=== PATIENT | male | born 1955 | race Caucasian/White ===

== ENCOUNTER 2021-01-18 15:34 | Inpatient (IN) ==
[2021-01-18] MEDS ORDERED: PIPERACILL/TAZOBAC CONSULT ACTIVE PRN ×2 (16:06→23:24)
[2021-01-18] MEDS ORDERED: PIPERACILLIN/TAZOBACTAM 4.5 GM/120 ML BAG IV ONE (16:06)
--- NOTE | 2021-01-18 16:16 | Emergency Department Note ---
History of Present Illness General Chief complaint: Infection, Wound Stated complaint: BILATERAL LEG INFECTIONS Time Seen by Provider: 01/18/21 15:50 History of Present Illness Maximum Pain Intensity: 6 This patient is a 65-year-old male via BLS for evaluation of bilateral lower leg discomfort that has gotten progressively worse over the last month. The patient denies any injury. The pain is mildly throbbing in nature. He denies any fever. No paresthesias reported. No chest pain or shortness of breath. He has not taken anything [id number] for pain. The patient lives at home. Home Medications Medication Instructions Recorded Confirmed Type aspirin [Aspir-Low] 81 mg PO DAILY 01/18/21 01/18/21 History Allergies Allergy/AdvReac Type Severity Reaction Status Date / Time No Known Allergies Allergy Unverified 01/18/21 19:52 Past Med/Surg History Medical History Hx of myocardial infarction Hx of stroke without residual deficits No pertinent past medical history Social History Smoking Status: Current some day smoker Hx Alcohol Use: No Hx Substance Use: No Preferred Language: Persian Communication Ability: Unable Beliefs That Will Affect Care: None Current Living Situation: Alone Feels Safe at Home: Declines to Answer Assistive Devices: CPAP Review of Systems A total of 10 systems reviewed and were otherwise negative Physical Exam Vital Signs Vital Signs - 24 hr 01/18/21 15:45 01/18/21 16:37 01/18/21 16:43 Temperature 36.9 C Temperature Source Oral Pulse Rate 90 93 H Pulse Rate [Apical] 92 H Pulse Rate from SpO2 Sensor Respiratory Rate 18 15 21 Blood Pressure 88/51 L 83/56 L Blood Pressure [Left Arm] 105/76 Blood Pressure Mean 63 65 Blood Pressure Mean [Left Arm] 85 Pulse Oximetry 100 Oxygen Delivery Method Room Air Room Air Sepsis Recent Fever Within 48 Hours No Sepsis New/Unexplained Change in Mental Status No Sepsis Action Taken by Nursing No Action Required 01/18/21 17:00 01/18/21 18:00 01/18/21 18:30 Temperature Temperature Source Pulse Rate 90 99 H 98 H Pulse Rate [Apical] Pulse Rate from SpO2 Sensor 99 H 99 H Respiratory Rate 18 16 26 H Blood Pressure 114/74 97/70 L 109/70 Blood Pressure [Left Arm] Blood Pressure Mean 87 79 83 Blood Pressure Mean [Left Arm] Pulse Oximetry 95 97 Oxygen Delivery Method Room Air Room Air Sepsis Recent Fever Within 48 Hours Sepsis New/Unexplained Change in Mental Status Sepsis Action Taken by Nursing 01/18/21 19:00 01/18/21 19:01 01/18/21 19:30 Temperature Temperature Source Pulse Rate 97 H 96 H 95 H Pulse Rate [Apical] Pulse Rate from SpO2 Sensor 96 H 96 H 137 H Respiratory Rate 26 H 25 H 23 Blood Pressure 103/73 105/70 Blood Pressure [Left Arm] Blood Pressure Mean 83 81 Blood Pressure Mean [Left Arm] Pulse Oximetry 96 97 Oxygen Delivery Method Room Air Room Air Sepsis Recent Fever Within 48 Hours Sepsis New/Unexplained Change in Mental Status Sepsis Action Taken by Nursing 01/18/21 19:31 01/18/21 20:00 01/18/21 20:13 Temperature Temperature Source Pulse Rate 94 H Pulse Rate [Apical] 96 H Pulse Rate from SpO2 Sensor 138 H 110 H Respiratory Rate 24 17 Blood Pressure 101/49 L Blood Pressure [Left Arm] Blood Pressure Mean 66 Blood Pressure Mean [Left Arm] Pulse Oximetry 96 Oxygen Delivery Method Room Air Sepsis Recent Fever Within 48 Hours Sepsis New/Unexplained Change in Mental Status Sepsis Action Taken by Nursing 01/18/21 20:30 01/18/21 21:00 Temperature Temperature Source Pulse Rate 98 H 100 H Pulse Rate [Apical] Pulse Rate from SpO2 Sensor 99 H 100 H Respiratory Rate 15 13 Blood Pressure 89/53 L 98/62 L Blood Pressure [Left Arm] Blood Pressure Mean 65 74 Blood Pressure Mean [Left Arm] Pulse Oximetry 95 Oxygen Delivery Method Room Air Sepsis Recent Fever Within 48 Hours Sepsis New/Unexplained Change in Mental Status Sepsis Action Taken by Nursing Constitutional WD/WN, vitals as above Eyes EOM intact bilaterally ENMT external ear and nose normal, oropharynx normal Neck trachea midline Respiratory normal respiratory effort, lungs clear to auscultation Cardiovascular RRR, no murmur, no edema Gastrointestinal (Abdomen) normal bowel sounds, soft, nontender, no hepatosplenomegaly Musculoskeletal Significantly excoriated skin noted on the lower extremities distal to the knee bilaterally. Significant discharge noted from the areas bilaterally in addition to a foul odor. DP pulse +2 bilaterally Dorsiflexion and plantarflexion intact bilaterally. Skin no rashes, warm and dry Please see musculoskeletal Neurologic Alert and oriented x3. No focal motor deficits. Psychiatric Acting appropriately Course Course Patient was seen and examined Vital signs including blood pressure were reviewed medications list was verified with patient Labs were obtained, and a saline lock was established An order was placed for continuous cardiac monitoring. The monitor shows a rate of normal sinus with 80 rhythm. The patient was ordered fluids, antibiotics and imaging. The case was discussed with my supervising physician in addition to the hospitalist medicine team. The findings were discussed with the patient. He voiced understanding and was comfortable being evaluated by the hospitalist for possible inpatient management. He remained stable in the emergency department Consultations Consultation #1: Dr. Garcia Administered Medications Aspirin (Aspirin 81 Mg Ectab) 81 mg PO DAILY [facility] Stop: 02/18/21 08:59 Last Admin: 01/19/21 09:29 Dose: 81 mg Documented by: [id number] Heparin Sodium (Porcine) (Heparin Sod 5,000 Unit/0.5 Ml Vial) 5,000 units SQ Q12 JADE Stop: 02/17/21 20:59 Last Admin: 01/19/21 20:34 Dose: 5,000 units Documented by: [id number] Admin: 01/19/21 09:38 Dose: 5,000 units Documented by: [id number] Admin: 01/19/21 00:07 Dose: 5,000 units Documented by: [id number] Piperacillin Sod/Tazobactam (Sod 3.375 gm/ Dextrose) 115 mls @ 28.75 mls/hr IV Q8H JADE; Protocol Stop: 01/26/21 00:00 Last Infusion: 01/19/21 20:34 Dose: 0 mls/hr Documented by: [id number] Admin: 01/19/21 16:31 Dose: 28.8 mls/hr Documented by: [id number] Infusion: 01/19/21 13:37 Dose: 0 mls/hr Documented by: [id number] Admin: 01/19/21 09:30 Dose: 28.8 mls/hr Documented by: [id number] Infusion: 01/19/21 04:05 Dose: 0 mls/hr Documented by: [id number] Admin: 01/19/21 00:07 Dose: 28.8 mls/hr Documented by: [id number] Vancomycin HCl 1,250 mg/ (Sodium Chloride) 275 mls @ 200 mls/hr IV Q8H JADE; Protocol Stop: 01/26/21 05:59 Last Infusion: 01/19/21 22:07 Dose: 0 mls/hr Documented by: [id number] Admin: 01/19/21 20:34 Dose: 200 mls/hr Documented by: [id number] Infusion: 01/19/21 16:25 Dose: 0 mls/hr Documented by: [id number] Admin: 01/19/21 13:38 Dose: 200 mls/hr Documented by: [id number] Infusion: 01/19/21 08:07 Dose: 0 mls/hr Documented by: [id number] Admin: 01/19/21 05:43 Dose: 200 mls/hr Documented by: [id number] Lactated Ringer's (Lr) 1,000 mls @ 125 mls/hr IV .Q8H [facility] Stop: 01/20/21 16:59 Last Admin: 01/19/21 17:22 Dose: 125 mls/hr Documented by: [id number] Infusion: 01/19/21 17:22 Dose: 125 mls/hr Documented by: [id number] Admin: 01/19/21 09:38 Dose: 125 mls/hr Documented by: [id number] Miscellaneous (Remove Nicoderm Patch) 1 ea N/A DAILY@[id number] [facility] Stop: 02/18/21 10:58 Last Admin: 01/19/21 12:39 Dose: Not Given Documented by: [id number] Nicotine (Nicotine 21 Mg/24 Hr Tdsy) 21 mg TD QAM [facility] Stop: 02/18/21 10:59 Last Admin: 01/19/21 12:39 Dose: 21 mg Documented by: [id number] Discontinued Medications Piperacillin Sod/Tazobactam Sod (Zosyn) 4.5 gm in 120 mls @ 240 mls/hr IV NOW ONE Stop: 01/18/21 16:35 Last Infusion: 01/18/21 18:41 Dose: 0 mls/hr Documented by: [id number] Admin: 01/18/21 18:11 Dose: 240 mls/hr Documented by: [id number] Sodium Chloride (Nss 1000ml) 1,000 mls @ 999 mls/hr IV .Q1H1M ONE Stop: 01/18/21 17:48 Last Infusion: 01/18/21 18:15 Dose: 0 mls/hr Documented by: [id number] Admin: 01/18/21 17:13 Dose: 999 mls/hr Documented by: [id number] Vancomycin HCl 2,000 mg/ (Sodium Chloride) 540 mls @ 200 mls/hr IV NOW ONE Stop: 01/18/21 19:29 Last Infusion: 01/18/21 22:44 Dose: 0 mls/hr Documented by: [id number] Admin: 01/18/21 19:01 Dose: 200 mls/hr Documented by: [id number] Sodium Chloride (Nss 1000ml) 1,000 mls @ 999 mls/hr IV .Q1H1M ONE Stop: 01/18/21 19:15 Last Infusion: 01/18/21 17:01 Dose: 0 mls/hr Documented by: [id number] Admin: 01/18/21 16:00 Dose: 999 mls/hr Documented by: [id number] Influenza Virus Vaccine (Influenza Vaccine High Dose 65+ 0.7 Ml Syr) 0.7 ml IM .ONCE ONE Stop: 01/19/21 09:01 Last Admin: 01/19/21 09:30 Dose: Not Given Documented by: [id number] Ioversol (Optiray 320 125ml) 118 ml IV ONCE ONE Stop: 01/18/21 17:33 Last Admin: 01/18/21 17:32 Dose: 118 ml Documented by: [id number] Pneumococcal Polyvalent Vaccine (Pneumococcal Polysaccharides 25 Mcg/0.5 Ml Vial/Syr) 25 mcg IM .ONCE ONE Stop: 01/19/21 09:01 Last Admin: 01/19/21 09:31 Dose: Not Given Documented by: [id number] Medical Decision Making Medical Records Attestation: I reviewed the patient's medical records. Home Medications Current Medication List: was personally reviewed by me Laboratory Data Attestation: I reviewed the patient's lab results. Result diagrams: 01/19/21 06:03 01/19/21 06:03 Lab Results 01/18/21 01/18/21 01/18/21 Range/Units 15:50 15:50 15:50 WBC 9.92 (4.8-10.8) K/uL RBC 4.83 (4.7-6.1) M/uL Hgb 13.1 L (14.0-18.0) g/dL Hct 38.8 L (42-52) % MCV 80.3 (80-100) fL MCH 27.1 (25-34) pg MCHC 33.8 (32-36) g/dL RDW Std Deviation 44.7 (36.4-46.3) fL RDW Coeff of Aliyah 15.3 H (11.5-14.5) % Plt Count 375 (130-400) K/uL MPV 10.2 (7.4-10.4) fL Immature Gran % (Auto) 0.4 % Neut % (Auto) 74.0 % Lymph % (Auto) 15.1 % Vance % (Auto) 9.1 % Eos % (Auto) 1.1 % Baso % (Auto) 0.3 % Neut # (Auto) 7.34 H (1.4-6.5) K/uL Lymph # (Auto) 1.50 (1.2-3.4) K/uL Vance # (Auto) 0.90 H (0.11-0.59) K/uL Eos # (Auto) 0.11 (0-0.5) K/uL Baso # (Auto) 0.03 (0-0.2) K/uL Immature Gran # (Auto) 0.04 H (0.00-0.02) K/uL PT 11.9 (9.0-12.0) Seconds INR 1.2 H (0.9-1.1) Sodium 139 (136-145) mmol/L Potassium 4.7 (3.5-5.1) mmol/L Chloride 108 H (98-107) mmol/L Carbon Dioxide 28 (21-32) mmol/L Anion Gap 3.0 (3-11) BUN 18 (7-18) mg/dl Creatinine 0.67 (0.6-1.4) mg/dl Est Cr Clr Drug Dosing 109.9 ml/min Est GFR ( Amer) 116.9 Est GFR (Non-Af Amer) 100.8 BUN/Creatinine Ratio 27.0 H (10-20) Glucose 91 (70-99) mg/dl Lactate (0.4-2.0) mmol/L Calcium 8.9 (8.5-10.1) mg/dl Phosphorus 4.2 (2.5-4.9) mg/dl Magnesium 2.1 (1.8-2.4) mg/dl Total Bilirubin 0.7 (0.2-1) mg/dl AST 62 H (15-37) U/L ALT 24 (12-78) U/L Alkaline Phosphatase 113 (45-117) U/L Troponin I 0.095 H* (0-0.045) ng/ml Total Protein 6.9 (6.4-8.2) gm/dl Albumin 2.8 L (3.4-5.0) gm/dl Globulin 4.1 H (2.5-4.0) gm/dl Albumin/Globulin Ratio 0.7 L (0.9-2) 01/18/21 Range/Units 16:35 WBC (4.8-10.8) K/uL RBC (4.7-6.1) M/uL Hgb (14.0-18.0) g/dL Hct (42-52) % MCV (80-100) fL MCH (25-34) pg MCHC (32-36) g/dL RDW Std Deviation (36.4-46.3) fL RDW Coeff of Aliyah (11.5-14.5) % Plt Count (130-400) K/uL MPV (7.4-10.4) fL Immature Gran % (Auto) % Neut % (Auto) % Lymph % (Auto) % Vance % (Auto) % Eos % (Auto) % Baso % (Auto) % Neut # (Auto) (1.4-6.5) K/uL Lymph # (Auto) (1.2-3.4) K/uL Vance # (Auto) (0.11-0.59) K/uL Eos # (Auto) (0-0.5) K/uL Baso # (Auto) (0-0.2) K/uL Immature Gran # (Auto) (0.00-0.02) K/uL PT (9.0-12.0) Seconds INR (0.9-1.1) Sodium (136-145) mmol/L Potassium (3.5-5.1) mmol/L Chloride (98-107) mmol/L Carbon Dioxide (21-32) mmol/L Anion Gap (3-11) BUN (7-18) mg/dl Creatinine (0.6-1.4) mg/dl Est Cr Clr Drug Dosing ml/min Est GFR ( Amer) Est GFR (Non-Af Amer) BUN/Creatinine Ratio (10-20) Glucose (70-99) mg/dl Lactate 3.6 H* (0.4-2.0) mmol/L Calcium (8.5-10.1) mg/dl Phosphorus (2.5-4.9) mg/dl Magnesium (1.8-2.4) mg/dl Total Bilirubin (0.2-1) mg/dl AST (15-37) U/L ALT (12-78) U/L Alkaline Phosphatase (45-117) U/L Troponin I (0-0.045) ng/ml Total Protein (6.4-8.2) gm/dl Albumin (3.4-5.0) gm/dl Globulin (2.5-4.0) gm/dl Albumin/Globulin Ratio (0.9-2) Imaging Data Attestation: I personally reviewed and interpreted this imaging study as follows: Radiologist's Impression: Chest x-ray 1. Cardiomegaly no evidence of focal pulmonary consolidation 2. Linear lucencies/gas collection located to the left of the upper thoracic trachea. This may represent a projectional artifact. Clinical correlation with any symptoms referrable to pneumomediastinum is recommended. ACT 112: Negative or not required by law. Electronically signed by: Phillip Gamez M.D. 01/18/2021 4:41 PM Dictated: 01/18/21 1638 Transcribed: 01/18/211637 CTA chest IMPRESSION: 1. Motion compromised study 2. No evidence of acute pulmonary embolism given the technical limitations of the study 3. Reflux of contrast into the hepatic veins a finding which may indicate elevated right heart pressures 4. Trace left pleural effusion 5. Pulmonary emphysema ACT 112: Negative or not required by law. Electronically signed by: Phillip Gamez M.D. 01/18/2021 5:46 PM Dictated: 01/18/21 1742 Transcribed: 01/18/211741 ECG Data Attestation: I personally reviewed and interpreted this ECG as follows: Rate (beats per minute): 89 Rhythm: + normal sinus Additional Comments: ST depression noted in V6 No prior for comparison No ectopy noted. Blood Pressure Blood Pressure Findings: Low blood pressure MDM Narrative Differential diagnosis: Cellulitis, DVT, sepsis, PE, intrathoracic abnormality, among others were considered This patient is a 65-year-old male who presents emergency department with a main complaint of leg pain. On exam, the patient had a foul odor from the legs. He was initially hypotensive. This corrected with fluids. His labs reveal no leukocytosis. H&H is stable. There is slight elevation in his troponin, which I suspect secondary to sepsis. There was a questionable finding on his chest x- ray, which is why we proceeded with CT of the chest. No pneumomediastinum was found. Given the patient's appearance of his legs, I did not feel comfortable sending the patient's home. For this reason, it was felt that hospitalist consultation was warranted. he will be evaluated for likely inpatient management. Impression & Plan Sepsis Discharge Plan Visit Data Chief Complaint: Infection, Wound Stated Complaint: BILATERAL LEG INFECTIONS ED Provider: Varun Brennan ED Midlevel Provider: Nelly Hardwick Discharge Problem: Sepsis Patient Disposition: Admitted As Inpatient Discharge Instructions Interventions: ED Discharge Assessment Last Done: 01/18/21 23:05 Addendum (Blank) Addendum January 19, 2021 23:25 HPI: 65 y/o gentleman presents with BLE swelling, pain, and redness evolving over past month with associated generalized weakness in the setting lack of medical care for some time. PE: Disheveled/unkempt. Ill/fatigued appearing, AF, hypotensive but fluid responsive. Otherwise, VSS. NC/AT Dry cracked MM. Ext: 2+ bilateral lower extremity edema, erythema, warmth, tenderness, with scattered excoriated areas with serous fowl smelling weeping. No crepitus. Neuro: Generalized weakness throughout without focal deficits. Plan: CXR likely artifactual. CTA chest negative for PE. Lactate 3.6. Chemistry without acidosis. Troponin mildly elevated likely demand in setting of severe cellulitis/possible sepsis, Blood cx drawn. Broad spectrum ABX. Admit. Patient and daughter agree. I reviewed the patient's past medical history, medications, and visit nursing notes. I discussed the case with the physician food and beverage assistant, examined the patient, and agree with the findings and plan as documented in PAC Ronen's note.
[2021-01-18 16:17] LABS: Basophils # (auto) 0.03 K/uL (0-0.2); Basophils % (auto) 0.3 %; Eosinophils # (auto) 0.11 K/uL (0-0.5); Eosinophils % (auto) 1.1 %; Hematocrit (blood only) 38.8 % (42-52); Hemoglobin 13.1 g/dL (14.0-18.0); Immature Granulocytes # (auto) 0.04 K/uL (0.00-0.02); Immature Granulocytes % (auto) 0.4 %; Lymphocytes % (auto) 15.1 %; Mean Corpuscular Hemoglobin 27.1 pg (25-34); Mean Corpuscular Hgb Conc 33.8 g/dL (32-36); Mean Corpuscular Volume 80.3 fL (80-100); Mean Platelet Volume 10.2 fL (7.4-10.4); Monocytes % (auto) 9.1 %; Neutrophils # (auto) 7.34 K/uL (1.4-6.5); Platelet Count 375 K/uL (130-400); RDW Coefficient of Variation 15.3 % (11.5-14.5); RDW Standard Deviation 44.7 fL (36.4-46.3); Red Blood Count 4.83 M/uL (4.7-6.1); White Blood Count 9.92 K/uL (4.8-10.8)
[2021-01-18 16:25] LABS: INR 1.2 (0.9-1.1); Prothrombin Time 11.9 Seconds (9.0-12.0)
[2021-01-18 16:26] LABS: Albumin Level 2.8 gm/dl (3.4-5.0); Calcium 8.9 mg/dl (8.5-10.1); Creatinine Clr Calc Pharmacy 109.9 ml/min; Est GFR (African American) 116.9; Est GFR (Non-African American) 100.8; Magnesium 2.1 mg/dl (1.8-2.4); Potassium 4.7 mmol/L (3.5-5.1)
[2021-01-18 16:35] LABS: Albumin Globulin Ratio 0.7 (0.9-2); Bilirubin,Total 0.7 mg/dl (0.2-1); Globulin 4.1 gm/dl (2.5-4.0); Phosphorus 4.2 mg/dl (2.5-4.9); Total Protein 6.9 gm/dl (6.4-8.2); Troponin I 0.095 ng/ml (0-0.045)
--- NOTE | 2021-01-18 16:42 | XRay Report ---
XR chest 1V portable CLINICAL HISTORY: lower leg pain COMPARISON STUDY: No previous studies for comparison. FINDINGS: The heart is enlarged. There are postsurgical changes of a midline sternotomy. There is no failure. There is no focal pulmonary consolidation. There are no pleural effusions.[There is a linear lucency/gas collection located to the left of the upper thoracic trachea. As there is no visible sub cutaneous emphysema within the neck or other evidence for pneumomediastinum, this may represent a pro jectional artifact. IMPRESSION: 1. Cardiomegaly no evidence of focal pulmonary consolidation 2. Linear lucencies/gas collection located to the left of the upper thoracic trachea. This may repres ent a projectional artifact. Clinical correlation with any symptoms referrable to pneumomediastinum i s recommended. ACT 112: Negative or not required by law. Electronically signed by: Phillip Gamez M.D. 01/18/2021 4:41 PM
[2021-01-18] MEDS ORDERED: VANCOMYCIN HCL 2,000 MG in SODIUM CHLORIDE 0.9% 500 ML IV ONE (16:48)
[2021-01-18] MEDS ORDERED: SODIUM CHLORIDE 0.9% 1000ML 1,000 ML IV ONE ×2 (16:48→18:15)
[2021-01-18] MEDS ORDERED: VANCOMYCIN CONSULT ACTIVE PRN ×2 (16:48→23:24)
[2021-01-18] MEDS ORDERED: OPTIRAY 320 125ml IV ONE (17:32)
--- NOTE | 2021-01-18 17:47 | CT Scan Report ---
CT ANGIOGRAM OF THE CHEST CLINICAL HISTORY: Elevated troponin, possible sepsis rule out PE ATYPICAL CHEST PAIN COMPARISON STUDY: Chest x-ray dated 01/18/2021 TECHNIQUE: Following the IV administration of 118 mL of Optiray-320, CT angiogram of the thorax was p erformed from the thoracic inlet to the lung bases utilizing the pulmonary embolus protocol. Images a re reviewed in the axial, sagittal, and coronal planes. IV contrast was administered without complica tion. MIP imaging was performed. A dose lowering technique was utilized adhering to the principles o f ALARA. CT DOSE: 646.73 mGycm FINDINGS: No pathologically enlarged axillary mediastinal or hilar lymph nodes were visualized. There was no evidence of thoracic aortic dilatation. There were no pulmonary artery filling defects to indicate acute pulmonary embolism. Evaluation of lo wer lobe vessels is somewhat limited due to respiratory motion artifact. There is a trace left pleural effusion. There is pulmonary emphysema. There is no evidence of focal pulmonary consolidation. The heart is enlarged. There are coronary artery calcifications. There is reflux of contrast into the hepatic veins a finding which may indicate elevated right heart pressures. IMPRESSION: 1. Motion compromised study 2. No evidence of acute pulmonary embolism given the technical limitations of the study 3. Reflux of contrast into the hepatic veins a finding which may indicate elevated right heart pressu res 4. Trace left pleural effusion 5. Pulmonary emphysema ACT 112: Negative or not required by law. Electronically signed by: Phillip Gamez M.D. 01/18/2021 5:46 PM
--- NOTE | 2021-01-18 20:15 | History & Physical Report ---
Date of Service January 18, 2021 Assessment & Plan (1) Sepsis: wbc normal, afebrile, tachycardic and mildly hypotensive elevated troponin more likely due to demand ischemia/hypotension from sepsis trend cbc received 2L NS bolus in ER lactate down from 3.6 to 1.4 with fluids continue to monitor for adequate perfusion in pt with likely high grade PVD and PAD (2) Open leg wound: Vanc and Zosyn continued from ER while blood and wound cultures are pendi ng wound care consult (would benefit from unna boots) trend cbc (3) Smoking greater than 40 pack years: likely high grade PVD/PAD in addition to chronic venous stasis no chronic medical care wheezing likely 2/2 COPD; emphysema seen on CT Chest daily asa TTE to eval underlying HF/cardiomyopathy contributing to state of disease A1c, lipid panel in am (4) Elevated troponin: 0.095 -> 0.112 no previous labs for comparison EKG showing borderline wide QRS complex in V3-V6, possible left atrial enlargement, difficult EKG interpretation repeat trop, cr wnl no complaints of chest pain nitro PRN for chest pain with EKG TTE ordered PCU DVT ppx: heparin BID FEN/GI: carb consistent, heart healthy, <2g salt Code status: FUll COde Dispo: PCU History of Present Illness 65-year-old male with a past medical history of stroke and heart attack who presents to the ER with complaints of leg pain ongoing for months. He states that he does not take any medications and questionably has never seen a doctor at an actual appointment. He states his children have been bugging him to go to the hospital and get his legs checked out so today he finally did as he was tired of fighting them. He denies any numbness or tingling, weakness in his legs. He states he has an extensive smoking history and at his highest was smoking 4 packs a day. He is not sure how many packs he goes through at this point because he rolls his own cigarettes and "smoke one when I want to smoke one". He denies a history of hypertension or diabetes. Primary Care Provider: NO PCP Allergies Allergy/AdvReac Type Severity Reaction Status Date / Time No Known Allergies Allergy Unverified 01/18/21 19:52 Home Medications Medication Instructions Recorded Confirmed Type aspirin [Aspir-Low] 81 mg PO DAILY 01/18/21 01/18/21 History Past Med/Surg History Medical History Hx of myocardial infarction Hx of stroke without residual deficits No pertinent past medical history Social History Smoking Status: Current some day smoker Hx Alcohol Use: No Hx Substance Use: No Preferred Language: Occitan Communication Ability: Unable Beliefs That Will Affect Care: None Current Living Situation: Alone Feels Safe at Home: Declines to Answer Assistive Devices: CPAP Review of Systems Constitutional: no fever, no chills, no body aches and no fatigue Respiratory: no cough and no dyspnea Cardiovascular: no chest pain, no dyspnea and no edema Gastrointestinal: no abdominal pain, no nausea, no vomiting, no constipation and no diarrhea/loose stools Integumentary: + lesions, + sores, + wounds and + nail changes Physical Exam Physical Exam: Constitutional: elderly appearing unkempt male in no apparent distress, laying curled up in bed. Eyes: EOMI, pupils equal and reactive bilaterally, no scleral icterus Cardiac: tachycardic, RR, no murmurs, gallops or rubs. Normal S1, S2 Pulm: diffuse insp and expiratory wheezing bilaterally, able to breathe in without difficulty, no cough Abd: soft, nontender, nondistended, normal bowel sounds, no rebound or guarding Extremities: overlying chronic venous stasis changes of skin on calves and shins bilaterally, open and seeping wound in multiple places, pulses unpalpable due to local swelling and thickened skin, dried skin Neuro: speaks slowly but no focal deficits, moving all 4 limbs, A&Ox3 Results & Data Results & Data ([facility]) Vital Signs (Past 12 Hours) Vital Signs Temp Pulse Pulse Resp BP BP Pulse Ox 01/18/21 19:31 94 H 24 01/18/21 19:30 95 H 23 105/70 01/18/21 19:01 96 H 25 H 97 01/18/21 19:00 97 H 26 H 103/73 96 01/18/21 18:30 98 H 26 H 109/70 97 01/18/21 18:00 99 H 16 97/70 L 95 01/18/21 17:00 90 18 114/74 01/18/21 16:43 92 H 21 105/76 01/18/21 16:37 93 H 15 83/56 L 01/18/21 15:45 36.9 C 90 18 88/51 L 100 Laboratory Results WBC 9.92 K/uL (4.8-10.8) 01/18/21 15:50 RBC 4.83 M/uL (4.7-6.1) 01/18/21 15:50 Hgb 13.1 g/dL (14.0-18.0) L 01/18/21 15:50 Hct 38.8 % (42-52) L 01/18/21 15:50 MCV 80.3 fL (80-100) 01/18/21 15:50 MCH 27.1 pg (25-34) 01/18/21 15:50 MCHC 33.8 g/dL (32-36) 01/18/21 15:50 RDW Std Deviation 44.7 fL (36.4-46.3) 01/18/21 15:50 RDW Coeff of Aliyah 15.3 % (11.5-14.5) H 01/18/21 15:50 Plt Count 375 K/uL (130-400) 01/18/21 15:50 MPV 10.2 fL (7.4-10.4) 01/18/21 15:50 Immature Gran % (Auto) 0.4 % 01/18/21 15:50 Neut % (Auto) 74.0 % 01/18/21 15:50 Lymph % (Auto) 15.1 % 01/18/21 15:50 [place] % (Auto) 9.1 % 01/18/21 15:50 Eos % (Auto) 1.1 % 01/18/21 15:50 Baso % (Auto) 0.3 % 01/18/21 15:50 Neut # (Auto) 7.34 K/uL (1.4-6.5) H 01/18/21 15:50 Lymph # (Auto) 1.50 K/uL (1.2-3.4) 01/18/21 15:50 [place] # (Auto) 0.90 K/uL (0.11-0.59) H 01/18/21 15:50 Eos # (Auto) 0.11 K/uL (0-0.5) 01/18/21 15:50 Baso # (Auto) 0.03 K/uL (0-0.2) 01/18/21 15:50 Immature Gran # (Auto) 0.04 K/uL (0.00-0.02) H 01/18/21 15:50 PT 11.9 Seconds (9.0-12.0) 01/18/21 15:50 INR 1.2 (0.9-1.1) H 01/18/21 15:50 Sodium 139 mmol/L (136-145) 01/18/21 15:50 Potassium 4.7 mmol/L (3.5-5.1) 01/18/21 15:50 Chloride 108 mmol/L (98-107) H 01/18/21 15:50 Carbon Dioxide 28 mmol/L (21-32) 01/18/21 15:50 Anion Gap 3.0 (3-11) 01/18/21 15:50 BUN 18 mg/dl (7-18) 01/18/21 15:50 Creatinine 0.67 mg/dl (0.6-1.4) 01/18/21 15:50 Est Cr Clr Drug Dosing 109.9 ml/min 01/18/21 15:50 Est GFR ( Amer) 116.9 01/18/21 15:50 Est GFR (Non-Af Amer) 100.8 01/18/21 15:50 BUN/Creatinine Ratio 27.0 (10-20) H 01/18/21 15:50 Glucose 91 mg/dl (70-99) 01/18/21 15:50 Lactate 1.4 mmol/L (0.4-2.0) 01/18/21 20:52 Calcium 8.9 mg/dl (8.5-10.1) 01/18/21 15:50 Phosphorus 4.2 mg/dl (2.5-4.9) 01/18/21 15:50 Magnesium 2.1 mg/dl (1.8-2.4) 01/18/21 15:50 Total Bilirubin 0.7 mg/dl (0.2-1) 01/18/21 15:50 AST 62 U/L (15-37) H 01/18/21 15:50 ALT 24 U/L (12-78) 01/18/21 15:50 Alkaline Phosphatase 113 U/L (45-117) 01/18/21 15:50 Troponin I 0.112 ng/ml (0-0.045) H* 01/18/21 20:52 Total Protein 6.9 gm/dl (6.4-8.2) 01/18/21 15:50 Albumin 2.8 gm/dl (3.4-5.0) L 01/18/21 15:50 Globulin 4.1 gm/dl (2.5-4.0) H 01/18/21 15:50 Albumin/Globulin Ratio 0.7 (0.9-2) L 01/18/21 15:50 COVID-19 [facility] 01/18/21 20:12 SARS-CoV-2, RNA, NAAT NEGATIVE (NEGATIVE) 01/18/21 20:12 Code Status & VTE Plan VTE Prophylaxis Plan VTE Prophylaxis will be ordered: Yes Supervising Physician Co-Signing Physician Notes Attending addendum: I have physically seen this patient, have supervised the medical residents activities, and agree with the H&P unless as otherwise noted. Assessment and Plan: Elevated troponin/CAD- The patient will be admitted to telemetry for serial cardiac enzymes, serial EKG's, cardiac rhythm monitoring and a 2-D echocardiogram with Dopplers. Aspirin 81 mg daily Troponin 0 0.095 upon admission, likely supply demand mismatch, type II UT Leg wound- Vancomycin and Zosyn IV. Follow wound culture and sensitivity Consult wound care Would be a good candidate for Unna boots as an outpatient Tobacco use disorder- Cessation counseling Resident Activity Tracking Resident Involvement: Resident Care Provided Care Provided: Adult Hospital Medicine
[2021-01-18] MEDS ORDERED: ONDANSETRON INJ 2 MG/ML 2 ML VIAL IV PRN (23:24)
[2021-01-18] MEDS ORDERED: MAGNESIUM HYDROXIDE SUSP 30 ML UDC PO PRN (23:24)
[2021-01-18] MEDS ORDERED: ACETAMINOPHEN 325 MG TAB PO PRN (23:24)
[2021-01-18] MEDS ORDERED: POLYETHYLENE (MIRALAX) 17 GM PACK PO PRN (23:24)
[2021-01-19] MEDS: HEPARIN SOD 5,000 UNIT/0.5 ML VIAL SQ SCH ×3 (00:07→20:34)
[2021-01-19] MEDS: PIPERACILLIN/TAZOBACTAM 3.375 GM in DEXTROSE 5% 100 ML IV SCH ×3 (00:07→16:31)
--- NOTE | 2021-01-19 03:42 | Pharmacy Report ---
Pharmacy Abx Initial Consult - Date of Service January 19, 2021 - Pharmacy Dosing Scope Date of Consult: 01/18/21 Consultation requested by: Dr. Pennington Pharmacy is consulted to continue Vancomycin and Zosyn dosing therapy, order appropriate labs and adjust drug dose/frequency. - Subjective The patient is a 65 year old M admitted on 01/18/21 19:58 with a concerning leg infection. Patient is long time smoker who has had a worsening cellulitis of his lower extremity and presents to the ED due to his children hassling him to get it looked at. He claims to never visits doctors or takes medications. Dr. Pennington admits him to telemetry for his infection and sepsis diagnosis continuing both Vancomycin and Zosyn begun in the ED. - Objective Height: 5 ft 9 in Weight: 81.8 kg Vital Signs (Past 12hrs): Vital Signs Temp Pulse Pulse Pulse Resp BP BP 01/18/21 23:21 37.5 C 94 H 24 106/65 01/18/21 22:57 76 24 126/52 L 01/18/21 21:00 100 H 13 98/62 L 01/18/21 20:30 98 H 15 89/53 L 01/18/21 20:13 96 H 17 01/18/21 20:00 101/49 L 01/18/21 19:31 94 H 24 01/18/21 19:30 95 H 23 105/70 01/18/21 19:01 96 H 25 H 01/18/21 19:00 97 H 26 H 103/73 01/18/21 18:30 98 H 26 H 109/70 01/18/21 18:00 99 H 16 97/70 L 01/18/21 17:00 90 18 114/74 01/18/21 16:43 92 H 21 105/76 01/18/21 16:37 93 H 15 83/56 L 01/18/21 15:45 36.9 C 90 18 88/51 L Pulse Ox 01/18/21 23:21 95 01/18/21 22:57 95 01/18/21 21:00 95 01/18/21 20:30 01/18/21 20:13 96 01/18/21 20:00 01/18/21 19:31 01/18/21 19:30 01/18/21 19:01 97 01/18/21 19:00 96 01/18/21 18:30 97 01/18/21 18:00 95 01/18/21 17:00 01/18/21 16:43 01/18/21 16:37 01/18/21 15:45 100 Lab Results (24hrs): Laboratory Tests (24 Hours) 01/18/21 01/18/21 15:50 15:50 WBC 9.92 Neut # (Auto) 7.34 H Creatinine 0.67 Est Cr Clr Drug Dosing 109.9 Micro Results: 01/18/21 16:35 Aerobic Blood Culture - Pending Blood Anaerobic Blood Culture - Pending 01/18/21 16:35 Aerobic Blood Culture - Pending Blood Anaerobic Blood Culture - Pending - Risk Factors for Resistance * - Assessment & Plan Assessment 65 year old M with leg infection (cellulitis) Plan Vancomycin IV * Estimated PK Parameters: Vd 0.7 L/kg, Moises 0.096 hr-1, t1/2 7.2 hr * Loading dose: 2000 mg (~24 mg/kg) * Maintenance dose: 1250 mg IV (~15 mg/kg) every 8 hours (AUC nomogram) * Goal trough level: at least 15 mcg/mL * Trough level ordered prior to 0600 dose on 01/20/21 Piperacillin/tazobactam * 4.5g bolus administered over 30 minutes, then 3.375 g IV extended infusion every 8 hours for CrCl greater than 20 mL/min Pharmacy will continue to follow and will adjust dose/frequency as necessary. Thank you.
[2021-01-19] MEDS: VANCOMYCIN HCL 1,250 MG in SODIUM CHLORIDE 0.9% 250 ML IV SCH ×3 (05:43→20:34)
[2021-01-19 06:22] LABS: Basophils # (auto) 0.03 K/uL (0-0.2); Basophils % (auto) 0.3 %; Eosinophils # (auto) 0.02 K/uL (0-0.5); Eosinophils % (auto) 0.2 %; Hematocrit (blood only) 36.2 % (42-52); Hemoglobin 11.8 g/dL (14.0-18.0); Immature Granulocytes # (auto) 0.03 K/uL (0.00-0.02); Immature Granulocytes % (auto) 0.3 %; Lymphocytes % (auto) 10.6 %; Mean Corpuscular Hemoglobin 26.3 pg (25-34); Mean Corpuscular Hgb Conc 32.6 g/dL (32-36); Mean Corpuscular Volume 80.8 fL (80-100); Mean Platelet Volume 9.8 fL (7.4-10.4); Monocytes % (auto) 10.6 %; Neutrophils # (auto) 8.08 K/uL (1.4-6.5); Platelet Count 268 K/uL (130-400); RDW Coefficient of Variation 15.3 % (11.5-14.5); RDW Standard Deviation 44.4 fL (36.4-46.3); Red Blood Count 4.48 M/uL (4.7-6.1); White Blood Count 10.36 K/uL (4.8-10.8)
[2021-01-19 06:44] LABS: BUN Creatinine Ratio 20.9 (10-20); Calcium 9.3 mg/dl (8.5-10.1); Creatinine Clr Calc Pharmacy 102.3 ml/min; Est GFR (African American) 113.5; Est GFR (Non-African American) 97.9; Potassium 4.4 mmol/L (3.5-5.1)
[2021-01-19] MEDS ORDERED: INFLUENZA ADMINISTRATION CHARGE ONE (09:00)
[2021-01-19] MEDS ORDERED: PNEUMOCOCCAL ADMINISTRATION CHARGE ONE (09:00)
[2021-01-19] MEDS ORDERED: INFLUENZA VACCINE HIGH DOSE 65+ 0.7 ML SYR IM ONE (09:00)
[2021-01-19] MEDS ORDERED: PNEUMOCOCCAL POLYSACCHARIDES 25 MCG/0.5 ML VIAL/SYR IM ONE (09:00)
[2021-01-19] MEDS: ASPIRIN 81 MG ECTAB PO SCH (09:29)
--- NOTE | 2021-01-19 09:30 | Ultrasound Report ---
US arterial duplex LE BI CLINICAL HISTORY: PVD, infection, poor pulses COMPARISON STUDY: No previous studies for comparison. FINDINGS: The examination was limited from a technical standpoint. The patient was unable to remain still due t o perceived pain. Ankle brachial indices were not obtained due to bilateral leg wounds. There was triphasic flow within the right common femoral artery. There is monophasic flow within the right common femoral artery with low velocity flow. There is monophasic flow within the popliteal art pippa. There is monophasic flow within the right anterior tibial. There is monophasic flow within the r ight posterior tibial. The right peroneal artery appeared occluded. The left, evaluation was difficult as the left leg was contracted. There is monophasic flow within th e left common femoral. The left superficial femoral artery appears occluded. Left popliteal artery ca nnot be assessed. There is reversed flow within the left anterior tibial. There is monophasic flow wi thin the left posterior tibial and peroneal. IMPRESSION: 1. Significantly limited study from a technical standpoint 2. Severe bilateral atherosclerotic changes. Probable occlusion of left superficial femoral artery. L ow velocity monophasic flow within the right superficial femoral artery and more distal arteries. Andie pected occlusion of the right peroneal artery. ACT 112: Negative or not required by law. Electronically signed by: Phillip Gamez M.D. 01/19/2021 9:29 AM
[2021-01-19] MEDS: LACTATED RINGER'S 1,000 ML IV SCH ×2 (09:38→17:22)
--- NOTE | 2021-01-19 09:46 | Cardiology Consultation ---
Date of Consultation January 19, 2021 Assessment & Plan (1) Elevated troponin: His elevated troponin is most consistent with demand ischemia in the presence of known coronary artery disease. The level is low enough that I would not be in favor of any further evaluation. (2) CAD (coronary artery disease): He has known coronary artery disease, he has had bypass in the past based on his history (I do not have records, it was at [place] per the patient) however I do not think it would be prudent to pursue evaluation. He is not compliant, I would be very hesitant to place a stent and he is asymptomatic so evaluation and intervention is not really indicated. (3) Smoking greater than 40 pack years: He should stop smoking, but it does not sound as though he has any intention of doing so. History of Present Illness Reason for Consultation: Coronary artery disease, elevated troponin Attending Physician: Kyung Navarro MD History of Present Illness This is a 65-year-old male who has had cardiovascular care in the [place] area according to him. He tells me that he had a heart attack in 2008, he does not seem to know anything about it but he tells me he woke up in his house with a bunch of people around him, was taken to [place] and ended up with 2 bypasses. He tells me he does not believe in putting chemicals in his body (although he smokes) and therefore does not take medications. He also tells me he really has not seen a physician in years. He was admitted to the hospital with a leg wound and sepsis, he is little difficult to interview as he lays in bed with his eyes closed during the interview process and answers with one-word answers. He is not having any chest discomfort or shortness of breath per his responses. Here in the hospital he was observed to have a slightly elevated troponin which has been trending upwards. His last, and hiatus, measurement was 0.163. His electrocardiogram in the emergency room did suggest an anterior and possibly inferior myocardial infarction with some lateral T wave abnormalities but no ST elevation. Allergies Allergy/AdvReac Type Severity Reaction Status Date / Time No Known Allergies Allergy Unverified 01/18/21 19:52 Home Medications Medication Instructions Recorded Confirmed Type aspirin [Aspir-Low] 81 mg PO DAILY 01/18/21 01/18/21 History Patient History Medical History Hx of myocardial infarction Hx of stroke without residual deficits No pertinent past medical history Social History Smoking Status: Current some day smoker Hx Alcohol Use: No Hx Substance Use: No Preferred Language: Mauritian Communication Ability: Unable Beliefs That Will Affect Care: None Current Living Situation: Alone Feels Safe at Home: Declines to Answer Assistive Devices: CPAP Review of Systems Review of Systems: All systems reviewed & are unremarkable except as noted in HPI & below Physical Exam Physical Exam: Constitutional: Alert, cooperative and in no distress. HEENT: Unremarkable Neck: No jugular venous distention, carotid pulses are normal and equal bilaterally without bruits. Pulmonary: Rhonchi on auscultation bilaterally. Cardiac: Regular rhythm with no murmur, gallop or rub. Abdomen: Soft, nontender with normal bowel sounds. Extremities: Edema. Distal pulses not palpable. Neurologic: No focal findings. Gait was not tested. Skin: No rash, ecchymoses or petechiae. His legs are notable for multiple lesions and signs of chronic venous stasis. Results & Data ([facility]) Vital Signs (Past 12 Hours) Vital Signs Temp Pulse Pulse Resp BP Pulse Ox 01/19/21 07:49 37.3 C 84 21 99/64 L 94 01/18/21 23:21 37.5 C 94 H 24 106/65 95 01/18/21 22:57 76 24 126/52 L 95 Laboratory Results Cardiac Enzymes 01/18/21 01/18/21 01/19/21 Range/Units 15:50 20:52 06:03 AST 62 H (15-37) U/L Troponin I 0.095 H* 0.112 H* 0.163 H* (0-0.045) ng/ml Coagulation 01/18/21 Range/Units 15:50 PT 11.9 (9.0-12.0) Seconds Lipids 01/19/21 Range/Units 06:03 Triglycerides 64 (0-150) mg/dl Cholesterol 118 (0-200) mg/dl HDL Cholesterol 38 mg/dl Cholesterol/HDL Ratio 3 CBC 01/18/21 01/19/21 Range/Units 15:50 06:03 WBC 9.92 10.36 (4.8-10.8) K/uL RBC 4.83 4.48 L (4.7-6.1) M/uL Hgb 13.1 L 11.8 L (14.0-18.0) g/dL Hct 38.8 L 36.2 L (42-52) % Plt Count 375 268 (130-400) K/uL Neut # (Auto) 7.34 H 8.08 H (1.4-6.5) K/uL Lymph # (Auto) 1.50 1.10 L (1.2-3.4) K/uL [place] # (Auto) 0.90 H 1.10 H (0.11-0.59) K/uL Eos # (Auto) 0.11 0.02 (0-0.5) K/uL Baso # (Auto) 0.03 0.03 (0-0.2) K/uL Comprehensive Metabolic Panel 01/18/21 01/19/21 Range/Units 15:50 06:03 Sodium 139 140 (136-145) mmol/L Potassium 4.7 4.4 (3.5-5.1) mmol/L Chloride 108 H 110 H (98-107) mmol/L Carbon Dioxide 28 24 (21-32) mmol/L BUN 18 15 (7-18) mg/dl Creatinine 0.67 0.72 (0.6-1.4) mg/dl Glucose 91 90 (70-99) mg/dl Calcium 8.9 9.3 (8.5-10.1) mg/dl AST 62 H (15-37) U/L ALT 24 (12-78) U/L Alkaline Phosphatase 113 (45-117) U/L Total Protein 6.9 (6.4-8.2) gm/dl Albumin 2.8 L (3.4-5.0) gm/dl Intake and Output 01/18/21 01/19/21 01/19/21 22:59 06:59 14:59 Intake Total 2910 / 3025 115 / 3025 275 / 275 Balance 2910 / 3025 115 / 3025 275 / 275 Intake: IV 2910 / 3025 115 / 3025 275 / 275 Zosyn 3.375 gm In D5 100 ml @ 115 / 115 28.75 mls/hr IV Q8H [facility] Rx#: [id number] ZOSYN 4.5 gm In 120 ml @ 240 120 / 120 mls/hr IV NOW ONE Rx#:[id number] Nss 1000ML 1,000 ml @ 999 mls/ 2000 / 2000 hr IV .Q1H1M ONE Rx#:[id number] Vancomycin HCl 1,250 mg In Nss 275 / 275 250 ml @ 200 mls/hr IV Q8H [facility] Rx#:[id number] Vancomycin HCl 2,000 mg In Nss 540 / 540 500 ml @ 200 mls/hr IV NOW ONE Rx#:[id number] Right Antecubital 250 / 250 Oral 0 / 0 Other: # Unmeasured Voids 1 Weight 81.8 kg 81.8 kg Weight Measurement Method Built [facility] Bed[facility] Diagnostic Findings Telemetry: Sinus rhythm, no significant arrhythmia. PG Care Time/CCT Total # of Minutes Spent Total Time Spent with Patient: Total time spent is greater than 50% in coordination of care (as documented) at patient's floor/unit and/or counseling patient: Coding Level of Care Code 72405 Initial Inpt Care Lvl 3 Diagnoses Elevated troponin R77.8 CAD (coronary artery disease) I25.10 Associated angina: without angina Coronary Disease-Associated Artery/Lesion type: [place] artery [place] vs. transplanted heart: [place] heart Smoking greater than 40 pack years F17.210 (1) CAD (coronary artery disease) Associated angina: without angina Coronary Disease-Associated Artery/Lesion type: [place] artery [place] vs. transplanted heart: [place] heart Qualified Code(s): I25.10 - Atherosclerotic heart disease of [place] coronary artery without angina pectoris
[2021-01-19] MEDS: NICOTINE 21 MG/24 HR TDSY TD SCH (12:39)
--- NOTE | 2021-01-19 13:35 | Medical Student Progress Note ---
Date of Service January 19, 2021 Assessment & Plan (1) Sepsis: Mr. Hankins is a 65yo male with a PMHx of CAD, CT, and stroke who presented to the ED last night complaining of months of ongoing leg pain. He hasn't seen a doctor in years and is not interested in smoking cessation or adding many new medications at this time. Denies Hx of HTN or DMII. Sepsis -Likely infection source with BLE ulcerations, especially on the left. Likely secondary to PAD/PVD. -Receiving pip/tazo @28.75/hr IV and vancomycin @200/hr IV for antibiotic coverage. Wound and blood cultures pending. -WBC 10.36 WNL, afebrile, initially tachycardic but most recently HR 82, initially mildly hypotensive but most recently BP 102/66. Continue to monitor CBC and vitals. -Received 2L NS bolus in ED and lactate improved from 3.6 to most recently 1.4. -Elevated troponin most recently 0.163 likely related to demand myocardial ischemia in the setting of acute illness. FEN: LR 125mL/hr, monitoring CMP, heart healthy diet DVT PPx: Heparin 5000 units SQ BID Code status: Full Code Disposition: Remain inpatient to monitor Sx, labs, and await TTE results for possible diagnostic and medication management updates. (2) Open leg wound: -Known CAD and extensive smoking history, likely PAD/PVD. Pt reports worsening ulceration in BLE L>R for several months now seeping pus and blood. Bandaged and wound management involved. On antibiotics with cultures pending. (3) Smoking greater than 40 pack years: -Likely PAD/PVD given smoking history, claudication, and now ulceration bilaterally. Pt received minimal medical care and few doctors seen over past several decades. Pt has been taking a daily aspirin for past decade, but this is his only medication and he does not seem keen to add new medications outpatient. EMELYN pending. A1c pending. -Continue ASA 81. -Continue nicotine patches while inpatient and monitor Sx for possible dose adjustment. -Wheezing on exam and chronic cough likely secondary to COPD. CTA found evidence of pulmonary emphysema which is further suggestive. Will discuss inhaler management. -Duplex lower extremity found severe bilateral atherosclerosis, probable occlusion of the left superficial femoral artery and likely occlusion of the right peroneal artery. (4) CAD (coronary artery disease): -Hx CT 2008 in [place], pt reports he received cardiac bypass but we do not presently have records. On ASA but no other meds. -Vitals stable. Continue to monitor. -Cardiology consulted, their recommendations are appreciated. Associated angina: without angina Coronary Disease-Associated Artery/Lesion type: [place] artery [place] vs. transplanted heart: [place] heart Qualified Code(s): I25.10 - Atherosclerotic heart disease of [place] coronary artery without angina pectoris (5) Elevated troponin: -Likely a demand ischemia related to age, comorbidities, and acute illness. -Cardiology consulted, recs appreciated (6) Routine health maintenance: Pt not seen a doctor in many years. Received flu vaccine and pneumovax-23. Admission and Anticipated Discharge Date Admission Date: January 18, 2021 Supervising Attestation Medical Student Supervision Note: I was personally present during medical student patient encounter and independently interviewed and examined the patient and verified the curry history and physical, reviewed labs and image studies, discussed the case with Iain Arizmendi and agree with the findings and care plan. Sepsis - sec to leg wond - cultures, broad spectrum abx, IVF Leg wound - wound care, concern of underlying PAD. TAMARA Tob use ds - nicotine patch. CAD with mild elevation in troponin - cardio consulted. Subjective Mr. Hankins is laying curled up in his blankets in bed with eyes mostly closed, answering some questions asked though with brief, generally one-word answers. He states he is here regarding his leg pain which is worse on the left than the right, and that both the pain and the wounds have been present for several months. He states the bilateral leg pain is worse with activity, and usually not present at rest. He is not experiencing it now laying in bed. He states the wounds have worsened over the past few months and drain blood and pus, especially on his left leg. He states that he "huffs and puffs" with exertion like walking up stairs but does not feel SOB. He endorses a long smoking history with 4 PPD for many years, and now rolls his own cigarettes so he is unsure how much he smokes but says it is quite a bit. He has a chronic cough which he says is unchanged. His energy is low today but his appetite is good and he is thirsty. He states he has no PCP and does not like seeing doctors. He had a stroke in 2009 which is the last time he saw a doctor. He also had a heart attack in 2008 and was treated per pt in [place] where he received a bypass procedure. Review of Systems Review of Systems: All systems reviewed & are unremarkable except as noted in HPI & below Constitutional: + fatigue; no fever and no anorexia Respiratory: + cough and + dyspnea on exertion; no dyspnea and no wheezing Cardiovascular: + dyspnea on exertion and + claudication (with exertion, denies at rest); no chest pain, no dyspnea and no palpitations Gastrointestinal: no abdominal pain Physical Exam Constitutional: well developed, well nourished and + disheveled; no acute distress ENMT: external ear and nose normal, oropharynx normal Respiratory: normal respiratory effort; no respiratory distress Auscultation: + wheezes; no rales and no rhonchi Cardiovascular: RRR, no murmur, no edema Heart Sounds: normal S1 and normal S2; no gallop, no murmur and no cardiac rub Vessels: + abnormal peripheral pulses (pulses not palpable on BLE) Gastrointestinal (Abdomen): normal bowel sounds, soft, nontender, no hepatosplenomegaly Percussion/Palpation: abdomen nontender, no guarding and abdomen not rigid Musculoskeletal: Extremities: + extremities abnormal to inspection (significant ulceration in BLE L>R) Skin: no rashes, warm and dry + ulcer (significant ulceration MECHELLE L>R, pus, dark red/black discoloration, bandaged) and + hair thinning Neurologic: moves all extremities and awake; not confused Psychiatric: A+Ox3, euthymic affect Eye Contact: + fair eye contact Results & Data ([facility]) Vital Signs (Past 12 Hours) Vital Signs Temp Pulse Resp BP Pulse Ox 01/19/21 10:53 37.1 C 82 18 102/66 95 01/19/21 07:49 37.3 C 84 21 99/64 L 94
--- NOTE | 2021-01-19 16:01 | Electrocardiogram Report ---
Test Reason : Blood Pressure : / mmHG Vent. Rate : 089 BPM Atrial Rate : 089 BPM P-R Int : 204 ms QRS Dur : 104 ms QT Int : 380 ms P-R-T Axes : 069 -28 110 degrees QTc Int : 462 ms Poor data quality, interpretation may be adversely affected Normal sinus rhythm Possible Left atrial enlargement Cannot rule out Inferior infarct , age undetermined Anteroseptal infarct , age undetermined T wave abnormality, consider lateral ischemia Abnormal ECG No previous ECGs available Confirmed by Ariel Sun ([id number]) on 01/19/2021 4:01:14 PM Referred By: REFERRED SELF Confirmed By:Ariel Sun
[2021-01-20] MEDS: PIPERACILLIN/TAZOBACTAM 3.375 GM in DEXTROSE 5% 100 ML IV SCH ×2 (00:22→07:45)
[2021-01-20] MEDS: LACTATED RINGER'S 1,000 ML IV SCH ×2 (02:57→12:55)
--- NOTE | 2021-01-20 05:21 | Billing Data ---
Date of Service January 20, 2021 Coding Level of Care Code 39912 Initial Inpt Care Lvl 3
[2021-01-20] MEDS ORDERED: VANCOMYCIN TROUGH ONE (05:30)
[2021-01-20 06:17] LABS: Basophils # (auto) 0.03 K/uL (0-0.2); Basophils % (auto) 0.3 %; Eosinophils # (auto) 0.09 K/uL (0-0.5); Eosinophils % (auto) 0.8 %; Hematocrit (blood only) 37.2 % (42-52); Hemoglobin 12.1 g/dL (14.0-18.0); Immature Granulocytes # (auto) 0.04 K/uL (0.00-0.02); Immature Granulocytes % (auto) 0.4 %; Lymphocytes # (auto) 1.23 K/uL (1.2-3.4); Lymphocytes % (auto) 11.3 %; Mean Corpuscular Hemoglobin 26.3 pg (25-34); Mean Corpuscular Hgb Conc 32.5 g/dL (32-36); Mean Corpuscular Volume 80.9 fL (80-100); Mean Platelet Volume 9.8 fL (7.4-10.4); Neutrophils # (auto) 8.29 K/uL (1.4-6.5); Neutrophils % (auto) 76.2 %; Platelet Count 253 K/uL (130-400); RDW Coefficient of Variation 15.3 % (11.5-14.5); RDW Standard Deviation 44.5 fL (36.4-46.3); White Blood Count 10.88 K/uL (4.8-10.8)
[2021-01-20] MEDS: VANCOMYCIN HCL 1,250 MG in SODIUM CHLORIDE 0.9% 250 ML IV SCH ×3 (06:30→21:01)
[2021-01-20 06:51] LABS: Albumin Level 2.4 gm/dl (3.4-5.0); Calcium 8.6 mg/dl (8.5-10.1); Creatinine Clr Calc Pharmacy 120.7 ml/min; Est GFR (African American) 121.5; Est GFR (Non-African American) 104.8; Potassium 4.1 mmol/L (3.5-5.1)
[2021-01-20 06:53] LABS: Albumin Globulin Ratio 0.6 (0.9-2); Bilirubin,Total 1.2 mg/dl (0.2-1); Total Protein 6.4 gm/dl (6.4-8.2)
[2021-01-20] MEDS: ASPIRIN 81 MG ECTAB PO SCH (07:46)
[2021-01-20] MEDS: HEPARIN SOD 5,000 UNIT/0.5 ML VIAL SQ SCH ×2 (07:46→20:28)
[2021-01-20] MEDS: NICOTINE 21 MG/24 HR TDSY TD SCH (07:48)
[2021-01-20 07:54] LABS: Estimated Average Glucose 126 mg/dl
--- NOTE | 2021-01-20 08:47 | XCELERA ---
[id number]
--- NOTE | 2021-01-20 10:36 | Cardiology Progress Note ---
Date of Service January 20, 2021 Assessment & Plan (1) Elevated troponin: His elevated troponin is most consistent with demand ischemia in the presence of known coronary artery disease. The level is low enough that I would not be in favor of any further evaluation. (2) CAD (coronary artery disease): He has known coronary artery disease, he has had bypass in the past based on his history (I do not have records, it was at [facility] per the patient) h owever I do not think it would be prudent to pursue evaluation. He is not compliant, I would be very hesitant to place a stent and he is asymptomatic so evaluation and intervention is not really indicated. (3) Smoking greater than 40 pack years: He should stop smoking, but it does not sound as though he has any intention of doing so. (4) Cardiomyopathy: He has a severe cardiomyopathy based on his echocardiogram. This is not surprising. I discussed medications with him and he is agreeable now, I do not know if he will continue to take them but we should try to start him on heart failure medications. Admission and Anticipated Discharge Date Admission Date: January 18, 2021 Subjective He seems to be feeling better today, he seems more alert and has no cardiac complaints. Physical Exam Physical Exam: Constitutional: Alert, cooperative and in no distress. HEENT: Unremarkable Neck: No jugular venous distention, carotid pulses are normal and equal bilaterally without bruits. Pulmonary: Rhonchi on auscultation bilaterally. Cardiac: Regular rhythm with no murmur, gallop or rub. Abdomen: Soft, nontender with normal bowel sounds. Extremities: Edema. Distal pulses not palpable. Neurologic: No focal findings. Gait was not tested. Skin: No rash, ecchymoses or petechiae. His legs are notable for multiple lesions and signs of chronic venous stasis. Results & Data ([facility]) Vital Signs (Past 12 Hours) Vital Signs Temp Pulse Pulse Pulse Resp BP Pulse Ox 01/20/21 08:01 37.0 C 87 21 111/78 95 01/20/21 07:27 84 01/20/21 03:38 36.7 C 89 18 110/68 96 01/19/21 22:45 36.7 C 89 18 114/68 98 Laboratory Results Cardiac Enzymes 01/20/21 Range/Units 05:45 AST 81 H (15-37) U/L CBC 01/20/21 Range/Units 05:45 WBC 10.88 H (4.8-10.8) K/uL RBC 4.60 L (4.7-6.1) M/uL Hgb 12.1 L (14.0-18.0) g/dL Hct 37.2 L (42-52) % Plt Count 253 (130-400) K/uL Neut # (Auto) 8.29 H (1.4-6.5) K/uL Lymph # (Auto) 1.23 (1.2-3.4) K/uL [place] # (Auto) 1.20 H (0.11-0.59) K/uL Eos # (Auto) 0.09 (0-0.5) K/uL Baso # (Auto) 0.03 (0-0.2) K/uL Comprehensive Metabolic Panel 01/20/21 Range/Units 05:45 Sodium 138 (136-145) mmol/L Potassium 4.1 (3.5-5.1) mmol/L Chloride 108 H (98-107) mmol/L Carbon Dioxide 24 (21-32) mmol/L BUN 15 (7-18) mg/dl Creatinine 0.61 (0.6-1.4) mg/dl Glucose 93 (70-99) mg/dl Calcium 8.6 (8.5-10.1) mg/dl AST 81 H (15-37) U/L ALT 23 (12-78) U/L Alkaline Phosphatase 103 (45-117) U/L Total Protein 6.4 (6.4-8.2) gm/dl Albumin 2.4 L (3.4-5.0) gm/dl Intake and Output 01/19/21 01/20/21 01/20/21 22:59 06:59 14:59 Intake Total 1631.667 / 3136.667 1115 / 3136.667 1310.04 / 1310.04 Output Total 250 / 551 301 / 551 Balance 1381.667 / 2585.667 814 / 2585.667 1310.04 / 1310.04 Intake: IV 1631.667 / 3136.667 1115 / 3136.667 1310.04 / 1310.04 Lr 1,000 ml @ 125 mls/hr IV . 966.667 / 8638.178 2001 / 5061.786 9880 / 1000 Q8H JADE Rx#:[id number] Zosyn 3.375 gm In D5 100 ml @ 115 / 345 115 / 345 35.04 / 35.04 28.75 mls/hr IV Q8H JADE Rx#: [id number] Vancomycin HCl 1,250 mg In Nss 550 / 825 275 / 275 250 ml @ 200 mls/hr IV Q8H JADE Rx#:[id number] Output: Urine 250 / 550 300 / 550 # Bowel Movements Other: Weight 81.8 kg 82.1 kg Weight Measurement Method Built in [facility] Diagnostic Findings Telemetry: Sinus rhythm, no significant arrhythmia PG Care Time/CCT Total # of Minutes Spent Total Time Spent with Patient: Total time spent is greater than 50% in coordination of care (as documented) at patient's floor/unit and/or counseling patient: Coding Level of Care Code 14829 Subseq Hosp Care Lvl 3 Diagnoses Elevated troponin R77.8 CAD (coronary artery disease) I25.10 Associated angina: without angina Coronary Disease-Associated Artery/Lesion type: [place] artery [place] vs. transplanted heart: [place] heart Smoking greater than 40 pack years F17.210 Cardiomyopathy I42.9 (1) CAD (coronary artery disease) Associated angina: without angina Coronary Disease-Associated Artery/Lesion type: [place] artery [place] vs. transplanted heart: [place] heart Qualified Code(s): I25.10 - Atherosclerotic heart disease of [place] coronary artery without angina pectoris
[2021-01-20] MEDS: carvediloL 3.125 MG TAB PO SCH ×2 (11:48→20:28)
[2021-01-20] MEDS: LOSARTAN POTASSIUM 25 MG TAB PO SCH (11:48)
--- NOTE | 2021-01-20 11:49 | Pharmacy Report ---
Pharmacy Abx Dose Short Note - Date of Service January 20, 2021 - Assessment & Plan Assessment * 65 year old M receiving vancomycin for sepsis 2nd cellulitis. Zosyn was discontinued earlier this AM * WBC stable. patient is afebrile * SCr stable * Staph species in anaerobic vial only of 1 of 2 blood cultures obtained on 01/18 - possible contaminant, but if not vanco has appropriate empiric coverage for now Vancomycin * Goal trough 15-20 mcg/mL * Trough of 15.6 mcg/mL today therapeutic Plan * Continue vancomycin 1250 mg IV q8h (dosed per AUC) Pharmacy will continue to follow and will adjust dose/frequency as necessary. Thank you.
[2021-01-20 13:35] LABS: Appearance Urine Clear (Clear); Blood Urine Negative (Negative); Color Urine Orange; Glucose Urine UA Negative (Negative); Ketones Urine Trace (Negative); Leukocyte Esterase Urine 1+ (Negative); Nitrite Urine Positive (Negative); Protein Urine Negative (Negative); Specific Gravity Urine 1.034 (1.000-1.030); Urobilinogen Urine Positive (Negative)
[2021-01-20 13:41] LABS: Bilirubin Urine 1+ (Negative)
[2021-01-20 13:48] LABS: Bacteria Urine 1+ (Negative); RBC Urine 0-4 /hpf (0-4)
--- NOTE | 2021-01-20 14:17 | Medical Student Progress Note ---
Date of Service January 20, 2021 Assessment & Plan (1) Sepsis: Mr. Hankins is a 65yo male with a PMHx of CAD, SD, and stroke who presented to the ED last night complaining of months of ongoing leg pain and seeping leg wounds bilaterally. He hasn't seen a doctor in years and is not interested in smoking cessation or adding many new medications at this time. Denies Hx of HTN or DMII. Sepsis -Likely infection source with BLE ulcerations, especially on the left. Likely secondary to PAD/PVD. -Blood Cx 1/2 showed Staph species growth. Monitoring urine and wound Cx. Given this, pip/tazo discontinued and vancomycin 200/hr should provide appropriate Staph coverage. -WBC 10.88, afebrile, initially tachycardic but most recently HR 87, initially mildly hypotensive but most recently BP 100/63. Continue to monitor CBC and vitals. -Received 2L NS bolus in ED and lactate improved from 3.6 to most recently 1.4. -Elevated troponin most recently 0.163 likely related to demand myocardial ischemia in the setting of acute illness. FEN: LR 125mL/hr, monitoring CMP, heart healthy diet no longer NPO DVT PPx: Heparin 5000 units SQ BID Code status: Full Code Disposition: Remain inpatient for antibiotic coverage and monitoring of Cx re: infection, as well as considering agreeable medication optimization. (2) Open leg wound: -Known CAD and extensive smoking history, likely PAD/PVD. Pt reports worsening ulceration in BLE L>R for several months now seeping pus and blood. Bandaged and wound management involved. On antibiotics with cultures pending. (3) Smoking greater than 40 pack years: -Likely PAD/PVD given smoking history, claudication, and now ulceration bilaterally. Pt received minimal medical care and few doctors seen over past several decades. No palpable pedal pulses. Pt has been taking a daily aspirin for past decade, but this is his only medication and he does not seem keen to add new medications outpatient. A1c 6.0. -Continue ASA 81. -Continue nicotine patches while inpatient and monitor Sx for possible dose adjustment. -Wheezing on exam and chronic cough likely secondary to COPD. CTA found evidence of pulmonary emphysema which is further suggestive. Pt denies SOB today. -Duplex lower extremity found severe bilateral atherosclerosis, probable occlusion of the left superficial femoral artery and likely occlusion of the right peroneal artery. -Vascular surgery consulted, their recommendations are appreciated. (4) CAD (coronary artery disease): -Hx SD 2008 in [place], pt reports he received cardiac bypass but we do not presently have records. On ASA at home but no other meds. -Started on losartan 25 and carvedilol 3.125 BID. We will continue to discuss with pt to see if he is willing to continue these meds outpatient. -Vitals stable. Continue to monitor. -Cardiology consulted, their recommendations are appreciated. Associated angina: without angina Coronary Disease-Associated Artery/Lesion type: [place] artery [place] vs. transplanted heart: [place] heart Qualified Code(s): I25.10 - Atherosclerotic heart disease of [place] coronary artery without angina pectoris (5) Elevated troponin: -Likely a demand ischemia related to age, comorbidities, and acute illness. -Cardiology consulted, recs appreciated (6) Routine health maintenance: Pt has not seen a doctor in many years. Received flu vaccine and pneumovax-23. (7) Cardiomyopathy: -TTE showed LV mildly dilated, LV systolic function moderately to severely reduced, EF 25-30%, moderate to severe mitral regurg, LA severely dilated, severe tricuspid regurg, RV systolic pressure increased at 50-60mmHg, IVC moderately dilated. -Pt denies CP, SOB, and palpitations. Exam found wheezing, crackles, and pedal edema. -In addition to ASA 81, started on losartan 25 and carvedilol 3.125 BID. We will continue to discuss with pt to see if he is willing to continue these meds outpatient. Admission and Anticipated Discharge Date Admission Date: January 18, 2021 Supervising Attestation Medical Student Supervision Note: I was personally present during medical student patient encounter and independently interviewed and examined the patient and verified the curry history and physical, reviewed labs and image studies, discussed the case with Iain Arizmendi and agree with the findings and care plan. Sepsis sec to leg ulcer with bacteremia - IV abx. PAD - vascular surgery consulted Cardiomyopathy - likely ischemic - cardio eval done - started on b jayson, ARB, statin. continue asa. Subjective Per case management, they spoke with Mr. Hankins's daughter Vita and she makes it sound like pt has been declining with regard to his ADLs for a while and moving around less lately due to his claudication. He lives alone and his children visit a few times a month to take out the trash and get him groceries. Per Vita, Mr. Hankins eats primarily lunch meat and microwavable meals and has trouble getting up. Mr. Hankins states he slept well and feels he has good energy today. He is glad he can watch TV here but is frustrated to be NPO this morning awaiting vascular surgery consult. He states his seeping leg wounds have been present for several months and that he uses foot cream for them which helps a bit, but he has not been using any bandaging or wound care at home. He states he has claudication pain with exertion so he tries to minimize his exertion, but that he has no leg pain at rest. We discussed the importance of exercise in PVD. He is not interested in changing his smoking habits, and does not want to add any medications outpatient. He has been taking ASA 81 but wants no other medications. We discussed his leg twitching as there was concern for possible alcohol withdrawal, but pt states after drinking beer for 50+ years he decided to stop in September 2020 since he "had his fill" and he has not drank since then. He thinks his leg twitching is "just something he does" chronically. NPO diet removed this afternoon. Pt happy to get food as he is hungry. Review of Systems Review of Systems: All systems reviewed & are unremarkable except as noted in HPI & below Constitutional: no fever, no fatigue and no anorexia Respiratory: + cough; no dyspnea Cardiovascular: + claudication; no chest pain, no dyspnea and no palpitations Gastrointestinal: no abdominal pain, no nausea, no vomiting, no dysphagia, no constipation and no diarrhea/loose stools Musculoskeletal: + stiffness; no back pain, no myalgia and no muscle weakness Neurologic: no dizziness, no headache(s) and no confusion Physical Exam Constitutional: WD/WN, vitals as above + disheveled; no acute distress ENMT: external ear and nose normal, oropharynx normal Respiratory: normal respiratory effort; no respiratory distress Auscultation: + rales and + wheezes; no rhonchi Cardiovascular: RRR, no murmur, no edema Heart Sounds: normal S1 and normal S2; no gallop, no murmur and no cardiac rub Extremities: + edema Gastrointestinal (Abdomen): normal bowel sounds, soft, nontender, no hepatosplenomegaly Percussion/Palpation: abdomen nontender, no guarding and abdomen not rigid Skin: + ulcer (significant ulceration on BLE L>R, bandaged) and + skin tightening BLE venous statis hyperpigmentation changes Neurologic: CN's II-XI intact bilaterally Psychiatric: A+Ox3, euthymic affect Eye Contact: + fair eye contact Results & Data ([facility]) Vital Signs (Past 12 Hours) Vital Signs Temp Pulse Pulse Resp BP BP Pulse Ox 01/20/21 11:56 36.4 C L 87 19 100/63 95 01/20/21 08:01 37.0 C 87 21 111/78 95 01/20/21 07:27 84 01/20/21 03:38 36.7 C 89 18 110/68 96
--- NOTE | 2021-01-20 15:04 | Consultation ---
Date of Consultation January 20, 2021 Assessment & Plan (1) Peripheral arterial occlusive disease: Pt with significant PAD and infected BLE wounds. Discussed with Dr Simmons. Recommends CTA to eval proximal disease. Will see tomorrow after his CTA to make further recommendations. History of Present Illness Reason for Consultation: BLE PAD, leg wounds Attending Physician: Kyung Navarro MD History of Present Illness 65 yo m with hx of CAD, TX, CVA, admitted for BLE wounds and sepsis, seen in consultation today for PAD noted on US. Pt states he developed BLE pain with ambulation a few months ago and can now only walk between 50-100 ft before needing to stop. Pt was found at home on the floor by his daughter and finally agreed to go to [facility]. Pt is resistant to medical care and has been refusing medications or medical care since his TX in 2008 and his CVA in 2009. Lives at home by self and is independent with ADL's. Pt unsure how long he has had the BLE wounds, but states has been taking care of them at home. Does have residual LUE and LLE weakness since his old CVA. Denies ROSSI, fever, chest pain, SOB, palpitations, diziness, abd pain, N/V, rest pain, other complaints. Pt's arterial US demonstrates signfiicant PAD. Allergies Allergy/AdvReac Type Severity Reaction Status Date / Time No Known Allergies Allergy Unverified 01/18/21 19:52 Home Medications Medication Instructions Recorded Confirmed Type aspirin [Aspir-Low] 81 mg PO DAILY 01/18/21 01/18/21 History Patient History Medical History (Updated 01/20/21 @ 15:25 by Kelsi Manjarrez PA-C) Hx of myocardial infarction Hx of stroke without residual deficits No pertinent past medical history Peripheral arterial occlusive disease Social History Smoking Status: Current some day smoker Hx Alcohol Use: No Hx Substance Use: No Preferred Language: [place] Communication Ability: Unable Beliefs That Will Affect Care: None Current Living Situation: Alone Feels Safe at Home: Declines to Answer Review of Systems Review of Systems: All systems reviewed & are unremarkable except as noted in HPI & below Physical Exam Constitutional: WD/WN, vitals as above + thin, + disheveled, cooperative and comfortable; not in distress Eyes: PERRL, conjunctivae normal, anicteric sclerae ENMT: Ears: no hearing impairment Neck: trachea midline Respiratory: normal respiratory effort, lungs clear to auscultation Cardiovascular: Rate/Rhythm: regular rate and regular rhythm Vessels: femoral pulses present, brachial pulses present and radial pulses present; + abnormal peripheral pulses, + posterior tibial pulses abnormal and + dorsalis pedis pulses abnormal Extremities: normal capillary refill and + edema Gastrointestinal (Abdomen): normal bowel sounds, soft, nontender, no hepatosplenomegaly Musculoskeletal: Extremities: + abnormal strength (LLE weakness and contracture noted. LUE weakness) Skin: + ulcer (BLE), + crusts, + erythema, + eschar and + excoriations Neurologic: moves all extremities and awake; not confused Speech / Cognition: normal speech Psychiatric: Orientation: alert and oriented x 3 Affect: + irritable affect Mood: + irritable mood Results & Data ([facility]) Vital Signs (Past 12 Hours) Vital Signs Temp Pulse Pulse Resp BP BP Pulse Ox 01/20/21 11:56 36.4 C L 87 19 100/63 95 01/20/21 08:01 37.0 C 87 21 111/78 95 01/20/21 07:27 84 01/20/21 03:38 36.7 C 89 18 110/68 96
--- NOTE | 2021-01-20 15:04 | Electrocardiogram Report ---
Test Reason : Blood Pressure : / mmHG Vent. Rate : 087 BPM Atrial Rate : 087 BPM P-R Int : 208 ms QRS Dur : 112 ms QT Int : 388 ms P-R-T Axes : 058 051 106 degrees QTc Int : 466 ms Normal sinus rhythm Left atrial enlargement Septal infarct (cited on or before 18-JAN-2021) Abnormal ECG When compared with ECG of 18-JAN-2021 16:22, No significant change Confirmed by Ariel Sun ([id number]) on 01/20/2021 3:04:18 PM Referred By: REFERRED SELF Confirmed By:Ariel Sun
[2021-01-20] MEDS ORDERED: OPTIRAY 320 125ml IV ONE (17:48)
--- NOTE | 2021-01-20 20:33 | CT Scan Report ---
CT ang AA tyson horton romel HISTORY: 65 years-old Male PAD, acute pain of the lower legs with peripheral artery disease. Possibl e occlusion of the left superficial femoral and right peroneal arteries. COMPARISON: Duplex arterial study 01/19/2021, CTA chest 01/18/2021 TECHNIQUE: CTA of the abdomen and pelvis with lower extremity runoff was obtained following the intra venous administration of 118 mL Optiray 320. 3-D coronal and sagittal MIPS were obtained from the axi al data set and were submitted for review. All measurements were obtained according to NASCET criteri a. FINDINGS: Limited study secondary to both upper and lower extremity positioning. The study is also motion degra ded. CTA: Cardiomegaly. Prior median sternotomy. Reflux of contrast into the IVC and hepatic veins. Extensive m ixed plaque of the abdominal aorta without aneurysm or dissection. Limited evaluation of the mesenter ic vessels secondary to the aforementioned limitations as above. There is high-grade stenosis at the origin of the celiac artery likely from atherosclerotic plaque. The superior mesenteric artery is pat ent. There is at least moderate narrowing at the origin of the inferior mesenteric artery secondary t o atheromatous plaque. Mixed plaque at the origins of the bilateral renal arteries without high-grade stenosis. Duplicated left renal artery. Bilateral renal arteries are patent. RIGHT LOWER EXTREMITY: Extensive mixed plaque throughout. The common and external iliac arteries are patent. The common femo ral artery is patent. There is multifocal luminal narrowing of at least 50% throughout the superficia l femoral artery. There is multifocal high-grade stenosis involving the distal aspect of the superfic ial femoral artery is noted, for example on image [id number]. The popliteal artery is patent. Focal high-gra de stenoses throughout the peroneal artery without appreciable flow identified within the distal aspe ct of the peroneal artery. Two-vessel flow is noted to the level of the ankle. LEFT LOWER EXTREMITY: Extensive mixed plaque throughout. Multifocal mild and moderate narrowing throughout the common iliac artery. The external iliac artery is patent. There is mild multifocal luminal narrowing throughout t he common and superficial femoral arteries. Likely chronic occlusion of the mid to distal superficial femoral artery with numerous opacified collateral vessels. There is reconstitution of flow within th e popliteal artery which demonstrates multifocal luminal narrowing. No significant flow identified wi thin the majority of the anterior tibial artery with numerous calcifications. There is reconstitution of flow noted within the dorsalis pedis artery. Flow within the peroneal and posterior tibial arteri es is noted to the level of the ankle. CT ABDOMEN/PELVIS: Trace right and small left pleural effusions. Emphysema. Dependent bibasilar opacities suggest atelec tasis. No pneumatosis or pneumoperitoneum. The spleen, visualized pancreas, and adrenal glands are un remarkable. Gallbladder wall thickening with partial distention. Periportal edema. Otherwise unremarkable liver. Unremarkable kidneys. Mild prostamegaly. Urinary blad alexa wall thickening with partial distention. Nonspecific prominent lymph nodes of the retroperitoneum measure up to 9 mm. Nonspecific enlarged inguinal chain lymph nodes measure up to 11 mm on the left. Mildly enlarged iliac chain lymph nodes measure up to 10 mm. Debris-filled stomach. No bowel obstruc tion or bowel wall thickening. Moderate fecal retention of the rectum. The appendix is not definitive ly seen. Generalized body wall edema with small volume of abdominal/pelvic ascites. Asymmetric subcut aneous and deep tissue edema of the left lower extremity. Degenerative changes of the spine, pelvis a nd hips. No acute fracture. IMPRESSION: 1. Extensive atherosclerotic vascular disease as above. 2. Multifocal high-grade stenoses involves the distal aspect of the right superficial femoral artery with high-grade stenosis versus occlusion of the right peroneal artery. 3. Likely chronic occlusion of the mid to distal left superficial femoral artery with numerous opacif ied collateral vessels. Reconstitution of flow within the popliteal artery. 4. High-grade stenoses versus occlusion involves the majority of the left anterior tibial artery with reconstitution of flow within the dorsalis pedis. 5. Fluid overload manifested by left greater than right pleural effusions with small volume of abdomi nopelvic ascites and diffuse body wall and asymmetric left lower extremity edema. 6. Additional findings as above. ACT 112: Negative or not required by law. The above report was generated using voice recognition software. It may contain grammatical, syntax o r spelling errors. Dictated: 01/20/2021 7:04 PM Transcribed: 01/20/2021 8:01 PM Tamara [id number] Robert Electronically signed by: Guerrero Chavez M.D. 01/20/2021 8:32 PM
[2021-01-21] MEDS: VANCOMYCIN HCL 1,250 MG in SODIUM CHLORIDE 0.9% 250 ML IV SCH (05:33)
[2021-01-21] MEDS: HEPARIN SOD 5,000 UNIT/0.5 ML VIAL SQ SCH ×2 (08:18→20:09)
[2021-01-21] MEDS: ASPIRIN 81 MG ECTAB PO SCH (08:18)
[2021-01-21] MEDS: carvediloL 3.125 MG TAB PO SCH ×2 (08:18→20:09)
[2021-01-21] MEDS: LOSARTAN POTASSIUM 25 MG TAB PO SCH (08:18)
[2021-01-21] MEDS: NICOTINE 21 MG/24 HR TDSY TD SCH (08:22)
[2021-01-21] MEDS: ceFAZolin 2000MG 2,000 MG/15 ML SYR IV SCH ×2 (12:05→20:09)
--- NOTE | 2021-01-21 13:45 | Medical Student Progress Note ---
Date of Service January 21, 2021 Assessment & Plan (1) Sepsis: Mr. Hankins is a 65yo male with a PMHx of CAD, [place], and stroke who presented to the ED Sunday night complaining of months of ongoing leg pain and seeping leg wounds bilaterally. He hasn't seen a doctor in years and is not interested in smoking cessation or adding many new medications at this time. Denies Hx of HTN or DMII. Sepsis -Likely infection source with BLE ulcerations, especially on the left. Likely secondary to PAD/PVD. -Blood Cx 11/13 showed Staph species growth which is pansensitive. vancomycin discontinued and cefazolin 2000@3.75mL/min IV started. -most recent WBC 10.88, afebrile, initially tachycardic but most recently HR 67, most recent BP 90/57. Continue to monitor CBC and vitals. -U/A showed orange color, 1.034 specific gravity likely secondary to hypovolemia, +nitrites and leuk esterase, 5-10 WBC, 1+ bacteria, but also 5-10 epithelial cells. Urine Cx pending with no growth to date. -Received 2L NS bolus in ED and lactate improved from 3.6 to most recently 1.4. -Elevated troponin most recently 0.163 likely related to demand myocardial ischemia in the setting of acute illness. FEN: PO fluids, monitoring electrolytes, heart healthy diet DVT PPx: Heparin 5000 units SQ BID Code status: Full Code Disposition: Remain inpatient for antibiotic coverage and monitoring of Cx and wound management re: infection, as well as considering agreeable medication optimization. (2) Peripheral arterial occlusive disease: -Extensive smoking history, claudication with exertion but not at rest, and now ulceration bilaterally. Pt received minimal medical care and few doctors seen over past several decades. No palpable pedal pulses. Pt has been taking a daily aspirin for past decade, but this is his only medication and he does not seem keen to add new medications outpatient. A1c 6.0. -Duplex lower extremity found severe bilateral atherosclerosis, probable occlusion of the left superficial femoral artery and likely occlusion of the right peroneal artery. -CTA found extensive atherosclerotic vascular disease, multifocal high-grade stenosis in distal superficial femoral artery with numerous opacified collateral vessels, high-grade stenosis vs. occlusion involves the majority of left anterior tibial artery with reconstitution of flow within the dorsalis pedis, fluid overload L>R pleural effusions with small volume of abdominopelvic ascites and diffuse body wall and asymmetric lower extremity edema. -Continue ASA 81. -Vascular surgery consulted, their recommendations are appreciated. (3) Open leg wound: -Known CAD and extensive smoking history, likely related to PAD/PVD. Pt reports worsening ulceration in BLE L>R for several months now seeping pus and blood. Bandaged and wound management involved. On cefazolin IV Abx for MSSA. (4) Smoking greater than 40 pack years: -Continue nicotine patches while inpatient and monitor Sx for possible dose adjustment. Pt states currently adequate. -Wheezing on exam and chronic cough likely secondary to COPD. CTA found evidence of pulmonary emphysema which is further suggestive. Pt denies SOB today. (5) CAD (coronary artery disease): -Hx [place] 2008 in [place], pt reports he received cardiac bypass but we do not presently have records. On ASA at home but no other meds. -Started on losartan 25 and carvedilol 3.125 BID. We will continue to discuss with pt to see if he is willing to continue these meds outpatient. -Vitals stable. Continue to monitor. -Cardiology consulted, their recommendations are appreciated. Associated angina: without angina Coronary Disease-Associated Artery/Lesion type: [place] artery [place] vs. transplanted heart: [place] heart Qualified Code(s): I25.10 - Atherosclerotic heart disease of [place] coronary artery without angina pectoris (6) Elevated troponin: -Likely a demand ischemia related to age, comorbidities, and acute illness. -Cardiology consulted, recs appreciated (7) Routine health maintenance: Pt has not seen a doctor in many years. Received flu vaccine and pneumovax-23. (8) Cardiomyopathy: -TTE showed LV mildly dilated, LV systolic function moderately to severely reduced, EF 25-30%, moderate to severe mitral regurg, LA severely dilated, severe tricuspid regurg, RV systolic pressure increased at 50-60mmHg, IVC moderately dilated. -Pt denies CP, SOB, and palpitations. Exam found wheezing, crackles, and pedal edema. -In addition to ASA 81, started on losartan 25 and carvedilol 3.125 BID. We will continue to discuss with pt to see if he is willing to continue these meds outpatient. -Cardiology consulted, their recommendations appreciated Admission and Anticipated Discharge Date Admission Date: January 18, 2021 Supervising Attestation Medical Student Supervision Note: I was personally present during medical student patient encounter and independently interviewed and examined the patient and verified the curry history and physical, reviewed labs and image studies, discussed the case with Iain Arizmendi and agree with the findings and care plan. Sepsis with MSSA bacteremia (1/2) from leg wound - IV abx. wound care PAD - vascular consulted. CAD with CMP - med mx initiated Subjective Mr. Hankins states that he feels about the same today. He is glad his diet is no longer NPO and he ate a big breakfast of pancakes, japanese toast, fruit, yogurt, and coffee. He feels his nicotine patch is working well but still wants to go outside and smoke. We discussed his new medications but he is unsure if he wants to keep up with them outpatient or see outpatient providers since it is "too much to do." He states he would rather manage his care, including his wound care himself. We discussed his long-term goals with regard to his decreasing ADLs at home and he says that he mainly is just hoping he can get a car to drive around but does not have any plans to get one or other goals he wanted to discuss. He states that he urinated in his bed since he didn't know where the bathroom was and that no one would help him despite him calling out. I showed him his attached bathroom and we made a plan for him to call the nurses to help him walk there when he needs to urinate. Review of Systems Review of Systems: All systems reviewed & are unremarkable except as noted in HPI & below Constitutional: no fever, no fatigue and no anorexia Respiratory: + cough; no dyspnea Cardiovascular: + claudication; no chest pain, no dyspnea and no palpitations Gastrointestinal: no abdominal pain, no nausea, no vomiting, no dysphagia, no constipation and no diarrhea/loose stools Genitourinary: no dysuria, no difficulty urinating, no urinary frequency and no urinary hesitancy Musculoskeletal: no back pain Integumentary: + skin ulcer (legs L>R) Neurologic: + unsteadiness Physical Exam Constitutional: WD/WN, vitals as above + disheveled; no acute distress ENMT: external ear and nose normal, oropharynx normal Respiratory: normal respiratory effort and + cough (chronic); no respiratory distress Auscultation: + crackles (RLL) and + wheezes (bilaterally) Cardiovascular: RRR, no murmur, no edema Heart Sounds: normal S1 and normal S2; no gallop, no murmur and no cardiac rub Gastrointestinal (Abdomen): normal bowel sounds, soft, nontender, no hepatosplenomegaly Percussion/Palpation: abdomen nontender, no guarding and abdomen not rigid Musculoskeletal: Extremities: + extremities abnormal to inspection (extensive ulceration L>R, bandaged, venous stasis changes) Skin: + ulcer Neurologic: CN's II-XI intact bilaterally Psychiatric: Orientation: alert and oriented x 3 Apperance: + disheveled Eye Contact: + fair eye contact Motor Behavior: + psychomotor agitation (leg twitching) Results & Data ([facility]) Vital Signs (Past 12 Hours) Vital Signs Temp Pulse Resp BP BP Pulse Ox 01/21/21 10:49 37.1 C 67 19 90/57 L 93 01/21/21 07:07 36.5 C 82 22 118/83 95 01/21/21 03:12 37.1 C 87 24 125/78 96
--- NOTE | 2021-01-21 14:10 | Heart Failure Consultation ---
Date of Consultation January 21, 2021 Assessment & Plan (1) Cardiomyopathy: Patient has been referred to the heart failure program by Dr. Sun for medication optimization. We discussed the heart failure program and titration goals for the patient. At this time, patient is not interested in additional medications or outpatient follow up. He has been initiated on appropriate therapy per Dr. Sun- Carvedilol 3.125 mg BID and Losartan 25 mg daily. He is quite hypotensive at this time so more aggressive titration may be limited. If he's unwilling to monitor BP at home, obtain labs, and/or come to the office for follow up- it will be difficult to optimize his medications. Will continue to follow peripherally during hospitalization. Supervising Physician Co-Signing Physician Notes I agree with this assessment. History of Present Illness Attending Physician: Kyung Navarro MD Allergies Allergy/AdvReac Type Severity Reaction Status Date / Time No Known Allergies Allergy Unverified 01/18/21 19:52 Home Medications Medication Instructions Recorded Confirmed Type aspirin [Aspir-Low] 81 mg PO DAILY 01/18/21 01/18/21 History Patient History Medical History (Updated 01/23/21 @ 18:58 by BRII Burgess) Dyspnea Hx of myocardial infarction Hx of stroke without residual deficits No pertinent past medical history Palliative care encounter Peripheral arterial occlusive disease Severe protein-calorie malnutrition Weakness Social History Smoking Status: Current some day smoker Hx Alcohol Use: No Hx Substance Use: No Preferred Language: Slovenian Communication Ability: Unable Beliefs That Will Affect Care: None Current Living Situation: Alone Feels Safe at Home: Declines to Answer Assistive Devices: None Results & Data ([facility]) Vital Signs (Past 12 Hours) Vital Signs Temp Pulse Resp BP BP Pulse Ox 01/21/21 10:49 98.8 F 67 19 90/57 L 93 01/21/21 07:07 97.7 F 82 22 118/83 95 01/21/21 03:12 98.8 F 87 24 125/78 96 Coding Level of Care Code None Diagnoses Cardiomyopathy I42.9
[2021-01-22] MEDS: ceFAZolin 2000MG 2,000 MG/15 ML SYR IV SCH ×3 (03:23→21:15)
[2021-01-22] MEDS: carvediloL 3.125 MG TAB PO SCH ×2 (08:01→21:15)
[2021-01-22] MEDS: HEPARIN SOD 5,000 UNIT/0.5 ML VIAL SQ SCH ×2 (08:02→21:15)
[2021-01-22] MEDS: NICOTINE 21 MG/24 HR TDSY TD SCH (08:02)
[2021-01-22] MEDS: ASPIRIN 81 MG ECTAB PO SCH (08:02)
[2021-01-22] MEDS: LOSARTAN POTASSIUM 25 MG TAB PO SCH (08:02)
--- NOTE | 2021-01-22 08:14 | Surgery Progress Note ---
Date of Service January 22, 2021 Assessment & Plan (1) Peripheral arterial occlusive disease: CTA showed bilateral SFA occlusions with moderate amount of infrapopliteal outflow disease. He does have a significant contracture of his left leg. Would try to treat his wounds locally for now. He is not a good candidate for endovascular procedures of the left leg and definitely not a candiate for an open procedure of the left leg. Will follow Admission and Anticipated Discharge Date Admission Date: January 18, 2021 Subjective Patient has no complaints of leg pain at this time Physical Exam Constitutional: + cachectic Respiratory: no respiratory distress Skin: + wound (wounds were not looked at today, dressings intact) Results & Data ([facility]) Vital Signs (Past 12 Hours) Vital Signs Temp Pulse Resp BP BP Pulse Ox 01/22/21 07:51 36.5 C 77 20 114/73 96 01/22/21 03:29 36.8 C 75 19 108/69 96 01/22/21 00:00 36.6 C 72 19 101/66 96
--- NOTE | 2021-01-22 14:44 | Hospitalist Progress Note ---
Date of Service January 22, 2021 Assessment & Plan (1) Open leg wound: Jaskaran Barajas is a 65-year-old male with a past medical history of coronary artery disease, [place], and stroke who presented to the emergency department with bilateral leg pain. Patient reported a longstanding history of tobacco abuse and expressed that he was not interested in smoking cessation or adding multiple medications. Sepsis 2/2 infected bilateral lower extremity ulcerations L>R Patient received Zosyn and vancomycin narrowed to cefazolin for MSSA Blood culture with 1 bottle positive for MSSA TTE as below. Patient does have underlying valvular disease and unknown duration of his infection, while TTE cannot definitively rule out endocarditis patient does not have [place] lesions, persistent fever, or subsequent positive cultures and is a poor candidate for EMELYN and does not wish to have aggressive intervention. See goals of care below. For additional endocarditis eval at this time, will discuss further with cardiology. Continue cefazolin 2 g every 8 hours IV Continue wound care Coronary artery disease, [place] 2008 with cardiac bypass Continue [employer]GER aspirin Continue losartan 25 mg Continue carvedilol 3.125 mg p.o. twice daily Hemodynamically stable Cardiology consulted, see below Statin no as below Ischemic cardiomyopathy with elevated troponin Thought to be demand ischemia, although patient with severe underlying vascular disease Patient does not wish to receive aggressive interventions, or continue numerous medications TTE: LV mild dilation, LV SF severely reduced 25-30%, moderate to severe mitral regurg, left atrium severely dilated, severe tricuspid regurg, RVSP 50-60 mmHg, IVC moderately dilated Heart failure program discussed with patient by Dr. Sprague, patient reported he was not interested in additional medications or outpatient follow-up for his illness. Peripheral vascular disease CTA shows bilateral SFA occlusions Vascular consulted. Local wound care and medical therapy recommended; per vascular he is not a good candidate for endovascular procedures of the leg and is not a candidate for open procedure of the left leg. Continue aspirin, recommend addition of a moderate to high potency statin medication however patient does not wish to begin this medication at this time Goals of care planning: Patient has moderate to severe coronary artery disease and severe vascular disease. He expresses a strong disinterest in medications, and does not wish to follow-up with providers following discharge. He expresses some understanding that his worsening heart disease could lead to substantial reduction in functional ability and even , but minimally engages in conversations around goals of care planning. Given his severe disease, poor surgical candidacy, high risk for lost to follow-up, and preference to avoid medical treatments patient with benefit from further patient centered goals planning and potentially palliative care consultation to best meet his goals. DVT prophylaxis: Heparin every 12 hours 5000 units Diet: Heart healthy Disposition: Telemetry CODE STATUS: Full code (2) Sepsis: (3) Cardiomyopathy: (4) Peripheral arterial occlusive disease: (5) CAD (coronary artery disease): (6) Elevated troponin: Admission and Anticipated Discharge Date Admission Date: January 18, 2021 Supervising Physician Co-Signing Physician Notes Resident Physician Supervision Note: I independently interviewed and examined the patient and verified the curry history and physical, reviewed labs and image studies, discussed the case with the resident Dr. Boyce and agree with the findings and care plan. Subjective Right is seen at bedside this morning. He denies chest pain, chest pressure, shortness of breath, difficulty breathing, pain. He reports his legs feel "the same". He reports he is tired and would like to go back to sleep, does not have questions at time of visit. Review of Systems Review of Systems: Constitutional: Denies fever, chills, endorses fatigue Eyes: Denies vision change ENT: Denies ear pain, sore throat, sinus pain Cardiovascular: Denies Chest pain, chest pressure, palpitations, extremity swelling Respiratory: Denies shortness of breath, cough, sputum production, difficulty breathing Gastrointestinal: Denies abdominal pain, nausea, vomiting, constipation, diarrhea Genitourinary: Denies dysuria Musculoskeletal: Denies acute focal weakness, muscle aches/pain Integumentary: Endorses on changing lesions on his legs Neurological: Denies headache Physical Exam Physical Exam: General: A&Ox3. NAD. Cooperative. HEENT: Atraumatic, normocephalic. Dual acuity grossly intact. Pulm: CTAB A&P. -wheezes, -rales, -rhonchi. Symmetrical chest rise. No increase work of breathing. No respiratory distress. Cardiac: RRR, -mrg. Radial pulses intact and symmetrical. Abdominal: Nontender, nondistended, soft. Extremities: Lower extremities covered with wound care dressing bilaterally, dressings clean dry and intact. No spreading erythema from dressing borders. PT pulses not appreciated bilaterally. Results & Data Results & Data ([facility]) Vital Signs (Past 12 Hours) Vital Signs Temp Pulse Pulse Resp BP BP Pulse Ox 01/22/21 11:56 36.6 C 69 19 96/59 L 97 01/22/21 08:59 75 01/22/21 07:51 36.5 C 77 20 114/73 96 01/22/21 03:29 36.8 C 75 19 108/69 96 Resident Activity Tracking Resident Involvement: Resident Care Provided Care Provided: Adult Hospital Medicine (1) CAD (coronary artery disease) Associated angina: without angina Coronary Disease-Associated Artery/Lesion type: [place] artery [place] vs. transplanted heart: [place] heart Qualified Code(s): I25.10 - Atherosclerotic heart disease of [place] coronary artery without angina pectoris
[2021-01-23] MEDS: ceFAZolin 2000MG 2,000 MG/15 ML SYR IV SCH ×3 (03:40→19:50)
[2021-01-23 06:49] LABS: Basophils # (auto) 0.03 K/uL (0-0.2); Basophils % (auto) 0.3 %; Eosinophils # (auto) 0.07 K/uL (0-0.5); Eosinophils % (auto) 0.7 %; Hematocrit (blood only) 36.8 % (42-52); Hemoglobin 11.9 g/dL (14.0-18.0); Immature Granulocytes # (auto) 0.06 K/uL (0.00-0.02); Immature Granulocytes % (auto) 0.6 %; Lymphocytes # (auto) 1.46 K/uL (1.2-3.4); Lymphocytes % (auto) 15.1 %; Mean Corpuscular Hemoglobin 26.2 pg (25-34); Mean Corpuscular Hgb Conc 32.3 g/dL (32-36); Mean Corpuscular Volume 81.1 fL (80-100); Mean Platelet Volume 10.4 fL (7.4-10.4); Monocytes # (auto) 1.36 K/uL (0.11-0.59); Monocytes % (auto) 14.1 %; Neutrophils # (auto) 6.66 K/uL (1.4-6.5); Neutrophils % (auto) 69.2 %; Platelet Count 307 K/uL (130-400); RDW Coefficient of Variation 15.7 % (11.5-14.5); RDW Standard Deviation 45.7 fL (36.4-46.3); Red Blood Count 4.54 M/uL (4.7-6.1); White Blood Count 9.64 K/uL (4.8-10.8)
[2021-01-23 07:30] LABS: BUN Creatinine Ratio 33.7 (10-20); Calcium 9.1 mg/dl (8.5-10.1); Creatinine Clr Calc Pharmacy 126.3 ml/min; Est GFR (African American) 119.1; Est GFR (Non-African American) 102.7; Potassium 4.4 mmol/L (3.5-5.1)
[2021-01-23] MEDS: carvediloL 3.125 MG TAB PO SCH ×2 (09:01→19:50)
[2021-01-23] MEDS: NICOTINE 21 MG/24 HR TDSY TD SCH (09:01)
[2021-01-23] MEDS: LOSARTAN POTASSIUM 25 MG TAB PO SCH (09:02)
[2021-01-23] MEDS: HEPARIN SOD 5,000 UNIT/0.5 ML VIAL SQ SCH ×2 (09:02→19:50)
[2021-01-23] MEDS: ASPIRIN 81 MG ECTAB PO SCH (09:02)
--- NOTE | 2021-01-23 11:14 | Hospitalist Progress Note ---
Date of Service January 23, 2021 Assessment & Plan (1) Open leg wound: Jaskaran Barajas is a 65-year-old male with a past medical history of coronary artery disease, SC, and stroke who presented to the emergency department with bilateral leg pain. Patient reported a longstanding history of tobacco abuse and expressed that he was not interested in smoking cessation or adding multiple medications. Sepsis 2/2 infected bilateral lower extremity ulcerations L>R Patient received Zosyn and vancomycin narrowed to cefazolin for MSSA Blood culture with 1 bottle positive for MSSA TTE as below. Patient does have underlying valvular disease and unknown duration of his infection, while TTE cannot definitively rule out endocarditis patient does not have [place] lesions, persistent fever, or subsequent positive cultures and is a poor candidate for EMELYN and does not wish to have aggressive intervention. See goals of care below. For additional endocarditis eval at this time, will discuss further with cardiology. Continue cefazolin 2 g every 8 hours IV Continue wound care Coronary artery disease, SC 2008 with cardiac bypass Continue [employer] aspirin Continue losartan 25 mg Continue carvedilol 3.125 mg p.o. twice daily Hemodynamically stable Cardiology consulted, see below Statin no as below Ischemic cardiomyopathy with elevated troponin Thought to be demand ischemia, although patient with severe underlying vascular disease Patient does not wish to receive aggressive interventions, or continue numerous medications TTE: LV mild dilation, LV SF severely reduced 25-30%, moderate to severe mitral regurg, left atrium severely dilated, severe tricuspid regurg, RVSP 50-60 mmHg, IVC moderately dilated Heart failure program discussed with patient by Dr. Sprague, patient reported he was not interested in additional medications or outpatient follow-up for his illness. Peripheral vascular disease CTA shows bilateral SFA occlusions Vascular consulted. Local wound care and medical therapy recommended; per vascular he is not a good candidate for endovascular procedures of the leg and is not a candidate for open procedure of the left leg. Continue aspirin, recommend addition of a moderate to high potency statin medication however patient does not wish to begin this medication at this time Goals of care planning: Patient has moderate to severe coronary artery disease and severe vascular disease. He expresses a strong disinterest in medications, and does not wish to follow-up with providers following discharge. He expresses some understanding that his worsening heart disease could lead to substantial reduction in functional ability and even , but minimally engages in conversations around goals of care planning and is somewhat inconsistent in his insight and ability to apply these wishes to the natural course of illness without his medications. Patient willing to meet with palliative care for further goals of care discussion and with case management for evaluation of home environment and services available. DVT prophylaxis: Heparin every 12 hours 5000 units Diet: Heart healthy Disposition: Telemetry CODE STATUS: Full code (2) Sepsis: (3) Cardiomyopathy: (4) Peripheral arterial occlusive disease: (5) CAD (coronary artery disease): (6) Elevated troponin: Admission and Anticipated Discharge Date Admission Date: January 18, 2021 Supervising Physician Co-Signing Physician Notes Resident Physician Supervision Note: I independently interviewed and examined the patient and verified the curry history and physical, reviewed labs and image studies, discussed the case with the resident Dr. Boyce and agree with the findings and care plan. Subjective Room is seen at the bedside this morning. He is awake, and alert. No acute distress. Denies chest pain, chest pressure, shortness of breath. Denies pain in his legs this morning. Open discussion on patient's goals of care at bedside this morning. He reports that his goal is to stay out of the hospital, and to be home even if he were ill. He reports that he does not want aggressive treatments and does not want to be on multiple medications or to follow-up with a doctor as outpatient even if this would help prevent him from coming to the hospital and potentially improving his quality/length of life. He reports that he understands that while he currently feels well he has serious underlying heart disease which without treatment could quickly lead to decreased quality of life or even . Azam understands this and would still prefer to be at home with little treatment, but appears to have some inconsistent insight as he also reports "maybe I will change my mind next year or so ". When asked what would make him change his mind or why he thinks that, he does not elaborate. In discussing CPR he reports he would want while he is here, if it were to give him a chance of getting home. He reports that he does not currently have help at home, but "might be able to call one of the family "to help with his legs and leg care. He reports that he is open to meeting with additional care team members to help facilitate services that might increase his care at home, and would be open to meeting with a palliative provider for further goals of care discussion. He reports that he does not have questions at time of visit, and would like to take a nap. Review of Systems Review of Systems: All systems reviewed & are unremarkable except as noted in HPI & below Physical Exam Physical Exam: General: A&O. NAD. Cooperative. Hectic. HEENT: Atraumatic, normocephalic. Visual acuity grossly intact. Pulm: CTAB A&P. -wheezes, -rales, -rhonchi. Symmetrical chest rise. No increase work of breathing. No respiratory distress. Cardiac: RRR, -mrg. Radial pulses intact and symmetrical. Abdominal: Nontender, nondistended, soft. Extremities: Lower extremities covered with wound care dressing bilaterally, dressings C/D/I. No spreading erythema from dressing borders. PT pulses not appreciated bilaterally. Results & Data Results & Data ([facility]) Vital Signs (Past 12 Hours) Vital Signs Temp Pulse Pulse Resp BP BP Pulse Ox 01/23/21 10:38 66 01/23/21 07:44 36.5 C 67 20 118/49 L 97 01/23/21 03:45 36.6 C 69 18 114/72 96 01/22/21 23:11 36.8 C 71 18 100/68 98 Resident Activity Tracking Resident Involvement: Resident Care Provided Care Provided: Adult Hospital Medicine (1) CAD (coronary artery disease) Associated angina: without angina Coronary Disease-Associated Artery/Lesion type: [place] artery [place] vs. transplanted heart: [place] heart Qualified Code(s): I25.10 - Atherosclerotic heart disease of [place] coronary artery without angina pectoris
--- NOTE | 2021-01-23 17:24 | Palliative Care Consultation ---
Date of Consultation Mr. Jaskaran Hankins is a 65 year old male who presented to the [facility] ED with leg pain that he has been experiencing for a few months. Mr. Hankins has a PMH that includes a CVA and CABG in 2008. He is a current smoker and has a known 40 pack year history. Subsequently, he has pretty severe PAD/PVD and an EF of 20-25%, along with severe mitral regurgitation. He has been overall non compliant with medications and appointments and overall resistant to the medical arena. He has indicated numerous times to providers that he just wants to return home. Palliative care was consulted to discuss and outline goals for this individual. January 23, 2021 Assessment & Plan (1) Palliative care encounter: Mr. Jaskaran Hankins is a 65 year old male who presented to the [facility] ED with leg pain that he has been experiencing for a few months. Mr. Hankins has a PMH that includes a CVA and CABG in 2008. He is a current smoker and has a known 40 pack year history. Subsequently, he has pretty severe PAD/PVD and an EF of 20-25%, along with severe mitral regurgitation. He has been overall non compliant with medications and appointments and overall resistant to the medical arena. He has indicated numerous times to providers that he just wants to return home. Palliative care was consulted to discuss and outline goals for this individual. I met with Jaskaran in room 244. He was lying in his bed in no apparent distress, although is ill-appearing, disheveled and showing signs of moderate cachexia. His left leg was contracted and he mentioned that it has been since his stroke, but does seem to be getting more 'stiff'. I asked him how he gets around his home, which he described was a 24 x 40 mobile home. He stated that he 'wall walks'. I asked him to elaborate and he said that he holds on to the wall and shuffles around the house. I asked if his left leg is able to touch the floor and he said his toes sometimes touch. He states that he has 4 adult children: Alice, Austin, Jaskaran, and Zay. All live within 30 minutes of him and provide him with his groceries. He states that he bathes himself and does his own cleaning; however, I suspect this is a difficult and occasional task for him to complete independently. 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 Asked if I could call his children and he declined at this time. We discussed code status as he is currently a full code. He indicated he would not want to be kept alive in a comatose state if there was no chance for meaningful recovery; however, he did not seem to understand what the alternative of comfort focus meant to him. He said "I have no idea how to answer such things". I do not feel comfortable changing him to a DNR based on our conversation. He shall remain a Full Code at this time. Throughout the conversation, his overall affect was flat and even had reminded me of an anhedonic state. I suspect he has some underlying depression, but with his non compliance would have hesitation on starting him on any mood stabilizing agents. I talked with him regarding PT/OT and he immediately declined in seeing them. I did offer that if they were unable to meet their expectation, we could cancel. He had concerns that they would hurt his leg and then he said "They will just tell me they can help me for a few weeks". He did become agitated talking about PT/OT. I would have concerns of him returning to his home environment as it is clear he is unable to care for himself appropriately and his physical needs are relatively great. Suggest Office On Aging be involved and appears they will be per review of case management notes and in discussion with Dr. Sepulvdea. Palliative Care will follow tomorrow to compare his mental status and possibly discuss code status. (2) Peripheral arterial occlusive disease: (3) Weakness: (4) Dyspnea: (5) Severe protein-calorie malnutrition: (6) Routine health maintenance: History of Present Illness Reason for Consultation: Goals of Care Requesting Physician: Dr. Boyce Attending Physician: Kyung Navarro MD History of Present Illness Mr. Jaskaran Hankins is a 65 year old male who presented to the [facility] ED with leg pain that he has been experiencing for a few months. Mr. Hankins has a PMH that includes a CVA and CABG in 2008. He is a current smoker and has a known 40 pack year history. Subsequently, he has pretty severe PAD/PVD and an EF of 20-25%, along with severe mitral regurgitation. He has been overall non compliant with medications and appointments and overall resistant to the medical arena. He has indicated numerous times to providers that he just wants to return home. Palliative care was consulted to discuss and outline goals for this individual. Please see A/P for further details. Thank you for involving us with this unfortunate gentleman. Allergies Allergy/AdvReac Type Severity Reaction Status Date / Time No Known Allergies Allergy Unverified 01/18/21 19:52 Home Medications Medication Instructions Recorded Confirmed Type aspirin [Aspir-Low] 81 mg PO DAILY 01/18/21 01/18/21 History Patient History Medical History (Updated 01/23/21 @ 18:58 by BRII Burgess) Dyspnea Hx of myocardial infarction Hx of stroke without residual deficits No pertinent past medical history Palliative care encounter Peripheral arterial occlusive disease Severe protein-calorie malnutrition Weakness Social History Smoking Status: Current some day smoker Hx Alcohol Use: No Hx Substance Use: No Preferred Language: Slovak Communication Ability: Unable Beliefs That Will Affect Care: None Current Living Situation: Alone Feels Safe at Home: Declines to Answer Assistive Devices: None Review of Systems Review of Systems: [place] System Assessment Scale: Tiredness: 0/3 Lack of Appetite: 0/3 Shortness of breath: 1/3 Depression: 0/3 Anxiety: 0/3 Palliative Performance Scale: 30% Physical Exam Constitutional: + ill appearing, + cachectic, + frail appearing, + disheveled and cooperative Neck: trachea midline, no thyromegaly Respiratory: + labored breathing and + cough Auscultation: + rhonchi Cardiovascular: Heart Sounds: normal S1 and normal S2 Extremities: normal capillary refill Gastrointestinal (Abdomen): normal bowel sounds, soft, nontender, no hepatosplenomegaly Skin: + excoriations and + pallor Psychiatric: Orientation: alert and oriented x 3 Affect: + flat affect Insight: + limited insight Judgement: + limited judgement Genitourinary: indwelling gordon catheter Results & Data ([facility]) Vital Signs (Past 12 Hours) Vital Signs Temp Pulse Pulse Resp BP Pulse Ox 01/23/21 16:21 36.5 C 63 19 92/56 L 97 01/23/21 12:09 36.9 C 63 19 88/53 L 96 01/23/21 10:38 66 01/23/21 07:44 36.5 C 67 20 118/49 L 97 PG Care Time/CCT Total # of Minutes Spent Total Time Spent with Patient: Total time spent is greater than 50% in coordination of care (as documented) at patient's floor/unit and/or counseling patient: 70 minutes with > 50% of that time spent assessing the patient, discussing goals of care Coding Level of Care Code 67176 Inpt Consult Level 3 Diagnoses Palliative care encounter Z51.5 Peripheral arterial occlusive disease I77.9 Weakness R53.1 Dyspnea R06.00 Severe protein-calorie malnutrition E43 Routine health maintenance Z00.00 Time Spent (min) 70
[2021-01-24] MEDS: ceFAZolin 2000MG 2,000 MG/15 ML SYR IV SCH ×3 (03:05→21:23)
[2021-01-24] MEDS: LOSARTAN POTASSIUM 25 MG TAB PO SCH (10:04)
[2021-01-24] MEDS: carvediloL 3.125 MG TAB PO SCH ×2 (10:04→20:08)
[2021-01-24] MEDS: ASPIRIN 81 MG ECTAB PO SCH (10:04)
[2021-01-24] MEDS: HEPARIN SOD 5,000 UNIT/0.5 ML VIAL SQ SCH ×2 (10:05→20:07)
[2021-01-24] MEDS: NICOTINE 21 MG/24 HR TDSY TD SCH (10:05)
--- NOTE | 2021-01-24 14:46 | Palliative Care Progress Note ---
Date of Service January 24, 2021 Assessment & Plan (1) Palliative care encounter: Mr. Hankins was laying in his bed today when Dr. Pennington and I entered the room and appeared to be in more acute distress today, compared to yesterday. His breathing appeared more labored at rest and he had some audible secretions. He woke to verbal stimuli; however, was lethargic compared to my visit yesterday. He did not recall talking with me yesterday, even though I spent a lengthy amount of time with him yesterday discussing his life, daily routine, symptoms, and code status. We discussed code status again today, which he, as I mentioned, he did not recall from yesterday. HIs mental status appears worse today from a cognitive standpoint and continued to say "I will be fine when I get back home". He refused PT/OT today. I do not feel comfortable changing him to a DNR based on our conversation. He shall remain a Full Code at this time. Throughout the conversation, his overall affect was flat and even had reminded me of an anhedonic state. I suspect he has some underlying depression, but with his non compliance would have hesitation on starting him on any mood stabilizing agents. Would consider a psychiatry consult to assess for any underlying psych component which may be helpful when considering office of agings input. I have concerns of him returning to his home environment as it is clear he is unable to care for himself appropriately and his physical needs are relatively great. Suggest Office On Aging be involved and appears they will be per review of case management. Patients daughter, Alice was at the bedside this morning, but did not answer when I reached out to her. Could be helpful for continued decision making conversations. Palliative will follow. (2) Peripheral arterial occlusive disease: (3) Weakness: (4) Dyspnea: (5) Severe protein-calorie malnutrition: (6) Routine health maintenance: Admission and Anticipated Discharge Date Admission Date: January 18, 2021 Subjective Pt lying in his bed with his eyes closed. Appears tachypnic. Does not wish to participate in a lot of conversation. Please see A/P for further details. Review of Systems Review of Systems: [place] System Assessment Scale: Tiredness: 0/3 Lack of Appetite: 0/3 Shortness of breath: 1/3 Depression: 0/3 Anxiety: 0/3 Palliative Performance Scale: 30% Physical Exam Constitutional: + ill appearing, + cachectic, + frail appearing, + disheveled and cooperative Neck: trachea midline, no thyromegaly Respiratory: + labored breathing and + cough Auscultation: + rhonchi Cardiovascular: Heart Sounds: normal S1 and normal S2 Extremities: normal capillary refill Gastrointestinal (Abdomen): normal bowel sounds, soft, nontender, no hepatosplenomegaly Skin: + excoriations and + pallor Psychiatric: Orientation: alert and oriented x 3 Affect: + flat affect Insight: + limited insight Judgement: + limited judgement Results & Data ([facility]) Vital Signs (Past 12 Hours) Vital Signs Temp Pulse Resp BP BP Pulse Ox 01/24/21 11:49 36.7 C 59 L 20 98/57 L 97 01/24/21 06:39 36.5 C 68 19 112/75 95 01/24/21 03:09 36.8 C 73 19 104/70 96 PG Care Time/CCT Total # of Minutes Spent Total Time Spent with Patient: Total time spent is greater than 50% in coordination of care (as documented) at patient's floor/unit and/or counseling patient: 35 minutes with > 50% of that time spent assessing the patient, discussing goals of care, and collaborating with IDT Coding Level of Care Code 43241 Subseq Hosp Care Lvl 3 Diagnoses Palliative care encounter Z51.5 Peripheral arterial occlusive disease I77.9 Weakness R53.1 Dyspnea R06.00 Severe protein-calorie malnutrition E43 Routine health maintenance Z00.00 Time Spent (min) 35
[2021-01-24] MEDS ORDERED: FUROSEMIDE 20 MG in SYRINGE 0 ML IV ONE (16:30)
[2021-01-24 16:45] LABS: Base Excess ABG 1.4 mEq/L (-9-1.8); HCO3 ABG 26 mmol/L (19-24); Oxygen Saturation ABG 92.3 % (90-95); PCO2 ABG 39 mmHg (35-46); PO2 ABG 65 mmHg (80-95); pH ABG 7.44 (7.35-7.45)
[2021-01-24 16:46] LABS: Allen Test POS (Pos)
[2021-01-24 16:48] LABS: Basophils # (auto) 0.04 K/uL (0-0.2); Basophils % (auto) 0.4 %; Eosinophils # (auto) 0.11 K/uL (0-0.5); Eosinophils % (auto) 1.1 %; Hematocrit (blood only) 34.5 % (42-52); Hemoglobin 11.2 g/dL (14.0-18.0); Immature Granulocytes # (auto) 0.06 K/uL (0.00-0.02); Immature Granulocytes % (auto) 0.6 %; Lymphocytes # (auto) 1.37 K/uL (1.2-3.4); Lymphocytes % (auto) 13.4 %; Mean Corpuscular Hemoglobin 26.4 pg (25-34); Mean Corpuscular Hgb Conc 32.5 g/dL (32-36); Mean Corpuscular Volume 81.4 fL (80-100); Mean Platelet Volume 10.2 fL (7.4-10.4); Monocytes # (auto) 1.15 K/uL (0.11-0.59); Monocytes % (auto) 11.2 %; Neutrophils # (auto) 7.53 K/uL (1.4-6.5); Neutrophils % (auto) 73.3 %; Platelet Count 304 K/uL (130-400); RDW Coefficient of Variation 15.9 % (11.5-14.5); RDW Standard Deviation 46.6 fL (36.4-46.3); Red Blood Count 4.24 M/uL (4.7-6.1); White Blood Count 10.26 K/uL (4.8-10.8)
--- NOTE | 2021-01-24 16:56 | Cardiology Progress Note ---
Date of Service January 24, 2021 Assessment & Plan (1) Cardiomyopathy: He has a severe cardiomyopathy based on his echocardiogram. We should try to optimize his medical therapy although it is questionable whether he will continue medications once he goes home or to wherever he is discharged. He has been on low-dose carvedilol and losartan since January 20, 2021. I am going to try to go up a little bit on his losartan, his heart rate and blood pressure are little on the low side so we will avoid going up on the carvedilol for now. His creatinine is on the low side. Admission and Anticipated Discharge Date Admission Date: January 18, 2021 Subjective He is lying supine in bed at the time my evaluation, he is communicative although not conversational. He has no specific cardiovascular complaints and seems to be tolerating his medications adequately despite a low blood pressure at times. He is not out of bed much. Physical Exam Physical Exam: Constitutional: Alert, cooperative and in no distress. HEENT: Unremarkable Neck: No jugular venous distention, carotid pulses are normal and equal bilaterally without bruits. Pulmonary: Rhonchi on auscultation bilaterally. Cardiac: Regular rhythm with no murmur, gallop or rub. Abdomen: Soft, nontender with normal bowel sounds. Extremities: Edema. Distal pulses not palpable. Neurologic: No focal findings. Gait was not tested. Skin: No rash, ecchymoses or petechiae. His legs are notable for multiple lesions and signs of chronic venous stasis. Results & Data ([facility]) Vital Signs (Past 12 Hours) Vital Signs Temp Pulse Resp BP BP Pulse Ox 01/24/21 14:58 36.6 C 59 L 24 95/59 L 95 01/24/21 11:49 36.7 C 59 L 20 98/57 L 97 01/24/21 06:39 36.5 C 68 19 112/75 95 Laboratory Results CBC 01/24/21 Range/Units 16:35 WBC 10.26 (4.8-10.8) K/uL RBC 4.24 L (4.7-6.1) M/uL Hgb 11.2 L (14.0-18.0) g/dL Hct 34.5 L (42-52) % Plt Count 304 (130-400) K/uL Neut # (Auto) 7.53 H (1.4-6.5) K/uL Lymph # (Auto) 1.37 (1.2-3.4) K/uL [place] # (Auto) 1.15 H (0.11-0.59) K/uL Eos # (Auto) 0.11 (0-0.5) K/uL Baso # (Auto) 0.04 (0-0.2) K/uL Intake and Output 01/24/21 01/24/21 01/24/21 06:59 14:59 22:59 Intake Total 550 / 1530 360 / 360 Output Total 2700 / 3050 650 / 650 Balance -2150 / -1520 -290 / -290 Intake: Oral 550 / 1530 360 / 360 Output: Urine Amount (Catheter) 2700 / 3050 650 / 650 External 2700 / 3050 650 / 650 Other: Weight 88.7 kg Weight Measurement Method Built in [facility] Diagnostic Findings Telemetry: Sinus rhythm, rate varying 40 to 60 bpm PG Care Time/CCT Total # of Minutes Spent Total Time Spent with Patient: Total time spent is greater than 50% in coordination of care (as documented) at patient's floor/unit and/or counseling patient: Coding Level of Care Code 77553 Subseq Hosp Care Lvl 2 Diagnoses Cardiomyopathy I42.9
[2021-01-24 17:07] LABS: BUN Creatinine Ratio 28.4 (10-20); Calcium 8.2 mg/dl (8.5-10.1); Est GFR (African American) 107.6; Est GFR (Non-African American) 92.8; Potassium 4.6 mmol/L (3.5-5.1)
[2021-01-24] MEDS ORDERED: ALBUT/IPRATROP 3MG/0.5MG NEB 3 ML VIAL NEB PRN (17:41)
--- NOTE | 2021-01-24 17:53 | Medical Student Progress Note ---
Date of Service January 24, 2021 Assessment & Plan (1) Sepsis: Mr. Hankins is a 65yo male with a PMHx of CAD, RI, and stroke who presented to the ED Sunday night complaining of months of ongoing leg pain and seeping leg wounds bilaterally. He hasn't seen a doctor in years and is not interested in smoking cessation or adding many new medications at this time. Denies Hx of HTN or DMII. Sepsis -Likely infection source with BLE ulcerations, especially on the left. Likely secondary to PAD/PVD. -Blood Cx 11/13 showed Staph species growth which is pansensitive, now final. Vancomycin discontinued. Continue cefazolin 2000@3.75mL/min IV. -most recent WBC 9.64, afebrile, initially tachycardic but most recently HR 59, most recent BP 95/59. Continue to monitor CBC and vitals. -U/A showed orange color, 1.034 specific gravity likely secondary to hypovolemia, +nitrites and leuk esterase, 5-10 WBC, 1+ bacteria, but also 5-10 epithelial cells. Urine Cx final with no growth. -Elevated troponin on admission likely related to demand myocardial ischemia in the setting of acute illness. FEN: PO fluids, monitoring electrolytes, heart healthy diet DVT PPx: Heparin 5000 units SQ BID Code status: Full Code Disposition: Remain inpatient for antibiotic coverage and monitoring of Cx and wound management re: infection, as well as considering agreeable medication optimization and developing a discharge placement plan appropriate with goals of care with the help of palliative care and case management. (2) Peripheral arterial occlusive disease: -Extensive smoking history, claudication with exertion but not at rest, and now extensiveulceration bilaterally. Pt received minimal medical care and few doctors seen over past several decades. No palpable pedal pulses. Pt has been taking a daily aspirin for past decade, but this is his only medication and he does not seem keen to add new medications outpatient. A1c 6.0. -Duplex lower extremity found severe bilateral atherosclerosis, probable occlusion of the left superficial femoral artery and likely occlusion of the right peroneal artery. -CTA found extensive atherosclerotic vascular disease, multifocal high-grade stenosis in distal superficial femoral artery with numerous opacified collateral vessels, high-grade stenosis vs. occlusion involves the majority of left anterior tibial artery with reconstitution of flow within the dorsalis pedis, fluid overload L>R pleural effusions with small volume of abdominopelvic ascites and diffuse body wall and asymmetric lower extremity edema. -Continue ASA 81. -Vascular surgery consulted, their recommendations are appreciated. They do not think he is a candidate for either an endovascular procedure or an open procedure of the left leg and recommend continuing wound management. (3) Open leg wound: -Known CAD and extensive smoking history, likely related to PAD. Pt reports worsening ulceration in BLE L>R for several months now seeping pus and blood. Bandaged and wound management involved. On cefazolin IV Abx for MSSA bacteremia. (4) Smoking greater than 40 pack years: -Continue nicotine patches while inpatient and monitor Sx for possible dose adjustment. Pt states currently adequate. -Wheezing on exam and chronic cough likely secondary to COPD. CTA found evidence of pulmonary emphysema which is further suggestive. Pt denies SOB today, but this is likely due to his delirium and proneness to minimize conversations. -Obtained ABG to check for respiratory-related hypercapnia which could further explain recent decline in mentation. pH 7.44, pCO2 39, pO2 65, HCO3 26. -Start ipratropium+albuterol qid. (5) CAD (coronary artery disease): -Hx RI 2008 in [place], pt reports he received cardiac bypass but we do not presently have records. On ASA at home but no other meds. -Per cardiology, recommend increasing losartan to 50mg and continuing carvedilol 3.125 BID since HR and BP have been low recently. We will continue to discuss with pt to see if he is willing to continue these meds outpatient. -Cardiology consulted, their recommendations are appreciated. Associated angina: without angina Coronary Disease-Associated Artery/Lesion type: [place] artery [place] vs. transplanted heart: [place] heart Qualified Code(s): I25.10 - Atherosclerotic heart disease of [place] coronary artery without angina pectoris (6) Elevated troponin: -Likely a demand ischemia related to age, comorbidities, and acute illness. No acute management. -Cardiology consulted, recs appreciated (7) Routine health maintenance: Pt has not seen a doctor in many years. Received flu vaccine and pneumovax-23 upon admission. (8) Cardiomyopathy: -TTE showed LV mildly dilated, LV systolic function moderately to severely reduced, EF 25-30%, moderate to severe mitral regurg, LA severely dilated, severe tricuspid regurg, RV systolic pressure increased at 50-60mmHg, IVC moderately dilated. -Pt denies CP, SOB, and palpitations. Exam found wheezing and crackles today. -In addition to ASA 81, continue on losartan 50 and carvedilol 3.125 BID. We will continue to discuss with pt to see if he is willing to continue these meds outpatient. -With worsening crackles today on exam, started furosemide 20mg IV x1. Chose this dose rather than a higher dose due to recent hypotension. -Cardiology consulted, their recommendations appreciated (9) Delirium: -Waxing and waning mentation and energy somewhat worse today. Per palliative care, pt stated that he did not remember their previous conversation. -Likely secondary to acute septic state, potentially with additional acute on chronic CHF and COPD contribution. Continue to treat infection with cefazolin. -Obtained ABG to check for respiratory-related hypercapnia which could further explain recent decline in mentation. pH 7.44, pCO2 39, pO2 65, HCO3 26. -Continue to avoid anticholinergic/sedative-hypnotic medications. -Environmental/behavioral modifications: frequent reorientation, lights off during the night, shades open during the day, ambulate as medically permissible. -Likely underlying component of anhedonia and depression, although no pharmacologic management at this time since pt wants to minimize inpatient meds and does not want outpatient med additions at this time. -Palliative care consulted, appreciate their recommendations. Admission and Anticipated Discharge Date Admission Date: January 18, 2021 Supervising Attestation I personally examined the patient and verified all curry points of history and exam, discussed case, and agree with decision making with Yoandy Arizmendi MS4 No meaningful HPI review of systems whenever I see him. Vitals noted, in general he is sleeping in bed does not really awaken to verbal or physical stimuli, appears to have a mild degree of respiratory distress. HEENT normocephalic atraumatic mucous membranes moist. Cardio is distant. Lungs show coarse rales and scattered rhonchi throughout, no accessory muscle use good effort, no wheezing. Abdomen is soft nondistended nontender no masses organomegaly. Extremity shows bilateral lower extremities dressed no tracking erythema. No focal neuro deficits outside of what sounds to be more chronic contractures Lower extremity cellulitis present on admission, questionable bacteremia. He was only positive 1 out of 2 blood cultures, but with bacteria that would certainly be plausible for his open leg wounds. Continue current antibiotics for now and follow closely. Acute on chronic systolic CHF's EF is about 25%, he sounds a bit wet this afternoon, and I suspect his delirium is at least in part related to an acute CHF exacerbation. Diurese, follow closely, continue to titrate medications along with cardiology. Poor self-careprior to this afternoon, and discussing with the team, it sounded like he had capacity, albeit borderline as such. That said, his home situation did not really seem to be safe, and we were going to need to continue to work with him on safer and more realistic disposition planning. This afternoon he seems to be a bit more delirious, and will require supportive care as such. Metabolic encephalopathy/deliriumprobably related to acute decompensation of chronic systolic CHF, as well as hospital stay. Supportive care and time DVT prophylaxisheparin subcu Subjective Mr. Hankins is somewhat less alert and talkative today, laying in bed with his eyes closed throughout most of the conversation. He asked that I turn off the lights and close the window shade. Initially he said he had no pain but later told me he has some pain and stiffness with movement. He states he still has a good appetite and was able to eat eggs, toast, bananas, orange juice, and Boost for breakfast. We discussed his difficulty with ambulating enough to urinate last week, and he said it's been easier now that he's switched to a [place]. We also discussed his interests and he told me he likes eating and watching TV. With that said, neither is very enjoyable these days since he doesn't cook beyond microwavable foods which he says aren't very good and he says his TV only has [employer] which he doesn't like but watches for hours each day. Review of Systems Review of Systems: All systems reviewed & are unremarkable except as noted in HPI & below Constitutional: + fatigue; no fever and no weakness Respiratory: + cough and + wheezing; no dyspnea Cardiovascular: + claudication; no chest pain, no dyspnea, no palpitations and no lightheadedness Gastrointestinal: no abdominal pain, no nausea, no vomiting and no dysphagia Genitourinary: no dysuria Neurologic: no headache(s) and no confusion Physical Exam Constitutional: well developed, + thin and + disheveled; no acute distress ENMT: external ear and nose normal, oropharynx normal Respiratory: normal respiratory effort and + cough Auscultation: + crackles (diffusely, especially in RLL) and + wheezes (diffusely); no rhonchi Cardiovascular: Rate/Rhythm: regular rate and regular rhythm Heart Sounds: normal S1 and normal S2; no gallop, no murmur and no cardiac rub Gastrointestinal (Abdomen): normal bowel sounds, soft, nontender, no hepatosplenomegaly Percussion/Palpation: abdomen nontender, no guarding and abdomen not rigid Musculoskeletal: Extremities: + extremities abnormal to inspection (bilateral leg ulceration L>R, with venous stasis hyperpigmentation) Skin: no rashes, warm and dry Psychiatric: Orientation: oriented to person, oriented to place, oriented to time and + guarded (somewhat, moreso than previous days) Apperance: + disheveled (several food stains on his gown) Eye Contact: + poor eye contact Speech: + abnormal rate/rhythm/volume of speech (decreased utterance length) Affect: + blunted affect Results & Data ([facility]) Vital Signs (Past 12 Hours) Vital Signs Temp Pulse Resp BP BP Pulse Ox 01/24/21 14:58 36.6 C 59 L 24 95/59 L 95 01/24/21 11:49 36.7 C 59 L 20 98/57 L 97 01/24/21 06:39 36.5 C 68 19 112/75 95
--- NOTE | 2021-01-24 19:15 | Billing Data ---
Date of Service January 24, 2021 Coding Level of Care Code 12032 Subseq Hosp Care Lvl 3
[2021-01-25] MEDS: ceFAZolin 2000MG 2,000 MG/15 ML SYR IV SCH ×3 (04:38→20:02)
--- NOTE | 2021-01-25 09:13 | Cardiology Progress Note ---
Date of Service January 25, 2021 Assessment & Plan (1) Cardiomyopathy: He has a severe cardiomyopathy based on his echocardiogram. We should try to optimize his medical therapy although it is questionable whether he will continue medications once he goes home or to wherever he is discharged. I started low-dose carvedilol and losartan since January 20, 2021. His blood pressure remains low, he is in bed most of the time and seems to tolerate a low blood pressure so far but that may limit our ability to titrate his heart failure medications. I did go up on his losartan slightly, his heart rate and blood pressure are little on the low side so we will avoid going up on the carvedilol for now. His creatinine is on the low side. Hopefully we can continue the current doses at least. Admission and Anticipated Discharge Date Admission Date: January 18, 2021 Subjective He is lying in bed, he tells me that he feels fairly well and has no specific cardiac complaints. He seems to be tolerating his medications well denies dizziness despite his low blood pressure. Physical Exam Physical Exam: Constitutional: Alert, cooperative and in no distress. HEENT: Unremarkable Neck: No jugular venous distention, carotid pulses are normal and equal bilaterally without bruits. Pulmonary: Rhonchi on auscultation bilaterally. Cardiac: Regular rhythm with no murmur, gallop or rub. Abdomen: Soft, nontender with normal bowel sounds. Extremities: Edema. Distal pulses not palpable. Neurologic: No focal findings. Gait was not tested. Skin: No rash, ecchymoses or petechiae. His legs are bandaged bilaterally below the knees. Results & Data ([facility]) Vital Signs (Past 12 Hours) Vital Signs Temp Pulse Pulse Resp BP BP Pulse Ox 01/25/21 07:27 37 C 66 20 92/59 L 94 01/25/21 04:40 66 66 17 100/57 L 01/24/21 22:13 36.7 C 69 18 96/62 L 93 Laboratory Results CBC 01/24/21 Range/Units 16:35 WBC 10.26 (4.8-10.8) K/uL RBC 4.24 L (4.7-6.1) M/uL Hgb 11.2 L (14.0-18.0) g/dL Hct 34.5 L (42-52) % Plt Count 304 (130-400) K/uL Neut # (Auto) 7.53 H (1.4-6.5) K/uL Lymph # (Auto) 1.37 (1.2-3.4) K/uL [place] # (Auto) 1.15 H (0.11-0.59) K/uL Eos # (Auto) 0.11 (0-0.5) K/uL Baso # (Auto) 0.04 (0-0.2) K/uL Comprehensive Metabolic Panel 01/24/21 Range/Units 16:34 Sodium 137 (136-145) mmol/L Potassium 4.6 (3.5-5.1) mmol/L Chloride 107 (98-107) mmol/L Carbon Dioxide 26 (21-32) mmol/L BUN 23 H (7-18) mg/dl Creatinine 0.82 (0.6-1.4) mg/dl Glucose 105 H (70-99) mg/dl Calcium 8.2 L (8.5-10.1) mg/dl Intake and Output 01/24/21 01/25/21 01/25/21 22:59 06:59 14:59 Intake Total 300 / 960 300 / 960 Output Total 1800 / 4500 2050 / 4500 Balance -1500 / -3540 -1750 / -3540 Intake: Oral 300 / 960 300 / 960 Output: Urine Amount (Catheter) 1800 / 4500 2050 / 4500 External 1800 / 4500 2050 / 4500 PG Care Time/CCT Total # of Minutes Spent Total Time Spent with Patient: Total time spent is greater than 50% in coordination of care (as documented) at patient's floor/unit and/or counseling patient: Coding Level of Care Code 75615 Subseq Hosp Care Lvl 2 Diagnoses Cardiomyopathy I42.9
[2021-01-25] MEDS: HEPARIN SOD 5,000 UNIT/0.5 ML VIAL SQ SCH ×2 (09:17→20:04)
[2021-01-25] MEDS: carvediloL 3.125 MG TAB PO SCH ×2 (09:17→20:03)
[2021-01-25] MEDS: ASPIRIN 81 MG ECTAB PO SCH (09:17)
[2021-01-25] MEDS: LOSARTAN POTASSIUM 50 MG TAB PO SCH (09:17)
[2021-01-25] MEDS: NICOTINE 21 MG/24 HR TDSY TD SCH (09:19)
[2021-01-25] MEDS ORDERED: FUROSEMIDE 20 MG in SYRINGE 0 ML IV ONE (11:00)
--- NOTE | 2021-01-25 15:46 | Palliative Care Progress Note ---
Date of Service January 25, 2021 Assessment & Plan (1) Palliative care encounter: Dr. Pennington and I met with patient at bedside to review goals of care. His primary goal is to return home and be independent. He talks about being able to walk and do thing for himself at home which unfortunately is not a realistic goal. When asked if there was anything that he would find unacceptable or not tolerable for his care, he became angry. It is not clear whether he has insight into his health concerns. He did note that his children would make decisions if he were unable to do so but did not specify which child in particular. He did give me permission to call his daughter, Vita, to discuss his care. Unfortunately, there was no answer when I called Vita. Admission and Anticipated Discharge Date Admission Date: January 18, 2021 Subjective Eating lunch in bed, disheveled. Review of Systems Review of Systems: Patient declined Physical Exam Constitutional: no acute distress Respiratory: normal respiratory effort; no labored breathing Gastrointestinal (Abdomen): Inspection/Auscultation: abdomen not distended Musculoskeletal: Extremities: + muscle atrophy contracture left LE Psychiatric: Orientation: alert and oriented x 3 Affect: + irritable affect and + angry affect Results & Data ([facility]) Vital Signs (Past 12 Hours) Vital Signs Temp Pulse Pulse Resp BP Pulse Ox 01/25/21 07:27 98.6 F 66 20 92/59 L 94 01/25/21 04:40 66 66 17 100/57 L PG Care Time/CCT Total # of Minutes Spent Total Time Spent with Patient: Total time spent is greater than 50% in coordination of care (as documented) at patient's floor/unit and/or counseling patient: Coding Level of Care Code 40918 Subseq Hosp Care Lvl 2 Diagnoses Palliative care encounter Z51.5
--- NOTE | 2021-01-25 19:10 | Medical Student Progress Note ---
Date of Service January 25, 2021 Assessment & Plan (1) Sepsis: Mr. Hankins is a 65yo male with a PMHx of CAD, [place], and stroke who presented to the ED Sunday night complaining of months of ongoing leg pain and seeping leg wounds bilaterally. He hasn't seen a doctor in years and is not interested in smoking cessation or adding many new medications at this time. Denies Hx of HTN or DMII. Sepsis -Likely infection source with BLE ulcerations, especially on the left. Likely secondary to PAD/PVD. -Blood Cx 11/13 showed MSSA bacteremia, now final. Continue cefazolin 2000@3.75mL/min IV. -most recent WBC 10.26, afebrile, initially tachycardic but most recently HR 69, most recent BP 112/73. Continue to monitor CBC and vitals. -U/A showed orange color, 1.034 specific gravity likely secondary to hypovolemia, +nitrites and leuk esterase, 5-10 WBC, 1+ bacteria, but also 5-10 epithelial cells. Urine Cx final with no growth. -Elevated troponin on admission likely related to demand myocardial ischemia in the setting of acute illness. FEN: PO fluids, monitoring electrolytes, heart healthy diet DVT PPx: Heparin 5000 units SQ BID Code status: Full Code Disposition: Remain inpatient for antibiotic coverage and monitoring of Cx and wound management re: infection, as well as considering agreeable medication optimization and developing a discharge placement plan appropriate with goals of care with the help of palliative care and case management. (2) Peripheral arterial occlusive disease: -Extensive smoking history, claudication with exertion but not at rest, and now extensive ulceration bilaterally. Pt received minimal medical care and few doctors seen over past several decades. Pt has been taking a daily aspirin for past decade, but this is his only medication and he does not seem keen to add new medications outpatient. A1c 6.0. -Duplex lower extremity found severe bilateral atherosclerosis, probable occlusion of the left superficial femoral artery and likely occlusion of the right peroneal artery. -CTA found extensive atherosclerotic vascular disease, multifocal high-grade stenosis in distal superficial femoral artery with numerous opacified collateral vessels, high-grade stenosis vs. occlusion involves the majority of left anter ior tibial artery with reconstitution of flow within the dorsalis pedis, fluid overload L>R pleural effusions with small volume of abdominopelvic ascites and diffuse body wall and asymmetric lower extremity edema. -Continue ASA 81. -Vascular surgery consulted, their recommendations are appreciated. They do not think he is a candidate for either an endovascular procedure or an open procedure of the left leg and recommend continuing wound management. (3) Open leg wound: -Known CAD and extensive smoking history, likely related to PAD. Pt reports worsening ulceration in BLE L>R for several months now seeping pus and blood. Bandaged and wound management involved. On cefazolin IV Abx for MSSA bacteremia. (4) Smoking greater than 40 pack years: -Continue nicotine patches while inpatient and monitor Sx for possible dose adjustment. Pt states currently adequate. -Wheezing on exam and chronic cough likely secondary to COPD. CTA found evidence of pulmonary emphysema which is further suggestive. Pt denies SOB today, but this is likely due to his delirium and proneness to minimize conversations. -Obtained ABG to check for respiratory-related hypercapnia which could further explain recent decline in mentation. pH 7.44, pCO2 39, pO2 65, HCO3 26. -Continue ipratropium+albuterol qid. (5) CAD (coronary artery disease): -Hx [place] 2008 in [place]. On ASA at home but no other meds. -Continue losartan 50mg and carvedilol 3.125 BID. -Cardiology consulted, their recommendations are appreciated. Associated angina: without angina Coronary Disease-Associated Artery/Lesion type: [place] artery [place] vs. transplanted heart: [place] heart Qualified Code(s): I25.10 - Atherosclerotic heart disease of [place] coronary artery without angina pectoris (6) Elevated troponin: -Likely a demand ischemia related to age, comorbidities, and acute illness. No acute management. -Cardiology consulted, recs appreciated (7) Cardiomyopathy: -TTE showed LV mildly dilated, LV systolic function moderately to severely reduced, EF 25-30%, moderate to severe mitral regurg, LA severely dilated, severe tricuspid regurg, RV systolic pressure increased at 50-60mmHg, IVC moderately dilated. -Pt denies CP, SOB, and palpitations. Exam found wheezing and crackles today, but crackles improved relative to yesterday -In addition to ASA 81, continue losartan 50 and carvedilol 3.125 BID. We will continue to discuss with pt to see if he is willing to continue these meds outpatient. -Crackles and ABG indicate likely CHF exacerbation. Given furosemide 20 IV x1 yesterday which seemed to help crackles today. Give another furosemide 20mg IV x1 today and continue to monitor. -Cardiology consulted, their recommendations appreciated (8) Delirium: -Waxing and waning mentation and energy. AxOx4 today, but pt more irri table. -Likely secondary to acute septic state, potentially with additional acute on chronic CHF and COPD contribution. Continue to treat infection with cefazolin. -Continue to avoid anticholinergic/sedative-hypnotic medications. -Environmental/behavioral modifications: frequent reorientation, lights off during the night, shades open during the day, ambulate as medically permissible. Pt prefers lights off and windows closed at all times but we should avoid this during daytime. -Likely underlying component of anhedonia and depression, although no pharmacologic management at this time since pt wants to minimize inpatient meds and does not want outpatient med additions at this time. -Palliative care consulted, appreciate their recommendations regarding the mixed picture of delirium, likely depression, underlying personality, and acute illness and how they impact goal making, self care, and discharge planning. Admission and Anticipated Discharge Date Admission Date: January 18, 2021 Supervising Attestation I personally examined the patient and verified all curry points of history and exam, discussed case, and agree with decision making with Yoandy Arizmendi MS4. Having painhaving dressing changes at the time I see him. Fairly limited history Vitals noted, in general he is laying on his side having dressing changes and appears uncomfortable due to this. HEENT normocephalic atraumatic mucous membranes are moist. Lungs faintly diminished bibasilar is laying on his right side it seems more pronounced there. No accessory muscle use. Extremities show large denuded areas of ulceration almost circumferentially on his calves with fairly large exudative patches scattered throughout Cellulitis with question of bacteremia present on admissioncontinue current antibiotics, wound care. Acute on chronic systolic CHFcontinue diuresis and med management. Supportive care. Poor self-caredisposition will be fairly difficult given that he does not seem to want to go anywhere or of outside help but was clearly failing at home. Beyond that he is fairly gruff and demeanor making discussions fairly difficult, we will continue to try to work on some form of safe disposition. Subjective Mr. Hankins was not very interested in talking this morning. He states that he slept fine and his appetite is good. He ate pancakes for breakfast which is the best part of his day. He says his pain is about the same with no new Sx. He states his legs hurt whenever wound management comes and so he does not want me to touch his legs today. He says he is not confused and his breathing is about the same. His lights were off and curtain down when I entered and I turned on the lights and opened the curtain to allow for daylight. He was alert and oriented x4, stating he was here in the hospital because his kids overstepped a nd made him come. Review of Systems Review of Systems: All systems reviewed & are unremarkable except as noted in HPI & below Constitutional: no fever and no anorexia Respiratory: + cough and + wheezing; no dyspnea Cardiovascular: + claudication; no chest pain, no dyspnea and no palpitations Gastrointestinal: no abdominal pain, no nausea, no vomiting, no dysphagia, no constipation and no diarrhea/loose stools Genitourinary: no dysuria Neurologic: no headache(s) and no confusion Physical Exam Constitutional: WD/WN, vitals as above + thin and + disheveled; no acute distress and + uncomfortable (laying curled up in bed) ENMT: external ear and nose normal, oropharynx normal Respiratory: normal respiratory effort Auscultation: + crackles (especially in RLL, but improved from yesterday) and + wheezes (diffusely); no rhonchi Cardiovascular: RRR, no murmur, no edema Heart Sounds: normal S1 and normal S2; no gallop, no murmur and no cardiac rub Gastrointestinal (Abdomen): normal bowel sounds, soft, nontender, no hepatosplenomegaly Percussion/Palpation: abdomen nontender, no guarding and abdomen not rigid Skin: + ulcer (legs L>R) Neurologic: CN's II-XI intact bilaterally Psychiatric: Orientation: alert and oriented x 3 Eye Contact: + poor eye contact Affect: + irritable affect Results & Data ([facility]) Vital Signs (Past 12 Hours) Vital Signs Temp Pulse Resp BP BP Pulse Ox 01/25/21 15:25 36.7 C 69 20 112/73 91 01/25/21 07:27 37 C 66 20 92/59 L 94
--- NOTE | 2021-01-25 20:28 | Billing Data ---
Date of Service January 25, 2021 Coding Level of Care Code 50764 Subseq Hosp Care Lvl 3
[2021-01-26] MEDS: ceFAZolin 2000MG 2,000 MG/15 ML SYR IV SCH ×3 (05:00→19:56)
[2021-01-26] MEDS: ASPIRIN 81 MG ECTAB PO SCH (07:49)
[2021-01-26] MEDS: LOSARTAN POTASSIUM 50 MG TAB PO SCH (07:49)
[2021-01-26] MEDS: carvediloL 3.125 MG TAB PO SCH ×2 (07:49→21:20)
[2021-01-26] MEDS: NICOTINE 21 MG/24 HR TDSY TD SCH (07:50)
[2021-01-26] MEDS: HEPARIN SOD 5,000 UNIT/0.5 ML VIAL SQ SCH ×2 (07:50→21:20)
[2021-01-26 07:54] LABS: BUN Creatinine Ratio 33.5 (10-20); Calcium 8.5 mg/dl (8.5-10.1); Creatinine Clr Calc Pharmacy 128.8 ml/min; Est GFR (African American) 119.9; Est GFR (Non-African American) 103.4; Potassium 4.7 mmol/L (3.5-5.1)
--- NOTE | 2021-01-26 08:44 | Cardiology Progress Note ---
Date of Service January 26, 2021 Assessment & Plan (1) Cardiomyopathy: He has a severe cardiomyopathy based on his echocardiogram. We should try to optimize his medical therapy although it is questionable whether he will continue medications once he goes home, although if he goes to a care facility perhaps he will get them. I started low-dose carvedilol and losartan January 20, 2021. His blood pressure remains low, he is in bed most of the time and seems to tolerate a low blood pressure so far but that may limit our ability to titrate his heart failure medications. I did go up on his losartan slightly on January 25, 2021 but it was held for low blood pressure, his heart rate and blood pressure are little on the low side so we will avoid going up on the carvedilol for now. His creatinine is on the low side so we will not interfere with going up on the ARB. Hopefully we can continue the current doses at least. I am going to rewrite his hold parameters so he gets the increased dose of losartan. Admission and Anticipated Discharge Date Admission Date: January 18, 2021 Subjective He has no specific cardiac complaints today. Physical Exam Physical Exam: Constitutional: Alert, cooperative and in no distress. HEENT: Unremarkable Neck: No jugular venous distention, carotid pulses are normal and equal bilaterally without bruits. Pulmonary: Rhonchi on auscultation bilaterally. Cardiac: Regular rhythm with no murmur, gallop or rub. Abdomen: Soft, nontender with normal bowel sounds. Extremities: Edema. Distal pulses not palpable. Neurologic: No focal findings. Gait was not tested. Skin: No rash, ecchymoses or petechiae. His legs are bandaged bilaterally below the knees. Results & Data ([facility]) Vital Signs (Past 12 Hours) Vital Signs Temp Pulse Resp BP Pulse Ox 01/26/21 07:47 36.5 C 63 16 121/68 97 01/25/21 22:49 37.4 C 65 16 103/65 96 Laboratory Results Comprehensive Metabolic Panel 01/26/21 Range/Units 06:25 Sodium 135 L (136-145) mmol/L Potassium 4.7 (3.5-5.1) mmol/L Chloride 104 (98-107) mmol/L Carbon Dioxide 28 (21-32) mmol/L BUN 21 H (7-18) mg/dl Creatinine 0.63 (0.6-1.4) mg/dl Glucose 89 (70-99) mg/dl Calcium 8.5 (8.5-10.1) mg/dl Intake and Output 01/25/21 01/26/21 01/26/21 22:59 06:59 14:59 Intake Total 490 / 2065 400 / 2065 Output Total 800 / 2940 1150 / 2940 Balance -310 / -875 -750 / -875 Intake: Oral 490 / 1440 400 / 1440 Output: Urine Amount (Catheter) 800 / 2940 1150 / 2940 External 800 / 2940 1150 / 2940 Other: Weight 88.7 kg PG Care Time/CCT Total # of Minutes Spent Total Time Spent with Patient: Total time spent is greater than 50% in coordination of care (as documented) at patient's floor/unit and/or counseling patient: Coding Level of Care Code 25375 Subseq Hosp Care Lvl 2 Diagnoses Cardiomyopathy I42.9
--- NOTE | 2021-01-26 12:59 | Medical Student Progress Note ---
Date of Service January 26, 2021 Assessment & Plan (1) Sepsis: Mr. Hankins is a 65yo male with a PMHx of CAD, [place], and stroke who presented to the ED Sunday night complaining of months of ongoing leg pain and seeping leg wounds bilaterally. He hasn't seen a doctor in years and is not interested in smoking cessation or adding many new medications at this time. Denies Hx of HTN or DMII. Sepsis -Likely infection source with BLE ulcerations, especially on the left. Likely secondary to PAD/PVD. -Blood Cx 11/13 showed MSSA bacteremia, now final. Continue cefazolin 2000@3.75mL/min IV. -most recent WBC 10.26, afebrile, initially tachycardic but most recently HR 63, most recent BP 121/68. Continue to monitor. -U/A showed orange color, 1.034 specific gravity likely secondary to hypovolemia, +nitrites and leuk esterase, 5-10 WBC, 1+ bacteria, but also 5-10 epithelial cells. Urine Cx final with no growth. -Elevated troponin on admission likely related to demand myocardial ischemia in the setting of acute illness. FEN: PO fluids, monitoring electrolytes, heart healthy diet DVT PPx: Heparin 5000 units SQ BID Code status: Full Code Disposition: Remain inpatient for antibiotic coverage and wound management re: infection, as well as considering agreeable medication optimization and develo ping a discharge placement plan appropriate with goals of care with the help of palliative care and case management. (2) Peripheral arterial occlusive disease: -Extensive smoking history, claudication with exertion but not at rest, and now extensive ulceration bilaterally. Pt received minimal medical care and few doctors seen over past several decades. Pt has been taking a daily aspirin for past decade, but this is his only medication and he does not seem keen to add new medications outpatient. A1c 6.0. -Duplex lower extremity found severe bilateral atherosclerosis, probable occlusion of the left superficial femoral artery and likely occlusion of the right peroneal artery. -CTA found extensive atherosclerotic vascular disease, multifocal high-grade stenosis in distal superficial femoral artery with numerous opacified collateral vessels, high-grade stenosis vs. occlusion involves the majority of left anterior tibial artery with reconstitution of flow within the dorsalis pedis, fluid overload L>R pleural effusions with small volume of abdominopelvic ascites and diffuse body wall and asymmetric lower extremity edema. -Continue ASA 81. -Vascular surgery consulted, their recommendations are appreciated. They do not think he is a candidate for either an endovascular procedure or an open procedure of the left leg and recommend continuing wound management. (3) Open leg wound: -Known CAD and extensive smoking history, likely related to PAD. Pt reports worsening ulceration in BLE L>R for several months now seeping pus and blood. Bandaged and wound management involved. On cefazolin IV Abx for MSSA bacteremia. (4) Smoking greater than 40 pack years: -Continue nicotine patches while inpatient and monitor Sx for possible dose adjustment. Pt states currently adequate. -Wheezing on exam and chronic cough likely secondary to COPD. CTA found evidence of pulmonary emphysema which is further suggestive. Pt denies SOB today, but this is likely due to his delirium and proneness to minimize conversations. -Obtained ABG to check for respiratory-related hypercapnia which could further explain recent decline in mentation. pH 7.44, pCO2 39, pO2 65, HCO3 26, which fits more with CHF exacerbation than COPD hypercapnia. -Continue ipratropium+albuterol qid. (5) CAD (coronary artery disease): -Hx [place] 2008 in [place]. On ASA at home but no other meds. -Continue losartan 50mg and carvedilol 3.125 BID. -Cardiology consulted, their recommendations are appreciated. Associated angina: without angina Coronary Disease-Associated Artery/Lesion type: [place]stone artery [place] vs. transplanted heart: [place]stone heart Qualified Code(s): I25.10 - Atherosclerotic heart disease of [place] coronary artery without angina pectoris (6) Cardiomyopathy: -TTE showed LV mildly dilated, LV systolic function moderately to severely reduced, EF 25-30%, moderate to severe mitral regurg, LA severely dilated, severe tricuspid regurg, RV systolic pressure increased at 50-60mmHg, IVC moderately dilated. -Pt denies CP, SOB, and palpitations. Exam found wheezing and crackles today, but crackles improved relative to yesterday -In addition to ASA 81, continue losartan 50 and carvedilol 3.125 BID. We will continue to discuss with pt to see if he is willing to continue these meds outpatient. -Crackles and ABG indicate likely CHF exacerbation. Given furosemide 20 IV x1 twice in past two days which helped some with crackles. Still crackles on exam, primarily LLL now. Give another dose of furosemide 20 IV x1 today. -Cardiology consulted, their recommendations appreciated (7) Delirium: -Waxing and waning mentation and energy. AxOx4 today, somewhat less irritable today but not very conversational. -Likely secondary to acute septic state, potentially with additional acute on chronic CHF and COPD contribution. Continue to treat infection with cefazolin. -Continue to avoid anticholinergic/sedative-hypnotic medications. -Environmental/behavioral modifications: frequent reorientation, lights off during the night, shades open during the day, ambulate as medically permissible. Pt prefers lights off and windows closed at all times but we should avoid this during daytime. -Likely underlying component of anhedonia and depression, although no pharmacologic management at this time since pt wants to minimize inpatient meds and does not want outpatient med additions at this time. -Palliative care consulted, appreciate their recommendations regarding the mixed picture of delirium, likely depression, underlying personality, and acute illness and how they impact goal making, self care, and discharge planning. They state pt's primary goal at this point is to return home independently, which is not a realistic goal. Insight unclear. They will reach out to pt's daughter Vita to continue discussions and planning. Admission and Anticipated Discharge Date Admission Date: January 18, 2021 Supervising Attestation I personally examined the patient and verified all curry points of history and exam, discussed case, and agree with decision making with Yoandy Arizmendi MS4. sitting up in chair! legs feeling OK - hurt w dressing changes but not bad at rest. admits that he would have trouble getting around house - thinks that he would do better w hospital bed and motorized scooter. breathing feels fine Vitals noted, in general he is laying on his side having dressing changes and appears uncomfortable due to this. HEENT normocephalic atraumatic mucous membranes are moist. breathing unlabored no accessory muscle use good effort no conversational dyspnea. Extremities dressed/no tracking erythema Cellulitis with question of bacteremia present on admissioncontinue current antibiotics, wound care. d/w pt this will be a long process of healing Acute on chronic systolic CHFappearing more compensated. Supportive care. Poor self-caredisposition will be fairly difficult given that he does not seem to want to go anywhere or of outside help but was clearly failing at home. still doesn't really want to talk about anythign other than going home - and while we were having a good discussion of his difficulties at home, even once i said it would be a long process (and before even getting to potentially discussing snf or rehab) he turned his head away, stopped making eye contact and said, "we're done" otherwise as above Subjective Mr. Hankins states he is feeling about the same today. He says he has no new pain, no new symptoms, and no trouble breathing. He says he is pretty much just laying in bed with his gordon. He said he did not sleep well last night since he was hungry. We discussed how he can reach out to his nurses if he is feeling that hungry and they can provide him a snack so he can sleep, but he said he does not like being a bother and is unlikely to reach out. He ate toast and eggs for breakfast, as well as yogurt but he was insistent he did not enjoy his yogurt and does not want it again. Review of Systems Review of Systems: All systems reviewed & are unremarkable except as noted in HPI & below Constitutional: no fever, no fatigue and no anorexia Respiratory: + cough; no dyspnea Cardiovascular: + claudication; no chest pain, no dyspnea, no palpitations and no lightheadedness Gastrointestinal: no abdominal pain, no nausea, no vomiting and no dysphagia Neurologic: no dizziness, no headache(s) and no confusion Physical Exam Constitutional: well developed, + thin and + disheveled; no acute distress ENMT: external ear and nose normal, oropharynx normal Respiratory: normal respiratory effort; no respiratory distress Auscultation: + crackles (primarily in LLL) and + wheezes; no rhonchi Cardiovascular: RRR, no murmur, no edema Heart Sounds: normal S1 and normal S2; no gallop, no murmur and no cardiac rub Gastrointestinal (Abdomen): normal bowel sounds, soft, nontender, no hepatosplenomegaly Percussion/Palpation: abdomen nontender, no guarding and abdomen not rigid Skin: + ulcer (BLE L>R, extensive ulceration and cellulitis, bandaged) Psychiatric: A+Ox3, euthymic affect Apperance: + disheveled Eye Contact: + fair eye contact Affect: + depressed affect Results & Data ([facility]) Vital Signs (Past 12 Hours) Vital Signs Temp Pulse Resp BP Pulse Ox 01/26/21 07:47 36.5 C 63 16 121/68 97
[2021-01-26] MEDS ORDERED: FUROSEMIDE 20 MG in SYRINGE 0 ML IV ONE (13:30)
--- NOTE | 2021-01-26 18:12 | Billing Data ---
Date of Service January 26, 2021 Coding Level of Care Code 66459 Subseq Hosp Care Lvl 3
[2021-01-27 07:03] LABS: Basophils # (auto) 0.06 K/uL (0-0.2); Basophils % (auto) 0.6 %; Eosinophils # (auto) 0.14 K/uL (0-0.5); Eosinophils % (auto) 1.5 %; Hematocrit (blood only) 37.3 % (42-52); Hemoglobin 12.7 g/dL (14.0-18.0); Immature Granulocytes # (auto) 0.06 K/uL (0.00-0.02); Immature Granulocytes % (auto) 0.6 %; Lymphocytes # (auto) 1.62 K/uL (1.2-3.4); Lymphocytes % (auto) 16.9 %; Mean Corpuscular Hemoglobin 27.2 pg (25-34); Mean Corpuscular Volume 79.9 fL (80-100); Mean Platelet Volume 9.9 fL (7.4-10.4); Monocytes # (auto) 1.12 K/uL (0.11-0.59); Monocytes % (auto) 11.7 %; Neutrophils # (auto) 6.57 K/uL (1.4-6.5); Neutrophils % (auto) 68.7 %; Platelet Count 347 K/uL (130-400); RDW Coefficient of Variation 16.3 % (11.5-14.5); RDW Standard Deviation 46.7 fL (36.4-46.3); Red Blood Count 4.67 M/uL (4.7-6.1); White Blood Count 9.57 K/uL (4.8-10.8)
[2021-01-27] MEDS: ceFAZolin 2000MG 2,000 MG/15 ML SYR IV SCH ×3 (07:34→19:35)
[2021-01-27 07:35] LABS: BUN Creatinine Ratio 34.8 (10-20); Calcium 8.4 mg/dl (8.5-10.1); Creatinine Clr Calc Pharmacy 148.3 ml/min; Est GFR (African American) 127.7; Est GFR (Non-African American) 110.2; Potassium 4.4 mmol/L (3.5-5.1)
[2021-01-27] MEDS: NICOTINE 21 MG/24 HR TDSY TD SCH (07:35)
[2021-01-27] MEDS: LOSARTAN POTASSIUM 50 MG TAB PO SCH (07:37)
[2021-01-27] MEDS: carvediloL 3.125 MG TAB PO SCH ×2 (07:37→20:14)
[2021-01-27] MEDS: ASPIRIN 81 MG ECTAB PO SCH (07:37)
[2021-01-27] MEDS: HEPARIN SOD 5,000 UNIT/0.5 ML VIAL SQ SCH ×2 (07:38→20:14)
--- NOTE | 2021-01-27 09:55 | Hospitalist Progress Note ---
Date of Service January 27, 2021 Assessment & Plan Admission and Anticipated Discharge Date Admission Date: January 18, 2021 Mr. Hankins is a 65yo male with a PMHx of CAD, [place], and stroke who presented to the ED Sunday night complaining of months of ongoing leg pain and seeping leg wounds bilaterally. He hasn't seen a doctor in years and is not interested in smoking cessation or adding many new medications at this time. Denies Hx of HTN or DMII. Sepsis -Likely infection source with BLE ulcerations, especially on the left. Likely secondary to PAD/PVD. -Blood Cx 11/13 showed MSSA bacteremia, now final. Continue cefazolin 2000@3.75mL/min IV. -most recent WBC 10.26, afebrile, initially tachycardic but most recently HR 63, most recent BP 121/68. Continue to monitor. -U/A showed orange color, 1.034 specific gravity likely secondary to hypovolemia, +nitrites and leuk esterase, 5-10 WBC, 1+ bacteria, but also 5-10 epithelial cells. Urine Cx final with no growth. -Elevated troponin on admission likely related to demand myocardial ischemia in the setting of acute illness. Peripheral arterial occlusive disease: -Extensive smoking history, claudication with exertion but not at rest, and now extensive ulceration bilaterally. Pt received minimal medical care and few doctors seen over past several decades. Pt has been taking a daily aspirin for past decade, but this is his only medication and he does not seem keen to add new medications outpatient. -Duplex lower extremity found severe bilateral atherosclerosis, probable occlusion of the left superficial femoral artery and likely occlusion of the right peroneal artery. -CTA found extensive atherosclerotic vascular disease, multifocal high-grade stenosis in distal superficial femoral artery with numerous opacified collateral vessels, high-grade stenosis vs. occlusion involves the majority of left anterio r tibial artery with reconstitution of flow within the dorsalis pedis, fluid overload L>R pleural effusions with small volume of abdominopelvic ascites and diffuse body wall and asymmetric lower extremity edema. -Continue ASA 81. -Vascular surgery consulted, their recommendations are appreciated. They do not think he is a candidate for either an endovascular procedure or an open procedure of the left leg and recommend continuing wound management. Open leg wound: -Known CAD and extensive smoking history, likely related to PAD. Pt reports worsening ulceration in BLE L>R for several months now seeping pus and blood. Bandaged and wound management involved. On cefazolin IV Abx for MSSA bacteremia. Smoking greater than 40 pack years: -Continue nicotine patches while inpatient and monitor Sx for possible dose adjustment. Pt states currently adequate. -Wheezing on exam and chronic cough likely secondary to COPD. CTA found evidence of pulmonary emphysema which is further suggestive. Pt denies SOB today, but this is likely due to his delirium and proneness to minimize conversations. -Obtained ABG to check for respiratory-related hypercapnia which could further explain recent decline in mentation. pH 7.44, pCO2 39, pO2 65, HCO3 26, which fits more with CHF exacerbation than COPD hypercapnia. -Continue ipratropium+albuterol qid. CAD (coronary artery disease) -Hx [place] 2008 in [place]. On ASA at home but no other meds. -Continue losartan 50mg and carvedilol 3.125 BID. -Cardiology consulted, their recommendations are appreciated. Cardiomyopathy -TTE showed LV mildly dilated, LV systolic function moderately to severely reduced, EF 25-30%, moderate to severe mitral regurg., LA severely dilated, severe tricuspid regurg., RV systolic pressure increased at 50-60mmHg, IVC moderately dilated. -Pt denies CP, SOB, and palpitations. Exam found wheezing and crackles today, but crackles improved relative to yesterday -In addition to ASA 81, continue losartan 50 and carvedilol 3.125 BID. We will continue to discuss with pt to see if he is willing to continue these meds outpatient. -Cardiology consulted Delirium -Waxing and waning mentation and energy. AxOx4 today, somewhat less irritable today but not very conversational. -Likely secondary to acute septic state, potentially with additional acute on chronic CHF and COPD contribution. Continue to treat infection with cefazolin. -Continue to avoid anticholinergic/sedative-hypnotic medications. -Palliative care consulted, appreciate their recommendations regarding the mixed picture of delirium, likely depression, underlying personality, and acute illness and how they impact goal making, self care, and discharge planning. They state pt's primary goal at this point is to return home independently, which is not a realistic goal. Insight unclear. They will reach out to pt's daughter Vita to continue discussions and planning. FEN: PO fluids, monitoring electrolytes, heart healthy diet DVT PPx: Heparin 5000 units SQ BID Code status: Full Code Supervising Physician Co-Signing Physician Notes I personally examined the patient and verified all curry points of history and exam, discussed case, and agree with decision making with Dr Mcfadden. Patient visited twice, once he was on the phone, another time he was sleeping. Case discussed with Dr. Mcfadden Vitals noted, in general he is initially awake and talking on the phone no distress, later sleeping no distress. HEENT normocephalic atraumatic mucous membranes moist. Breathing unlabored no accessory muscle use good effort. Skin shows no rashes no pallor or icterus. Neuro shows no focal deficits. Cellulitis with question of bacteremia present on admissioncontinue current antibiotics, wound care. Anticipate a long process of healing and the need for a lot of outpatient wound care after discharge Acute on chronic systolic CHFappearing more compensated. Supportive care. Serial exams, follow-up Poor self-caredisposition will be fairly difficult given that he does not seem to want to go anywhere or of outside help but was clearly failing at home. still doesn't really want to talk about anything other than going home -although fortunately family seems aware of his home situation being very difficult as well, and it seems unlikely that they would assist him in leaving against advice, so while he does seem to have capacity to make his own decisions, likely with time and family discussions he will hopefully start to realize that at least for now he needs more help otherwise as above Subjective Doing okay today, he was having some pain in his left leg that was worse with movement. He had no questions for me. Review of Systems Review of Systems: Constitutional: denies fevers, chills Cardiac: denies chest pain, palpitations Pulm: denies shortness of breath GI: denies nausea, vomiting Physical Exam Physical Exam: Constitutional well developed, + thin and + disheveled; no acute distress ENMT external ear and nose normal, oropharynx normal Respiratory normal respiratory effort; no respiratory distress Auscultation: CTAB, no w/r/r Cardiovascular RRR, no murmur, no edema Heart Sounds: normal S1 and normal S2; no gallop, no murmur and no cardiac rub Gastrointestinal (Abdomen) normal bowel sounds, soft, nontender, no hepatosplenomegaly Percussion/Palpation: abdomen nontender, no guarding and abdomen not rigid Skin + ulcer (BLE L>R, extensive ulceration and cellulitis, bandaged) Psychiatric A+Ox3, euthymic affect Apperance: + disheveled Eye Contact: + fair eye contact Affect: + depressed affect Results & Data Results & Data ([facility]) Vital Signs (Past 12 Hours) Vital Signs Temp Pulse Resp BP BP Pulse Ox 01/27/21 07:56 36.5 C 60 18 105/63 93 01/27/21 07:39 62 101/60 01/26/21 23:29 36.7 C 66 18 100/63 97 CBC Results Results Complete Blood Count Results: RBC 4.67 M/uL (4.7-6.1) L 01/27/21 WBC 9.57 K/uL (4.8-10.8) 01/27/21 Hgb 12.7 g/dL (14.0-18.0) L 01/27/21 Hct 37.3 % (42-52) L 01/27/21 Plt Count 347 K/uL (130-400) 01/27/21 Chemistry (BMP) Results BMP Results: Sodium 138 mmol/L (136-145) 01/27/21 Potassium 4.4 mmol/L (3.5-5.1) 01/27/21 Chloride 109 mmol/L (98-107) H 01/27/21 BUN 19 mg/dl (7-18) H 01/27/21 Creatinine 0.54 mg/dl (0.6-1.4) L 01/27/21 Glucose 82 mg/dl (70-99) 01/27/21 Resident Activity Tracking Resident Involvement: Resident Care Provided Care Provided: Adult [facility]
--- NOTE | 2021-01-27 10:20 | Cardiology Progress Note ---
Date of Service January 27, 2021 Assessment & Plan (1) Cardiomyopathy: He has a severe cardiomyopathy based on his echocardiogram. We should try to optimize his medical therapy although it is questionable whether he will continue medications once he goes home, although if he goes to a care facility perhaps he will get them. He has indicated to me that he wants to go home not to a care facility although I do not know how he can really do that. I started low-dose carvedilol and losartan January 20, 2021. His blood pressure remains low, he is in bed most of the time and seems to tolerate a low blood pressure so far but that may limit our ability to titrate his heart failure medications. I did go up on his losartan slightly on January 25, 2021 but it was held for low blood pressure, his heart rate and blood pressure are little on the low side. I did adjust his hold parameters so that hopefully he will see but not patient. Yesterday his evening dose of carvedilol was held, although I think that was inappropriate, and it was given this morning and his losartan was given this morning so we can track his blood pressures. Creatinine remains on the low side so will not interfere with going up on the ARB. Hopefully we can continue the current doses at least. Admission and Anticipated Discharge Date Admission Date: January 18, 2021 Subjective He remains in bed, he has no specific cardiac complaints and has not been very active. He denies lightheadedness or dizziness on his heart failure medications. Physical Exam Physical Exam: Constitutional: Alert, cooperative and in no distress. HEENT: Unremarkable Neck: No jugular venous distention, carotid pulses are normal and equal bilaterally without bruits. Pulmonary: Rhonchi on auscultation bilaterally. Cardiac: Regular rhythm with no murmur, gallop or rub. Abdomen: Soft, nontender with normal bowel sounds. Extremities: Edema. Distal pulses not palpable. Neurologic: No focal findings. Gait was not tested. Skin: No rash, ecchymoses or petechiae. His legs are bandaged bilaterally below the knees. Results & Data ([facility]) Vital Signs (Past 12 Hours) Vital Signs Temp Pulse Resp BP BP Pulse Ox 01/27/21 07:56 36.5 C 60 18 105/63 93 01/27/21 07:39 62 101/60 01/26/21 23:29 36.7 C 66 18 100/63 97 Laboratory Results CBC 01/27/21 Range/Units 06:44 WBC 9.57 (4.8-10.8) K/uL RBC 4.67 L (4.7-6.1) M/uL Hgb 12.7 L (14.0-18.0) g/dL Hct 37.3 L (42-52) % Plt Count 347 (130-400) K/uL Neut # (Auto) 6.57 H (1.4-6.5) K/uL Lymph # (Auto) 1.62 (1.2-3.4) K/uL [place] # (Auto) 1.12 H (0.11-0.59) K/uL Eos # (Auto) 0.14 (0-0.5) K/uL Baso # (Auto) 0.06 (0-0.2) K/uL Comprehensive Metabolic Panel 01/27/21 Range/Units 06:44 Sodium 138 (136-145) mmol/L Potassium 4.4 (3.5-5.1) mmol/L Chloride 109 H (98-107) mmol/L Carbon Dioxide 26 (21-32) mmol/L BUN 19 H (7-18) mg/dl Creatinine 0.54 L (0.6-1.4) mg/dl Glucose 82 (70-99) mg/dl Calcium 8.4 L (8.5-10.1) mg/dl Intake and Output 01/26/21 01/27/21 01/27/21 22:59 06:59 14:59 Output Total 2350 / 3100 Balance -2350 / -2460 Output: Urine Amount (Catheter) 2350 / 3100 External 2350 / 3100 Other: Weight 86.2 kg PG Care Time/CCT Total # of Minutes Spent Total Time Spent with Patient: Total time spent is greater than 50% in coordination of care (as documented) at patient's floor/unit and/or counseling patient: Coding Level of Care Code 53351 Subseq Hosp Care Lvl 2 Diagnoses Cardiomyopathy I42.9
--- NOTE | 2021-01-27 18:55 | Billing Data ---
Date of Service January 27, 2021 Coding Level of Care Code 03078 Subseq Hosp Care Lvl 2
[2021-01-28] MEDS: ceFAZolin 2000MG 2,000 MG/15 ML SYR IV SCH ×4 (04:45→20:49)
[2021-01-28 06:39] LABS: Basophils # (auto) 0.05 K/uL (0-0.2); Basophils % (auto) 0.5 %; Eosinophils # (auto) 0.18 K/uL (0-0.5); Eosinophils % (auto) 1.8 %; Hematocrit (blood only) 35.1 % (42-52); Hemoglobin 11.5 g/dL (14.0-18.0); Immature Granulocytes # (auto) 0.06 K/uL (0.00-0.02); Immature Granulocytes % (auto) 0.6 %; Lymphocytes # (auto) 2.08 K/uL (1.2-3.4); Lymphocytes % (auto) 20.8 %; Mean Corpuscular Hemoglobin 26.4 pg (25-34); Mean Corpuscular Hgb Conc 32.8 g/dL (32-36); Mean Corpuscular Volume 80.5 fL (80-100); Mean Platelet Volume 10.1 fL (7.4-10.4); Monocytes # (auto) 0.89 K/uL (0.11-0.59); Monocytes % (auto) 8.9 %; Neutrophils # (auto) 6.72 K/uL (1.4-6.5); Neutrophils % (auto) 67.4 %; Platelet Count 415 K/uL (130-400); RDW Coefficient of Variation 16.2 % (11.5-14.5); RDW Standard Deviation 47.1 fL (36.4-46.3); Red Blood Count 4.36 M/uL (4.7-6.1); White Blood Count 9.98 K/uL (4.8-10.8)
[2021-01-28 07:11] LABS: BUN Creatinine Ratio 34.2 (10-20); Calcium 8.8 mg/dl (8.5-10.1); Creatinine Clr Calc Pharmacy 127.9 ml/min; Est GFR (African American) 119.9; Est GFR (Non-African American) 103.4; Potassium 4.5 mmol/L (3.5-5.1)
[2021-01-28] MEDS: NICOTINE 21 MG/24 HR TDSY TD SCH (08:02)
[2021-01-28] MEDS: HEPARIN SOD 5,000 UNIT/0.5 ML VIAL SQ SCH ×2 (08:03→20:49)
[2021-01-28] MEDS: carvediloL 3.125 MG TAB PO SCH ×2 (08:03→20:50)
[2021-01-28] MEDS: LOSARTAN POTASSIUM 50 MG TAB PO SCH (08:04)
[2021-01-28] MEDS: ASPIRIN 81 MG ECTAB PO SCH (08:04)
--- NOTE | 2021-01-28 08:56 | Cardiology Progress Note ---
Date of Service January 28, 2021 Assessment & Plan (1) Cardiomyopathy: He has a severe cardiomyopathy based on his echocardiogram. We should try to optimize his medical therapy although it is questionable whether he will continue medications once he goes home, although if he goes to a care facility perhaps he will get them. He has indicated to me that he wants to go home not to a care facility although I do not know how he can really do that. I started low-dose carvedilol and losartan January 20, 2021. His blood pressure remains low, he is in bed most of the time and seems to tolerate a low blood pressure so far but that may limit our ability to titrate his heart failure medications. I did go up on his losartan slightly on January 25, 2021 but it was held for low blood pressure, his heart rate and blood pressure are little on the low side. I did adjust his hold parameters so that hopefully he will get the medications although his carvedilol has been held for the evening dose the last several days. Creatinine remains on the low side so will not interfere with going up on the ARB. Hopefully we can continue the current doses at least. Admission and Anticipated Discharge Date Admission Date: January 18, 2021 Subjective He continues to feel poorly and to not be very communicative, however he denies cardiovascular symptoms. Physical Exam Physical Exam: Constitutional: Alert, cooperative and in no distress. HEENT: Unremarkable Neck: No jugular venous distention, carotid pulses are normal and equal bilaterally without bruits. Pulmonary: Rhonchi on auscultation bilaterally. Cardiac: Regular rhythm with no murmur, gallop or rub. Abdomen: Soft, nontender with normal bowel sounds. Extremities: Edema. Distal pulses not palpable. Neurologic: No focal findings. Gait was not tested. Skin: No rash, ecchymoses or petechiae. His legs are bandaged bilaterally below the knees. Results & Data ([facility]) Vital Signs (Past 12 Hours) Vital Signs Temp Pulse Pulse Resp BP BP Pulse Ox 01/28/21 08:04 62 109/64 01/28/21 07:11 36.6 C 58 L 16 90/51 L 95 01/27/21 22:49 36.6 C 67 18 98/62 L 97 Laboratory Results CBC 01/28/21 Range/Units 05:16 WBC 9.98 (4.8-10.8) K/uL RBC 4.36 L (4.7-6.1) M/uL Hgb 11.5 L (14.0-18.0) g/dL Hct 35.1 L (42-52) % Plt Count 415 H (130-400) K/uL Neut # (Auto) 6.72 H (1.4-6.5) K/uL Lymph # (Auto) 2.08 (1.2-3.4) K/uL [place] # (Auto) 0.89 H (0.11-0.59) K/uL Eos # (Auto) 0.18 (0-0.5) K/uL Baso # (Auto) 0.05 (0-0.2) K/uL Comprehensive Metabolic Panel 01/28/21 Range/Units 05:16 Sodium 137 (136-145) mmol/L Potassium 4.5 (3.5-5.1) mmol/L Chloride 106 (98-107) mmol/L Carbon Dioxide 26 (21-32) mmol/L BUN 21 H (7-18) mg/dl Creatinine 0.63 (0.6-1.4) mg/dl Glucose 84 (70-99) mg/dl Calcium 8.8 (8.5-10.1) mg/dl Intake and Output 01/27/21 01/28/21 01/28/21 22:59 06:59 14:59 Output Total 900 / 2500 1300 / 2500 675 / 675 Balance -900 / -2260 -1300 / -2260 -675 / -675 Output: Urine Amount (Catheter) 900 / 2500 1300 / 2500 675 / 675 External 900 / 2500 1300 / 2500 675 / 675 Other: Weight 87.4 kg Weight Measurement Method Built in [facility] PG Care Time/CCT Total # of Minutes Spent Total Time Spent with Patient: Total time spent is greater than 50% in coordination of care (as documented) at patient's floor/unit and/or counseling patient: Coding Level of Care Code 31624 Subseq Hosp Care Lvl 2 Diagnoses Cardiomyopathy I42.9
--- NOTE | 2021-01-28 13:49 | Hospitalist Progress Note ---
Date of Service January 28, 2021 Assessment & Plan (1) Open leg wound: Mr. Hankins is a 65yo male with a PMHx of CAD, [place], and stroke who presented to the ED Sunday night complaining of months of ongoing leg pain and seeping leg wounds bilaterally. He hasn't seen a doctor in years and is not interested in smoking cessation or adding many new medications at this time. Denies Hx of HTN or DMII. Sepsis -Likely infection source with BLE ulcerations, especially on the left. Likely secondary to PAD/PVD. -Blood Cx 11/13 showed MSSA bacteremia, now final. Continue cefazolin 2000@3.75mL/min IV. -most recent WBC 10.26, afebrile, initially tachycardic but most recently HR 63, most recent BP 121/68. Continue to monitor. -U/A showed orange color, 1.034 specific gravity likely secondary to hypovolemia, +nitrites and leuk esterase, 5-10 WBC, 1+ bacteria, but also 5-10 epithelial cells. Urine Cx final with no growth. -Elevated troponin on admission likely related to demand myocardial ischemia in the setting of acute illness. Peripheral arterial occlusive disease: -Extensive smoking history, claudication with exertion but not at rest, and now extensive ulceration bilaterally. Pt received minimal medical care and few doctors seen over past several decades. Pt has been taking a daily aspirin for past decade, but this is his only medication and he does not seem keen to add new medications outpatient. -Duplex lower extremity found severe bilateral atherosclerosis, probable occlusion of the left superficial femoral artery and likely occlusion of the right peroneal artery. -CTA found extensive atherosclerotic vascular disease, multifocal high-grade stenosis in distal superficial femoral artery with numerous opacified collateral vessels, high-grade stenosis vs. occlusion involves the majority of left anterior tibial artery with reconstitution of flow within the dorsalis pedis, fluid overload L>R pleural effusions with small volume of abdominopelvic ascites and diffuse body wall and asymmetric lower extremity edema. -Continue ASA 81. -Vascular surgery consulted, their recommendations are appreciated. He is not a candidate for endovascular procedures or open surgery Open leg wound: -Known CAD and extensive smoking history, likely related to PAD. Pt reports worsening ulceration in BLE L>R for several months now seeping pus and blood. Bandaged and wound management involved. On cefazolin IV Abx for MSSA bacteremia. Smoking greater than 40 pack years: -Continue nicotine patches while inpatient and monitor Sx for possible dose adjustment. Pt states currently adequate. -Wheezing on exam and chronic cough likely secondary to COPD. CTA found evidence of pulmonary emphysema which is further suggestive. Pt denies SOB today, but this is likely due to his delirium and proneness to minimize conversations. -Prior ABG consistent with CHF exacerbation rather than COPD hypercapnia. -Continue ipratropium+albuterol qid. CAD (coronary artery disease) -Hx [place] 2008 in [place]. On ASA at home but no other meds. -Continue losartan 50mg and carvedilol 3.125 BID. -Cardiology consulted, recommendations are appreciated. He has been intermittently asymptomatically hypotensive. Tolerating well if absolutely required would hold losartan and avoid holding beta-jayson if at all possible Cardiomyopathy -TTE showed LV mildly dilated, LV systolic function moderately to severely reduced, EF 25-30%, moderate to severe mitral regurg., LA severely dilated, severe tricuspid regurg., RV systolic pressure increased at 50-60mmHg, IVC moderately dilated. -Pt denies CP, SOB, and palpitations. Exam found wheezing and crackles today, but crackles improved relative to yesterday -In addition to ASA 81, continue losartan 50 and carvedilol 3.125 BID. We will continue to discuss with pt to see if he is willing to continue these meds outpatient. -Cardiology consulted Delirium -Waxing and waning mentation and energy. AxOx4 today, somewhat less irritable today but not very conversational. -Likely secondary to acute septic state, potentially with additional acute on chronic CHF and COPD contribution. Continue to treat infection with cefazolin. -Continue to avoid anticholinergic/sedative-hypnotic medications. -Palliative care consulted, appreciate their recommendations regarding the mixed picture of delirium, likely depression, underlying personality, and acute illness and how they impact goal making, self care, and discharge planning. They state pt's primary goal at this point is to return home independently, which is not a realistic goal. Insight very poor. Palliative will reach out to pt's daughter Vita to continue discussions and planning. At this point he has continued to refuse any PT assessments. FEN: PO fluids, monitoring electrolytes, heart healthy diet DVT PPx: Heparin 5000 units SQ BID Code status: Full Code Admission and Anticipated Discharge Date Admission Date: January 18, 2021 Supervising Physician Co-Signing Physician Notes I personally examined the patient and verified all curry points of history and exam, discussed case, and agree with decision making with Dr Boyce. Breathing feels fine, legs were hurting earlier because of dressing changes. Still no progress and disposition discussions. Had an approximately 20-minute conversation with his daughter, she expresses grave concerns and notes that from her perspective he is absolutely not safe at home. Vitals noted, in general he is initially awake and talking on the phone no distress, later sleeping no distress. HEENT normocephalic atraumatic mucous membranes moist. Breathing unlabored no accessory muscle use good effort. Skin shows no rashes no pallor or icterusof note legs are dressed. Neuro shows no focal deficits. Cellulitis with question of bacteremia present on admissionslow improvement, continue wound care and antibiotics Acute on chronic systolic CHFappears compensated, med management Poor self-caredisposition will be fairly difficult given that he does not seem to want to go anywhere or of outside help but was clearly failing at home. still doesn't really want to talk about anything other than going home -di mindyussed with daughter that because he does seem to have capacity, I would have no ability to stop him from leaving AMA, but given his profound weakness, we would certainly be under no obligation to help him follow through with his dangerous choice. She notes a recent hospitalization at a different hospital where he was sent home in a med van as a reference for her concern. I discussed safe disposition being an enormous problem, and also Norm is concerned, given his situation. And at this point in time I am hopeful that he still may start to gather insight to at least begrudgingly be willing to go to a facility for a while to get some rehab and wound care. I do not believe home is safe, and so while he continues to show more medical stability, until he has safe disposition I do not believe I could ethically discharge him from the hospital otherwise as above Subjective Patient having his wounds changed at time of visit. On reassessment she denies chest pain, chest pressure. Attempted to discuss dispo planning, patient expressed that he did not want to have any conversations about rehab or physical therapy declined further conversation. Review of Systems Review of Systems: Denies fever, chest pain, chest pressure. Endorses leg pain when they were changing his dressings, not at rest at time of reassessment. Physical Exam Physical Exam: General: A&O. NAD. Cooperative. Cachectic HEENT: Atraumatic, normocephalic. Visual acuity grossly intact. Pulm: Diminished. Symmetrical chest rise. No increase work of breathing. No respiratory distress. Cardiac: RRR, -mrg. Radial pulses intact and symmetrical. Abdominal: Nontender, nondistended, soft. [place] catheter in place draining clear urine. Extremities: Lower extremities with venous stasis, dressings changed at time of initial visit. Grade 2 superficial ulcerations, no purulence. Well dressed following exam and on revisit. Results & Data Results & Data ([facility]) Vital Signs (Past 12 Hours) Vital Signs Temp Pulse Pulse Resp BP Pulse Ox 01/28/21 08:04 62 109/64 01/28/21 07:11 36.6 C 58 L 16 90/51 L 95 Resident Activity Tracking Resident Involvement: Resident Care Provided Care Provided: Adult Hospital Medicine
--- NOTE | 2021-01-28 19:10 | Billing Data ---
Date of Service January 28, 2021 Coding Level of Care Code 14411 Subseq Hosp Care Lvl 3
[2021-01-29] MEDS: ceFAZolin 2000MG 2,000 MG/15 ML SYR IV SCH ×3 (04:13→20:35)
[2021-01-29 07:43] LABS: Basophils # (auto) 0.08 K/uL (0-0.2); Basophils % (auto) 0.6 %; Eosinophils # (auto) 0.16 K/uL (0-0.5); Eosinophils % (auto) 1.3 %; Hematocrit (blood only) 36.5 % (42-52); Hemoglobin 11.9 g/dL (14.0-18.0); Immature Granulocytes # (auto) 0.08 K/uL (0.00-0.02); Immature Granulocytes % (auto) 0.6 %; Lymphocytes % (auto) 14.9 %; Mean Corpuscular Hemoglobin 26.3 pg (25-34); Mean Corpuscular Hgb Conc 32.6 g/dL (32-36); Mean Corpuscular Volume 80.6 fL (80-100); Mean Platelet Volume 9.8 fL (7.4-10.4); Monocytes # (auto) 1.14 K/uL (0.11-0.59); Monocytes % (auto) 8.9 %; Neutrophils # (auto) 9.43 K/uL (1.4-6.5); Neutrophils % (auto) 73.7 %; Platelet Count 390 K/uL (130-400); RDW Coefficient of Variation 16.1 % (11.5-14.5); RDW Standard Deviation 46.5 fL (36.4-46.3); Red Blood Count 4.53 M/uL (4.7-6.1); White Blood Count 12.79 K/uL (4.8-10.8)
[2021-01-29 07:58] LABS: BUN Creatinine Ratio 34.9 (10-20); Calcium 8.8 mg/dl (8.5-10.1); Est GFR (African American) 129.7; Est GFR (Non-African American) 111.9; Potassium 4.2 mmol/L (3.5-5.1)
[2021-01-29] MEDS: NICOTINE 21 MG/24 HR TDSY TD SCH (09:40)
[2021-01-29] MEDS: ASPIRIN 81 MG ECTAB PO SCH (09:43)
[2021-01-29] MEDS: LOSARTAN POTASSIUM 50 MG TAB PO SCH (09:43)
[2021-01-29] MEDS: carvediloL 3.125 MG TAB PO SCH ×2 (09:43→20:40)
[2021-01-29] MEDS: HEPARIN SOD 5,000 UNIT/0.5 ML VIAL SQ SCH ×2 (09:45→20:36)
--- NOTE | 2021-01-29 10:23 | Hospitalist Progress Note ---
Date of Service January 29, 2021 Assessment & Plan (1) Open leg wound: Mr. Hankins is a 65yo male with a PMHx of CAD, [place], and stroke who presented to the ED Sunday night complaining of months of ongoing leg pain and seeping leg wounds bilaterally. He hasn't seen a doctor in years and is not interested in smoking cessation or adding many new medications at this time. Denies Hx of HTN or DMII. Sepsis -Likely infection source with BLE ulcerations, especially on the left. Likely secondary to PAD/PVD. -Blood Cx 11/13 showed MSSA bacteremia, now final. Continue cefazolin 2000@3.75mL/min IV. -most recent WBC 12.9 which is mildly elevated from WNL, afebrile, initially tachycardic but most recently HR WNL, BP on softer side 90s/60. Continue to monitor. Could be stress response from gordon placement or surrouding events that led to needing gordon -Prior U/A showed orange color, 1.034 specific gravity likely secondary to hypovolemia, +nitrites and leuk esterase, 5-10 WBC, 1+ bacteria, but also 5-10 epithelial cells. Urine Cx final with no growth. No indication to recheck, but hope that urinary gordon can be removed to prevent source of infection. -Elevated troponin on admission likely related to demand myocardial ischemia in the setting of acute illness. Peripheral arterial occlusive disease: -Extensive smoking history, claudication with exertion but not at rest, and now extensive ulceration bilaterally. Pt received minimal medical care and few doctors seen over past several decades. Pt has been taking a daily aspirin for past decade, but this is his only medication and he does not seem keen to add new medications outpatient. -Duplex lower extremity found severe bilateral atherosclerosis, probable occlusion of the left superficial femoral artery and likely occlusion of the right peroneal artery. -CTA found extensive atherosclerotic vascular disease, multifocal high-grade chavo nosis in distal superficial femoral artery with numerous opacified collateral vessels, high-grade stenosis vs. occlusion involves the majority of left anterior tibial artery with reconstitution of flow within the dorsalis pedis, fluid overload L>R pleural effusions with small volume of abdominopelvic ascites and diffuse body wall and asymmetric lower extremity edema. -Continue ASA 81. -Vascular surgery consulted, their recommendations are appreciated. He is not a candidate for endovascular procedures or open surgery Open leg wound: -Known CAD and extensive smoking history, likely related to PAD. Pt reports worsening ulceration in BLE L>R for several months now seeping pus and blood. Bandaged and wound management involved. On cefazolin IV Abx for MSSA bacteremia. Smoking greater than 40 pack years: -Continue nicotine patches while inpatient and monitor Sx for possible dose adjustment. Pt states currently adequate. -Wheezing on exam and chronic cough likely secondary to COPD. CTA found evidence of pulmonary emphysema which is further suggestive. Pt denies SOB today, but this is likely due to his delirium and proneness to minimize conversations. -Prior ABG consistent with CHF exacerbation rather than COPD hypercapnia. -Continue ipratropium+albuterol qid. CAD (coronary artery disease) -Hx [place] 2008 in [place]. On ASA at home but no other meds. -Continue losartan 50mg and carvedilol 3.125 BID. -Cardiology consulted, recommendations are appreciated. He has been intermittently asymptomatically hypotensive. Tolerating well if absolutely required would hold losartan and avoid holding beta-jayson if at all possible Cardiomyopathy -TTE showed LV mildly dilated, LV systolic function moderately to severely reduced, EF 25-30%, moderate to severe mitral regurg., LA severely dilated, severe tricuspid regurg., RV systolic pressure increased at 50-60mmHg, IVC moderately dilated. -Pt denies CP, SOB, and palpitations. Exam found wheezing and crackles today, but crackles improved relative to yesterday -In addition to ASA 81, continue losartan 50 and carvedilol 3.125 BID. We will continue to discuss with pt to see if he is willing to continue these meds outpatient. -Cardiology consulted Delirium -Waxing and waning mentation and energy. AxOx4 today, somewhat less irritable today but not very conversational. Does have trouble with attention. -Likely secondary to acute septic state, potentially with additional acute on chronic CHF and COPD contribution. Continue to treat infection with cefazolin. -Continue to avoid anticholinergic/sedative-hypnotic medications. - He needed gordon placement last night for incontience in bed, suspect element of delirium as nighttime diminished sensory preception correlates with delirium at night. This was significant as has been non-compliant with nursing care and was compliant with gordon cath placement which also supports delirium as change from baseline. - Hope that [facility] can be encouraged to continue with his recommended course of care to be performed as SNF. Discussed that being in hospital adds harms to him and is not a safe treatment choice for current level of care. He is at risk for continued and worsening delirium. He now requires gordon cath which is now adding an additional infection source. He also is at risk for significant deconditioning that can prolong his recovery; also is at risk for bed sores even with adequate nursing care. -Palliative care consulted, appreciate their recommendations regarding the mixed picture of delirium, likely depression, underlying personality, and acute illness and how they impact goal making, self care, and discharge planning. They state pt's primary goal at this point is to return home independently, which is not a realistic goal. Insight very poor. Palliative will reach out to pt's daughter Vita to continue discussions and planning. At this point he has continued to refuse any PT assessments. FEN: PO fluids, monitoring electrolytes, heart healthy diet DVT PPx: Heparin 5000 units SQ BID Code status: Full Code Admission and Anticipated Discharge Date Admission Date: January 18, 2021 Supervising Physician Co-Signing Physician Notes I personally examined the patient and verified all curry points of history and exam, discussed case, and agree with decision making with Dr Lozano. Breathing okay. Still cannot really get out of bed. Still wants to go homewhenever asked about his opposition to any type of placementhe notes that he views nursing homes as a place where people go to . He does not deny things going poorly at home, but he also does not acknowledge a need for more help in some way shape or form to not decompensate. As the conversation gets deeper, he notes that if he had a motorized scooter at home he would be able to get around okay, I discussed that I do not feel this is a truly realistic perspectivegiven his inability to even get out of bed without significant assistanceand move the wheelchair next to the bed, asking him to show me his ability to transfer. Rather than even attempting to do so, he tells me "I bet you think you are pretty tricky" I replied that I was much more simply being practical given that his plan entails getting around with a motorized scooter, and to do so would require the ability to transfer from bed to said scooter to navigate, and in order to see that he would be safe with his plan, he would need to be able to transfer on his own, which I do not believe he can do at this time. At this point he started forcefully telling me to leave, I continued to converse with him as far as my concerns of his home situation, and while I was not able to make much further headway, he did stop yelling at me to leave, and when asked what I can do to help him, he did ask for a cup of coffeewhich I obtained for him. I left our conversation with my making it clear to him that I do not see home being a safe disposition, and that while he can make his own decisions, I will not assist him in a decision that I feel would be dangerous to him. Vitals noted, in general he is initially awake and talking on the phone no distress, later sleeping no distress. HEENT normocephalic atraumatic mucous membranes moist. Breathing unlabored no accessory muscle use good effort. Skin shows no rashes no pallor or icterusof note legs are dressed. Neuro shows no focal deficits. Cellulitis with question of bacteremia present on admissionslow improvement, continue wound care and antibioticsthis now appears to be predominantly a maintenance issue Acute on chronic systolic CHFappears compensated, med management as his blood pressure allows Poor self-caredisposition will be fairly difficult given that he does not seem to want to go anywhere or of outside help but was clearly failing at home. still doesn't really want to talk about anything other than going home - discussed with daughter that because he does seem to have capacity, I would have no ability to stop him from leaving AM, but given his profound weakness, we would certainly be under no obligation to help him follow through with his dangerous choice. She notes a recent hospitalization at a different hospital where he was sent home in a med van as a reference for her concern. At this point in time I am hopeful that he still may start to gather insight to at least begrudgingly be willing to go to a facility for a while to get some rehab and wound care. While it has been very slow, we have made minor gains in at least his ability to maybe see that his home self-care was not compatible with being able to stay home/healthy/out of trouble/out of the hospital. I do not believe home is safe, and so while he continues to show more medical stability, until he has safe disposition I do not believe I could ethically discharge him from the hospital. Discussed with case management. The very valid question was raised that while he overall has capacity, it is questionable whether or not he truly has capacity in the isolated realm of decision making as it relates to his safety at home. At this point I am still hesitant to deem him lacking in capacity, but I do believe that point is quite valid for ongoing clinical evaluation and assessment. otherwise as above Subjective Urinary incontinence reported by nursing to overnight physician with order for gordon placement. He had no acute complaints from gordon placement this morning. He has no acute complaints this morning, no chest pain/dyspnea/fever/chills. He was eating eggs with hand while laying left lateral recumbent then drank smoothie on tray. Does not want to engage with dispo planning. Noted that he feels like his strength is improving from baseline and does not endorse that he feels weaker from being in hospital. Physical Exam Constitutional: + thin, + disheveled and comfortable; no acute distress Eyes: PERRL, conjunctivae normal, anicteric sclerae ENMT: external ear and nose normal, oropharynx normal Neck: normal visual inspection Respiratory: no respiratory distress and no labored breathing poor respiratory effort Cardiovascular: Rate/Rhythm: regular rate and regular rhythm Musculoskeletal: Head/Neck/Chest: normocephalic and head atraumatic Skin: no rashes, warm and dry Neurologic: moves all extremities and awake Psychiatric: Orientation: alert, oriented x 3 and + guarded Genitourinary: urine gordon cath in place with return of yellow urine Results & Data Results & Data ([facility]) Vital Signs (Past 12 Hours) Vital Signs Temp Pulse Resp BP Pulse Ox 01/29/21 01:37 36.7 C 75 20 91/54 L 94 Resident Activity Tracking Resident Involvement: Resident Care Provided Care Provided: Adult Hospital Medicine
--- NOTE | 2021-01-29 16:35 | Billing Data ---
Date of Service January 29, 2021 Coding Level of Care Code 18366 Subseq Hosp Care Lvl 2
[2021-01-30] MEDS: ceFAZolin 2000MG 2,000 MG/15 ML SYR IV SCH ×3 (04:31→20:23)
--- NOTE | 2021-01-30 08:28 | Hospitalist Progress Note ---
Date of Service January 30, 2021 Assessment & Plan (1) Open leg wound: Mr. Hankins is a 65yo male with a PMHx of CAD, [place], and stroke who presented to the ED Sunday night complaining of months of ongoing leg pain and seeping leg wounds bilaterally. He hasn't seen a doctor in years and is not interested in smoking cessation or adding many new medications at this time. Denies Hx of HTN or DMII. Sepsis -Likely infection source with BLE ulcerations, especially on the left. Likely secondary to PAD/PVD. -Blood Cx 11/13 showed MSSA bacteremia, now final. Continue cefazolin 2000@3.75mL/min IV. -most recent WBC 12.9 which is mildly elevated from WNL, afebrile, initially tachycardic but most recently HR WNL, BP on softer side 90s/60. Continue to monitor. Could be stress response from gordon placement or surrouding events that led to needing gordon -Prior U/A showed orange color, 1.034 specific gravity likely secondary to hypovolemia, +nitrites and leuk esterase, 5-10 WBC, 1+ bacteria, but also 5-10 epithelial cells. Urine Cx final with no growth. No indication to recheck, but hope that urinary gordon can be removed to prevent source of infection. -Elevated troponin on admission likely related to demand myocardial ischemia in the setting of acute illness. Peripheral arterial occlusive disease: -Extensive smoking history, claudication with exertion but not at rest, and now extensive ulceration bilaterally. Pt received minimal medical care and few doctors seen over past several decades. Pt has been taking a daily aspirin for past decade, but this is his only medication and he does not seem keen to add new medications outpatient. -Duplex lower extremity found severe bilateral atherosclerosis, probable occlusion of the left superficial femoral artery and likely occlusion of the right peroneal artery. -CTA found extensive atherosclerotic vascular disease, multifocal high-grade chavo nosis in distal superficial femoral artery with numerous opacified collateral vessels, high-grade stenosis vs. occlusion involves the majority of left anterior tibial artery with reconstitution of flow within the dorsalis pedis, fluid overload L>R pleural effusions with small volume of abdominopelvic ascites and diffuse body wall and asymmetric lower extremity edema. -Continue ASA 81. -Vascular surgery consulted, their recommendations are appreciated. He is not a candidate for endovascular procedures or open surgery Open leg wound: -Known CAD and extensive smoking history, likely related to PAD. Pt reports worsening ulceration in BLE L>R for several months now seeping pus and blood. Bandaged and wound management involved. On cefazolin IV Abx for MSSA bacteremia. Smoking greater than 40 pack years: -Continue nicotine patches while inpatient and monitor Sx for possible dose adjustment. Pt states currently adequate. -Wheezing on exam and chronic cough likely secondary to COPD. CTA found evidence of pulmonary emphysema which is further suggestive. Pt denies SOB today, but this is likely due to his delirium and proneness to minimize conversations. -Prior ABG consistent with CHF exacerbation rather than COPD hypercapnia. -Continue ipratropium+albuterol qid. CAD (coronary artery disease) -Hx IN 2008 in [place]. On ASA at home but no other meds. -Continue losartan 50mg and carvedilol 3.125 BID. -Cardiology consulted, recommendations are appreciated. He has been intermittently asymptomatically hypotensive. Tolerating well if absolutely required would hold losartan and avoid holding beta-jayson if at all possible Cardiomyopathy -TTE showed LV mildly dilated, LV systolic function moderately to severely reduced, EF 25-30%, moderate to severe mitral regurg., LA severely dilated, severe tricuspid regurg., RV systolic pressure increased at 50-60mmHg, IVC moderately dilated. -Pt denies CP, SOB, and palpitations. Exam found wheezing and crackles today, but crackles improved relative to yesterday -In addition to ASA 81, continue losartan 50 and carvedilol 3.125 BID. We will continue to discuss with pt to see if he is willing to continue these meds outpatient. -Cardiology consulted Delirium -Waxing and waning mentation and energy. AxOx4 today, somewhat less irritable today but not very conversational. Does have trouble with attention. -Likely secondary to acute septic state, potentially with additional acute on chronic CHF and COPD contribution. Continue to treat infection with cefazolin. -Continue to avoid anticholinergic/sedative-hypnotic medications. - He needed gordon placement two nights ago for incontinence in bed, suspect element of delirium as nighttime diminished sensory perception correlates with delirium at night. This was significant as has been non-compliant with nursing care and was compliant with gordon cath placement which also supports delirium as change from baseline. - Hope that [facility] can be encouraged to continue with his recommended course of care to be performed as SNF. Discussed that being in hospital adds harms to him and is not a safe treatment choice for current level of care. He is at risk for continued and worsening delirium. He now requires gordon cath which is now adding an additional infection source. He also is at risk for significant deconditioning that can prolong his recovery; also is at risk for bed sores even with adequate nursing care. -Palliative care consulted, appreciate their recommendations regarding the mixed picture of delirium, likely depression, underlying personality, and acute illness and how they impact goal making, self care, and discharge planning. They state pt's primary goal at this point is to return home independently, which is not a realistic goal. Insight very poor. Palliative will reach out to pt's daughter Vita to continue discussions and planning. At this point he has continued to refuse any PT assessments. FEN: PO fluids, monitoring electrolytes, heart healthy diet DVT PPx: Heparin 5000 units SQ BID Code status: Full Code Admission and Anticipated Discharge Date Admission Date: January 18, 2021 Supervising Physician Co-Signing Physician Notes I personally examined the patient and verified all curry points of history and exam, discussed case, and agree with decision making with Dr Lozano. Still does not want to talk about disposition"if you are just here to try to talk to me about rehab you can leave" he gets progressively more hostile to the point of yelling at me, but then whenever he realizes I am not leaving he calms down. He discusses not really liking just lying in hospital bed, and we discuss ed that that could easily be remedied by working towards a rehab type setting, but he notes that he has "other plans for that"implying that he will just go home. i inform him that he can sign out AMA, but we are under no obligation to help him get home when we feel it is reckless and unsafe. In discussing his home situation, he does at least acknowledge that "you may have a point" when I walked him through how his home self-care situation led to his currently decompensated stateespecially with focus on his leg wounds. Vitals noted, awake and alert, no distress. HEENT normocephalic atraumatic mucous membranes moist. Breathing unlabored no accessory muscle use good effort. Skin shows no rashes no pallor or icterusof note legs are dressed. Neuro shows no focal deficits. Cellulitis with question of bacteremia present on admissionslow improvement, continue wound care and antibioticsthis now appears to be predominantly a maintenance issue and a large need for ongoing local wound care Acute on chronic systolic CHFappears compensated, med management as his blood pressure allows, no dyspnea Poor self-caredisposition will be fairly difficult given that he does not seem to want to go anywhere or of outside help but was clearly failing at home. still doesn't really want to talk about anything other than going home - discussed with daughter on 01/28 that because he does seem to have capacity, I would have no ability to stop him from leaving AMA, but given his profound weakness, we would certainly be under no obligation to help him follow through with his dangerous choice. I discussed this very directly with the patient today. At this point in time I am hopeful that he still may start to gather insight to at least begrudgingly be willing to go to a facility for a while to get some rehab and wound care. While it has been very slow, we have made minor gains in at least his ability to maybe see that his home self-care was not compatible with being able to stay home/healthy/out of trouble/out of the hospital. I do not believe home is safe, and so while he continues to show more medical stability, until he has safe disposition I do not believe I could ethically discharge him from the hospital. Discussed with case management again, and they will continue to follow and try to assist in his discharge planning as best he allows. otherwise as above Subjective No acute events reported overnight. He has no acute complaints this morning, no chest pain/dyspnea/fever/chills. Does not want to engage with dispo planning again today, does not want to converse at all, wants to be left alone to sleep. Physical Exam Constitutional: + thin, + disheveled and comfortable; no acute distress Eyes: PERRL, conjunctivae normal, anicteric sclerae ENMT: external ear and nose normal, oropharynx normal Neck: normal visual inspection Respiratory: no respiratory distress and no labored breathing Cardiovascular: Rate/Rhythm: regular rate and regular rhythm Musculoskeletal: Head/Neck/Chest: normocephalic and head atraumatic Skin: no rashes, warm and dry Neurologic: moves all extremities Psychiatric: Orientation: + uncooperative Affect: + irritable affect Mood: + irritable mood Insight: + poor insight Judgement: + poor judgement Results & Data Results & [facility] ([facility]) Vital Signs (Past 12 Hours) Vital Signs Temp Pulse Resp BP BP Pulse Ox 01/30/21 06:59 36.7 C 48 L 16 102/65 94 01/29/21 22:27 36.7 C 74 20 109/64 95 01/29/21 20:40 54 L 104/64 Resident Activity Tracking Resident Involvement: Resident Care Provided Care Provided: Adult Hospital Medicine
[2021-01-30] MEDS: NICOTINE 21 MG/24 HR TDSY TD SCH (09:19)
[2021-01-30] MEDS: HEPARIN SOD 5,000 UNIT/0.5 ML VIAL SQ SCH ×2 (09:20→20:23)
[2021-01-30] MEDS: LOSARTAN POTASSIUM 50 MG TAB PO SCH (09:20)
[2021-01-30] MEDS: carvediloL 3.125 MG TAB PO SCH ×2 (09:20→20:24)
[2021-01-30] MEDS: ASPIRIN 81 MG ECTAB PO SCH (09:20)
--- NOTE | 2021-01-30 18:02 | Billing Data ---
Date of Service January 30, 2021 Coding Level of Care Code 83249 Subseq Hosp Care Lvl 2
--- NOTE | 2021-01-31 04:35 | Hospitalist Progress Note ---
Date of Service January 31, 2021 Assessment & Plan (1) Open leg wound: Mr. Hankins is a 65yo male with a PMHx of CAD, [place], and stroke who presented to the ED Sunday night complaining of months of ongoing leg pain and seeping leg wounds bilaterally. He hasn't seen a doctor in years and is not interested in smoking cessation or adding many new medications at this time. Denies Hx of HTN or DMII. Sepsis -Likely infection source with BLE ulcerations, especially on the left. Likely secondary to PAD/PVD. -Blood Cx 11/13 showed MSSA bacteremia, now final. Continue cefazolin 2000@3.75mL/min IV. -most recent WBC 12.9, afebrile, initially tachycardic but most recently HR WNL, BP on softer side 100's/60's. Continue to monitor. -Prior U/A showed orange color, 1.034 specific gravity likely secondary to hypovolemia, +nitrites and leuk esterase, 5-10 WBC, 1+ bacteria, but also 5-10 epithelial cells. Urine Cx final with no growth. No indication to recheck, but hope that urinary Chandler can be removed to prevent source of infection. -Elevated troponin on admission likely related to demand myocardial ischemia in the setting of acute illness. Peripheral arterial occlusive disease: -Extensive smoking history, claudication with exertion but not at rest, and now extensive ulceration bilaterally. Pt received minimal medical care and few doctors seen over past several decades. Pt has been taking a daily aspirin for past decade, but this is his only medication and he does not seem keen to add new medications outpatient. -Duplex lower extremity found severe bilateral atherosclerosis, probable occlusion of the left superficial femoral artery and likely occlusion of the right peroneal artery. -CTA found extensive atherosclerotic vascular disease, multifocal high-grade stenosis in distal superficial femoral artery with numerous opacified collateral vessels, high-grade stenosis vs. occlusion involves the majority of left anterior tibial artery with reconstitution of flow within the dorsalis pedis, fluid overload L>R pleural effusions with small volume of abdominopelvic ascites and diffuse body wall and asymmetric lower extremity edema. -Continue ASA 81. -Vascular surgery consulted. He is not a candidate for endovascular procedures or open surgery Open leg wound: -Known CAD and extensive smoking history, likely related to PAD. Pt reports worsening ulceration in BLE L>R for several months now seeping pus and blood. Bandaged and wound management involved. On cefazolin IV Abx for MSSA bacteremia. Smoking greater than 40 pack years: -Continue nicotine patches while inpatient and monitor Sx for possible dose adjustment. Pt states currently adequate. -Wheezing on exam and chronic cough likely secondary to COPD. CTA found evidence of pulmonary emphysema which is further suggestive. Pt denies SOB today, but this is likely due to his delirium and proneness to minimize conversations. -Prior ABG consistent with CHF exacerbation rather than COPD hypercapnia. -Continue ipratropium+albuterol qid. CAD (coronary artery disease) -Hx [place] 2008 in [place]. On ASA at home but no other meds. -Continue losartan 50mg and carvedilol 3.125 BID. -Cardiology consulted He has been intermittently asymptomatically hypotensive. Tolerating well, if absolutely required would hold losartan and avoid holding beta-jayson if at all possible Cardiomyopathy -TTE showed LV mildly dilated, LV systolic function moderately to severely reduced, EF 25-30%, moderate to severe mitral regurg., LA severely dilated, severe tricuspid regurg., RV systolic pressure increased at 50-60mmHg, IVC moderately dilated. -Pt denies CP, SOB, and palpitations. Exam found wheezing and crackles today, but crackles improved relative to yesterday -In addition to ASA 81, continue losartan 50 and carvedilol 3.125 BID. We will continue to discuss with pt to see if he is willing to continue these meds outpatient. -Cardiology consulted Delirium -Waxing and waning mentation and energy. AxOx4 today, somewhat less irritable today but not very conversational. Does have trouble with attention. -Likely secondary to acute septic state, potentially with additional acute on chronic CHF and COPD contribution. Continue to treat infection with cefazolin. -Continue to avoid anticholinergic/sedative-hypnotic medications. - He needed Chandler placement for incontinence in bed, suspect element of delirium as nighttime diminished sensory perception correlates with delirium at night. This was significant as has been non-compliant with nursing care - Hope that [facility] can be encouraged to continue with his recommended course of care to be performed as SNF. Discussed that being in hospital adds harms to him and is not a safe treatment choice for current level of care. He is at risk for continued and worsening delirium. He now requires Chandler cath which is now adding an additional infection source. He also is at risk for significant deconditioning that can prolong his recovery; also is at risk for bed sores even with adequate nursing care. -Palliative care consulted, appreciate their recommendations regarding the mixed picture of delirium, likely depression, underlying personality, and acute illness and how they impact goal making, self care, and discharge planning. They state pt's primary goal at this point is to return home independently, which is not a realistic goal. Insight very poor. Palliative will reach out to pt's daughter Vita to continue discussions and planning. At this point he has c ontinued to refuse any PT assessments. FEN: PO fluids, monitoring electrolytes, heart healthy diet DVT PPx: Heparin 5000 units SQ BID Code status: Full Code Admission and Anticipated Discharge Date Admission Date: January 18, 2021 Results & Data Results & Data ([facility]) Vital Signs (Past 12 Hours) Vital Signs Temp Pulse Pulse Resp BP BP Pulse Ox 01/30/21 22:32 36.6 C 66 18 111/64 95 01/30/21 20:22 89/55 L 01/30/21 20:18 57 L 70/42 L CBC Results Results Complete Blood Count Results: RBC 4.53 M/uL (4.7-6.1) L 01/29/21 WBC 12.79 K/uL (4.8-10.8) H 01/29/21 Hgb 11.9 g/dL (14.0-18.0) L 01/29/21 Hct 36.5 % (42-52) L 01/29/21 Plt Count 390 K/uL (130-400) 01/29/21 Chemistry (BMP) Results BMP Results: Sodium 137 mmol/L (136-145) 01/29/21 Potassium 4.2 mmol/L (3.5-5.1) 01/29/21 Chloride 107 mmol/L (98-107) 01/29/21 BUN 18 mg/dl (7-18) 01/29/21 Creatinine 0.52 mg/dl (0.6-1.4) L 01/29/21 Glucose 93 mg/dl (70-99) 01/29/21
[2021-01-31] MEDS: ceFAZolin 2000MG 2,000 MG/15 ML SYR IV SCH ×3 (04:40→20:00)
[2021-01-31 06:01] LABS: Basophils # (auto) 0.07 K/uL (0-0.2); Basophils % (auto) 0.6 %; Eosinophils # (auto) 0.27 K/uL (0-0.5); Eosinophils % (auto) 2.5 %; Hematocrit (blood only) 34.9 % (42-52); Hemoglobin 11.4 g/dL (14.0-18.0); Immature Granulocytes # (auto) 0.06 K/uL (0.00-0.02); Immature Granulocytes % (auto) 0.6 %; Lymphocytes # (auto) 1.86 K/uL (1.2-3.4); Lymphocytes % (auto) 17.2 %; Mean Corpuscular Hemoglobin 26.5 pg (25-34); Mean Corpuscular Hgb Conc 32.7 g/dL (32-36); Mean Platelet Volume 9.8 fL (7.4-10.4); Monocytes # (auto) 1.05 K/uL (0.11-0.59); Monocytes % (auto) 9.7 %; Neutrophils # (auto) 7.49 K/uL (1.4-6.5); Neutrophils % (auto) 69.4 %; Platelet Count 431 K/uL (130-400); RDW Coefficient of Variation 16.3 % (11.5-14.5); RDW Standard Deviation 48.5 fL (36.4-46.3); Red Blood Count 4.31 M/uL (4.7-6.1)
[2021-01-31 06:35] LABS: BUN Creatinine Ratio 36.1 (10-20); Calcium 8.7 mg/dl (8.5-10.1); Creatinine Clr Calc Pharmacy 143.9 ml/min; Est GFR (African American) 125.8; Est GFR (Non-African American) 108.5; Potassium 4.7 mmol/L (3.5-5.1)
[2021-01-31] MEDS: carvediloL 3.125 MG TAB PO SCH ×2 (08:13→20:00)
[2021-01-31] MEDS: NICOTINE 21 MG/24 HR TDSY TD SCH (08:13)
[2021-01-31] MEDS: ASPIRIN 81 MG ECTAB PO SCH (08:13)
[2021-01-31] MEDS: LOSARTAN POTASSIUM 50 MG TAB PO SCH (08:13)
[2021-01-31] MEDS: HEPARIN SOD 5,000 UNIT/0.5 ML VIAL SQ SCH ×2 (08:14→20:00)
--- NOTE | 2021-01-31 16:35 | Medical Student Progress Note ---
Date of Service January 31, 2021 Assessment & Plan (1) Sepsis: Mr. Hankins is a 65yo male with a PMHx of CAD, [place], and stroke who presented with months of ongoing leg pain and seeping leg wounds bilaterally. He hasn't seen a doctor in years and is not interested in smoking cessation or adding many new medications at this time. Denies Hx of HTN or DMII. Sepsis -Likely infection source with BLE ulcerations, especially on the left. Likely secondary to PAD/PVD. -Blood Cx 11/13 showed MSSA bacteremia, now final. Continue cefazolin 2000@3.75mL/min IV, day 13. -most recent WBC 10.80 WNL, afebrile, initially tachycardic but most recently HR 51, most recent BP 105/66. Continue to monitor. -U/A showed orange color, 1.034 specific gravity likely secondary to hypovolemia, +nitrites and leuk esterase, 5-10 WBC, 1+ bacteria, but also 5-10 epithelial cells. Urine Cx final with no growth. -Elevated troponin on admission likely related to demand myocardial ischemia in the setting of acute illness. FEN: PO fluids, monitoring electrolytes, heart healthy diet DVT PPx: Heparin 5000 units SQ BID Code status: Full Code Disposition: Remain inpatient for antibiotic coverage, wound management, and PT as we continue to work towards rehab discharge planning. (2) Peripheral arterial occlusive disease: -Extensive smoking history, claudication with exertion but not at rest, and now extensive ulceration bilaterally. Pt received minimal medical care and few doctors seen over past several decades. Pt has been taking a daily aspirin for past decade, but this is his only medication and he does not seem keen to add new medications outpatient. A1c 6.0. -Duplex lower extremity found severe bilateral atherosclerosis, probable occlusion of the left superficial femoral artery and likely occlusion of the right peroneal artery. -CTA found extensive atherosclerotic vascular disease, multifocal high-grade stenosis in distal superficial femoral artery with numerous opacified collateral vessels, high-grade stenosis vs. occlusion involves the majority of left a nterior tibial artery with reconstitution of flow within the dorsalis pedis, fluid overload L>R pleural effusions with small volume of abdominopelvic ascites and diffuse body wall and asymmetric lower extremity edema. -Continue ASA 81. -Vascular surgery consulted. They do not think he is a candidate for either an endovascular procedure or an open procedure of the left leg and recommend continuing wound management. -Refused PT today. Pt states a goal of his is mobility and freedom, and we discussed how PT is an important part of that goal. Pt states he will work with PT tomorrow if we don't touch his legs before PT. (3) Open leg wound: -Known CAD and extensive smoking history, likely related to PAD. Pt reports worsening ulceration in BLE L>R for several months now seeping pus and blood. Bandaged and wound management involved. On cefazolin IV Abx for MSSA bacteremia. -Pt refused wound rebandaging today, and also refused adding additional bandaged despite seeping sounds on L. Said he would consider today whether he would be willing to have bandages changed tomorrow, but told us to talk about it after his morning PT so his legs don't hurt for PT. (4) Smoking greater than 40 pack years: -Continue nicotine patches while inpatient and monitor Sx for possible dose adjustment. Pt states currently adequate. -Wheezing on exam and chronic cough likely secondary to COPD. CTA found evidence of pulmonary emphysema which is further suggestive. Pt denies SOB today, but this is likely due to his delirium and proneness to minimize conversations. -Obtained ABG to check for respiratory-related hypercapnia which could further explain recent decline in mentation. pH 7.44, pCO2 39, pO2 65, HCO3 26, which fits more with CHF exacerbation than COPD hypercapnia. -Continue ipratropium+albuterol PRN. (5) CAD (coronary artery disease): -Hx [place] 2008 in [place]. On ASA at home but no other meds. -Continue losartan 50mg and carvedilol 3.125 BID. -Cardiology consulted, their recommendations are appreciated. Associated angina: without angina Coronary Disease-Associated Artery/Lesion type: squ[place]in artery [place] vs. transplanted heart: squaxin heart Qualified Code(s): I25.10 - Atherosclerotic heart disease of [place] coronary artery without angina pectoris (6) Cardiomyopathy: -TTE showed LV mildly dilated, LV systolic function moderately to severely reduced, EF 25-30%, moderate to severe mitral regurg, LA severely dilated, severe tricuspid regurg, RV systolic pressure increased at 50-60mmHg, IVC moderately dilated. -Pt denies CP, SOB, and palpitations. Exam found wheezing and crackles today, but crackles improved relative to yesterday -In addition to ASA 81, continue losartan 50 and carvedilol 3.125 BID. We will continue to discuss with pt to see if he is willing to continue these meds outpatient. -Crackles and ABG indicate likely CHF exacerbation. Given several doses of furosemide 20 IV over past few days with crackles improved today. No further furosemide needed at this time. -Cardiology consulted, their recommendations appreciated (7) Delirium: -Waxing and waning mentation and energy, overall improved today. AxOx4 today, with moments of irritability and shouting. -Likely secondary to acute septic state, potentially with additional acute on chronic CHF and COPD contribution. Continue to treat infection with cefazolin. -Continue to avoid anticholinergic/sedative-hypnotic medications. -Environmental/behavioral modifications: frequent reorientation, lights off during the night, shades open during the day, ambulate as medically permissible. Pt prefers lights off and windows closed at all times but we should avoid this during daytime. -Likely underlying component of anhedonia and depression, although no pharmacologic management at this time since pt wants to minimize inpatient meds and does not want outpatient med additions at this time. -Palliative care consulted, appreciate their recommendations regarding the mixed picture of delirium, likely depression, underlying personality, and acute illness and how they impact goal making, self care, and discharge planning. They state pt's primary goal at this point is to return home independently, which is not a realistic goal. Insight unclear. Pt states he wants to smoke and he wants increased mobility, and further discussions about rehab options are needed. Admission and Anticipated Discharge Date Admission Date: January 18, 2021 Supervising Attestation I also saw the patient and confirmed curry portions of the history and exam. I agree with the impression and plan as noted above. Patient is not "interested in playing games today," and he refuses wound care, dressing change, and physical therapy. His wounds seem to be oozing thru the current bandage, and he refuses additional over wrap. Efforts of yesterday' team reviewed in yesterday progress note - at the moment, today, I was unable to build upon yesterday's discussion. If able, I suspect he would leave AMA, although it sounds as if he has very limited mobility - and I suspect he knows that a PT evaluation will only continue to show this. Without ability to ambulate, he is not safe to return home. Data WBC 10.80 HgB 11.4 BUN 20, Cr 0.56 Impression Sepsis, resolved Cellulitis with open leg wound PVD Continue current care and discussion regarding placement. I do not feel he is safe to return home; he may be competent to make poor decisions, but we may need formal psychiatric consultation to work thru the process. Ultimately, I am hopeul he will consent to placement for continued treatment of his infection, therapy, and assistance with ADLs. Subjective Mr. Hankins states he is about the same today. Per nursing he has been refusing assessment of his leg wounds or bandage changes over the weekend. Per case management he continues to refuse rehab and wants to live along and have his children come to handle his needs. Today he says he is somewhat more open to rehab, that he is "not really excited, but might try it." With regard to what he is considering as he ponders rehab, he says he wants to be able to smoke outside and wants to be able to walk around more and have more freedom. He says he is still eating well and got double breakfast today of toast and eggs. This afternoon we had another discussion since Mr. Hankins refused PT and wound care today despite his wounds seeping. He states he is not willing to change his bandages today and is also not willing to add additional bandages to cover up the seeping wounds. He is contemplating rehab but wants to see a list of rules before he agrees to anything. He did agree to work with PT tomorrow since his goal is to improve mobility. Review of Systems Review of Systems: All systems reviewed & are unremarkable except as noted in HPI & below Constitutional: no fever and no weakness Respiratory: + cough; no dyspnea Cardiovascular: + claudication; no chest pain, no dyspnea and no palpitations Gastrointestinal: + cramping (left lower abdomen/groin cramping); no abdominal pain Integumentary: + skin ulcer Neurologic: no headache(s) and no confusion Physical Exam Constitutional: + thin; no acute distress and + uncooperative ENMT: external ear and nose normal, oropharynx normal Respiratory: normal respiratory effort; no respiratory distress Auscultation: + wheezes (diffuse); no rales and no rhonchi Cardiovascular: RRR, no murmur, no edema Heart Sounds: normal S1 and normal S2; no gallop, no murmur and no cardiac rub Gastrointestinal (Abdomen): normal bowel sounds, soft, nontender, no hepatosplenomegaly Percussion/Palpation: abdomen nontender, no guarding and abdomen not rigid Skin: + ulcer (legs bandaged, L>R, blood seeping through on L ankle) Psychiatric: Orientation: oriented x 3 Apperance: + disheveled Eye Contact: + fair eye contact Results & Data ([facility]) Vital Signs (Past 12 Hours) Vital Signs Temp Pulse Resp BP Pulse Ox 01/31/21 15:43 36.6 C 51 L 18 88/49 L 100 01/31/21 07:02 36.8 C 52 L 16 105/66 96
[2021-02-01] MEDS: DICLOFENAC SOD 1% GEL 100 GM TUBE EXT PRN ×2 (04:49→15:04)
[2021-02-01] MEDS: ceFAZolin 2000MG 2,000 MG/15 ML SYR IV SCH ×3 (04:53→20:34)
[2021-02-01] MEDS ORDERED: KETOROLAC TROMETHAMINE 15 MG/ML VIAL IV ONE (05:18)
[2021-02-01] MEDS: LOSARTAN POTASSIUM 50 MG TAB PO SCH (10:07)
[2021-02-01] MEDS: carvediloL 3.125 MG TAB PO SCH ×2 (10:07→20:34)
[2021-02-01] MEDS: ASPIRIN 81 MG ECTAB PO SCH (10:07)
[2021-02-01] MEDS: HEPARIN SOD 5,000 UNIT/0.5 ML VIAL SQ SCH ×2 (10:08→20:30)
[2021-02-01] MEDS: NICOTINE 21 MG/24 HR TDSY TD SCH (10:08)
--- NOTE | 2021-02-01 16:23 | Medical Student Progress Note ---
Date of Service February 01, 2021 Assessment & Plan (1) Delirium: Mr. Hankins is a 65yo male with a PMHx of CAD, IA, and stroke who presented with months of ongoing leg pain and seeping leg wounds bilaterally. He hasn't seen a doctor in years and is not interested in smoking cessation or adding many new medications at this time. Denies Hx of HTN or DMII. -Making some progress with regard to his goals and discharge planning. Pt had been refusing both wound management and PT the past few days. This is despite stating his goal was to improve freedom and mobility, and having several conversations about how PT was the best road to that goal. Today agreed to both PT and wound bandage changing with Toradol. With PT was able to practice transfers, and he will need additional PT here and in rehab upon discharge. With regard to discharge planning, pt was more open with case management today about possible rehab. Case management discovered that [facility] allows for some outside smoking opportunities, and pt is curious about this possibility, and while he is still not excited this is good progress. Case management pursuing possible placement there for discharge. -Waxing and waning mentation and energy, overall improved today. AxOx4 today, although poor eye contact and pt still preferring dark room. -Likely secondary to acute septic state, potentially with additional acute on chronic CHF and COPD contribution. Continue to treat infection with cefazolin. -Continue to avoid anticholinergic/sedative-hypnotic medications. -Environmental/behavioral modifications: frequent reorientation, lights off during the night, shades open during the day, ambulate as medically permissible. Pt prefers lights off and windows closed at all times but we should avoid this during daytime. -Likely underlying component of anhedonia and depression, although no pharmacologic management at this time since pt wants to minimize inpatient meds and does not want outpatient med additions at this time. FEN: PO fluids, monitoring electrolytes, heart healthy diet DVT PPx: Heparin 5000 units SQ BID Code status: Full Code Disposition: Remain inpatient for antibiotic coverage, wound management, and PT as we continue to work towards rehab discharge planning. (2) Sepsis: -Likely infection source with BLE ulcerations, especially on the left. Likely secondary to PAD/PVD. -Blood Cx 11/13 showed MSSA bacteremia, now final. Continue cefazolin 2000@3. 75mL/min IV. -most recent WBC 10.80 WNL, afebrile, initially tachycardic but most recently HR 67, most recent BP 86/51. Continue to monitor. -U/A showed orange color, 1.034 specific gravity likely secondary to hypovolemia, +nitrites and leuk esterase, 5-10 WBC, 1+ bacteria, but also 5-10 epithelial cells. Urine Cx final with no growth. -Elevated troponin on admission likely related to demand myocardial ischemia in the setting of acute illness. (3) Peripheral arterial occlusive disease: -Extensive smoking history, claudication with exertion but not at rest, and now extensive ulceration bilaterally. Pt received minimal medical care and few doctors seen over past several decades. Pt has been taking a daily aspirin for past decade, but this is his only medication and he does not seem keen to add new medications outpatient. A1c 6.0. -Duplex lower extremity found severe bilateral atherosclerosis, probable occlusion of the left superficial femoral artery and likely occlusion of the right peroneal artery. -CTA found extensive atherosclerotic vascular disease, multifocal high-grade stenosis in distal superficial femoral artery with numerous opacified collateral vessels, high-grade stenosis vs. occlusion involves the majority of left anterior tibial artery with reconstitution of flow within the dorsalis pedis, fluid overload L>R pleural effusions with small volume of abdominopelvic ascites and diffuse body wall and asymmetric lower extremity edema. -Continue ASA 81. -Vascular surgery consulted. They do not think he is a candidate for either an endovascular procedure or an open procedure of the left leg and recommend continuing wound management. -Refused PT yesterday but participated with them today (4) Open leg wound: -Known CAD and extensive smoking history, likely related to PAD. Pt reports worsening ulceration in BLE L>R for several months now seeping pus and blood. Bandaged and wound management involved. On cefazolin IV Abx for MSSA bacteremia. -After refusing wound management the past few days and having seeping wounds through the bandaging, this morning he allowed his wounds to be changed. Given ketorolac 10mg IV once to help with pain during the bandaging process. (5) Smoking greater than 40 pack years: -Continue nicotine patches while inpatient and monitor Sx for possible dose adjustment. Pt states currently adequate. -Wheezing on exam and chronic cough likely secondary to COPD. CTA found evidence of pulmonary emphysema which is further suggestive. Pt denies SOB -Obtained ABG to check for respiratory-related hypercapnia which could further explain recent decline in mentation. pH 7.44, pCO2 39, pO2 65, HCO3 26, which fits more with CHF exacerbation than COPD hypercapnia. -Continue ipratropium+albuterol PRN. (6) CAD (coronary artery disease): -Hx [place] 2008 in [place]. On ASA at home but no other meds. -Continue losartan 50mg and carvedilol 3.125 BID. Associated angina: without angina Coronary Disease-Associated Artery/Lesion type: [place] artery [place] vs. transplanted heart: [place] heart Qualified Code(s): I25.10 - Atherosclerotic heart disease of [place] coronary artery without angina pectoris (7) Cardiomyopathy: -TTE showed LV mildly dilated, LV systolic function moderately to severely reduced, EF 25-30%, moderate to severe mitral regurg, LA severely dilated, severe tricuspid regurg, RV systolic pressure increased at 50-60mmHg, IVC moderately dilated. -Pt denies CP, SOB, and palpitations. Exam found bilateral wheezing, but crackles have resolved -In addition to ASA 81, continue losartan 50 and carvedilol 3.125 BID. We will continue to discuss with pt to see if he is willing to continue these meds outpatient. -Crackles and ABG indicate likely CHF exacerbation. Given several doses of furosemide 20 IV over past few days with no crackles today. No further furosemi de needed at this time. Admission and Anticipated Discharge Date Admission Date: January 18, 2021 Supervising Attestation Attending Attestation I also saw the patient and confirmed curry portions of the history and exam. I agree with the impression and plan as noted above. The patient was again minimally interactive with our conversation. His bandages were changed today. Physical therapy is planned for later today although it is noted that he has declined physical therapy previously. Exam 97/61, 67, 16, 36.4, 97% on room air Awake, alert. Not conversational Heart regular Respirations nonlabored Lower extremities are freshly bandaged bilaterally; just above the uppermost portion of the left lower extremity bandage is a slightly erythematous, scabbed area. The weeping noted yesterday is not appreciated today. Data No new lab work today Impression Sepsis, resolved Cellulitis with open leg wound PVD Continue current care and discussion regarding placement. I do not feel he is safe to return home; he may be competent to make poor decisions, but we may need formal psychiatric consultation to work thru the process. Ultimately, I am hopeful he will consent to placement for continued treatment of his infection, therapy, and assistance with ADLs. Subjective Mr. Hankins was not very conversational today, laying in the position in bed with his eyes closed. He stated he was able to eat two bowls of cheerios for breakfast which he enjoyed. He says his L groin pain from yesterday is somewhat better today, but still hurts with movement. We discussed how this is likely related to deconditioning and that working with PT might help. He said he would consider it. He told me his focus is still to get stronger and to be able to go somewhere, preferably home, where he can smoke outside. I noted that his bandaged look changed but pt denied that anyone changed them. Review of Systems Review of Systems: All systems reviewed & are unremarkable except as noted in HPI & below Constitutional: no anorexia Respiratory: + cough; no dyspnea Cardiovascular: + claudication; no chest pain, no dyspnea, no palpitations and no lightheadedness Gastrointestinal: no abdominal pain, no nausea, no vomiting and no dysphagia Integumentary: + skin ulcer Physical Exam Constitutional: + thin and + disheveled; no acute distress ENMT: external ear and nose normal, oropharynx normal Respiratory: normal respiratory effort; no respiratory distress Auscultation: + wheezes; no rales and no rhonchi Cardiovascular: RRR, no murmur, no edema Heart Sounds: normal S1 and normal S2; no gallop, no murmur and no cardiac rub Gastrointestinal (Abdomen): normal bowel sounds, soft, nontender, no hepatosplenomegaly Percussion/Palpation: abdomen nontender, no guarding and abdomen not rigid Skin: + ulcer (new bandages today after pt refused previously) Neurologic: CN's II-XI intact bilaterally and moves all extremities Psychiatric: Orientation: alert and oriented x 3 Apperance: + disheveled Eye Contact: + poor eye contact Affect: + blunted affect Results & Data ([facility]) Vital Signs (Past 12 Hours) Vital Signs Temp Pulse Resp BP BP Pulse Ox 02/01/21 15:06 36.4 C L 67 16 86/51 L 97 02/01/21 07:58 36.7 C 60 16 97/61 L 95
[2021-02-02] MEDS: ceFAZolin 2000MG 2,000 MG/15 ML SYR IV SCH ×3 (04:35→19:45)
[2021-02-02 07:41] LABS: Basophils # (auto) 0.06 K/uL (0-0.2); Basophils % (auto) 0.7 %; Eosinophils # (auto) 0.21 K/uL (0-0.5); Eosinophils % (auto) 2.5 %; Hematocrit (blood only) 33.8 % (42-52); Hemoglobin 11.4 g/dL (14.0-18.0); Immature Granulocytes # (auto) 0.03 K/uL (0.00-0.02); Immature Granulocytes % (auto) 0.4 %; Lymphocytes # (auto) 1.38 K/uL (1.2-3.4); Lymphocytes % (auto) 16.6 %; Mean Corpuscular Hemoglobin 26.7 pg (25-34); Mean Corpuscular Hgb Conc 33.7 g/dL (32-36); Mean Corpuscular Volume 79.2 fL (80-100); Mean Platelet Volume 9.7 fL (7.4-10.4); Monocytes # (auto) 0.91 K/uL (0.11-0.59); Monocytes % (auto) 10.9 %; Neutrophils # (auto) 5.73 K/uL (1.4-6.5); Neutrophils % (auto) 68.9 %; Platelet Count 404 K/uL (130-400); RDW Coefficient of Variation 16.4 % (11.5-14.5); RDW Standard Deviation 47.4 fL (36.4-46.3); Red Blood Count 4.27 M/uL (4.7-6.1); White Blood Count 8.32 K/uL (4.8-10.8)
[2021-02-02] MEDS: carvediloL 3.125 MG TAB PO SCH ×2 (08:00→19:45)
[2021-02-02] MEDS: LOSARTAN POTASSIUM 50 MG TAB PO SCH (08:00)
[2021-02-02] MEDS: ASPIRIN 81 MG ECTAB PO SCH (08:00)
[2021-02-02] MEDS: NICOTINE 21 MG/24 HR TDSY TD SCH (08:01)
[2021-02-02] MEDS: HEPARIN SOD 5,000 UNIT/0.5 ML VIAL SQ SCH ×2 (08:02→19:45)
[2021-02-02 08:18] LABS: BUN Creatinine Ratio 35.3 (10-20); Calcium 9.1 mg/dl (8.5-10.1); Creatinine Clr Calc Pharmacy 147.3 ml/min; Est GFR (African American) 131.8; Est GFR (Non-African American) 113.7; Potassium 4.2 mmol/L (3.5-5.1)
[2021-02-02] MEDS ORDERED: KETOROLAC TROMETHAMINE 15 MG/ML VIAL IV ONE (13:48)
--- NOTE | 2021-02-02 16:35 | Medical Student Progress Note ---
Date of Service February 02, 2021 Assessment & Plan (1) Delirium: Mr. Hankins is a 65yo male with a PMHx of CAD, [place], and stroke who presented with months of ongoing leg pain and seeping leg wounds bilaterally. He hasn't seen a doctor in years and is not interested in smoking cessation or adding many new medications at this time. Denies Hx of HTN or DMII. -We continue to make slow progress with regard to goals and discharge planning. After refusing for several days, pt is now allowing for wound management of his bilateral leg ulcers as well as allowing PT for conditioning. It sounds like he is also becoming more open to discharging to [facility] where he can continue working on these goals, especially since he can have snacks, smoke, and have more mobility and freedom. It sounds like the next potential obstacle in his eyes is talking to his daughter and getting her approval. We will continue to discuss with him and case management is pursuing possible placement there upon discharge. -Mentation, attention, and energy have been improved over the past few days. AxOx4 today, with good eye contact although pt still preferring dark room. -Likely secondary to acute septic state, potentially with additional acute on chronic CHF and COPD contribution. Continue to treat infection with cefazolin. -Continue to avoid anticholinergic/sedative-hypnotic medications. -Environmental/behavioral modifications: frequent reorientation, lights off during the night, shades open during the day, ambulate as medically permissible. Pt prefers lights off and windows closed at all times but we should avoid this during daytime. -Likely underlying component of anhedonia and depression, although no pharmacologic management at this time since pt wants to minimize inpatient meds and does not want outpatient med additions at this time. FEN: PO fluids, electrolytes WNL, heart healthy diet DVT PPx: Heparin 5000 units SQ BID Code status: Full Code Disposition: Remain inpatient for wound management and PT as we continue to work towards rehab discharge planning, likely with [facility]. (2) Sepsis: -Likely infection source with BLE ulcerations, especially on the left. Likely secondary to PAD/PVD. -Blood Cx 11/13 showed MSSA bacteremia, now final. Continue cefazolin 2000@3.75mL/min IV. -most recent WBC 8.32 WNL, afebrile, initially tachycardic but most recently HR 72, most recent BP 91/52. Continue to monitor. -U/A showed orange color, 1.034 specific gravity likely secondary to hypovolemia, +nitrites and leuk esterase, 5-10 WBC, 1+ bacteria, but also 5-10 epithelial cells. Urine Cx final with no growth. -Elevated troponin on admission likely related to demand myocardial ischemia in the setting of acute illness. (3) Peripheral arterial occlusive disease: -Extensive smoking history, claudication with exertion but not at rest, and now extensive ulceration bilaterally. Pt received minimal medical care and few doctors seen over past several decades. Pt has been taking a daily aspirin for past decade, but this is his only medication and he does not seem keen to add new medications outpatient. A1c 6.0. -Duplex lower extremity found severe bilateral atherosclerosis, probable o cclusion of the left superficial femoral artery and likely occlusion of the right peroneal artery. -CTA found extensive atherosclerotic vascular disease, multifocal high-grade stenosis in distal superficial femoral artery with numerous opacified collateral vessels, high-grade stenosis vs. occlusion involves the majority of left anterior tibial artery with reconstitution of flow within the dorsalis pedis, fluid overload L>R pleural effusions with small volume of abdominopelvic ascites and diffuse body wall and asymmetric lower extremity edema. -Continue ASA 81. -Vascular surgery consulted. They do not think he is a candidate for either an endovascular procedure or an open procedure of the left leg and recommend continuing wound management. -Refused PT for a few days this week but after discussion is participating with them now (4) Open leg wound: -Known CAD and extensive smoking history, likely related to PAD. Pt reports worsening ulceration in BLE L>R for several months now seeping pus and blood. Bandaged and wound management involved. On cefazolin IV Abx for MSSA bacteremia. -After refusing wound management the past few days and having seeping wounds through the bandaging, the past few days he allowed his wounds to be changed. PRN ketorolac 10mg IV to help with pain during bandaging seems to be helping with this process. (5) Smoking greater than 40 pack years: -Continue nicotine patches while inpatient and monitor Sx for possible dose adjustment. Pt states currently adequate. -Wheezing on exam and chronic cough likely secondary to COPD. CTA found evidence of pulmonary emphysema which is further suggestive. Pt denies SOB -Obtained ABG to check for respiratory-related hypercapnia which could further explain recent decline in mentation. pH 7.44, pCO2 39, pO2 65, HCO3 26, which fits more with CHF exacerbation than COPD hypercapnia. -Continue ipratropium+albuterol PRN. (6) CAD (coronary artery disease): -Hx CA 2008 in [place]. On ASA at home but no other meds. -Continue losartan 50mg and carvedilol 3.125 BID. Associated angina: without angina Coronary Disease-Associated Artery/Lesion type: [place] artery [place] vs. transplanted heart: [place] heart Qualified Code(s): I25.10 - Atherosclerotic heart disease of [place] coronary artery without angina pectoris (7) Cardiomyopathy: -TTE showed LV mildly dilated, LV systolic function moderately to severely reduced, EF 25-30%, moderate to severe mitral regurg, LA severely dilated, severe tricuspid regurg, RV systolic pressure increased at 50-60mmHg, IVC moderately dilated. -Pt denies CP, SOB, and palpitations. Exam found bilateral wheezing, but crackles have resolved -In addition to ASA 81, continue losartan 50 and carvedilol 3.125 BID. We will continue to discuss with pt to see if he is willing to continue these meds outpatient. -Crackles and ABG indicate likely CHF exacerbation. Given several doses of furosemide 20 IV over past few days with no crackles today. No further furosemide needed at this time. Admission and Anticipated Discharge Date Admission Date: January 18, 2021 Supervising Attestation Attending Attestation I also saw the patient and confirmed curry portions of the history and exam. I agree with the impression and plan as noted above. Upon exam today, the patient was actually more interactive and conversational. He was willing to talk to us as long as we did not attempt to examine or redress his wounds. Fortunately, they were previously redressed earlier this morning. He had participated in physical therapy the last two days. He is willing to entertain discharge to a facility as long as he would be able to smoke. He also had some questions regarding to how much he would be able to eat at these facilities. Exam 91/52, 72, 18, 36.7, 97% on room air Awake, alert. More conversational than yesterday Heart regular Respirations nonlabored Lower extremities are freshly bandaged bilaterally. Data White blood cell count 8.32, hemoglobin 11.4. Platelet count 404. Mildly elevated but down from 431 on 01/31. Renal function is preserved, BUN 18, creatinine 0.50. Impression Sepsis, resolved Cellulitis with open leg wound PVD Continue current care and discussion regarding placement. Tentatively case management has found a facility that will accept him. Subjective Mr. Hankins was somewhat more agreeable today about goal and discharge planning. He had his bandages changed again this morning and states having PRN ketorolac helps make this more manageable. He allowed PT to work with him and feels he is making some progress. He said he is not excited about the prospect of going to [facility] for rehab, but he is considering it given that it appears he can smoke outside, work on his strength, and have snacks in his room there. He states he has no new pains or SOB. Review of Systems Review of Systems: All systems reviewed & are unremarkable except as noted in HPI & below Constitutional: no fever Respiratory: + cough; no dyspnea Cardiovascular: no chest pain, no dyspnea, no palpitations and no lightheadedness Gastrointestinal: no abdominal pain, no nausea, no vomiting and no dysphagia Neurologic: no headache(s) and no confusion Physical Exam Constitutional: + thin and cooperative; no acute distress ENMT: external ear and nose normal, oropharynx normal Respiratory: normal respiratory effort; no respiratory distress Auscultation: + wheezes; no rales and no rhonchi Cardiovascular: RRR, no murmur, no edema Heart Sounds: normal S1 and normal S2; no gallop, no murmur and no cardiac rub Gastrointestinal (Abdomen): normal bowel sounds, soft, nontender, no hepatosplenomegaly Percussion/Palpation: abdomen nontender, no guarding and abdomen not rigid Skin: + ulcer (newly bandaged today, not seeping) Psychiatric: Orientation: alert and oriented x 3 Eye Contact: good eye contact Results & Data ([facility]) Vital Signs (Past 12 Hours) Vital Signs Temp Pulse Resp BP Pulse Ox 02/02/21 16:30 36.7 C 72 18 91/52 L 97 02/02/21 07:51 36.9 C 64 64 H 113/65 94
[2021-02-03] MEDS: ceFAZolin 2000MG 2,000 MG/15 ML SYR IV SCH ×3 (03:23→20:35)
[2021-02-03] MEDS: carvediloL 3.125 MG TAB PO SCH ×2 (08:21→20:15)
[2021-02-03] MEDS: ASPIRIN 81 MG ECTAB PO SCH (08:21)
[2021-02-03] MEDS: LOSARTAN POTASSIUM 50 MG TAB PO SCH (08:21)
[2021-02-03] MEDS: HEPARIN SOD 5,000 UNIT/0.5 ML VIAL SQ SCH ×2 (08:22→20:15)
[2021-02-03] MEDS: NICOTINE 21 MG/24 HR TDSY TD SCH (08:22)
--- NOTE | 2021-02-03 10:43 | XRay Report ---
XR chest 1V portable CLINICAL HISTORY: pneumonia COMPARISON STUDY: 01/18/2021 FINDINGS: The heart is mildly enlarged. There are postsurgical changes of midline sternotomy. There a re fractured sternal sutures. There is no failure. There is no focal pulmonary consolidation. There i s a suspected trace lamellar left pleural effusion..[ IMPRESSION: 1. Trace lamellar left pleural effusion 2. No evidence of failure. No evidence of focal pulmonary consolidation ACT 112: Negative or not required by law. Electronically signed by: Phillip Gamez M.D. 02/03/2021 10:42 AM
--- NOTE | 2021-02-03 15:40 | Medical Student Progress Note ---
Date of Service February 03, 2021 Assessment & Plan (1) Delirium: Mr. Hankins is a 65yo male with a PMHx of CAD, [place], and stroke who presented with months of ongoing leg pain and seeping leg wounds bilaterally. He hasn't seen a doctor in years and is not interested in smoking cessation or adding many new medications at this time. Denies Hx of HTN or DMII. -After much discussion, Mr. Hankins looks to have agreed to a discharge plan which is appropriate. We are planning to discharge him to [facility] tomorrow where he will be able to continue with his physical reconditioning and wound management. He is comfortable with their smoking, snack, and space policies and he says his daughter is agreeable to the plan. Case management was able to find placement for him for tomorrow. -Mentation, attention, and energy have been improved over the past few days. AxOx4 today, with good eye contact although pt still preferring dark room. -Likely secondary to acute septic state, potentially with additional acute on chronic CHF and COPD contribution. Continue to treat infection with cefazolin. -Continue to avoid anticholinergic/sedative-hypnotic medications. -Environmental/behavioral modifications: frequent reorientation, lights off during the night, shades open during the day, ambulate as medically permissible. Pt prefers lights off and windows closed at all times but we should avoid this during daytime. -Likely underlying component of anhedonia and depression, although no pharma cologic management at this time since pt wants to minimize inpatient meds and does not want outpatient med additions at this time. FEN: PO fluids, electrolytes WNL, heart healthy diet DVT PPx: Heparin 5000 units SQ BID Code status: Full Code Disposition: Remain inpatient for wound management and PT, with plan to discharge to [facility] tomorrow for rehab. (2) Sepsis: -Likely infection source with BLE ulcerations, especially on the left. Likely secondary to PAD/PVD. -Blood Cx 11/13 showed MSSA bacteremia, now final. Continue cefazolin 2000@3. 75mL/min IV. Pt has completed roughly two weeks of IV Abx, plan to switch to PO cephalosporin tomorrow and continue with two more weeks of antibiotic coverage. -most recent WBC 8.32 WNL, afebrile, initially tachycardic but most recently HR 56, most recent BP 92/56. Continue to monitor. -U/A showed orange color, 1.034 specific gravity likely secondary to hypovolemia, +nitrites and leuk esterase, 5-10 WBC, 1+ bacteria, but also 5-10 epithelial cells. Urine Cx final with no growth. -Elevated troponin on admission likely related to demand myocardial ischemia in the setting of acute illness. (3) Peripheral arterial occlusive disease: -Extensive smoking history, claudication with exertion but not at rest, and now extensive ulceration bilaterally. Pt received minimal medical care and few doctors seen over past several decades. Pt has been taking a daily aspirin for past decade, but this is his only medication and he does not seem keen to add new medications outpatient. A1c 6.0. -Duplex lower extremity found severe bilateral atherosclerosis, probable occlusion of the left superficial femoral artery and likely occlusion of the right peroneal artery. -CTA found extensive atherosclerotic vascular disease, multifocal high-grade stenosis in distal superficial femoral artery with numerous opacified collateral vessels, high-grade stenosis vs. occlusion involves the majority of left anterior tibial artery with reconstitution of flow within the dorsalis pedis, fluid overload L>R pleural effusions with small volume of abdominopelvic ascites and diffuse body wall and asymmetric lower extremity edema. -Continue ASA 81. -Vascular surgery consulted. They do not think he is a candidate for either an endovascular procedure or an open procedure of the left leg and recommend continuing wound management. -Refused PT for a few days this week but after discussion is participating with them now (4) Open leg wound: -Known CAD and extensive smoking history, likely related to PAD. Pt reports worsening ulceration in BLE L>R for several months now seeping pus and blood. Bandaged and wound management involved. On cefazolin IV Abx for MSSA bacteremia, will transition to PO prior to discharge as above -Again refused wound management today for re-bandaging. Continue to monitor. (5) Smoking greater than 40 pack years: -Continue nicotine patches while inpatient and monitor Sx for possible dose adjustment. Pt states currently adequate. -Improving wheezing on exam and chronic cough likely secondary to COPD. CTA found evidence of pulmonary emphysema which is further suggestive. Pt denies SOB -Obtained ABG to check for respiratory-related hypercapnia which could further explain recent decline in mentation. pH 7.44, pCO2 39, pO2 65, HCO3 26, which fits more with CHF exacerbation than COPD hypercapnia. -Continue ipratropium+albuterol PRN. (6) CAD (coronary artery disease): -Hx [place] 2008 in [place]. On ASA at home but no other meds. -Continue losartan 50mg and carvedilol 3.125 BID. Associated angina: without angina Coronary Disease-Associated Artery/Lesion type: [place] artery [place] vs. transplanted heart: [place] heart Qualified Code(s): I25.10 - Atherosclerotic heart disease of [place] coronary artery without angina pectoris (7) Cardiomyopathy: -TTE showed LV mildly dilated, LV systolic function moderately to severely reduced, EF 25-30%, moderate to severe mitral regurg, LA severely dilated, severe tricuspid regurg, RV systolic pressure increased at 50-60mmHg, IVC moderately dilated. -Pt denies CP, SOB, and palpitations. Exam found improving bilateral wheezing, but crackles have resolved -In addition to ASA 81, continue losartan 50 and carvedilol 3.125 BID. We will continue to discuss with pt to see if he is willing to continue these meds outpatient. -Crackles and ABG indicate likely CHF exacerbation. Given several doses of furosemide 20 IV over past few days with no crackles today. No further furosemide needed at this time. Admission and Anticipated Discharge Date Admission Date: January 18, 2021 Supervising Attestation Attending Attestation I also saw the patient and confirmed curry portions of the history and exam. I agree with the impression and plan as noted above. The patient was out of bed seated in a wheelchair adjacent to his bed. He had no complaints. Plans are for discharge tomorrow to a facility. The patient seems to be pleased with the facility. Exam 92/56, 56, 16, 36.8, 98% on room air Awake, alert. Heart regular Respirations nonlabored Lower extremities are freshly bandaged bilaterally. Data No new labs today Impression Sepsis, resolved Cellulitis with open leg wound PVD Plan is for discharge tomorrow to SNF. COVID test ordered for placement. Subjective Mr. Hankins was more talkative today. He was eating breakfast of tur[place] and caicos islander toast, juice, and coffee while we talked. He says his pain is about the same and that he is breathing well today. He worked with PT to transfer to a wheelchair. He refused wound care three times today, even when pain medications were offered. We discussed the plan to go to [facility] and he was more open to that plan today. He says as long as his daughter is amenable he is willing to go. Review of Systems Review of Systems: All systems reviewed & are unremarkable except as noted in HPI & below Constitutional: no fever, no fatigue and no anorexia Respiratory: + cough; no dyspnea Cardiovascular: no chest pain, no dyspnea and no palpitations Gastrointestinal: no abdominal pain, no nausea, no vomiting, no constipation and no diarrhea/loose stools Neurologic: no headache(s) and no confusion Physical Exam Constitutional: + thin, cooperative and comfortable; no acute distress ENMT: external ear and nose normal, oropharynx normal Respiratory: normal respiratory effort Auscultation: + wheezes (improving); no rales and no rhonchi Cardiovascular: RRR, no murmur, no edema Heart Sounds: normal S1 and normal S2; no gallop, no murmur and no cardiac rub Gastrointestinal (Abdomen): normal bowel sounds, soft, nontender, no hepatosplenomegaly Percussion/Palpation: abdomen nontender, no guarding and abdomen not rigid Skin: + ulcer (legs bandaged, not seeping) Neurologic: CN's II-XI intact bilaterally and moves all extremities Psychiatric: A+Ox3, euthymic affect Eye Contact: good eye contact Results & Data ([facility]) Vital Signs (Past 12 Hours) Vital Signs Temp Pulse Pulse Resp BP BP Pulse Ox 02/03/21 14:59 36.8 C 56 L 16 92/56 L 98 02/03/21 06:15 36.7 C 67 16 96/57 L 99
[2021-02-03] MEDS: cephALEXin 500 MG CAP PO SCH (21:28)
[2021-02-04] MEDS: carvediloL 3.125 MG TAB PO SCH (07:48)
[2021-02-04] MEDS: LOSARTAN POTASSIUM 50 MG TAB PO SCH (07:48)
[2021-02-04] MEDS: cephALEXin 500 MG CAP PO SCH ×2 (08:00→12:43)
[2021-02-04] MEDS: HEPARIN SOD 5,000 UNIT/0.5 ML VIAL SQ SCH (08:00)
[2021-02-04] MEDS: ASPIRIN 81 MG ECTAB PO SCH (08:00)
[2021-02-04] MEDS: NICOTINE 21 MG/24 HR TDSY TD SCH (08:01)
--- NOTE | 2021-02-04 12:35 | Discharge Summary ---
Date of Service February 04, 2021 Discharge Data Allergies Allergy/AdvReac Type Severity Reaction Status Date / Time No Known Allergies Allergy Unverified 01/18/21 19:52 Consultations 01/18/21 19:26 ED Decision to Admit Stat 01/18/21 23:24 Consult Case Management - Discharge Planning Routine 01/19/21 07:52 Consult Cardiology Routine 01/19/21 17:56 Consult Vascular Surgery Routine 01/23/21 11:06 Consult Palliative Care Routine Ordered Studies 01/18/21 17:07 CT angio chest PE protocol Stat 01/19/21 08:00 US arterial duplex LE BI Routine 01/20/21 15:32 CT ang AA runof w inc wo ifdon Routine Hospital Course (1) Open leg wound: Mr. Hankins is a 65yo male with a PMHx of CAD, [place], and stroke who presented to the ED [facility] night complaining of months of ongoing leg pain and seeping leg wounds bilaterally. He hasn't seen a doctor in years and is not interested in smoking cessation or adding many new medications at this time. Denies Hx of HTN or DMII. Sepsis -Likely infection source with BLE ulcerations, especially on the left. Likely secondary to PAD/PVD. -Blood Cx 11/13 showed MSSA bacteremia, now final. Continue cefazolin 2000@3.75mL/min IV. -most recent WBC 12.9, afebrile, initially tachycardic but most recently HR WNL, BP on softer side 100's/60's. Continue to monitor. -Prior U/A showed orange color, 1.034 specific gravity likely secondary to hypovolemia, +nitrites and leuk esterase, 5-10 WBC, 1+ bacteria, but also 5-10 epithelial cells. Urine Cx final with no growth. No indication to recheck, but hope that urinary Chandler can be removed to prevent source of infection. -Elevated troponin on admission likely related to demand myocardial ischemia in the setting of acute illness. Peripheral arterial occlusive disease: -Extensive smoking history, claudication with exertion but not at rest, and now extensive ulceration bilaterally. Pt received minimal medical care and few doctors seen over past several decades. Pt has been taking a daily aspirin for past decade, but this is his only medication and he does not seem keen to add new medications outpatient. -Duplex lower extremity found severe bilateral atherosclerosis, probable occlusion of the left superficial femoral artery and likely occlusion of the right peroneal artery. -CTA found extensive atherosclerotic vascular disease, multifocal high-grade stenosis in distal superficial femoral artery with numerous opacified collateral vessels, high-grade stenosis vs. occlusion involves the majority of left anterior tibial artery with reconstitution of flow within the dorsalis pedis, fluid overload L>R pleural effusions with small volume of abdominopelvic ascites and diffuse body wall and asymmetric lower extremity edema. -Continue ASA 81. -Vascular surgery consulted. He is not a candidate for endovascular procedures or open surgery Open leg wound: -Known CAD and extensive smoking history, likely related to PAD. Pt reports worsening ulceration in BLE L>R for several months now seeping pus and blood. Bandaged and wound management involved. On cefazolin IV Abx for MSSA bacteremia. Smoking greater than 40 pack years: -Continue nicotine patches while inpatient and monitor Sx for possible dose adjustment. Pt states currently adequate. -Wheezing on exam and chronic cough likely secondary to COPD. CTA found evidence of pulmonary emphysema which is further suggestive. Pt denies SOB today, but this is likely due to his delirium and proneness to minimize conversations. -Prior ABG consistent with CHF exacerbation rather than COPD hypercapnia. -Continue ipratropium+albuterol qid. CAD (coronary artery disease) -Hx [place] 2008 in [place]. On ASA at home but no other meds. -Continue losartan 50mg and carvedilol 3.125 BID. -Cardiology consulted He has been intermittently asymptomatically hypotensive. Tolerating well, if absolutely required would hold losartan and avoid holding beta-jayson if at all possible Cardiomyopathy -TTE showed LV mildly dilated, LV systolic function moderately to severely reduced, EF 25-30%, moderate to severe mitral regurg., LA severely dilated, severe tricuspid regurg., RV systolic pressure increased at 50-60mmHg, IVC moderately dilated. -Pt denies CP, SOB, and palpitations. Exam found wheezing and crackles today, but crackles improved relative to yesterday -In addition to ASA 81, continue losartan 50 and carvedilol 3.125 BID. We will continue to discuss with pt to see if he is willing to continue these meds outpatient. -Cardiology consulted Delirium -Waxing and waning mentation and energy. AxOx4 today, somewhat less irritable today but not very conversational. Does have trouble with attention. -Likely secondary to acute septic state, potentially with additional acute on chronic CHF and COPD contribution. Continue to treat infection with cefazolin. -Continue to avoid anticholinergic/sedative-hypnotic medications. - He needed Chandler placement for incontinence in bed, suspect element of delirium as nighttime diminished sensory perception correlates with delirium at night. This was significant as has been non-compliant with nursing care - Hope that [facility] can be encouraged to continue with his recommended course of care to be performed as SNF. Discussed that being in hospital adds harms to him and is not a safe treatment choice for current level of care. He is at risk for continued and worsening delirium. He now requires Chandler cath which is now adding an additional infection source. He also is at risk for significant deconditioning that can prolong his recovery; also is at risk for bed sores even with adequate nursing care. -Palliative care consulted, appreciate their recommendations regarding the mixed picture of delirium, likely depression, underlying personality, and acute illness and how they impact goal making, self care, and discharge planning. They state pt's primary goal at this point is to return home independently, which is not a realistic goal. Insight very poor. Palliative will reach out to pt's daughter Vita to continue discussions and planning. At this point he has continued to refuse any PT assessments. FEN: PO fluids, monitoring electrolytes, heart healthy diet DVT PPx: Heparin 5000 units SQ BID Code status: Full Code Discharge Plan Discharge Items Patient Disposition: Transfer [facility] Fac Reason For Visit: Leg Wound Discharge Diagnosis: leg wound Activity: Per Instructions section Non-emergency contact: Primary Care Provider Call non-emergency contact if: your symptoms worsen Follow-up/Referrals: PCP,NO [Primary Care Provider] - Diet: Regular Addtl Attending Provider Instructions: Mr. Hankins is a 65yo male with a PMHx of CAD, [place], and stroke who presented with months of ongoing leg pain and seeping leg wounds bilaterally. He hasn't seen a doctor in years and is not interested in smoking cessation or adding many new medications at this time. Denies Hx of HTN or DMII. Delirium: -After much discussion, Mr. Hankins looks to have agreed to a discharge plan which is appropriate. We are planning to discharge him to [facility] where he will be able to continue with his physical reconditioning and wound management. He is comfortable with their smoking, snack, and space policies and he says his daughter is agreeable to the plan.. -Mentation, attention, and energy have been improved over the past few days. A&Ox4 today, with good eye contact although pt still preferring dark room. -Likely secondary to acute septic state, potentially with additional acute on chronic CHF and COPD contribution. Continue to treat infection with cefazolin. -Continue to avoid anticholinergic/sedative-hypnotic medications. -Environmental/behavioral modifications: frequent reorientation, lights off during the night, shades open during the day, ambulate as medically permissible. Pt prefers lights off and windows closed at all times but we should avoid this during daytime. -Likely underlying component of anhedonia and depression, although no pharmacologic management at this time since pt wants to minimize inpatient meds and does not want outpatient med additions at this time. Sepsis: -Likely infection source with BLE ulcerations, especially on the left. Likely secondary to PAD/PVD. -Blood Cx / showed MSSA bacteremia, final. Pt has completed roughly two weeks of IV Abx, switched to PO cephalosporin and continue with two more weeks of oral Augmentin. -most recent WBC WNL, afebrile, initially tachycardic but most recently HR 56, most recent BP 92/56. Continue to monitor. -Elevated troponin on admission likely related to demand myocardial ischemia in the setting of acute illness. Peripheral arterial occlusive disease: -Extensive smoking history, claudication with exertion but not at rest, and now extensive ulceration bilaterally. Pt received minimal medical care and few doctors seen over past several decades. Pt has been taking a daily aspirin for past decade, but this is his only medication and he does not seem keen to add new medications outpatient. A1c 6.0. -Duplex lower extremity found severe bilateral atherosclerosis, probable occlusion of the left superficial femoral artery and likely occlusion of the right peroneal artery. -CTA found extensive atherosclerotic vascular disease, multifocal high-grade stenosis in distal superficial femoral artery with numerous opacified collateral vessels, high-grade stenosis vs. occlusion involves the majority of left a nterior tibial artery with reconstitution of flow within the dorsalis pedis, fluid overload L>R pleural effusions with small volume of abdominopelvic ascites and diffuse body wall and asymmetric lower extremity edema. -Continue ASA 81. -Vascular surgery consulted. They do not think he is a candidate for either an endovascular procedure or an open procedure of the left leg and recommend continuing wound management. -Refused PT for a few days this week but after discussion is participating with them now Open leg wound: -Known CAD and extensive smoking history, likely related to PAD. Pt reports worsening ulceration in BLE L>R for several months now seeping pus and blood. Bandaged and wound management involved. - transitioned from IV to PO antibiotics prior to discharge as above - Continue with local wound care and monitoring. - was incontinent of urine and will be discharged with a condom catheter Smoking greater than 40 pack years: -Improving wheezing on exam and chronic cough likely secondary to COPD. CTA found evidence of pulmonary emphysema which is further suggestive. Pt denies SOB -Obtained ABG to check for respiratory-related hypercapnia which could further explain recent decline in mentation. pH 7.44, pCO2 39, pO2 65, HCO3 26, which fits more with CHF exacerbation than COPD hypercapnia. -Continue ipratropium+albuterol PRN. CAD (coronary artery disease): -Hx [place] 2008 in [place]. On ASA at home but no other meds. -Continue losartan 50mg and carvedilol 3.125 BID. Associated angina: without angina Coronary Disease-Associated Artery/Lesion type: [place] artery [place] vs. transplanted heart: [place] heart Qualified Code(s): I25.10 - Atherosclerotic heart disease of [place] coronary artery w ithout angina pectoris Cardiomyopathy: -TTE showed LV mildly dilated, LV systolic function moderately to severely reduced, EF 25-30%, moderate to severe mitral regurg, LA severely dilated, severe tricuspid regurg, RV systolic pressure increased at 50-60mmHg, IVC moderately dilated. -Pt denies CP, SOB, and palpitations. Exam found improving bilateral wheezing, but crackles have resolved -In addition to ASA 81, continue losartan 50 and carvedilol 3.125 BID. We will continue to discuss with pt to see if he is willing to continue these meds outpatient. -Early pulmonary exam and labs consistent with CHF exacerbation. Given two doses of Furosemide 20 mg IV earlier in hospitalization with no crackles several days prior to discharge.Continue to evaluate for the need of Furosemide going forward. Pending Studies at Discharge: No Stand-Alone Forms: My [facility] Skilled Items Patient informed of condition?: Yes DNR: No Discharge Level of Care: Skilled Communicable Disease: No Discharge Prognosis: Improving Lines: None Urinary Catheter: Yes Medications and DC Order Prescriptions: New losartan 50 mg Tablet 50 mg PO QAM Qty: 0 RF: 0 carvedilol 3.125 mg Tablet 3.125 mg PO BID Qty: 0 RF: 0 cephalexin 500 mg Capsule 500 mg PO QID Qty: 0 RF: 0 diclofenac sodium [Voltaren] 1 % Gel 4 g EXT Q8H PRNQty: 0 RF: 0 amoxicillin-pot clavulanate [Augmentin] 500-125 mg tablet 1 tab PO BID 14 Days Qty: 28 RF: 0 ipratropium-albuterol 0.5 mg-3 mg(2.5 mg base)/3 mL solution for nebulization 3 ml inhalation Q8H PRN (Reason: wheezing) 30 Days RF: 0 Continued aspirin 81 mg Tablet,Delayed Release (Dr/Ec) 81 mg PO DAILY RF: 0 Discharge Orders: Discharge Order (Routine); Ordered 02/04/21 Ordered By: Jordan Montgomery/Other Patient Handouts: 5 Steps for Eating Healthier, A1C Admission Data Admit Date/Time: 01/18/21 19:58 Attending Provider: Syl Thomas Admit Provider: Tiffani Pennington Primary Care Provider: PCP,NO Other Providers: Kyung Navarro ; Mushtaq Sauer ; Bismark Marino ; Pb Madrigal ; William Valero ; Solo Fox ; Ariel Sun ; Moshe Will Jr ; Avel Nicole ; Vaishnavi Alston ; Glory Regan ; Crow Allen ; Crow Pickering ; Agustin Russo ; Luisito Maldonado ; Priya Sprague ; Jennifer Le ; Cam Kramer ; Salas Pacheco ; Jarrett Simmons ; Valorie Paz Other Interventions: Discharge Summary Assessment (RN) Last Done: 02/04/21 12:05 CBC Results Results Complete Blood Count Results: RBC 4.27 M/uL (4.7-6.1) L 02/02/21 WBC 8.32 K/uL (4.8-10.8) 02/02/21 Hgb 11.4 g/dL (14.0-18.0) L 02/02/21 Hct 33.8 % (42-52) L 02/02/21 Plt Count 404 K/uL (130-400) H 02/02/21 Chemistry ([facility]) Results [facility] Results: Sodium 137 mmol/L (136-145) 02/02/21 Potassium 4.2 mmol/L (3.5-5.1) 02/02/21 Chloride 107 mmol/L (98-107) 02/02/21 BUN 18 mg/dl (7-18) 02/02/21 Creatinine 0.50 mg/dl (0.6-1.4) L 02/02/21 Glucose 84 mg/dl (70-99) 02/02/21
--- NOTE | 2021-02-04 13:08 | Med Student Discharge Summary ---
Date of Service February 04, 2021 Admission HPI Per Admitting Provider 65-year-old male with a past medical history of stroke and heart attack who presents to the ER with complaints of leg pain ongoing for months. He states that he does not take any medications and questionably has never seen a doctor at an actual appointment. He states his children have been bugging him to go to the hospital and get his legs checked out so today he finally did as he was tired of fighting them. He denies any numbness or tingling, weakness in his legs. He states he has an extensive smoking history and at his highest was smoking 4 packs a day. He is not sure how many packs he goes through at this point because he rolls his own cigarettes and "smoke one when I want to smoke one". He denies a history of hypertension or diabetes. Admission Exam (Per Admitting) Constitutional WD/WN, vitals as above well developed, well nourished, + thin, + disheveled, cooperative and comfortable; no acute distress ENMT external ear and nose normal, oropharynx normal Respiratory normal respiratory effort and + cough; no respiratory distress Auscultation: + wheezes (improving); no rales and no rhonchi Cardiovascular RRR, no murmur, no edema Rate/Rhythm: regular rate and regular rhythm Heart Sounds: normal S1 and normal S2; no gallop, no murmur and no cardiac rub Vessels: + abnormal peripheral pulses (pulses not palpable on BLE) Extremities: + edema Gastrointestinal (Abdomen) normal bowel sounds, soft, nontender, no hepatosplenomegaly Percussion/Palpation: abdomen nontender, no guarding and abdomen not rigid Musculoskeletal Extremities: + extremities abnormal to inspection (bilateral leg ulceration L>R, with venous stasis hyperpigmentation) Skin no rashes, warm and dry + ulcer (legs bandaged, not seeping), + skin tightening and + hair thinning Neurologic CN's II-XI intact bilaterally, moves all extremities and awake; not confused Psychiatric A+Ox3, euthymic affect Orientation: alert, oriented x 3, oriented to person, oriented to place, oriented to time and + guarded (somewhat, moreso than previous days) Apperance: + disheveled Eye Contact: good eye contact, + fair eye contact and + poor eye contact Motor Behavior: + psychomotor agitation (leg twitching) Speech: + abnormal rate/rhythm/volume of speech (decreased utterance length) Affect: + depressed affect, + blunted affect and + irritable affect Discharge Data Consultations 01/18/21 19:26 ED Decision to Admit Stat 01/18/21 23:24 Consult Case Management - Discharge Planning Routine 01/19/21 07:52 Consult Cardiology Routine 01/19/21 17:56 Consult Vascular Surgery Routine 01/23/21 11:06 Consult Palliative Care Routine Hospital Course (1) Delirium: Mr. Hankins is a 65yo male with a PMHx of CAD, IN, and stroke who presented with months of ongoing leg pain and seeping leg wounds bilaterally. He hasn't seen a doctor in years and is not interested in smoking cessation or adding many new medications at this time. Denies Hx of HTN or DMII. -After much discussion, Mr. Hankins looks to have agreed to a discharge plan which is appropriate. We are planning to discharge him to [facility] where he will be able to continue with his physical reconditioning and wound management. He is comfortable with their smoking, snack, and space policies and he says his daughter is agreeable to the plan. -Mentation, attention, and energy have been improved over the past few days. A&Ox4 past week, with improved eye contact although pt still preferring dark aniket m. -Likely secondary to acute septic state, potentially with additional acute on chronic CHF and COPD contribution. Continue to treat infection with PO Augmentin for two more weeks after discharge. -Continue to avoid anticholinergic/sedative-hypnotic medications. -Environmental/behavioral modifications: frequent reorientation, lights off during the night, shades open during the day, ambulate as medically permissible. Pt prefers lights off and windows closed at all times but we should avoid this during daytime. -Likely underlying component of anhedonia and depression, although no pharmacologic management at this time since pt wants to minimize inpatient meds and does not want outpatient med additions at this time. (2) Sepsis: -Likely infection source with BLE ulcerations, especially on the left. Likely secondary to PAD/PVD. -Blood Cx 1/2 showed MSSA bacteremia, final. Pt has completed roughly two weeks of IV Abx, switched to PO Augmentin and continue with two more weeks of oral Augmentin for four weeks total antibiotic coverage for slowly improving leg wounds. -most recent WBC WNL, afebrile, periods of mild hypotension but vitals stable. -Elevated troponin on admission likely related to demand myocardial ischemia in the setting of acute illness. (3) Peripheral arterial occlusive disease: -Extensive smoking history, claudication with exertion but not at rest, and now extensive ulceration bilaterally. Pt received minimal medical care and few doctors seen over past several decades. Pt has been taking a daily aspirin for past decade, but this is his only medication and he does not seem keen to add new medications outpatient. A1c 6.0. -Duplex lower extremity found severe bilateral atherosclerosis, probable occlusion of the left superficial femoral artery and likely occlusion of the right peroneal artery. -CTA found extensive atherosclerotic vascular disease, multifocal high-grade stenosis in distal superficial femoral artery with numerous opacified collateral vessels, high-grade stenosis vs. occlusion involves the majority of left anterior tibial artery with reconstitution of flow within the dorsalis pedis, fluid overload L>R pleural effusions with small volume of abdominopelvic ascites and diffuse body wall and asymmetric lower extremity edema. -Continue ASA 81. -Vascular surgery consulted. They do not think he is a candidate for either an endovascular procedure or an open procedure of the left leg and recommend continuing wound management. -Refused PT on and off for several days but recently has been working with them more with transfers and strength. Mr. Hankins says he plans to work more with PT at [facility] to improve his conditioning. (4) Open leg wound: -Known CAD and extensive smoking history, likely related to PAD. Pt reports worsening ulceration in BLE L>R for several months now seeping pus and blood. Bandaged and wound management involved. - transitioned from IV to PO antibiotics prior to discharge as above - Continue with local wound care and monitoring. - was incontinent of urine and will be discharged with a condom catheter (5) Smoking greater than 40 pack years: -Improving wheezing on exam and chronic cough likely secondary to COPD. CTA found evidence of pulmonary emphysema which is further suggestive. Pt denies SOB -Obtained ABG to check for respiratory-related hypercapnia which could further explain recent decline in mentation. pH 7.44, pCO2 39, pO2 65, HCO3 26, which fits more with CHF exacerbation than COPD hypercapnia. -Continue ipratropium+albuterol PRN. (6) CAD (coronary artery disease): -Hx IN 2008 in [place]. On ASA at home but no other meds. -Continue losartan 50mg and carvedilol 3.125 BID. (7) Cardiomyopathy: -TTE showed LV mildly dilated, LV systolic function moderately to severely reduced, EF 25-30%, moderate to severe mitral regurg, LA severely dilated, severe tricuspid regurg, RV systolic pressure increased at 50-60mmHg, IVC moderately dilated. -Pt denies CP, SOB, and palpitations. Exams found improving bilateral wheezing, but crackles have resolved -In addition to ASA 81, continue losartan 50 and carvedilol 3.125 BID. We will continue to discuss with pt to see if he is willing to continue these meds outpatient. -Early pulmonary exam and labs consistent with CHF exacerbation. Given two doses of Furosemide 20 mg IV earlier in hospitalization with no crackles several days prior to discharge.Continue to evaluate for the need of Furosemide going forward. Discharge Plan Discharge Items Patient Disposition: Transfer Long Term Fac Reason For Visit: Leg Wound Discharge Diagnosis: leg wound Activity: Per Instructions section Non-emergency contact: Primary Care Provider Call non-emergency contact if: your symptoms worsen Follow-up/Referrals: PCP,NO [Primary Care Provider] - Diet: Regular Addtl Attending Provider Instructions: Mr. Hankins is a 65yo male with a PMHx of CAD, IN, and stroke who presented with months of ongoing leg pain and seeping leg wounds bilaterally. He hasn't seen a doctor in years and is not interested in smoking cessation or adding many new medications at this time. Denies Hx of HTN or DMII. Delirium: -After much discussion, Mr. Hankins looks to have agreed to a discharge plan which is appropriate. We are planning to discharge him to [facility] where he polly l be able to continue with his physical reconditioning and wound management. He is comfortable with their smoking, snack, and space policies and he says his daughter is agreeable to the plan.. -Mentation, attention, and energy have been improved over the past few days. A&Ox4 today, with good eye contact although pt still preferring dark room. -Likely secondary to acute septic state, potentially with additional acute on chronic CHF and COPD contribution. Continue to treat infection with cefazolin. -Continue to avoid anticholinergic/sedative-hypnotic medications. -Environmental/behavioral modifications: frequent reorientation, lights off during the night, shades open during the day, ambulate as medically permissible. Pt prefers lights off and windows closed at all times but we should avoid this during daytime. -Likely underlying component of anhedonia and depression, although no pharmacologic management at this time since pt wants to minimize inpatient meds and does not want outpatient med additions at this time. Sepsis: -Likely infection source with BLE ulcerations, especially on the left. Likely secondary to PAD/PVD. -Blood Cx / showed MSSA bacteremia, final. Pt has completed roughly two weeks of IV Abx, switched to PO cephalosporin and continue with two more weeks of oral Augmentin. -most recent WBC WNL, afebrile, initially tachycardic but most recently HR 56, most recent BP 92/56. Continue to monitor. -Elevated troponin on admission likely related to demand myocardial ischemia in the setting of acute illness. Peripheral arterial occlusive disease: -Extensive smoking history, claudication with exertion but not at rest, and now extensive ulceration bilaterally. Pt received minimal medical care and few doctors seen over past several decades. Pt has been taking a daily aspirin for past decade, but this is his only medication and he does not seem keen to add new medications outpatient. A1c 6.0. -Duplex lower extremity found severe bilateral atherosclerosis, probable occlusion of the left superficial femoral artery and likely occlusion of the right peroneal artery. -CTA found extensive atherosclerotic vascular disease, multifocal high-grade stenosis in distal superficial femoral artery with numerous opacified collateral vessels, high-grade stenosis vs. occlusion involves the majority of left anterior tibial artery with reconstitution of flow within the dorsalis pedis, fluid overload L>R pleural effusions with small volume of abdominopelvic ascites and diffuse body wall and asymmetric lower extremity edema. -Continue ASA 81. -Vascular surgery consulted. They do not think he is a candidate for either an endovascular procedure or an open procedure of the left leg and recommend continuing wound management. -Refused PT for a few days this week but after discussion is participating with them now Open leg wound: -Known CAD and extensive smoking history, likely related to PAD. Pt reports worsening ulceration in BLE L>R for several months now seeping pus and blood. Bandaged and wound management involved. - transitioned from IV to PO antibiotics prior to discharge as above - Continue with local wound care and monitoring. - was incontinent of urine and will be discharged with a condom catheter Smoking greater than 40 pack years: -Improving wheezing on exam and chronic cough likely secondary to COPD. CTA found evidence of pulmonary emphysema which is further suggestive. Pt denies SOB -Obtained ABG to check for respiratory-related hypercapnia which could further explain recent decline in mentation. pH 7.44, pCO2 39, pO2 65, HCO3 26, which fits more with CHF exacerbation than COPD hypercapnia. -Continue ipratropium+albuterol PRN. CAD (coronary artery disease): -Hx IN 2008 in [place]. On ASA at home but no other meds. -Continue losartan 50mg and carvedilol 3.125 BID. Associated angina: without angina Coronary Disease-Associated Artery/Lesion type: [place] artery [place] vs. transplanted heart: [place] heart Qualified Code(s): I25.10 - Atherosclerotic heart disease of [place] coronary artery without angina pectoris Cardiomyopathy: -TTE showed LV mildly dilated, LV systolic function moderately to severely reduced, EF 25-30%, moderate to severe mitral regurg, LA severely dilated, severe tricuspid regurg, RV systolic pressure increased at 50-60mmHg, IVC moderately dilated. -Pt denies CP, SOB, and palpitations. Exam found improving bilateral wheezing, but crackles have resolved -In addition to ASA 81, continue losartan 50 and carvedilol 3.125 BID. We will continue to discuss with pt to see if he is willing to continue these meds outpatient. -Early pulmonary exam and labs consistent with CHF exacerbation. Given two doses of Furosemide 20 mg IV earlier in hospitalization with no crackles several days prior to discharge.Continue to evaluate for the need of Furosemide going forward. Pending Studies at Discharge: No Stand-Alone Forms: My [facility] Skilled Items Patient informed of condition?: Yes DNR: No Discharge Level of Care: Skilled Communicable Disease: No Discharge Prognosis: Improving Lines: None Urinary Catheter: Yes Medications and DC Order Prescriptions: New losartan 50 mg Tablet 50 mg PO QAM Qty: 0 RF: 0 carvedilol 3.125 mg Tablet 3.125 mg PO BID Qty: 0 RF: 0 cephalexin 500 mg Capsule 500 mg PO QID Qty: 0 RF: 0 diclofenac sodium [Voltaren] 1 % Gel 4 g EXT Q8H PRNQty: 0 RF: 0 amoxicillin-pot clavulanate [Augmentin] 500-125 mg tablet 1 tab PO BID 14 Days Qty: 28 RF: 0 ipratropium-albuterol 0.5 mg-3 mg(2.5 mg base)/3 mL solution for nebulization 3 ml inhalation Q8H PRN (Reason: wheezing) 30 Days RF: 0 Continued aspirin 81 mg Tablet,Delayed Release (Dr/Ec) 81 mg PO DAILY RF: 0 Discharge Orders: Discharge Order (Routine); Ordered 02/04/21 Ordered By: Jordan Montgomery/Other Patient Handouts: 5 Steps for Eating Healthier, A1C Admission Data Admit Date/Time: 01/18/21 19:58 Attending Provider: Syl Thomas Admit Provider: Tiffani Pennington Primary Care Provider: PCP,NO Other Providers: Kyung Navarro ; Mushtaq Sauer ; Bismark Marino ; Pb Madrigal ; William Valero ; Solo Fox ; Ariel Sun ; Moshe Will Jr ; Avel Nicole ; Vaishnavi Alston ; Glory Regan ; Crow Allen ; Crow Pickering ; Agustin Russo ; Luisito Maldonado ; Priya Sprague ; Jennifer Le ; Cam Kramer ; Salas Pacheco ; Jarrett Simmons ; Valorie Paz Other Interventions: Discharge Summary Assessment (RN) Last Done: 02/04/21 12:05 Supervising Attestation Patient seen and examined with the medical student and PGY-2 Dr. Mcfadden. Agree with history, exam findings, assessment and plan of care as outlined. In brief, Mr. Hankins is a 65 year old male with hx of CAD, stroke admitted with months of ongoing leg pain and seeping wounds. He has been resistant to dressing changes due to pain associated with that. He is agreeable to have the dressings on his legs changed prior to leaving this afternoon to go to the senior living facility. Exam on day of discharge: He is non-toxic appearing. Legs are wrapped, but the exposed areas of skin are intact. Toenails are hypertrophic. 1. Sepsis secondary to cellulitis. Resolved. 2. Cellulitis. On cefazolin while in the hospital. He will be discharge on Augmentin x2 weeks. 3. Peripheral vascular disease with ulceration. Lower extremity arterial dopplers with severe atherosclerosis and multifocal high grade stenosis vs occlusion. Continue ASA 81mg. 4. CAD with hx of prior [place] in 2008. cardiomyopathy. Continue 81mg ASA, started losartan and coregn here. Echo with EF 25-30%, mildly dilated LV, moderate to severe mitral regurg, severely dilated LA, severe tricuspid regurg, elevated RV systolic pressure. 5. Tobacco use. Not interested in quitting. 6. Probably COPD. 40 pack year history. No prior PFTs but CT with emphysema. Does have PRN duonebs. Dispo: discharge to [facility] today. I personally spetn 25 minutes discharge planning for this patient today.
--- NOTE | 2021-02-08 14:22 | Coding Query ---
To promote full compliance with coding requirements relating to patient care, provider participation is requested in all cases of tank farm operator uncertainty. Please assist us with the question(s) below: Coding Question(s): The diagnosis(es) below was documented in the (tank farm operator fill out source document ie H&P, progress notes, etc.) then subsequently fell off all further documentation. Please indicate if it is still a possible diagnosis or ruled out. Physician's Response(s): METABOLIC ENCEPHALOPATHY (documented on Progress Note 01/24/21 by Supervising Physician) ( x ) Diagnosed and POA ( ) Diagnosed and not POA ( ) Ruled out ( ) Other (please specify) SEVERE PROTEIN-CALORIE MALNUTRITION (documented on Palliative Consultation on 01/23/21 and documented as History of on 01/21/21 Heart Failure Consultation) ( x ) Diagnosed and POA ( ) Diagnosed and not POA ( ) Ruled out ( ) Other (please specify) MTDD
== END 2021-02-04 13:18 | DRG 871 ==
LOC: ED 15:34 → SUATTDRO 19:58 → 2S 19:58 → 3N 01-24 14:52

== ENCOUNTER 2021-07-08 12:19 | Inpatient (IN) ==
[2021-07-08] MEDS ORDERED: SODIUM CHLORIDE 0.9% 1000ML 2,000 ML IV ONE (13:03)
[2021-07-08] MEDS ORDERED: DAPTOmycin 450 MG in SYRINGE 0 ML IV ONE (13:07)
[2021-07-08] MEDS ORDERED: PIPERACILL/TAZOBAC CONSULT ACTIVE PRN ×2 (13:07→18:19)
[2021-07-08] MEDS ORDERED: PIPERACILLIN/TAZOBACTAM 4.5 GM/120 ML BAG IV ONE (13:07)
[2021-07-08 13:13] LABS: Basophils # (auto) 0.04 K/uL (0-0.2); Basophils % (auto) 0.4 %; Eosinophils # (auto) 0.07 K/uL (0-0.5); Eosinophils % (auto) 0.7 %; Hematocrit (blood only) 39.6 % (42-52); Hemoglobin 13.3 g/dL (14.0-18.0); Immature Granulocytes # (auto) 0.02 K/uL (0.00-0.02); Immature Granulocytes % (auto) 0.2 %; Lymphocytes # (auto) 1.12 K/uL (1.2-3.4); Lymphocytes % (auto) 11.6 %; Mean Corpuscular Hemoglobin 28.2 pg (25-34); Mean Corpuscular Hgb Conc 33.6 g/dL (32-36); Mean Corpuscular Volume 83.9 fL (80-100); Mean Platelet Volume 10.8 fL (7.4-10.4); Monocytes # (auto) 0.88 K/uL (0.11-0.59); Monocytes % (auto) 9.1 %; Neutrophils # (auto) 7.53 K/uL (1.4-6.5); Platelet Count 310 K/uL (130-400); RDW Coefficient of Variation 15.1 % (11.5-14.5); RDW Standard Deviation 46.8 fL (36.4-46.3); Red Blood Count 4.72 M/uL (4.7-6.1); White Blood Count 9.66 K/uL (4.8-10.8)
[2021-07-08] MEDS ORDERED: SODIUM CHLORIDE 0.9% 500 ML IV ONE (13:13)
[2021-07-08] MEDS ORDERED: SODIUM CHLORIDE 0.9% 1000ML 1,000 ML IV SCH (13:15)
[2021-07-08 13:22] LABS: Albumin Level 3.3 gm/dl (3.4-5.0); BUN Creatinine Ratio 33.1 (10-20); Calcium 9.6 mg/dl (8.5-10.1); Creatinine Clr Calc Pharmacy 125.6 ml/min; Est GFR (Non-African American) 102.7 ml/min; Magnesium 2.1 mg/dl (1.8-2.4); Potassium 3.6 mmol/L (3.5-5.1)
[2021-07-08 13:32] LABS: Albumin Globulin Ratio 0.9 (0.9-2); Bilirubin Direct 0.3 mg/dl (0-0.2); Bilirubin,Total 0.7 mg/dl (0.2-1); Globulin 3.8 gm/dl (2.5-4.0); Phosphorus 3.4 mg/dl (2.5-4.9); Thyroid Stimulating Hormone 1.34 uIu/ml (0.300-4.500); Total Protein 7.1 gm/dl (6.4-8.2); Troponin I 0.302 ng/ml (0-0.045)
[2021-07-08 13:34] LABS: Appearance Urine Turbid (Clear); Bacteria Urine Automated 4+ (Negative); Blood Urine Trace (Negative); Color Urine Dark Yellow; Epithelial Cell Urine Auto >30 /lpf (0-5); Glucose Urine UA Negative (Negative); Ketones Urine Trace (Negative); Leukocyte Esterase Urine 3+ (Negative); Nitrite Urine Positive (Negative); Specific Gravity Urine 1.023 (1.000-1.030); Urobilinogen Urine Negative (Negative); WBC Urine Automated >30 /hpf (0-5); pH Urine >= 9.0 (4.5-7.5)
[2021-07-08 13:35] LABS: Base Excess VBG -2.3 mEq/L; pH VBG 7.38 (7.36-7.41)
[2021-07-08 13:36] LABS: INR 1.2 (0.9-1.1); Partial Thromboplastin Ratio 1.2; Partial Thromboplastin Time 31.9 Seconds (21.0-31.0); Prothrombin Time 11.9 Seconds (9.0-12.0)
[2021-07-08 13:37] LABS: Bilirubin Urine 1+ (Negative); Protein Urine 3+ (Negative)
--- NOTE | 2021-07-08 13:49 | XRay Report ---
XR tibia fibula RT 2V HISTORY: 66 years-old Male cellulitis, ulcers, eval osseous involve acute pain of the right lower le g COMPARISON: None TECHNIQUE: 2 views the right tibia and fibula FINDINGS: Mild osteoarthritis of the knee and ankle. No acute fracture, dislocation or opaque foreign body. No osseous erosions. Mild proximal to mid pretibial soft tissue swelling. IMPRESSION: Mild soft tissue swelling without acute fracture. ACT 112: Negative or not required by law. The above report was generated using voice recognition software. It may contain grammatical, syntax o r spelling errors. Electronically signed by: Prabhakar Chavez M.D. 07/08/2021 1:48 PM
--- NOTE | 2021-07-08 13:52 | XRay Report ---
XR chest 1V portable HISTORY: 66 years-old Male SEPSIS acute sepsis COMPARISON: Chest radiograph 02/03/2021 TECHNIQUE: Portable AP view of the chest FINDINGS: Cardiac silhouette is enlarged. Pulmonary vascular congestion. Numerous fractured sternotomy wires wi th associated displacement redemonstrated. No pneumothorax. Trace pleural effusions. Emphysema with c hronic interstitial coarsening. Degenerative changes of the shoulders and spine. IMPRESSION: 1. Emphysema with chronic interstitial coarsening. 2. Cardiomegaly with pulmonary vascular congestion. 3. Suspected trace pleural effusions. ACT 112: Negative or not required by law. The above report was generated using voice recognition software. It may contain grammatical, syntax o r spelling errors. Electronically signed by: Prabhakar Chavez M.D. 07/08/2021 1:50 PM
[2021-07-08 13:54] LABS: Triple Phosphate Crystal Urine Present (None Prsent)
[2021-07-08 13:55] LABS: RBC Urine Automated 0-4 /hpf (0-4)
--- NOTE | 2021-07-08 13:56 | XRay Report ---
LEFT TIBIA AND FIBULA 2 VIEWS CLINICAL HISTORY: Cellulitis. Ulcers. FINDINGS: AP and crosstable lateral views of the left tibia and fibula are obtained. No prior studies are available for comparison at the time of dictation. The examination is degraded by inability to p roperly position the patient. The skeletal structures are osteopenic. There is no radiographic eviden ce of left tibial or fibular fracture. No bony erosion or periostitis is identified. Hyperflexion is seen at the knee joint. The ankle joint is grossly maintained. Soft tissue edema is present throughou t the left lower extremity. No soft tissue gas is seen. Degenerative change is noted throughout the f oot. IMPRESSION: No acute bony abnormality is identified. Electronically signed by: Taurus Lundberg M.D. 07/08/2021 1:55 PM
--- NOTE | 2021-07-08 13:57 | XRay Report ---
LEFT FOOT 2 VIEWS CLINICAL HISTORY: Cellulitis. Ulcers. FINDINGS: AP and crosstable lateral views of the left foot are obtained. No prior studies are availab le for comparison at the time of dictation. The skeletal structures are heterogeneously osteopenic. T here is no radiographic evidence of fracture. No bony erosion or periostitis is identified. Degenerat saray change is seen throughout the foot. High arch is noted. Diffuse soft tissue edema is seen through out the foot an ankle. No soft tissue gas is identified. IMPRESSION: Diffuse soft tissue swelling with no acute bony abnormality identified. Electronically signed by: Taurus Lundberg M.D. 07/08/2021 1:56 PM
--- NOTE | 2021-07-08 14:08 | XRay Report ---
XR foot RT 2V CLINICAL HISTORY: cellulitis, ulcers, eval osseous involve. Right foot pain. COMPARISON STUDY: None. FINDINGS: No fracture or dislocation. The Lisfranc joint is intact. There is mild soft tissue swellin g within the foot. No underlying bony destruction. IMPRESSION: Soft tissue swelling within the right foot. No fractures or bony destruction identified. ACT 112: Negative or not required by law. Electronically signed by: Angel Healy M.D. 07/08/2021 2:07 PM
[2021-07-08] MEDS ORDERED: OPTIRAY 320 100ml IV ONE (14:11)
--- NOTE | 2021-07-08 14:33 | CT Scan Report ---
CT OF THE HEAD WITHOUT CONTRAST CLINICAL HISTORY: fall, ams COMPARISON STUDY: No previous studies for comparison. TECHNIQUE: Helical axial images of the head were obtained without IV contrast. Automated exposure con trol was utilized for the study. A dose lowering technique was utilized adhering to the principles o f ALARA. FINDINGS: No acute intracranial hemorrhage, midline shift or mass effect is present. Encephalomalacia within the right MCA distribution suggests an old infarct. White matter hypodensities favor small ve ssel disease. The ventricular system is unremarkable. The basal cisterns are patent. No extra-axial c ollections are present. There are no findings to suggest acute dural sinus thrombosis or acute territ orial infarct. No significant calvarial abnormalities are present. Visualized portions of the sinuses and mastoid air cells are clear. IMPRESSION: 1. No acute intracranial findings. 2. No calvarial fracture. 3. Old right MCA territory infarct. ACT 112: Negative or not required by law. Electronically signed by: Reji Vallecillo M.D. 07/08/2021 2:31 PM
--- NOTE | 2021-07-08 14:35 | CT Scan Report ---
CT SCAN OF THE CERVICAL SPINE CLINICAL HISTORY: Change in mental status. Fall. COMPARISON STUDY: No priors. TECHNIQUE: CT scan of the cervical spine is performed from the skull base to the upper thoracic spine . Images are reviewed in the axial, sagittal, and coronal planes. IV contrast was not administered fo r this examination. A dose lowering technique was utilized adhering to the principles of ALARA. CT DOSE: 2347.54 mGy.cm FINDINGS: Skeletal structures: The skeletal structures are heterogeneously osteopenic. There is no evidence of fracture or subluxation involving the cervical spine. Vertebral body height and alignment are maintai souleymane. There is straightening of the cervical lordosis. Anterior osteophytes are seen throughout. The o dontoid process and lateral masses are intact. The atlantoaxial articulation is preserved noting prod uctive degenerative change. The spinous processes appear intact. There is moderate multilevel cervica l spondylosis. Uncovertebral and facet arthropathy contribute to neural frontal stenosis at most leve ls. Intervertebral discs: There is moderate to advanced multilevel disc space narrowing of the cervical s pine. This is greatest at C4-C5, C5-C6, and C6-C7. Central canal: Posterior disc osteophyte complexes are seen at all cervical levels between C3-C4 and C6-C7. This likely contributes to multilevel acquired compromise of the central canal. Soft tissues: The prevertebral and paraspinous soft tissues are within normal limits. There is advanc ed atherosclerotic calcification of the carotid bulbs. A large lateral laryngocele is noted on the ri ght. Calvarium: The visualized calvarium at the skull base appears intact. Brain parenchyma: Partially visualized brain parenchyma at the skull base is within normal limits. Sinuses and mastoids: The visualized paranasal sinuses are clear. The mastoid air cells are well pneu matized. Lung apices: Emphysematous change is noted at the apices. IMPRESSION: 1. There is no evidence of fracture or subluxation involving the cervical spine. 2. Osteopenia and spondylotic change as above. 3. Emphysema. 4. A large right lateral laryngocele incidentally noted. ACT 112: Negative or not required by law. Electronically signed by: Taurus Lundberg M.D. 07/08/2021 2:33 PM
--- NOTE | 2021-07-08 14:46 | CT Scan Report ---
CHEST CT WITH CONTRAST CT DOSE: HISTORY: Fall. Altered mental status. TECHNIQUE: Multiaxial CT images of the chest were performed following the intravenous administration of contrast. A dose lowering technique was utilized adhering to the principles of ALARA. COMPARISON: Chest CTA 01/18/2021. 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 This remains unchanged. No acute fractures within the visualized osseous structures. There are old, healed left lower rib fractures again noted. Please refer the same day abdomen and pelvis CT fo r further evaluation of the abdominal structures. No pleural or pericardial effusions. The heart adair ins mildly enlarged. Normal caliber thoracic aorta with no evidence for dissection. No mediastinal he matoma. Mild mediastinal lymphadenopathy which has significantly progressed. Dominant subcarinal lymp h node measures 1.5 cm in short axis diameter. Borderline enlarged bilateral hilar lymph nodes. There is 30% narrowing within the proximal right common carotid artery, unchanged. The main pulmonary sravani crista are patent. No pneumothorax. Moderate emphysema. Mild interlobular septal thickening, right grea ter than left. There are peripheral groundglass airspace opacities within the right upper lobe and ri ght lower lobe. There is mild central bronchial wall thickening. IMPRESSION: 1. No acute traumatic process within the chest. 2. Peripheral groundglass airspace opacities within the right upper lobe and right lower lobe. This f avors a pneumonia and could be due to a viral process. 3. Mild interlobular septal thickening, right greater than left. This could represent mild congestive change. 4. Mild mediastinal lymphadenopathy which has progressed. This may be reactive to the suspected pneum onia. Follow-up chest CT in 3 months can be performed to ensure resolution of these findings. 5. Emphysema. 6. Additional findings as described above. ACT 112: Positive. There are findings on this exam that require communication between the performing entity and the patient following Patient Test Result Information Act ([place] Act 112) guidelines. Electronically signed by: Angel Healy M.D. 07/08/2021 2:45 PM
--- NOTE | 2021-07-08 14:52 | CT Scan Report ---
CT OF THE ABDOMEN AND PELVIS WITH CONTRAST CLINICAL HISTORY: fall, ams COMPARISON STUDY: CTA of the abdomen and pelvis with lower extremity runoff January 20, 2021. TECHNIQUE: Following IV administration of 94 mL of Optiray, axial images of the abdomen and pelvis we re obtained from the lung bases to the proximal femurs. Images were reviewed in the axial, sagittal, and coronal planes. IV contrast was administered without complication. Automated exposure control wa s utilized for the study. A dose lowering technique was utilized adhering to the principles of ALARA . FINDINGS: Please note that the chest CT will be reported separately. This exam is mildly compromised given difficulty positioning. There is no evidence for traumatic injury to the liver, spleen, adrenal glands, kidneys or pancreas. There is no biliary or pancreatic ductal dilatation. There is no hydron ephrosis. No hemoperitoneum or pneumoperitoneum is present. Bladder wall thickening is noted. There i s a small diverticulum arising from the posterior aspect of the bladder. Colonic diverticulosis is no anurag without evidence for acute diverticulitis. There is no free fluid. No acute lumbar spine or pelvi c fracture is identified. Prominent retroperitoneal lymph nodes are similar to CT of January 20, 2021. Index left common iliac node on image 238 of 460 measures 9 mm in short axis diameter. Index left ext ernal iliac node on image 308 measures 1.1 cm in short axis diameter. IMPRESSION: 1. Exam mildly compromised given difficulty positioning. No acute rheumatic findings identified. 2. No change in prominent retroperitoneal lymph nodes since CT of January 20, 2021. These are indetermi yair but probably benign. 3. No bowel obstruction. 4. Bladder wall thickening which could be correlated with urinalysis. ACT 112: Negative or not required by law. Electronically signed by: Reji Vallecillo M.D. 07/08/2021 2:51 PM
[2021-07-08] MEDS ORDERED: LACTATED RINGER'S 1,000 ML IV ONE (15:05)
--- NOTE | 2021-07-08 15:42 | History & Physical Report ---
Date of Service July 08, 2021 Assessment & Plan (1) Sepsis: Plan: Left leg cellulitis as well as UTI - organ dysfunction- elevated INR, elevated troponin I - Zosyn 3.376 iv q8 hours - Daptomycin 4mg/kg daily - Goal MAPS 60- patient normally with low blood pressure - replace intravascular volume with 1L over a couple hours then saline lock (2) Foot ulcer, left: Plan: Probably related to his PAD and sitting in wheel chair - Patient does have sensation to his foot and pain with palpation - no drainage- will need to clean and evaluate depth - wet to dry for debridement for now - TAMARA ultrasound pending of LLE - abx as above - nursing wound care consult placed (3) Peripheral arterial occlusive disease: Plan: history of bilateral SFA occlusions - continue his aspirin - not on statin - evaluate #2 following TAMARA (4) Cardiomyopathy: Plan: EF from ECHO in 21 25-30% - Patient was started on low dose carvedilol at that time - patient is wheel chair or bed bound majority of his time, consistently has low blood pressure - likely inhibiting ability to titrate up carvedilol for meaningful effect - He has not followed up with cardiology or heart failure clinic (5) Mitral regurgitation: Plan: moderate per ECHO as above - follow hemodynamic response with volume - continue supportive care at this time (6) Cognitive dysfunction: Plan: Delirium vs. encephalopathy vs. underlying undiagnosed psych condition - question patient competency for decision making - psych consulted- appreciate assistance - adult protective services is following - case management consult placed- will need placement following admission (7) Increased ammonia level: Plan: Unsure of etiology here as his liver function is normal - 46- reassess in morning - liver ultrasound evaluate for cirrhosis- elevated INR to 1.2 as well (8) Elevated troponin: Plan: Patient with some t wave changes noted in septal leads - HR is 96 - likely NSTEMI type II currently- will continue to trend out troponin I and ECG overnight - continue asa - continue carvedilol in the morning following hemodynamics (9) Leg wound, left: Plan: As above- cleanse with soap and water and cover with telfa pads and kerlex (10) Sacral decubitus ulcer, stage III: Plan: Clean with soap and water- Mepilex or Optifoam for padding/protection - keep skin dry- condom cath placement - barrier cream - wound care consult - rotate every 2 hours - optimize nutrition/supplementation History of Present Illness Primary Care Provider: NO PCP 66 YOM with history of: delirium/encephalopathy, dyspnea, cardiomyopathy with HFrEF (Ef 25-30%), PAD, CVA, wheel chair bound, poor nutrition, and poor self care. Patient comes in today after he reports he was trying to crawl up over his wheel chair and fell. He reportedly lives at home by himself. In the EMD he is noted to have likely cellulitis of his left leg, left heel ulceration, right leg ulceration, and stage II ulcer to his buttocks. The patient has poor hygiene and disheveled appearance. He had multiple radiological films performed that are negative for acute fractures. His CK is not elevated. The patient has obvious cellulitis of his left lower leg as well as a UTI, he is moderately hypotensive with MAPS in 60. Patient will be admitted to the PCU for continual resuscitation and treatment of his sepsis. The patient is also noted to have a mildly elevated troponin I at 0.302 as well as mildly elevated ammonia 43.6. The patient says he still drinks alcohol but doesn't know how much or when. Toxicology screen is sent and his alcohol level is <3.0 on admission. He will be given IV bolus over a couple of hours for hemodynamic support. The patient is alert and oriented to person and place, but regarding his history he is not making much cognitive sense during the HPI. He does state he wants to be full code and I did speak with his daughter Vita and she is not sure what he would want done in the event of an emergency, and has not had any POA discussions or official documents. Adult protective services is now following this patient. Psych will be consulted to officially assess for competency. Allergies Allergy/AdvReac Type Severity Reaction Status Date / Time No Known Allergies Allergy Unverified 01/18/21 19:52 Home Medications Medication Instructions Recorded Confirmed Type aspirin 81 mg tablet,delayed 81 mg PO DAILY 01/18/21 01/18/21 History release carvedilol 3.125 mg tablet 3.125 mg PO BID #0 tab 02/04/21 Rx cephalexin 500 mg capsule 500 mg PO QID #0 cap 02/04/21 Rx diclofenac sodium 1 % topical gel 4 g EXT Q8H PRN #0 g 02/04/21 Rx (Voltaren) losartan 50 mg tablet 50 mg PO QAM #0 tab 02/04/21 Rx Past Med/Surg History Medical History Delirium Dyspnea Hx of myocardial infarction Hx of stroke without residual deficits No pertinent past medical history Palliative care encounter Peripheral arterial occlusive disease Sepsis Severe protein-calorie malnutrition Weakness Social History Smoking Status: Former smoker Hx Alcohol Use: No Hx Substance Use: No Preferred Language: Dutch Communication Ability: Unable Beliefs That Will Affect Care: None Current Living Situation: Alone Feels Safe at Home: Yes Assistive Devices: Wheelchair Review of Systems Review of Systems: REVIEW OF SYSTEMS: unable to reliably perform, ulcer on his foot has been going on for couple of years he reports- does not follow anyone +smokes, whenever he feels like, drinks as per HPI but unknown states he still takes his medications and he reports that he gets up and walks but unsure of when he did this last Physical Exam Physical Exam: PHYSICAL EXAM: General: awake, alert, delirious to encephalopathic, confabulation of events Head: Normocephalic, atraumatic ENT: PERRL, EOMI, no pharyngeal exudate, mucous membranes dry Neuro: AAO x 2(person and place), speech clear but confabulated as above, strength intact upper bilaterally 5/5, decreased in the lowers 3/5, states that his sensation is intact, does withdraw to pain in all extremities, normal Babinski, Chest: equal rise and fall of the chest, no accessory muscle use, no heaves or thrills, scattered rhonchi throughout, on room air, Cardiac: Regular rate and rhythm, telemetry reviewed, skin warm dry, cap refill <3 seconds, peripheral pulses +2 no JVD, no murmur, no JVD, no edema GI: NABS x 4 quadrants, soft, nontender to palpation, no rebound, guarding or tenderness : Spontaneously voiding, no pain, no CVA tenderness- place condom cath Psych: as per HPI- unsure of his ability to comprehend information Skin: erythema to left leg with ulcerations and left heel ulceration with crusted over scabs, buttocks with stage II and deep tissue injury with román able tissue surrounding Results & Data Results & Data ([facility]) Vital Signs (Past 12 Hours) Vital Signs Temp Pulse Pulse Resp BP BP Pulse Ox 07/08/21 15:02 95 H 26 H 84/48 L 100 07/08/21 14:44 95 H 26 H 79/60 L 100 07/08/21 13:15 94 H 26 H 97/72 L 99 07/08/21 12:33 36.8 C 103 H 20 92/72 L 97 Laboratory Results Abnormal Labs 07/08/21 07/08/21 07/08/21 12:40 12:40 12:40 Hgb 13.3 L Hct 39.6 L RDW Std Deviation 46.8 H RDW Coeff of Aliyah 15.1 H MPV 10.8 H Neut # (Auto) 7.53 H Lymph # (Auto) 1.12 L [place] # (Auto) 0.88 H ESR INR 1.2 H APTT 31.9 H Chloride 109 H BUN 21 H BUN/Creatinine Ratio 33.1 H Glucose 105 H Lactate Direct Bilirubin 0.3 H Ammonia Total Creatine Kinase 450 H Troponin I 0.302 H* C-Reactive Protein Albumin 3.3 L Urine Appearance Urine pH Urine Protein Urine Ketones Urine Blood Urine Nitrite Urine Bilirubin Ur Leukocyte Esterase Urine WBC (Auto) U Epithel Cells (Auto) Urine Bacteria (Auto) Triple Phos Crystals 07/08/21 07/08/21 07/08/21 12:40 12:40 13:00 Hgb Hct RDW Std Deviation RDW Coeff of Aliyah MPV Neut # (Auto) Lymph # (Auto) [place] # (Auto) ESR 46 H INR APTT Chloride BUN BUN/Creatinine Ratio Glucose Lactate Direct Bilirubin Ammonia Total Creatine Kinase Troponin I C-Reactive Protein 5.31 H Albumin Urine Appearance Turbid A Urine pH >= 9.0 H Urine Protein 3+ H Urine Ketones Trace H Urine Blood Trace H Urine Nitrite Positive A Urine Bilirubin 1+ H Ur Leukocyte Esterase 3+ H Urine WBC (Auto) >30 H U Epithel Cells (Auto) >30 H Urine Bacteria (Auto) 4+ H Triple Phos Crystals Present A 07/08/21 07/08/21 13:14 13:14 Hgb Hct RDW Std Deviation RDW Coeff of Aliyah MPV Neut # (Auto) Lymph # (Auto) [place] # (Auto) ESR INR APTT Chloride BUN BUN/Creatinine Ratio Glucose Lactate 2.4 H* Direct Bilirubin Ammonia 43.6 H Total Creatine Kinase Troponin I C-Reactive Protein Albumin Urine Appearance Urine pH Urine Protein Urine Ketones Urine Blood Urine Nitrite Urine Bilirubin Ur Leukocyte Esterase Urine WBC (Auto) U Epithel Cells (Auto) Urine Bacteria (Auto) Triple Phos Crystals Diagnostic Findings Chest X-Ray 07/08/21 13:03 XR chest 1V portable HISTORY: 66 years-old Male SEPSIS acute sepsis COMPARISON: Chest radiograph 02/03/2021 TECHNIQUE: Portable AP view of the chest FINDINGS: Cardiac silhouette is enlarged. Pulmonary vascular congestion. Numerous fractured sternotomy wires with associated displacement redemonstrated. No pneumothorax. Trace pleural effusions. Emphysema with chronic interstitial coarsening. Degenerative changes of the shoulders and spine. IMPRESSION: 1. Emphysema with chronic interstitial coarsening. 2. Cardiomegaly with pulmonary vascular congestion. 3. Suspected trace pleural effusions. ACT 112: Negative or not required by law. The above report was generated using voice recognition software. It may contain grammatical, syntax or spelling errors. Electronically signed by: Prabhakar Chavez M.D. 07/08/2021 1:50 PM Abdomen/Pelvis CT 07/08/21 13:06 CT OF THE ABDOMEN AND PELVIS WITH CONTRAST CLINICAL HISTORY: fall, ams COMPARISON STUDY: CTA of the abdomen and pelvis with lower extremity runoff January 20, 2021. TECHNIQUE: Following IV administration of 94 mL of Optiray, axial images of the abdomen and pelvis were obtained from the lung bases to the proximal femurs. Images were reviewed in the axial, sagittal, and coronal planes. IV contrast was administered without complication. Automated exposure control was utilized for the study. A dose lowering technique was utilized adhering to the principles of ALARA. FINDINGS: Please note that the chest CT will be reported separately. This exam is mildly compromised given difficulty positioning. There is no evidence for traumatic injury to the liver, spleen, adrenal glands, kidneys or pancreas. There is no biliary or pancreatic ductal dilatation. There is no hydronephrosis. No hemoperitoneum or pneumoperitoneum is present. Bladder wall thickening is noted. There is a small diverticulum arising from the posterior aspect of the bladder. Colonic diverticulosis is noted without evidence for acute diverticulitis. There is no free fluid. No acute lumbar spine or pelvic fracture is identified. Prominent retroperitoneal lymph nodes are similar to CT of January 20, 2021. Index left common iliac node on image 238 of 460 measures 9 mm in short axis diameter. Index left external iliac node on image 308 measures 1.1 cm in short axis diameter. IMPRESSION: 1. Exam mildly compromised given difficulty positioning. No acute rheumatic findings identified. 2. No change in prominent retroperitoneal lymph nodes since CT of January 20, 2021. These are indeterminate but probably benign. 3. No bowel obstruction. 4. Bladder wall thickening which could be correlated with urinalysis. ACT 112: Negative or not required by law. Electronically signed by: Reji Vallecillo M.D. 07/08/2021 2:[address] 07/08/21 13:06 CT SCAN OF THE CERVICAL SPINE CLINICAL HISTORY: Change in mental status. Fall. COMPARISON STUDY: No priors. TECHNIQUE: CT scan of the cervical spine is performed from the skull base to the upper thoracic spine. Images are reviewed in the axial, sagittal, and coronal planes. IV contrast was not administered for this examination. A dose lowering technique was utilized adhering to the principles of ALARA. CT DOSE: 2347.54 mGy.cm FINDINGS: Skeletal structures: The skeletal structures are heterogeneously osteopenic. There is no evidence of fracture or subluxation involving the cervical spine. Vertebral body height and alignment are maintained. There is straightening of the cervical lordosis. Anterior osteophytes are seen throughout. The odontoid process and lateral masses are intact. The atlantoaxial articulation is preserved noting productive degenerative change. The spinous processes appear intact. There is moderate multilevel cervical spondylosis. Uncovertebral and facet arthropathy contribute to neural frontal stenosis at most levels. Intervertebral discs: There is moderate to advanced multilevel disc space narrowing of the cervical spine. This is greatest at C4-C5, C5-C6, and C6-C7. Central canal: Posterior disc osteophyte complexes are seen at all cervical levels between C3-C4 and C6-C7. This likely contributes to multilevel acquired compromise of the central canal. Soft tissues: The prevertebral and paraspinous soft tissues are within normal limits. There is advanced atherosclerotic calcification of the carotid bulbs. A large lateral laryngocele is noted on the right. Calvarium: The visualized calvarium at the skull base appears intact. Brain parenchyma: Partially visualized brain parenchyma at the skull base is within normal limits. Sinuses and mastoids: The visualized paranasal sinuses are clear. The mastoid air cells are well pneumatized. Lung apices: Emphysematous change is noted at the apices. IMPRESSION: 1. There is no evidence of fracture or subluxation involving the cervical spine. 2. Osteopenia and spondylotic change as above. 3. Emphysema. 4. A large right lateral laryngocele incidentally noted. ACT 112: Negative or not required by law. Electronically signed by: Taurus Lundberg M.D. 07/08/2021 2:[address] 07/08/21 13:[address] WITH CONTRAST CT DOSE: HISTORY: Fall. Altered mental status. TECHNIQUE: Multiaxial CT images of the chest were performed following the intravenous administration of contrast. A dose lowering technique was utilized adhering to the principles of ALARA. COMPARISON: Chest CTA 01/18/2021. 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 This remains unchanged. No acute fractures within the visualized osseous structures. There are old, healed left lower rib fractures again noted. Please refer the same day abdomen and pelvis CT for further evaluation of the abdominal structures. No pleural or pericardial effusions. The heart remains mildly enlarged. Normal caliber thoracic aorta with no evidence for dissection. No mediastinal hematoma. Mild mediastinal lymphadenopathy which has significantly progressed. Dominant subcarinal lymph node measures 1.5 cm in short axis diameter. Borderline enlarged bilateral hilar lymph nodes. There is 30% narrowing within the proximal right common carotid artery, unchanged. The main pulmonary arteries are patent. No pneumothorax. Moderate emphysema. Mild interlobular septal thickening, right greater than left. There are peripheral groundglass airspace opacities within the right upper lobe and right lower lobe. There is mild central bronchial wall thickening. IMPRESSION: 1. No acute traumatic process within the chest. 2. Peripheral groundglass airspace opacities within the right upper lobe and right lower lobe. This favors a pneumonia and could be due to a viral process. 3. Mild interlobular septal thickening, right greater than left. This could represent mild congestive change. 4. Mild mediastinal lymphadenopathy which has progressed. This may be reactive to the suspected pneumonia. Follow-up chest CT in 3 months can be performed to ensure resolution of these findings. 5. Emphysema. 6. Additional findings as described above. ACT 112: Positive. There are findings on this exam that require communication between the performing entity and the patient following Patient Test Result Information Act ([place] Act 112) guidelines. Electronically signed by: Angel Healy M.D. 07/08/2021 2:45 PM Foot X-Ray 07/08/21 13:06 XR foot RT 2V CLINICAL HISTORY: cellulitis, ulcers, eval osseous involve. Right foot pain. COMPARISON STUDY: None. FINDINGS: No fracture or dislocation. The Lisfranc joint is intact. There is mild soft tissue swelling within the foot. No underlying bony destruction. IMPRESSION: Soft tissue swelling within the right foot. No fractures or bony destruction identified. ACT 112: Negative or not required by law. Electronically signed by: Angel Healy M.D. 07/08/2021 2:07 PM Foot X-Ray 07/08/21 13:06 LEFT FOOT 2 VIEWS CLINICAL HISTORY: Cellulitis. Ulcers. FINDINGS: AP and crosstable lateral views of the left foot are obtained. No prior studies are available for comparison at the time of dictation. The skeletal structures are heterogeneously osteopenic. There is no radiographic evidence of fracture. No bony erosion or periostitis is identified. Degenerative change is seen throughout the foot. High arch is noted. Diffuse soft tissue edema is seen throughout the foot an ankle. No soft tissue gas is identified. IMPRESSION: Diffuse soft tissue swelling with no acute bony abnormality identified. Electronically signed by: Taurus Lundberg M.D. 07/08/2021 1:[address] 07/08/21 13:06 CT OF THE HEAD WITHOUT CONTRAST CLINICAL HISTORY: fall, ams COMPARISON STUDY: No previous studies for comparison. TECHNIQUE: Helical axial images of the head were obtained without IV contrast. Automated exposure control was utilized for the study. A dose lowering technique was utilized adhering to the principles of ALARA. FINDINGS: No acute intracranial hemorrhage, midline shift or mass effect is present. Encephalomalacia within the right MCA distribution suggests an old infarct. White matter hypodensities favor small vessel disease. The ventricular system is unremarkable. The basal cisterns are patent. No extra-axial collections are present. There are no findings to suggest acute dural sinus thrombosis or acute territorial infarct. No significant calvarial abnormalities are present. Visualized portions of the sinuses and mastoid air cells are clear. IMPRESSION: 1. No acute intracranial findings. 2. No calvarial fracture. 3. Old right MCA territory infarct. ACT 112: Negative or not required by law. Electronically signed by: Reji Vallecillo M.D. 07/08/2021 2:31 PM Tibia/Fibula X-Ray 07/08/21 13:06 LEFT TIBIA AND FIBULA 2 VIEWS CLINICAL HISTORY: Cellulitis. Ulcers. FINDINGS: AP and crosstable lateral views of the left tibia and fibula are obtained. No prior studies are available for comparison at the time of dictation. The examination is degraded by inability to properly position the patient. The skeletal structures are osteopenic. There is no radiographic evidence of left tibial or fibular fracture. No bony erosion or periostitis is identified. Hyperflexion is seen at the knee joint. The ankle joint is grossly maintained. Soft tissue edema is present throughout the left lower extremity. No soft tissue gas is seen. Degenerative change is noted throughout the foot. IMPRESSION: No acute bony abnormality is identified. Electronically signed by: Taurus Lundberg M.D. 07/08/2021 1:55 PM Tibia/Fibula X-Ray 07/08/21 13:06 XR tibia fibula RT 2V HISTORY: 66 years-old Male cellulitis, ulcers, eval osseous involve acute pain of the right lower leg COMPARISON: None TECHNIQUE: 2 views the right tibia and fibula FINDINGS: Mild osteoarthritis of the knee and ankle. No acute fracture, dislocation or opaque foreign body. No osseous erosions. Mild proximal to mid pretibial soft tissue swelling. IMPRESSION: Mild soft tissue swelling without acute fracture. ACT 112: Negative or not required by law. The above report was generated using voice recognition software. It may contain grammatical, syntax or spelling errors. Electronically signed by: Prabhakar Chavez M.D. 07/08/2021 1:48 PM Medications Administered Home Medications aspirin 81 mg tablet,delayed release 81 mg PO DAILY 01/18/21 [History Confirmed 01/18/21] carvedilol 3.125 mg tablet 3.125 mg PO BID #0 tab 02/04/21 [Rx] cephalexin 500 mg capsule 500 mg PO QID #0 cap 02/04/21 [Rx] diclofenac sodium 1 % topical gel (Voltaren) 4 g EXT Q8H PRN #0 g 02/04/21 [Rx] losartan 50 mg tablet 50 mg PO QAM #0 tab 02/04/21 [Rx] Active Medications Sodium Chloride (Nss 1000ml) 1,000 mls @ 100 mls/hr IV .Q10H JADE Stop: 08/07/21 13:14 Last Admin: 07/08/21 13:33 Dose: 100 mls/hr Documented by: Miscellaneous Information (Piperacill/Tazobac Consult Active) 1 ea N/A UD PRN PRN Reason: Consult Stop: 08/07/21 13:06 Miscellaneous Information (Daptomycin Consult Active) 1 ea N/A UD PRN PRN Reason: Consult Stop: 08/07/21 13:06 Sodium Chloride (Nss 1000ml) 1,000 mls @ 100 mls/hr IV .Q10H JADE Stop: 08/07/21 13:14 Last Admin: 07/08/21 13:33 Dose: 100 mls/hr Documented by: [id number] Discontinued Medications Sodium Chloride (Nss 1000ml) 2,000 mls @ 999 mls/hr IV .Q2H1M ONE Stop: 07/08/21 15:03 Last Admin: 07/08/21 13:33 Dose: Not Given Documented by: [id number] Piperacillin Sod/Tazobactam Sod (Zosyn) 4.5 gm in 120 mls @ 240 mls/hr IV NOW ONE Stop: 07/08/21 13:36 Last Admin: 07/08/21 13:42 Dose: 240 mls/hr Documented by: [id number] Daptomycin 450 mg/ Syringe 9 mls @ 4.5 mls/min IV NOW ONE; Protocol Stop: 07/08/21 13:08 Last Admin: 07/08/21 13:42 Dose: 4.5 mls/min Documented by: [id number] Sodium Chloride (Nss) 500 mls @ 999 mls/hr IV .Q31M ONE Stop: 07/08/21 13:43 Last Infusion: 07/08/21 13:32 Dose: 0 mls/hr Documented by: [id number] Admin: 07/08/21 13:10 Dose: 999 mls/hr Documented by: [id number] Lactated Ringer's (Lr) 1,000 mls @ 999 mls/hr IV .Q1H1M ONE Stop: 07/08/21 16:05 Last Admin: 07/08/21 15:39 Dose: 999 mls/hr Documented by: [id number] Ioversol (Optiray 320 100ml) 94 ml IV ONCE ONE Stop: 07/08/21 14:12 Last Admin: 07/08/21 14:11 Dose: 1 ml Documented by: [id number] ECG Additional Comments: Sinus tachycardia with 1st degree A-V block Possible Left atrial enlargement Cannot rule out Anterior infarct (cited on or before 18-JAN-2021) T wave abnormality, consider lateral ischemia Abnormal ECG Code Status & VTE Plan Code Status CODE: Full VTE: Lovenox 40 sub q daily, Hold on SCD's, TEDS with wounds and PAD VTE Prophylaxis Plan VTE Prophylaxis will be ordered: Yes Supervising Physician Co-Signing Physician Notes Pt seen/examined in conjunction with [facility]LL[facility] Óscar Olson. Orders and plan of admission reviewed. 66 y/o chronically ill male Hx HTN, HLD, PAD, CVA, CAD, CHF (25-30%), wheelchair bound. Per records he is often encephalopathic, although a specific reason is not provided. He is also under protective services via office of the aging due to family issues. The pt arrived in the ER via ambulance. He was apparently found on the floor of his home by his daughter who called EMS. He was confused, disheveled. He has multiple lower extrem ulcers which may be chronic, although there is likely acute cellulitis of his L leg. Labs are notable for a + UA, an elevated CK and slightly elevated ammonia. There is mild anemia and an elevated trop, both of which are chronic. The pt is hypotensive on arrival to the ER, although this too may be chronic. The pt was similarly admitted in January and treated primarily for cellulitis at the time. OE: General: Irritable, elderly M, AAO x 1, no distress ENT: No erythema or exudates, no thrush Eyes: PING, EOMI Head and neck: Normocephalic, atraumatic, No JVD, neck is supple. Chest/heart: Nontender, S1,2, RRR, no murmurs, no gallops Lungs: CTAB, no wheezing or crackles Abdomen: Nontender, nondistended, BS+ Neuro: Speech is clear although tangential and irrelevant, no unilateral weakness or loss of sensation Musculoskeletal: No joint inflammation, muscle tenderness, FROM Skin: Erythema left leg with ulcerations, left heel ulceration, stage II sacral ulcer Extremities: No clubbing, cyanosis, edema P: 1) Cellulitis and UTI - possible cause of AMS - placed on Zosyn/Dapto. Was previously treated with same in January. 2) CK is elevated - pt is clinically dehydrated - IVF provided - volume status bears monitoring. 3) CHF with low BP - interestingly, despite a poor EF, he does not take daily diuretics - he is receiving IVF on admission and will need frequent assessment of his volume status. 4) Minimal ammonia elevation - no history of liver disease - RUQ US pending 5) CAD - trop is chronically elevated and not above baseline - EKG does not show acute changes. 6) PAD - was evaluated by vascular in January - arterial Dopplers pending. 7) This pt cannot seemingly care for himself and should be placed. He is likely not compliant with medications. He is at high risk of adverse events if living alone. Full code - Lovenox prophylaxis Total time for this admit including review of labs, meds, imaging, records - discussion with pt and ER attending - 44 min PG Care Time/CCT Total # of Minutes Spent Total Time Spent with Patient: Total time spent is greater than 50% in coordination of care (as documented) at patient's floor/unit and/or counseling patient: Coding Level of Care Code 75407 Initial Inpt Care Lvl 3 Diagnoses Sepsis A41.9 Peripheral arterial occlusive disease I77.9 Cardiomyopathy I42.9 Mitral regurgitation I34.0 Cognitive dysfunction F09 Increased ammonia level R79.89 Elevated troponin R77.8 Foot ulcer, left L97.529 Leg wound, left S81.802A Sacral decubitus ulcer, stage III L89.153
--- NOTE | 2021-07-08 16:56 | Emergency Department Note ---
Impression & Plan Sepsis, Severe protein-calorie malnutrition, Increased ammonia level, Elevated troponin, Sacral decubitus ulcer, stage III, Open leg wound ED Provider Note NAME: LISA ZAVALA AGE: 66 SEX: M ARRIVES VIA: Ambulance INFORMANT: Patient, ED PROVIDER(S): Varun Brennan MD CHIEF COMPLAINT: Weakness, confusion, failure to thrive, [facility] referred. PLAN: Disposition: Admit MEDICAL DECISION MAKING: The patient is a 66-year-old gentleman with a past medical history of noncompliance, CAD, cardiomyopathy EF of 25-30% presumed to be ischemic,, daily smoking, peripheral arterial disease, chronic lower extremity wounds who presents to the emergency department after was found on the floor in his home by office of aging which apparently was due to the patient's wheelchair battery running out and so was moving around on the ground for the past 24 hours or more. Per report the office of aging has been concerned about the patient's living conditions and is concerned for the patient's safety. The patient reports reports that his family had been stealing from him and so they are not involved in his life but the details or accuracy of this is unclear. On arrival the patient is acute on chronically ill-appearing, cachectic but no acute distress, afebrile with heart in the 100s and blood pressure 80s-90s/40-70s with MAPs mostly >65. He appears to be mentating at his baseline. He has extensive bilateral lower extremity wounds with surrounding erythema and warmth with moderate bilateral lower extremity edema. There is o vert no purulent drainage. There is no crepitus. There is also sacral excoriation and ulceration. Generalized weakness throughout. EKG without overt acute ischemia. CXR with nonspecific interstitial thickening. WBC and platelets within normal limits. H/H 13.3/39.6 improved from prior values. Chemistry without metabolic acidosis. BUN/creatinine>20 consistent with the patient's clinically dry appearance. Lactic acid initially elevated at 2.4 but did clear 0.9 after cautious IV fluid hydration in the setting of the patient's CM. Electrolytes without significant abnormality. LFTs unremarkable. Ammonia is slightly elevated at 43.6, nonspecific. CPK marginally elevated at 450, nonspecific. Troponin 0.3, nonspecific and in the setting of chronic elevation though slightly elevated from prior. Lipase is not elevated. Procalcitonin is not elevated. TSH within normal limits. UA is suspicious for infection with positive nitrites, WBC, leuk esterase and 4+ bacteria albeit with epithelial cells present. COVID-19 PCR was negative. Plain films of bilateral lower extremities were negative for overt osseous involvement. CT the head and C-spine negative for acute process. CT abdomen pelvis negative for acute process. CT of the chest demonstrates groundglass opacities and mediastinal lymphadenopathy is nonspecific. Patient was treated empirically on arrival with Zosyn and daptomycin. Given patient's poor clinical condition with possibility of sepsis related to UTI as well as wound infection reasonable to admit the patient for further management. Also require case management to assess for safety and placement. Case was discussed with Dr. Lopes [facility] hospitalist, who will evaluate the patient for admission. Triage Nursing notes reviewed and agree them. Prior medical records reviewed Vital Signs: reviewed and remarkable for tachycardia, low blood pressure. Differential diagnosis: Sepsis, UTI, pneumonia, metabolic, electrolyte abnormalities, cardiac sources, intracerebral event, toxicologic, neurologic, as well as other pathologies. ER treatment provided: See below. Diagnostics interpreted by me: ECG: Sinus tachycardia, 102 bpm, no ectopy, T wave abnormality, no overt ST elevation or depression, QTC 44, QRS 120. Cardiac Monitoring: An order for continuous cardiac monitoring was placed and demonstrated Sinus tachycardia, 102 bpm, no ectopy. Laboratory studies: See below Imaging studies: See below Consultation(s): Case was discussed with Dr. Lopes, [facility] hospitalist, who will evaluate the patient for admission. HPI: The patient is a 66-year-old gentleman with a past medical history of noncompliance, CAD, cardiomyopathy EF of 25-30% presumed to be ischemic,, daily smoking, peripheral arterial disease, chronic lower extremity wounds who presents to the emergency department after was found on the floor in his home by [facility] [employer] which apparently was due to the patient's wheelchair battery running out and so was moving around on the ground for the past 24 hours or mor e. Per report the office of aging has been concerned about the patient's living conditions and is concerned for the patient's safety. The patient reports reports that his family had been stealing from him and so they are not involved in his life but the details or accuracy of this is unclear. ROS: See above HPI for pertinent positives & negatives. A total of 10 systems reviewed and were otherwise negative. PAST MEDICAL HISTORY:See Below PAST SURGICAL HISTORY:See Below FAMILY HISTORY:See Below SOCIAL HISTORY:See Below HOME MEDICATIONS:See Below ALLERGIES:See Below VITALS:See Below PHYSICAL EXAMINATION: GENERAL: Awake, alert, cachectic, acute on chronically ill-appearing, in no distress HENT: Normocephalic, atraumatic. Oropharynx dry, cracked MM. EYES: Normal conjunctiva. Sclera non-icteric. NECK: Supple. No nuchal rigidity. FROM. No JVD. RESPIRATORY: Diminished at bases with intermittent wheeze and rhonchi. CARDIAC: Tachycardic rate, normal rhythm. Extremities warm and well perfused. Pulses equal. ABDOMEN: Soft, non-distended. No tenderness to palpation. No rebound or guarding. No masses. RECTAL: Deferred. MUSCULOSKELETAL: Chest examination reveals no tenderness. The back is symmetrical on inspection. Scattered ecchymotic areas. There is no CVA tenderness to palpation. No joint edema. LOWER EXTREMITIES: Extensive bilateral lower extremity wounds with surrounding erythema and warmth with moderate bilateral lower extremity edema. No overt purulent drainage. No crepitus. Sacral excoriation and ulceration is present. NEURO: Generalized weakness throughout. SKIN: Warm/dry. No jaundice noted. ED COURSE: Critical Care: I have personally spent greater than 65 minutes of critical care time in the direct management of this patient. This includes bedside care, interpretation of diagnostic studies, and testing, discussion with consultants, patient, and family members, and other required patient management activities. This 65 minutes is in excess of all separately billable procedures. Varun Brennan MD Past Med/Surg History Medical History Delirium Dyspnea Hx of myocardial infarction Hx of stroke without residual deficits No pertinent past medical history Palliative care encounter Peripheral arterial occlusive disease Sepsis Severe protein-calorie malnutrition Weakness Social History Smoking Status: Former smoker Hx Alcohol Use: No Hx Substance Use: No Preferred Language: Tam[place] Communication Ability: Unable Beliefs That Will Affect Care: None Current Living Situation: Alone Current Living Situation Comment: unable to access Feels Safe at Home: Yes Assistive Devices: None Allergies Allergies Allergy/AdvReac Type Severity Reaction Status Date / Time No Known Allergies Allergy Unverified 01/18/21 19:52 Home Meds Home Medications Medication Instructions Recorded Confirmed aspirin 81 mg tablet,delayed 81 mg PO DAILY 01/18/21 01/18/21 release Previous Rx's Medication Instructions Recorded carvedilol 3.125 mg tablet 3.125 mg PO BID #0 tab 02/04/21 cephalexin 500 mg capsule 500 mg PO QID #0 cap 02/04/21 diclofenac sodium 1 % topical gel 4 g EXT Q8H PRN #0 g 02/04/21 (Voltaren) losartan 50 mg tablet 50 mg PO QAM #0 tab 02/04/21 Results & Data (ED) Vital Signs Vital Signs - 24 hr 07/08/21 12:33 07/08/21 13:15 07/08/21 14:44 Temperature 36.8 C Temperature Source Oral Pulse Rate 103 H Pulse Rate [Finger] 94 H 95 H Pulse Rhythm [Finger] Regular Pulse Strength [Finger] Normal Respiratory Rate 20 26 H 26 H Respiratory Effort / Characteristics Non-Labored Spontaneous Non-Labored Respiratory Depth Normal Normal Respiratory Pattern Regular Blood Pressure 92/72 L Blood Pressure [Left Arm] 97/72 L 79/60 L Blood Pressure Mean 78 Blood Pressure Mean [Left Arm] 80 66 Blood Pressure Position Lying Blood Pressure Position [Left Arm] Lying Pulse Oximetry 97 99 100 Oxygen Delivery Method Room Air Room Air Room Air Sepsis Recent Fever Within 48 Hours No Sepsis New/Unexplained Change in Mental Status N/A Sepsis Action Taken by Nursing Physician Notified 07/08/21 15:02 Temperature Temperature Source Pulse Rate Pulse Rate [Finger] 95 H Pulse Rhythm [Finger] Pulse Strength [Finger] Respiratory Rate 26 H Respiratory Effort / Characteristics Respiratory Depth Respiratory Pattern Blood Pressure Blood Pressure [Left Arm] 84/48 L Blood Pressure Mean Blood Pressure Mean [Left Arm] 60 Blood Pressure Position Blood Pressure Position [Left Arm] Pulse Oximetry 100 Oxygen Delivery Method Room Air Sepsis Recent Fever Within 48 Hours Sepsis New/Unexplained Change in Mental Status Sepsis Action Taken by Nursing Laboratory Data Attestation: I reviewed the patient's lab results. Result diagrams: 07/08/21 12:40 07/08/21 12:40 Lab Results 07/08/21 07/08/21 07/08/21 Range/Units 12:40 12:40 12:40 WBC 9.66 (4.8-10.8) K/uL RBC 4.72 (4.7-6.1) M/uL Hgb 13.3 L (14.0-18.0) g/dL Hct 39.6 L (42-52) % MCV 83.9 (80-100) fL MCH 28.2 (25-34) pg MCHC 33.6 (32-36) g/dL RDW Std Deviation 46.8 H (36.4-46.3) fL RDW Coeff of Aliyah 15.1 H (11.5-14.5) % Plt Count 310 (130-400) K/uL MPV 10.8 H (7.4-10.4) fL Immature Gran % (Auto) 0.2 % Neut % (Auto) 78.0 % Lymph % (Auto) 11.6 % Trigg % (Auto) 9.1 % Eos % (Auto) 0.7 % Baso % (Auto) 0.4 % Neut # (Auto) 7.53 H (1.4-6.5) K/uL Lymph # (Auto) 1.12 L (1.2-3.4) K/uL Trigg # (Auto) 0.88 H (0.11-0.59) K/uL Eos # (Auto) 0.07 (0-0.5) K/uL Baso # (Auto) 0.04 (0-0.2) K/uL Immature Gran # (Auto) 0.02 (0.00-0.02) K/uL ESR (0-20) mm/hr PT 11.9 (9.0-12.0) Seconds INR 1.2 H (0.9-1.1) APTT 31.9 H (21.0-31.0) Seconds PTT Ratio 1.2 VBG pH (7.36-7.41) VBG pCO2 (38-50) mmHg VBG pO2 mmHg VBG HCO3 mmol/L VBG O2 Saturation % VBG Base Excess mEq/L Barometric Pressure mm/Hg Sodium 140 (136-145) mmol/L Potassium 3.6 (3.5-5.1) mmol/L Chloride 109 H (98-107) mmol/L Carbon Dioxide 23 (21-32) mmol/L Anion Gap 7.0 (3-11) BUN 21 H (7-18) mg/dl Creatinine 0.63 (0.6-1.4) mg/dl Est Cr Clr Drug Dosing 125.6 ml/min Est GFR ( Amer) 119.0 ml/min Est GFR (Non-Af Amer) 102.7 ml/min BUN/Creatinine Ratio 33.1 H (10-20) Glucose 105 H (70-99) mg/dl Lactate (0.4-2.0) mmol/L Calcium 9.6 (8.5-10.1) mg/dl Phosphorus 3.4 (2.5-4.9) mg/dl Magnesium 2.1 (1.8-2.4) mg/dl Total Bilirubin 0.7 (0.2-1) mg/dl Direct Bilirubin 0.3 H (0-0.2) mg/dl AST 37 (15-37) U/L ALT 18 (12-78) U/L Alkaline Phosphatase 88 (45-117) U/L Ammonia (11-32) umol/L Total Creatine Kinase 450 H (39-308) U/L Troponin I 0.302 H* (0-0.045) ng/ml C-Reactive Protein (0-0.29) mg/dl Total Protein 7.1 (6.4-8.2) gm/dl Albumin 3.3 L (3.4-5.0) gm/dl Globulin 3.8 (2.5-4.0) gm/dl Albumin/Globulin Ratio 0.9 (0.9-2) Lipase 94 (73-393) U/L Procalcitonin (0-0.5) ng/ml TSH 1.340 (0.300-4.500) uIu/ml Urine Color Urine Appearance (Clear) Urine pH (4.5-7.5) Ur Specific [place] (1.000-1.030) Urine Protein (Negative) Urine Glucose (UA) (Negative) Urine Ketones (Negative) Urine Blood (Negative) Urine Nitrite (Negative) Urine Bilirubin (Negative) Urine Urobilinogen (Negative) Ur Leukocyte Esterase (Negative) Urine WBC (Auto) (0-5) /hpf Urine RBC (Auto) (0-4) /hpf U Hyaline Cast (Auto) (0-5) /lpf U Epithel Cells (Auto) (0-5) /lpf Urine Bacteria (Auto) (Negative) Urine Crystals Triple Phos Crystals (None Prsent) Urine Yeast Urine Opiates Screen (Neg) Ur Methadone, Qual (Neg) Urine Barbiturates (Neg) Ur Phencyclidine (PCP) (Neg) U Amphetamin/Meth Scrn (Neg) MDMA (Ecstasy) Screen (Neg) U Benzodiazepines Scrn (Neg) Ur Cocaine Metabolite (Neg) U Marijuana (THC) Screen (Neg) Ethyl Alcohol mg/dL (0-3) mg/dl COVID-19 Eval Order SARS-CoV-2 (PCR) (Negative) 07/08/21 07/08/21 07/08/21 Range/Units 12:40 12:40 12:40 WBC (4.8-10.8) K/uL RBC (4.7-6.1) M/uL Hgb (14.0-18.0) g/dL Hct (42-52) % MCV (80-100) fL MCH (25-34) pg MCHC (32-36) g/dL RDW Std Deviation (36.4-46.3) fL RDW Coeff of Aliyah (11.5-14.5) % Plt Count (130-400) K/uL MPV (7.4-10.4) fL Immature Gran % (Auto) % Neut % (Auto) % Lymph % (Auto) % Trigg % (Auto) % Eos % (Auto) % Baso % (Auto) % Neut # (Auto) (1.4-6.5) K/uL Lymph # (Auto) (1.2-3.4) K/uL Trigg # (Auto) (0.11-0.59) K/uL Eos # (Auto) (0-0.5) K/uL Baso # (Auto) (0-0.2) K/uL Immature Gran # (Auto) (0.00-0.02) K/uL ESR 46 H (0-20) mm/hr PT (9.0-12.0) Seconds INR (0.9-1.1) APTT (21.0-31.0) Seconds PTT Ratio VBG pH (7.36-7.41) VBG pCO2 (38-50) mmHg VBG pO2 mmHg VBG HCO3 mmol/L VBG O2 Saturation % VBG Base Excess mEq/L Barometric Pressure mm/Hg Sodium (136-145) mmol/L Potassium (3.5-5.1) mmol/L Chloride (98-107) mmol/L Carbon Dioxide (21-32) mmol/L Anion Gap (3-11) BUN (7-18) mg/dl Creatinine (0.6-1.4) mg/dl Est Cr Clr Drug Dosing ml/min Est GFR ( Amer) ml/min Est GFR (Non-Af Amer) ml/min BUN/Creatinine Ratio (10-20) Glucose (70-99) mg/dl Lactate (0.4-2.0) mmol/L Calcium (8.5-10.1) mg/dl Phosphorus (2.5-4.9) mg/dl Magnesium (1.8-2.4) mg/dl Total Bilirubin (0.2-1) mg/dl Direct Bilirubin (0-0.2) mg/dl AST (15-37) U/L ALT (12-78) U/L Alkaline Phosphatase (45-117) U/L Ammonia (11-32) umol/L Total Creatine Kinase (39-308) U/L Troponin I (0-0.045) ng/ml C-Reactive Protein 5.31 H (0-0.29) mg/dl Total Protein (6.4-8.2) gm/dl Albumin (3.4-5.0) gm/dl Globulin (2.5-4.0) gm/dl Albumin/Globulin Ratio (0.9-2) Lipase (73-393) U/L Procalcitonin < 0.05 (0-0.5) ng/ml TSH (0.300-4.500) uIu/ml Urine Color Urine Appearance (Clear) Urine pH (4.5-7.5) Ur Specific [place] (1.000-1.030) Urine Protein (Negative) Urine Glucose (UA) (Negative) Urine Ketones (Negative) Urine Blood (Negative) Urine Nitrite (Negative) Urine Bilirubin (Negative) Urine Urobilinogen (Negative) Ur Leukocyte Esterase (Negative) Urine WBC (Auto) (0-5) /hpf Urine RBC (Auto) (0-4) /hpf U Hyaline Cast (Auto) (0-5) /lpf U Epithel Cells (Auto) (0-5) /lpf Urine Bacteria (Auto) (Negative) Urine Crystals Triple Phos Crystals (None Prsent) Urine Yeast Urine Opiates Screen (Neg) Ur Methadone, Qual (Neg) Urine Barbiturates (Neg) Ur Phencyclidine (PCP) (Neg) U Amphetamin/Meth Scrn (Neg) MDMA (Ecstasy) Screen (Neg) U Benzodiazepines Scrn (Neg) Ur Cocaine Metabolite (Neg) U Marijuana (THC) Screen (Neg) Ethyl Alcohol mg/dL (0-3) mg/dl COVID-19 Eval Order SARS-CoV-2 (PCR) (Negative) 07/08/21 07/08/21 07/08/21 Range/Units 13:00 13:00 13:14 WBC (4.8-10.8) K/uL RBC (4.7-6.1) M/uL Hgb (14.0-18.0) g/dL Hct (42-52) % MCV (80-100) fL MCH (25-34) pg MCHC (32-36) g/dL RDW Std Deviation (36.4-46.3) fL RDW Coeff of Aliyah (11.5-14.5) % Plt Count (130-400) K/uL MPV (7.4-10.4) fL Immature Gran % (Auto) % Neut % (Auto) % Lymph % (Auto) % Trigg % (Auto) % Eos % (Auto) % Baso % (Auto) % Neut # (Auto) (1.4-6.5) K/uL Lymph # (Auto) (1.2-3.4) K/uL Trigg # (Auto) (0.11-0.59) K/uL Eos # (Auto) (0-0.5) K/uL Baso # (Auto) (0-0.2) K/uL Immature Gran # (Auto) (0.00-0.02) K/uL ESR (0-20) mm/hr PT (9.0-12.0) Seconds INR (0.9-1.1) APTT (21.0-31.0) Seconds PTT Ratio VBG pH (7.36-7.41) VBG pCO2 (38-50) mmHg VBG pO2 mmHg VBG HCO3 mmol/L VBG O2 Saturation % VBG Base Excess mEq/L Barometric Pressure mm/Hg Sodium (136-145) mmol/L Potassium (3.5-5.1) mmol/L Chloride (98-107) mmol/L Carbon Dioxide (21-32) mmol/L Anion Gap (3-11) BUN (7-18) mg/dl Creatinine (0.6-1.4) mg/dl Est Cr Clr Drug Dosing ml/min Est GFR ( Amer) ml/min Est GFR (Non-Af Amer) ml/min BUN/Creatinine Ratio (10-20) Glucose (70-99) mg/dl Lactate 2.4 H* (0.4-2.0) mmol/L Calcium (8.5-10.1) mg/dl Phosphorus (2.5-4.9) mg/dl Magnesium (1.8-2.4) mg/dl Total Bilirubin (0.2-1) mg/dl Direct Bilirubin (0-0.2) mg/dl AST (15-37) U/L ALT (12-78) U/L Alkaline Phosphatase (45-117) U/L Ammonia (11-32) umol/L Total Creatine Kinase (39-308) U/L Troponin I (0-0.045) ng/ml C-Reactive Protein (0-0.29) mg/dl Total Protein (6.4-8.2) gm/dl Albumin (3.4-5.0) gm/dl Globulin (2.5-4.0) gm/dl Albumin/Globulin Ratio (0.9-2) Lipase (73-393) U/L Procalcitonin (0-0.5) ng/ml TSH (0.300-4.500) uIu/ml Urine Color Dark Yellow Urine Appearance Turbid A (Clear) Urine pH >= 9.0 H (4.5-7.5) Ur Specific [place] 1.023 (1.000-1.030) Urine Protein 3+ H (Negative) Urine Glucose (UA) Negative (Negative) Urine Ketones Trace H (Negative) Urine Blood Trace H (Negative) Urine Nitrite Positive A (Negative) Urine Bilirubin 1+ H (Negative) Urine Urobilinogen Negative (Negative) Ur Leukocyte Esterase 3+ H (Negative) Urine WBC (Auto) >30 H (0-5) /hpf Urine RBC (Auto) 0-4 (0-4) /hpf U Hyaline Cast (Auto) 1-5 (0-5) /lpf U Epithel Cells (Auto) >30 H (0-5) /lpf Urine Bacteria (Auto) 4+ H (Negative) Urine Crystals Not Reportable Triple Phos Crystals Present A (None Prsent) Urine Yeast Not Reportable Urine Opiates Screen Neg (Neg) Ur Methadone, Qual Neg (Neg) Urine Barbiturates Neg (Neg) Ur Phencyclidine (PCP) Neg (Neg) U Amphetamin/Meth Scrn Neg (Neg) MDMA (Ecstasy) Screen Neg (Neg) U Benzodiazepines Scrn Neg (Neg) Ur Cocaine Metabolite Neg (Neg) U Marijuana (THC) Screen Neg (Neg) Ethyl Alcohol mg/dL (0-3) mg/dl COVID-19 Eval Order SARS-CoV-2 (PCR) (Negative) 07/08/21 07/08/21 07/08/21 Range/Units 13:14 13:14 13:14 WBC (4.8-10.8) K/uL RBC (4.7-6.1) M/uL Hgb (14.0-18.0) g/dL Hct (42-52) % MCV (80-100) fL MCH (25-34) pg MCHC (32-36) g/dL RDW Std Deviation (36.4-46.3) fL RDW Coeff of Aliyah (11.5-14.5) % Plt Count (130-400) K/uL MPV (7.4-10.4) fL Immature Gran % (Auto) % Neut % (Auto) % Lymph % (Auto) % Trigg % (Auto) % Eos % (Auto) % Baso % (Auto) % Neut # (Auto) (1.4-6.5) K/uL Lymph # (Auto) (1.2-3.4) K/uL Trigg # (Auto) (0.11-0.59) K/uL Eos # (Auto) (0-0.5) K/uL Baso # (Auto) (0-0.2) K/uL Immature Gran # (Auto) (0.00-0.02) K/uL ESR (0-20) mm/hr PT (9.0-12.0) Seconds INR (0.9-1.1) APTT (21.0-31.0) Seconds PTT Ratio VBG pH 7.38 (7.36-7.41) VBG pCO2 39 (38-50) mmHg VBG pO2 33 mmHg VBG HCO3 23 mmol/L VBG O2 Saturation 61.0 % VBG Base Excess -2.3 mEq/L Barometric Pressure 733.7 mm/Hg Sodium (136-145) mmol/L Potassium (3.5-5.1) mmol/L Chloride (98-107) mmol/L Carbon Dioxide (21-32) mmol/L Anion Gap (3-11) BUN (7-18) mg/dl Creatinine (0.6-1.4) mg/dl Est Cr Clr Drug Dosing ml/min Est GFR ( Amer) ml/min Est GFR (Non-Af Amer) ml/min BUN/Creatinine Ratio (10-20) Glucose (70-99) mg/dl Lactate (0.4-2.0) mmol/L Calcium (8.5-10.1) mg/dl Phosphorus (2.5-4.9) mg/dl Magnesium (1.8-2.4) mg/dl Total Bilirubin (0.2-1) mg/dl Direct Bilirubin (0-0.2) mg/dl AST (15-37) U/L ALT (12-78) U/L Alkaline Phosphatase (45-117) U/L Ammonia 43.6 H (11-32) umol/L Total Creatine Kinase (39-308) U/L Troponin I (0-0.045) ng/ml C-Reactive Protein (0-0.29) mg/dl Total Protein (6.4-8.2) gm/dl Albumin (3.4-5.0) gm/dl Globulin (2.5-4.0) gm/dl Albumin/Globulin Ratio (0.9-2) Lipase (73-393) U/L Procalcitonin (0-0.5) ng/ml TSH (0.300-4.500) uIu/ml Urine Color Urine Appearance (Clear) Urine pH (4.5-7.5) Ur Specific [place] (1.000-1.030) Urine Protein (Negative) Urine Glucose (UA) (Negative) Urine Ketones (Negative) Urine Blood (Negative) Urine Nitrite (Negative) Urine Bilirubin (Negative) Urine Urobilinogen (Negative) Ur Leukocyte Esterase (Negative) Urine WBC (Auto) (0-5) /hpf Urine RBC (Auto) (0-4) /hpf U Hyaline Cast (Auto) (0-5) /lpf U Epithel Cells (Auto) (0-5) /lpf Urine Bacteria (Auto) (Negative) Urine Crystals Triple Phos Crystals (None Prsent) Urine Yeast Urine Opiates Screen (Neg) Ur Methadone, Qual (Neg) Urine Barbiturates (Neg) Ur Phencyclidine (PCP) (Neg) U Amphetamin/Meth Scrn (Neg) MDMA (Ecstasy) Screen (Neg) U Benzodiazepines Scrn (Neg) Ur Cocaine Metabolite (Neg) U Marijuana (THC) Screen (Neg) Ethyl Alcohol mg/dL < 3.0 (0-3) mg/dl COVID-19 Eval Order SARS-CoV-2 (PCR) (Negative) 07/08/21 07/08/21 07/08/21 Range/Units 14:42 14:42 15:06 WBC (4.8-10.8) K/uL RBC (4.7-6.1) M/uL Hgb (14.0-18.0) g/dL Hct (42-52) % MCV (80-100) fL MCH (25-34) pg MCHC (32-36) g/dL RDW Std Deviation (36.4-46.3) fL RDW Coeff of Aliyah (11.5-14.5) % Plt Count (130-400) K/uL MPV (7.4-10.4) fL Immature Gran % (Auto) % Neut % (Auto) % Lymph % (Auto) % Trigg % (Auto) % Eos % (Auto) % Baso % (Auto) % Neut # (Auto) (1.4-6.5) K/uL Lymph # (Auto) (1.2-3.4) K/uL Trigg # (Auto) (0.11-0.59) K/uL Eos # (Auto) (0-0.5) K/uL Baso # (Auto) (0-0.2) K/uL Immature Gran # (Auto) (0.00-0.02) K/uL ESR (0-20) mm/hr PT (9.0-12.0) Seconds INR (0.9-1.1) APTT (21.0-31.0) Seconds PTT Ratio VBG pH (7.36-7.41) VBG pCO2 (38-50) mmHg VBG pO2 mmHg VBG HCO3 mmol/L VBG O2 Saturation % VBG Base Excess mEq/L Barometric Pressure mm/Hg Sodium (136-145) mmol/L Potassium (3.5-5.1) mmol/L Chloride (98-107) mmol/L Carbon Dioxide (21-32) mmol/L Anion Gap (3-11) BUN (7-18) mg/dl Creatinine (0.6-1.4) mg/dl Est Cr Clr Drug Dosing ml/min Est GFR ( Amer) ml/min Est GFR (Non-Af Amer) ml/min BUN/Creatinine Ratio (10-20) Glucose (70-99) mg/dl Lactate 0.9 (0.4-2.0) mmol/L Calcium (8.5-10.1) mg/dl Phosphorus (2.5-4.9) mg/dl Magnesium (1.8-2.4) mg/dl Total Bilirubin (0.2-1) mg/dl Direct Bilirubin (0-0.2) mg/dl AST (15-37) U/L ALT (12-78) U/L Alkaline Phosphatase (45-117) U/L Ammonia (11-32) umol/L Total Creatine Kinase (39-308) U/L Troponin I (0-0.045) ng/ml C-Reactive Protein (0-0.29) mg/dl Total Protein (6.4-8.2) gm/dl Albumin (3.4-5.0) gm/dl Globulin (2.5-4.0) gm/dl Albumin/Globulin Ratio (0.9-2) Lipase (73-393) U/L Procalcitonin (0-0.5) ng/ml TSH (0.300-4.500) uIu/ml Urine Color Urine Appearance (Clear) Urine pH (4.5-7.5) Ur Specific [place] (1.000-1.030) Urine Protein (Negative) Urine Glucose (UA) (Negative) Urine Ketones (Negative) Urine Blood (Negative) Urine Nitrite (Negative) Urine Bilirubin (Negative) Urine Urobilinogen (Negative) Ur Leukocyte Esterase (Negative) Urine WBC (Auto) (0-5) /hpf Urine RBC (Auto) (0-4) /hpf U Hyaline Cast (Auto) (0-5) /lpf U Epithel Cells (Auto) (0-5) /lpf Urine Bacteria (Auto) (Negative) Urine Crystals Triple Phos Crystals (None Prsent) Urine Yeast Urine Opiates Screen (Neg) Ur Methadone, Qual (Neg) Urine Barbiturates (Neg) Ur Phencyclidine (PCP) (Neg) U Amphetamin/Meth Scrn (Neg) MDMA (Ecstasy) Screen (Neg) U Benzodiazepines Scrn (Neg) Ur Cocaine Metabolite (Neg) U Marijuana (THC) Screen (Neg) Ethyl Alcohol mg/dL (0-3) mg/dl COVID-19 Eval Order Covid19 at [facility] SARS-CoV-2 (PCR) NEGATIVE (Negative) Administered Medications Enoxaparin Sodium (Enoxaparin Inj 40 Mg/0.4 Ml Syr) 40 mg SQ Q24H JADE Stop: 08/07/21 20:59 Last Admin: 07/08/21 21:55 Dose: 40 mg Documented by: [id number] Thiamine HCl 300 mg/ Sodium (Chloride) 53 mls @ 208 mls/hr IV QAM JADE Stop: 08/07/21 18:59 Last Infusion: 07/08/21 19:34 Dose: 0 mls/hr Documented by: [id number] Admin: 07/08/21 19:18 Dose: 208 mls/hr Documented by: [id number] Piperacillin Sod/Tazobactam (Sod 3.375 gm/ Dextrose) 115 mls @ 28.75 mls/hr IV Q8H JADE; Protocol Stop: 07/15/21 19:59 Last Admin: 07/08/21 21:23 Dose: 28.8 mls/hr Documented by: [id number] Discontinued Medications Sodium Chloride (Nss 1000ml) 2,000 mls @ 999 mls/hr IV .Q2H1M ONE Stop: 07/08/21 15:03 Last Admin: 07/08/21 13:33 Dose: Not Given Documented by: [id number] Piperacillin Sod/Tazobactam Sod (Zosyn) 4.5 gm in 120 mls @ 240 mls/hr IV NOW ONE Stop: 07/08/21 13:36 Last Infusion: 07/08/21 14:15 Dose: 0 mls/hr Documented by: [id number] Admin: 07/08/21 13:42 Dose: 240 mls/hr Documented by: [id number] Daptomycin 450 mg/ Syringe 9 mls @ 4.5 mls/min IV NOW ONE; Protocol Stop: 07/08/21 13:08 Last Admin: 07/08/21 13:42 Dose: 4.5 mls/min Documented by: [id number] Sodium Chloride (Nss) 500 mls @ 999 mls/hr IV .Q31M ONE Stop: 07/08/21 13:43 Last Infusion: 07/08/21 13:32 Dose: 0 mls/hr Documented by: [id number] Admin: 07/08/21 13:10 Dose: 999 mls/hr Documented by: [id number] Sodium Chloride (Nss 1000ml) 1,000 mls @ 100 mls/hr IV .Q10H JADE Stop: 08/07/21 13:14 Last Infusion: 07/08/21 18:23 Dose: 0 mls/hr Documented by: [id number] Admin: 07/08/21 13:33 Dose: 100 mls/hr Documented by: [id number] Lactated Ringer's (Lr) 1,000 mls @ 999 mls/hr IV .Q1H1M ONE Stop: 07/08/21 16:05 Last Infusion: 07/08/21 18:21 Dose: 0 mls/hr Documented by: [id number] Admin: 07/08/21 15:39 Dose: 999 mls/hr Documented by: [id number] Ioversol (Optiray 320 100ml) 94 ml IV ONCE ONE Stop: 07/08/21 14:12 Last Admin: 07/08/21 14:11 Dose: 1 ml Documented by: [id number] Imaging Data Radiologist's Impression: Chest X-Ray 07/08/21 13:03 XR chest 1V portable HISTORY: 66 years-old Male SEPSIS acute sepsis COMPARISON: Chest radiograph 02/03/2021 TECHNIQUE: Portable AP view of the chest FINDINGS: Cardiac silhouette is enlarged. Pulmonary vascular congestion. Numerous fractured sternotomy wires with associated displacement redemonstrated. No pneumothorax. Trace pleural effusions. Emphysema with chronic interstitial coarsening. Degenerative changes of the shoulders and spine. IMPRESSION: 1. Emphysema with chronic interstitial coarsening. 2. Cardiomegaly with pulmonary vascular congestion. 3. Suspected trace pleural effusions. ACT 112: Negative or not required by law. The above report was generated using voice recognition software. It may contain grammatical, syntax or spelling errors. Electronically signed by: Prabhakar Chavez M.D. 07/08/2021 1:50 PM Abdomen/Pelvis CT 07/08/21 13:06 CT OF THE ABDOMEN AND PELVIS WITH CONTRAST CLINICAL HISTORY: fall, ams COMPARISON STUDY: CTA of the abdomen and pelvis with lower extremity runoff January 20, 2021. TECHNIQUE: Following IV administration of 94 mL of Optiray, axial images of the abdomen and pelvis were obtained from the lung bases to the proximal femurs. Images were reviewed in the axial, sagittal, and coronal planes. IV contrast was administered without complication. Automated exposure control was utilized for the study. A dose lowering technique was utilized adhering to the principles of ALARA. FINDINGS: Please note that the chest CT will be reported separately. This exam is mildly compromised given difficulty positioning. There is no evidence for traumatic injury to the liver, spleen, adrenal glands, kidneys or pancreas. There is no biliary or pancreatic ductal dilatation. There is no hydronephrosis. No hemoperitoneum or pneumoperitoneum is present. Bladder wall thickening is n oted. There is a small diverticulum arising from the posterior aspect of the bladder. Colonic diverticulosis is noted without evidence for acute diverticulitis. There is no free fluid. No acute lumbar spine or pelvic fracture is identified. Prominent retroperitoneal lymph nodes are similar to CT of January 20, 2021. Index left common iliac node on image 238 of 460 measures 9 mm in short axis diameter. Index left external iliac node on image 308 measures 1.1 cm in short axis diameter. IMPRESSION: 1. Exam mildly compromised given difficulty positioning. No acute rheumatic findings identified. 2. No change in prominent retroperitoneal lymph nodes since CT of January 20, 2021. These are indeterminate but probably benign. 3. No bowel obstruction. 4. Bladder wall thickening which could be correlated with urinalysis. ACT 112: Negative or not required by law. Electronically signed by: Reji Vallecillo M.D. 07/08/2021 2:[address] 07/08/21 13:06 CT SCAN OF THE CERVICAL SPINE CLINICAL HISTORY: Change in mental status. Fall. COMPARISON STUDY: No priors. TECHNIQUE: CT scan of the cervical spine is performed from the skull base to the upper thoracic spine. Images are reviewed in the axial, sagittal, and coronal planes. IV contrast was not administered for this examination. A dose lowering technique was utilized adhering to the principles of ALARA. CT DOSE: 2347.54 mGy.cm FINDINGS: Skeletal structures: The skeletal structures are heterogeneously osteopenic. There is no evidence of fracture or subluxation involving the cervical spine. Vertebral body height and alignment are maintained. There is straightening of the cervical lordosis. Anterior osteophytes are seen throughout. The odontoid process and lateral masses are intact. The atlantoaxial articulation is preserved noting productive degenerative change. The spinous processes appear intact. There is moderate multilevel cervical spondylosis. Uncovertebral and facet arthropathy contribute to neural frontal stenosis at most levels. Intervertebral discs: There is moderate to advanced multilevel disc space narrowing of the cervical spine. This is greatest at C4-C5, C5-C6, and C6-C7. Central canal: Posterior disc osteophyte complexes are seen at all cervical levels between C3-C4 and C6-C7. This likely contributes to multilevel acquired compromise of the central canal. Soft tissues: The prevertebral and paraspinous soft tissues are within normal limits. There is advanced atherosclerotic calcification of the carotid bulbs. A large lateral laryngocele is noted on the right. Calvarium: The visualized calvarium at the skull base appears intact. Brain parenchyma: Partially visualized brain parenchyma at the skull base is within normal limits. Sinuses and mastoids: The visualized paranasal sinuses are clear. The mastoid air cells are well pneumatized. Lung apices: Emphysematous change is noted at the apices. IMPRESSION: 1. There is no evidence of fracture or subluxation involving the cervical spine. 2. Osteopenia and spondylotic change as above. 3. Emphysema. 4. A large right lateral laryngocele incidentally noted. ACT 112: Negative or not required by law. Electronically signed by: Taurus Lundberg M.D. 07/08/2021 2:[address] 07/08/21 13:[address] WITH CONTRAST CT DOSE: HISTORY: Fall. Altered mental status. TECHNIQUE: Multiaxial CT images of the chest were performed following the intravenous administration of contrast. A dose lowering technique was utilized adhering to the principles of ALARA. COMPARISON: Chest CTA 01/18/2021. 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 This remains unchanged. No acute fractures within the visualized osseous structures. There are old, healed left lower rib fractures again noted. Please refer the same day abdomen and pelvis CT for further evaluation of the abdominal structures. No pleural or pericardial effusions. The heart remains mildly enlarged. Normal caliber thoracic aorta with no evidence for dissection. No mediastinal hematoma. Mild mediastinal lymphadenopathy which has significantly progressed. Dominant subcarinal lymph node measures 1.5 cm in short axis diameter. Borderline enlarged bilateral hilar lymph nodes. There is 30% narrowing within the proximal right common carotid artery, unchanged. The main pulmonary arteries are patent. No pneumothorax. Moderate emphysema. Mild interlobular septal thickening, right greater than left. There are peripheral groundglass airspace opacities within the right upper lobe and right lower lobe. There is mild central bronchial wall thickening. IMPRESSION: 1. No acute traumatic process within the chest. 2. Peripheral groundglass airspace opacities within the right upper lobe and right lower lobe. This favors a pneumonia and could be due to a viral process. 3. Mild interlobular septal thickening, right greater than left. This could represent mild congestive change. 4. Mild mediastinal lymphadenopathy which has progressed. This may be reactive to the suspected pneumonia. Follow-up chest CT in 3 months can be performed to ensure resolution of these findings. 5. Emphysema. 6. Additional findings as described above. ACT 112: Positive. There are findings on this exam that require communication between the performing entity and the patient following Patient Test Result Inf ormation Act ([place] Act 112) guidelines. Electronically signed by: Angel Healy M.D. 07/08/2021 2:45 PM Foot X-Ray 07/08/21 13:06 XR foot RT 2V CLINICAL HISTORY: cellulitis, ulcers, eval osseous involve. Right foot pain. COMPARISON STUDY: None. FINDINGS: No fracture or dislocation. The Lisfranc joint is intact. There is mild soft tissue swelling within the foot. No underlying bony destruction. IMPRESSION: Soft tissue swelling within the right foot. No fractures or bony destruction identified. ACT 112: Negative or not required by law. Electronically signed by: Angel Healy M.D. 07/08/2021 2:07 PM Foot X-Ray 07/08/21 13:06 LEFT FOOT 2 VIEWS CLINICAL HISTORY: Cellulitis. Ulcers. FINDINGS: AP and crosstable lateral views of the left foot are obtained. No prior studies are available for comparison at the time of dictation. The skelet al structures are heterogeneously osteopenic. There is no radiographic evidence of fracture. No bony erosion or periostitis is identified. Degenerative change is seen throughout the foot. High arch is noted. Diffuse soft tissue edema is seen throughout the foot an ankle. No soft tissue gas is identified. IMPRESSION: Diffuse soft tissue swelling with no acute bony abnormality identified. Electronically signed by: Taurus Lundberg M.D. 07/08/2021 1:[address] 07/08/21 13:06 CT OF THE HEAD WITHOUT CONTRAST CLINICAL HISTORY: fall, ams COMPARISON STUDY: No previous studies for comparison. TECHNIQUE: Helical axial images of the head were obtained without IV contrast. Automated exposure control was utilized for the study. A dose lowering technique was utilized adhering to the principles of ALARA. FINDINGS: No acute intracranial hemorrhage, midline shift or mass effect is present. Encephalomalacia within the right MCA distribution suggests an old infarct. White matter hypodensities favor small vessel disease. The ventricular system is unremarkable. The basal cisterns are patent. No extra-axial collections are present. There are no findings to suggest acute dural sinus thrombosis or acute territorial infarct. No significant calvarial abnormalities are present. Visualized portions of the sinuses and mastoid air cells are clear. IMPRESSION: 1. No acute intracranial findings. 2. No calvarial fracture. 3. Old right MCA territory infarct. ACT 112: Negative or not required by law. Electronically signed by: Reji Vallecillo M.D. 07/08/2021 2:31 PM Tibia/Fibula X-Ray 07/08/21 13:06 LEFT TIBIA AND FIBULA 2 VIEWS CLINICAL HISTORY: Cellulitis. Ulcers. FINDINGS: AP and crosstable lateral views of the left tibia and fibula are obtained. No prior studies are available for comparison at the time of dictation. The examination is degraded by inability to properly position the patient. The skeletal structures are osteopenic. There is no radiographic evidence of left tibial or fibular fracture. No bony erosion or periostitis is identified. Hyperflexion is seen at the knee joint. The ankle joint is grossly maintained. Soft tissue edema is present throughout the left lower extremity. No soft tissue gas is seen. Degenerative change is noted throughout the foot. IMPRESSION: No acute bony abnormality is identified. Electronically signed by: Taurus Lundberg M.D. 07/08/2021 1:55 PM Tibia/Fibula X-Ray 07/08/21 13:06 XR tibia fibula RT 2V HISTORY: 66 years-old Male cellulitis, ulcers, eval osseous involve acute pain of the right lower leg COMPARISON: None TECHNIQUE: 2 views the right tibia and fibula FINDINGS: Mild osteoarthritis of the knee and ankle. No acute fracture, dislocation or opaque foreign body. No osseous erosions. Mild proximal to mid pretibial soft tissue swelling. IMPRESSION: Mild soft tissue swelling without acute fracture. ACT 112: Negative or not required by law. The above report was generated using voice recognition software. It may contain grammatical, syntax or spelling errors. Electronically signed by: Prabhakar Chavez M.D. 07/08/2021 1:48 PM Discharge Plan Visit Data Chief Complaint: Fall Stated Complaint: GLF on floor since last evening ED Provider: Varun Brennan Discharge Problem: Sepsis, Severe protein-calorie malnutrition, Increased ammonia level, Elevated troponin, Sacral decubitus ulcer, stage III, Open leg wound Patient Disposition: Admitted As Inpatient Discharge Instructions Interventions: ED Discharge Assessment Last Done: 07/08/21 17:47 Discharge Problem: Sepsis Qualifiers: Sepsis type: sepsis due to unspecified organism Sepsis acute organ dysfunction status: unspecified Qualified Code(s): A41.9 - Sepsis, unspecified organism Open leg wound Qualifiers: Encounter type: initial encounter Laterality: bilateral Qualified Code(s): S81.801A - Unspecified open wound, right lower leg, initial encounter
[2021-07-08 18:10] LABS: Amphetamines+Metham, Urine Neg (Neg); Barbiturates, Urine Neg (Neg); Benzodiazepine, Urine Neg (Neg); Cocaine, Urine Neg (Neg); MDMA (Ecstacy), Urine Neg (Neg); Methadone, Urine Neg (Neg); Opiate, Urine Neg (Neg); Phencyclidine, Urine Neg (Neg)
[2021-07-08] MEDS ORDERED: ACETAMINOPHEN 325 MG TAB PO PRN (18:19)
[2021-07-08] MEDS ORDERED: POLYETHYLENE (MIRALAX) 17 GM PACK PO PRN (18:19)
[2021-07-08] MEDS ORDERED: ALBUTEROL 0.5% NEB SOLN 2.5 MG/0.5 ML VIAL NEB PRN (18:22)
[2021-07-08] MEDS: THIAMINE HCL 300 MG in SODIUM CHLORIDE 0.9% 50 ML IV SCH (19:18)
--- NOTE | 2021-07-08 20:44 | Ultrasound Report ---
ABDOMINAL ULTRASOUND, RIGHT UPPER QUADRANT HISTORY: elevated INR and ammonia. COMPARISON: Abdomen and pelvis CT 07/08/2021. FINDINGS: Pancreas: Obscured by overlying bowel gas. Liver: Unremarkable. Gallbladder: No gallbladder wall thickening. No gallstones. CBD: 4 mm. Right kidney: No hydronephrosis. IMPRESSION: No significant abnormality identified within the right upper quadrant. ACT 112: Negative or not required by law. Electronically signed by: Angel Healy M.D. 07/08/2021 8:43 PM
[2021-07-08] MEDS: PIPERACILLIN/TAZOBACTAM 3.375 GM in DEXTROSE 5% 100 ML IV SCH (21:23)
[2021-07-08] MEDS: ENOXAPARIN INJ 40 MG/0.4 ML SYR SQ SCH (21:55)
[2021-07-09] MEDS: PIPERACILLIN/TAZOBACTAM 3.375 GM in DEXTROSE 5% 100 ML IV SCH ×3 (03:57→19:46)
[2021-07-09 06:29] LABS: Basophils # (auto) 0.04 K/uL (0-0.2); Basophils % (auto) 0.6 %; Eosinophils # (auto) 0.13 K/uL (0-0.5); Eosinophils % (auto) 2.1 %; Hematocrit (blood only) 34.1 % (42-52); Hemoglobin 11.2 g/dL (14.0-18.0); Immature Granulocytes # (auto) 0.01 K/uL (0.00-0.02); Immature Granulocytes % (auto) 0.2 %; Lymphocytes # (auto) 1.62 K/uL (1.2-3.4); Lymphocytes % (auto) 25.8 %; Mean Corpuscular Hemoglobin 27.5 pg (25-34); Mean Corpuscular Hgb Conc 32.8 g/dL (32-36); Mean Corpuscular Volume 83.8 fL (80-100); Mean Platelet Volume 10.2 fL (7.4-10.4); Monocytes # (auto) 0.46 K/uL (0.11-0.59); Monocytes % (auto) 7.3 %; Neutrophils # (auto) 4.01 K/uL (1.4-6.5); Platelet Count 267 K/uL (130-400); RDW Standard Deviation 46.6 fL (36.4-46.3); Red Blood Count 4.07 M/uL (4.7-6.1); White Blood Count 6.27 K/uL (4.8-10.8)
[2021-07-09 07:00] LABS: BUN Creatinine Ratio 27.5 (10-20); Calcium 8.7 mg/dl (8.5-10.1); Creatinine Clr Calc Pharmacy 137.1 ml/min; Est GFR (African American) 127.8 ml/min; Est GFR (Non-African American) 110.3 ml/min; Magnesium 1.9 mg/dl (1.8-2.4); Potassium 3.4 mmol/L (3.5-5.1)
[2021-07-09 07:15] LABS: Troponin I 0.435 ng/ml (0-0.045)
--- NOTE | 2021-07-09 07:35 | Electrocardiogram Report ---
Test Reason : Blood Pressure : / mmHG Vent. Rate : 102 BPM Atrial Rate : 102 BPM P-R Int : 210 ms QRS Dur : 120 ms QT Int : 372 ms P-R-T Axes : 072 065 098 degrees QTc Int : 484 ms Poor data quality, interpretation may be adversely affected Sinus tachycardia with 1st degree A-V block Possible Left atrial enlargement Cannot rule out Anterior infarct (cited on or before 18-JAN-2021) T wave abnormality, consider lateral ischemia Abnormal ECG When compared with ECG of 19-JAN-2021 13:32, Questionable change in initial forces of Anteroseptal leads Inverted T waves have replaced nonspecific T wave abnormality in Lateral leads Confirmed by Ariel Sun ([id number]) on 07/09/2021 7:35:39 AM Referred By: REFERRED SELF Confirmed By:Ariel Sun
[2021-07-09] MEDS: THIAMINE HCL 300 MG in SODIUM CHLORIDE 0.9% 50 ML IV SCH (07:56)
[2021-07-09] MEDS: DAPTOmycin 275 MG in SYRINGE 0 ML IV SCH (07:57)
[2021-07-09] MEDS: ASPIRIN 81 MG ECTAB PO SCH (07:57)
--- NOTE | 2021-07-09 08:23 | Hospitalist Progress Note ---
Date of Service July 09, 2021 Assessment & Plan (1) Sepsis: Plan: Left leg cellulitis as well as UTI sepsis resolved with volume resuscitation and antibiotics - organ dysfunction- elevated INR, elevated troponin I - Zosyn 3.376 iv q8 hours, Daptomycin 4mg/kg daily (2) Foot ulcer, left: Plan: Probably related to his PAD and sitting in wheel chair - Patient does have sensation to his foot and pain with palpation, tib fib x ray negative - nursing wound care evaluation (3) Peripheral arterial occlusive disease: Plan: history of bilateral SFA occlusions - continue his aspirin - not on statin (4) Cardiomyopathy: Plan: EF from ECHO in 21 25-30%, coreg low dose low bp prevents acei or arb, was on losartan - patient is wheel chair or bed bound majority of his time, consistently has low blood pressure (5) Mitral regurgitation: Plan: moderate per ECHO as above (6) Cognitive dysfunction: Plan: Delirium vs. encephalopathy vs. underlying undiagnosed psych condition -Initially there was a discussion of competency in psychiatric evaluation. I feel the patient is aware of his situation and the consequences of his decisions just does not agreeable to medical recommendations at this time. Specifically denying recommendation is for higher level of care to heal his wounds - adult protective services is following - case management consult placed- (7) Increased ammonia level: Plan: Unsure of etiology here as his liver function is normal - 46- reassess in morning - liver ultrasound normal parenchyma (8) Elevated troponin: Plan: chronically elevated, likely demand ischemia from high heart rates, - continue asa - continue carvedilol in the morning following hemodynamics (9) Leg wound, left: Plan: As above- cleanse with soap and water and cover with telfa pads and kerlex (10) Sacral decubitus ulcer, stage III: Plan: Clean with soap and water- Mepilex or Optifoam for padding/protection - keep skin dry- condom cath placement - barrier cream - wound care consult - rotate every 2 hours - optimize nutrition/supplementation Admission and Anticipated Discharge Date Admission Date: July 08, 2021 Subjective Patient is seen laying on his side he is in a chronically contracted position he has open sores on his legs and buttocks area. He has been refusing elevated levels of care. Reportedly [place] association of aging is involved. The patient however did have a psychiatric consultation but the patient is aware of his condition and understands the consequences of his decisions he just is contrary to medical advice Review of Systems Review of Systems: Mild distress and fatigue he is very thin and emaciated no headache, no visual changes no speech or swallowing issues no chest pain, pressure or palpitations no shortness of breath, cough or wheezes no abdominal pain, nausea or vomiting, diarrhea or constipation no dysuria, hematuria or frequency Patient is leg pain back pain contractures open areas on his heels and shins and cubitus ulcers are present no focal signs of weakness or numbness or altered sensation no complaints of anxiety or depression.. Physical Exam Physical Exam: The patient appeared well nourished and normally developed. Vital signs as documented. Head exam is normocephalic atraumatic Neck is without JVD, thyromegaly, or carotid bruits. Lungs are clear to auscultation, minutes at the bases Cardiac exam, Rhythm is regular.. Systolic ejection murmur is heard Abdominal exam reveals normal bowel sounds, soft non tender, no masses Extremities are open sores to his lateral feet mid shins Neurologic exam is alert and oriented, no focal loss of strength or sensation Skin is with buttocks decubitus ulcers present on admission likely stage II but will await further discernment from wound care nursing Psychologically is without concerns for anxiety or depression Results & Data Results & Data ([facility]) Vital Signs (Past 12 Hours) Vital Signs Temp Pulse Resp BP Pulse Ox 07/09/21 07:40 97.9 F 80 18 95/57 L 95 07/09/21 03:58 100.2 F H 78 16 90/49 L 94 07/08/21 23:56 97.9 F 82 16 80/49 L 93 PG Care Time/CCT Total # of Minutes Spent Total Time Spent with Patient: Total time spent is greater than 50% in coordination of care (as documented) at patient's floor/unit and/or counseling patient: Coding Level of Care Code 68924 Subseq Hosp Care Lvl 3 Diagnoses Sepsis A41.9 Sepsis acute organ dysfunction status: unspecified Sepsis type: sepsis due to unspecified organism Foot ulcer, left L97.529 Peripheral arterial occlusive disease I77.9 Cardiomyopathy I42.9 Mitral regurgitation I34.0 Cognitive dysfunction F09 Increased ammonia level R79.89 Elevated troponin R77.8 Leg wound, left S81.802A Sacral decubitus ulcer, stage III L89.153 (1) Sepsis Sepsis acute organ dysfunction status: unspecified Sepsis type: sepsis due to unspecified organism Qualified Code(s): A41.9 - Sepsis, unspecified organism
[2021-07-09] MEDS: POTASSIUM CHLORIDE CRTAB 20 MEQ TABCR PO SCH ×2 (09:58→21:17)
[2021-07-09] MEDS: ENOXAPARIN INJ 40 MG/0.4 ML SYR SQ SCH (21:15)
[2021-07-09] MEDS: carvediloL 3.125 MG TAB PO SCH (21:17)
[2021-07-10] MEDS: PIPERACILLIN/TAZOBACTAM 3.375 GM in DEXTROSE 5% 100 ML IV SCH (04:00)
[2021-07-10 06:47] LABS: Basophils # (auto) 0.08 K/uL (0-0.2); Basophils % (auto) 1.1 %; Eosinophils # (auto) 0.13 K/uL (0-0.5); Eosinophils % (auto) 1.8 %; Hematocrit (blood only) 35.8 % (42-52); Hemoglobin 11.9 g/dL (14.0-18.0); Immature Granulocytes # (auto) 0.02 K/uL (0.00-0.02); Immature Granulocytes % (auto) 0.3 %; Lymphocytes # (auto) 1.54 K/uL (1.2-3.4); Lymphocytes % (auto) 21.8 %; Mean Corpuscular Hemoglobin 27.9 pg (25-34); Mean Corpuscular Hgb Conc 33.2 g/dL (32-36); Mean Corpuscular Volume 83.8 fL (80-100); Mean Platelet Volume 10.7 fL (7.4-10.4); Monocytes % (auto) 12.7 %; Neutrophils # (auto) 4.41 K/uL (1.4-6.5); Neutrophils % (auto) 62.3 %; Platelet Count 281 K/uL (130-400); RDW Coefficient of Variation 15.2 % (11.5-14.5); RDW Standard Deviation 46.7 fL (36.4-46.3); Red Blood Count 4.27 M/uL (4.7-6.1); White Blood Count 7.08 K/uL (4.8-10.8)
[2021-07-10 07:23] LABS: BUN Creatinine Ratio 34.5 (10-20); Calcium 8.7 mg/dl (8.5-10.1); Creatinine Clr Calc Pharmacy 142.5 ml/min; Est GFR (African American) 129.8 ml/min; Magnesium 1.9 mg/dl (1.8-2.4)
--- NOTE | 2021-07-10 07:44 | Electrocardiogram Report ---
Test Reason : Blood Pressure : / mmHG Vent. Rate : 089 BPM Atrial Rate : 089 BPM P-R Int : 202 ms QRS Dur : 118 ms QT Int : 390 ms P-R-T Axes : 085 052 119 degrees QTc Int : 474 ms Normal sinus rhythm Possible Left atrial enlargement Anteroseptal infarct (cited on or before 18-JAN-2021) Abnormal ECG When compared with ECG of 08-JUL-2021 12:29, Questionable change in initial forces of Anteroseptal leads Confirmed by Avel Nicole ([id number]) on 07/10/2021 7:43:34 AM Referred By: REFERRED SELF Confirmed By:Avel Nicole
[2021-07-10] MEDS: cefTRIAXone SODIUM 2,000 MG in DEXTROSE 5% 50 ML IV SCH (09:58)
[2021-07-10] MEDS: MULTIVITAMIN CHEWABLE TAB PO SCH (10:01)
[2021-07-10] MEDS: ASPIRIN 81 MG ECTAB PO SCH (10:01)
[2021-07-10] MEDS: POTASSIUM CHLORIDE CRTAB 20 MEQ TABCR PO SCH (10:01)
[2021-07-10] MEDS: carvediloL 3.125 MG TAB PO SCH (10:01)
[2021-07-10] MEDS: ASCORBIC ACID 500 MG TAB PO SCH (10:01)
[2021-07-10] MEDS: DAPTOmycin 275 MG in SYRINGE 0 ML IV SCH (10:08)
[2021-07-10] MEDS: THIAMINE HCL 300 MG in SODIUM CHLORIDE 0.9% 50 ML IV SCH (10:08)
--- NOTE | 2021-07-10 16:18 | Hospitalist Progress Note ---
Date of Service July 10, 2021 Assessment & Plan (1) Sepsis: Plan: Left leg cellulitis as well as UTI sepsis resolved with volume resuscitation and antibiotics - organ dysfunction- elevated INR, elevated troponin I due to demand ischemia urine shows 80,000 pansensitive proteus, blood cultures negative to date - Zosyn 3.376 iv q8 hours, Daptomycin 4mg/kg daily (2) Foot ulcer, left: Plan: Probably related to his PAD and sitting in wheel chair - Patient does have sensation to his foot and pain with palpation, tib fib x ray negative - nursing wound care evaluation (3) Peripheral arterial occlusive disease: Plan: history of bilateral SFA occlusions - continue his aspirin - not on statin (4) Cardiomyopathy: Plan: EF from ECHO in 21 25-30%, coreg low dose low bp prevents acei or arb, was on losartan - patient is wheel chair or bed bound majority of his time, consistently has low blood pressure, remains asymptomatic with this (5) Mitral regurgitation: Plan: moderate per ECHO as above (6) Increased ammonia level: Plan: Unsure of etiology here as his liver function is normal - 46- reassess in morning - liver ultrasound normal parenchyma (7) Elevated troponin: Plan: chronically elevated, likely demand ischemia from high heart rates, - continue asa - continue carvedilol in the morning following hemodynamics (8) Leg wound, left: Plan: As above- cleanse with soap and water and cover with telfa pads and kerlex (9) Sacral decubitus ulcer, stage III: Plan: Clean with soap and water- Mepilex or Optifoam for padding/protection - keep skin dry- condom cath placement - barrier cream - wound care consult - rotate every 2 hours - optimize nutrition/supplementation Admission and Anticipated Discharge Date Admission Date: July 08, 2021 Subjective Patient is seen laying on his side he is in a chronically contracted position he has open sores on his legs and buttocks area. Pt is typically wheel chair bound at home, has refused suggestion for snf care. Reportedly [facility] association of aging is involved. The patient is aware of his condition and understands the consequences of his decisions he just is contrary to medical advice Review of Systems Review of Systems: Mild distress and fatigue he is very thin and emaciated no headache, no visual changes no speech or swallowing issues no chest pain, pressure or palpitations no shortness of breath, cough or wheezes no abdominal pain, nausea or vomiting, diarrhea or constipation no dysuria, hematuria or frequency Patient is leg pain back pain contractures open areas on his heels and shins and cubitus ulcers are present no focal signs of weakness or numbness or altered sensation no complaints of anxiety or depression.. Physical Exam Physical Exam: The patient appeared well nourished and normally developed. Vital signs as documented. Head exam is normocephalic atraumatic Neck is without JVD, thyromegaly, or carotid bruits. Lungs are clear to auscultation, minutes at the bases Cardiac exam, Rhythm is regular.. Systolic ejection murmur is heard Abdominal exam reveals normal bowel sounds, soft non tender, no masses Extremities are open sores to his lateral feet mid shins Neurologic exam is alert and oriented, no focal loss of strength or sensation Skin is with buttocks decubitus ulcers present on admission likely stage II but will await further discernment from wound care nursing Psychologically is without concerns for anxiety or depression Results & Data Results & Data ([facility]) Vital Signs (Past 12 Hours) Vital Signs Temp Pulse Pulse Resp BP BP Pulse Ox 07/10/21 15:36 97.5 F L 83 25 H 96/64 L 97 07/10/21 11:19 97.5 F L 72 26 H 81/43 L 95 07/10/21 08:00 82 07/10/21 07:23 97.7 F 85 19 117/75 93 PG Care Time/CCT Total # of Minutes Spent Total Time Spent with Patient: Total time spent is greater than 50% in coordination of care (as documented) at patient's floor/unit and/or counseling patient: Coding Level of Care Code 58154 Subseq Hosp Care Lvl 3 Diagnoses Sepsis A41.9 Sepsis acute organ dysfunction status: unspecified Sepsis type: sepsis due to unspecified organism Foot ulcer, left L97.529 Peripheral arterial occlusive disease I77.9 Cardiomyopathy I42.9 Mitral regurgitation I34.0 Increased ammonia level R79.89 Elevated troponin R77.8 Leg wound, left S81.802A Sacral decubitus ulcer, stage III L89.153 (1) Sepsis Sepsis acute organ dysfunction status: unspecified Sepsis type: sepsis due to unspecified organism Qualified Code(s): A41.9 - Sepsis, unspecified organism
[2021-07-10] MEDS: ENOXAPARIN INJ 40 MG/0.4 ML SYR SQ SCH (19:52)
--- NOTE | 2021-07-10 22:50 | Electrocardiogram Report ---
Test Reason : Blood Pressure : / mmHG Vent. Rate : 088 BPM Atrial Rate : 088 BPM P-R Int : 202 ms QRS Dur : 114 ms QT Int : 380 ms P-R-T Axes : 074 063 104 degrees QTc Int : 459 ms Normal sinus rhythm Possible Left atrial enlargement Septal infarct (cited on or before 18-JAN-2021) Abnormal ECG When compared with ECG of 09-JUL-2021 00:04, Questionable change in initial forces of Anterior leads ST no longer elevated in Anterior leads T wave inversion now evident in Anterior leads Confirmed by Avel Nicole ([id number]) on 07/10/2021 10:49:54 PM Referred By: REFERRED SELF Confirmed By:Avel Nicole
--- NOTE | 2021-07-11 06:08 | Electrocardiogram Report ---
Test Reason : Blood Pressure : / mmHG Vent. Rate : 083 BPM Atrial Rate : 083 BPM P-R Int : 212 ms QRS Dur : 120 ms QT Int : 404 ms P-R-T Axes : 067 055 086 degrees QTc Int : 474 ms Sinus rhythm with 1st degree A-V block with Premature atrial complexes Possible Left atrial enlargement Left bundle branch block Abnormal ECG When compared with ECG of 09-JUL-2021 18:03, Premature atrial complexes are now Present Confirmed by Avel Nicole ([id number]) on 07/11/2021 6:08:33 AM Referred By: REFERRED SELF Confirmed By:Avel Nicole
[2021-07-11 08:13] LABS: Basophils # (auto) 0.07 K/uL (0-0.2); Basophils % (auto) 0.8 %; Eosinophils # (auto) 0.22 K/uL (0-0.5); Eosinophils % (auto) 2.7 %; Hematocrit (blood only) 36.7 % (42-52); Hemoglobin 12.1 g/dL (14.0-18.0); Immature Granulocytes # (auto) 0.04 K/uL (0.00-0.02); Immature Granulocytes % (auto) 0.5 %; Lymphocytes # (auto) 1.83 K/uL (1.2-3.4); Lymphocytes % (auto) 22.1 %; Mean Corpuscular Hemoglobin 27.5 pg (25-34); Mean Corpuscular Volume 83.4 fL (80-100); Mean Platelet Volume 10.7 fL (7.4-10.4); Monocytes % (auto) 7.2 %; Neutrophils # (auto) 5.53 K/uL (1.4-6.5); Neutrophils % (auto) 66.7 %; Platelet Count 315 K/uL (130-400); RDW Standard Deviation 45.8 fL (36.4-46.3); White Blood Count 8.29 K/uL (4.8-10.8)
[2021-07-11] MEDS: cefTRIAXone SODIUM 2,000 MG in DEXTROSE 5% 50 ML IV SCH (08:39)
[2021-07-11] MEDS: DAPTOmycin 275 MG in SYRINGE 0 ML IV SCH (08:40)
[2021-07-11] MEDS: THIAMINE HCL 300 MG in SODIUM CHLORIDE 0.9% 50 ML IV SCH (08:40)
[2021-07-11] MEDS: MULTIVITAMIN CHEWABLE TAB PO SCH (08:41)
[2021-07-11] MEDS: ASCORBIC ACID 500 MG TAB PO SCH (08:41)
[2021-07-11] MEDS: ASPIRIN 81 MG ECTAB PO SCH (08:41)
[2021-07-11 08:48] LABS: BUN Creatinine Ratio 33.5 (10-20); Calcium 9.2 mg/dl (8.5-10.1); Creatinine Clr Calc Pharmacy 148.3 ml/min; Est GFR (Non-African American) 113.9 ml/min; Magnesium 1.9 mg/dl (1.8-2.4); Potassium 4.2 mmol/L (3.5-5.1)
--- NOTE | 2021-07-11 09:19 | Hospitalist Progress Note ---
Date of Service July 11, 2021 Assessment & Plan (1) Sepsis: Plan: Technicall met SIRS criteria for respiratory rate and heart rate. But not significant WBC or temperature making diagnosis questionable. Suspected source of infection urine (pansensitive proteus) +/- LLE cellulitis +/- pneumonia (on CT) Increased troponin suspected secondary to demand ischemia in setting of hypotension and infection Blood cultures negative to date - Continue Ceftriaxone + Daptomycin (2) Foot ulcer, left: Plan: Probably related to his PAD and sitting in wheel chair - Patient does have sensation to his foot and pain with palpation, tib fib x ray negative - nursing wound care evaluation (3) Peripheral arterial occlusive disease: Plan: history of bilateral SFA occlusions - continue his aspirin - not on statin (4) Cardiomyopathy: Plan: EF from ECHO in 21 25-30%, coreg low dose low bp prevents acei or arb, was on losartan - patient is wheel chair or bed bound majority of his time, consistently has low blood pressure, remains asymptomatic with this (5) Mitral regurgitation: Plan: moderate per ECHO as above (6) Increased ammonia level: Plan: Unsure of etiology here as his liver function is normal - 46- reassess in morning - liver ultrasound normal parenchyma (7) Elevated troponin: Plan: chronically elevated, likely demand ischemia from high heart rates, - continue asa - continue carvedilol in the morning following hemodynamics (8) Leg wound, left: Plan: As above- cleanse with soap and water and cover with telfa pads and kerlex (9) Sacral decubitus ulcer, stage III: Plan: Clean with soap and water- Mepilex or Optifoam for padding/protection - keep skin dry- condom cath placement - barrier cream - wound care consult - rotate every 2 hours - optimize nutrition/supplementation Admission and Anticipated Discharge Date Admission Date: July 08, 2021 Subjective Patient previously been determined to have capacity to make his medical decisions by previous doctors. He appears to have little insight into his ability to operate at home however. Requiring two assist for transfers and at home he will be alone. OT assessment determined he is not safe to return home therefore unable to safely discharge him at this time. He reports being home only two days from [place]. Indicates he does not wish to go back to rehabilitation. Review of Systems Review of Systems: All systems reviewed & are unremarkable except as noted in HPI & below Physical Exam Constitutional: + frail appearing and + disheveled ENMT: Mouth: + dry oral mucous membranes Respiratory: normal respiratory effort and + prolonged expiratory phase; does not use accessory muscles Auscultation: + diminished lung sounds and + rhonchi Cardiovascular: Rate/Rhythm: regular rate and regular rhythm Heart Sounds: normal S1 and normal S2 Gastrointestinal (Abdomen): Inspection/Auscultation: abdomen normal to inspection and normal bowel sounds Skin: + ulcer (LLE heel without surrounding cellulitis, buttocks) and + erythema (LLE cellulitis present around lamb) Psychiatric: Orientation: alert and oriented x 3 Insight: + impaired insight Results & Data Results & Data ([facility]) Vital Signs (Past 12 Hours) Vital Signs Temp Pulse Resp BP BP Pulse Ox 07/11/21 07:09 36.6 C 77 20 115/74 96 07/10/21 22:42 36.5 C 90 18 124/86 97 PG Care Time/CCT Total # of Minutes Spent Total Time Spent with Patient: Total time spent is greater than 50% in coordination of care (as documented) at patient's floor/unit and/or counseling patient: Coding Level of Care Code 86920 Subseq Hosp Care Lvl 2 Diagnoses Sepsis A41.9 Sepsis acute organ dysfunction status: unspecified Sepsis type: sepsis due to unspecified organism Foot ulcer, left L97.529 Peripheral arterial occlusive disease I77.9 Cardiomyopathy I42.9 Mitral regurgitation I34.0 Increased ammonia level R79.89 Elevated troponin R77.8 Leg wound, left S81.802A Sacral decubitus ulcer, stage III L89.153 (1) Sepsis Sepsis acute organ dysfunction status: unspecified Sepsis type: sepsis due to unspecified organism Qualified Code(s): A41.9 - Sepsis, unspecified organism
--- NOTE | 2021-07-11 11:25 | Palliative Care Consultation ---
Date of Consultation July 11, 2021 Assessment & Plan (1) Palliative care encounter: Mr. Jaskaran Hankins is a 66 year old male who presented to the [facility] ED with leg pain that he has been experiencing for a few months. Mr. Hankins has a PMH that includes a CVA and CABG in 2008. He had a recent hospitalization in January 2021. He is a current smoker and has a known 40 pack year history. Subsequently, he has pretty severe PAD/PVD and an EF of 20-25%, along with severe mitral regurgitation. He has been overall non compliant with medications and appointments and overall resistant to the medical arena. He has indicated numerous times to providers that he just wants to return home, this is consistent to previous interactions with him. Palliative care was consulted to discuss and outline goals for this individual. I met with Jaskaran in room 379-2. He was lying in his bed in no apparent distress, although is ill-appearing, disheveled and showing signs of moderate cachexia. His left leg was contracted and he mentioned that it has been since his stroke, but does seem to be getting more 'stiff'. I asked him how he gets around his home, which he described was a 24 x 40 mobile home. He stated that he 'wall walks' and 'furniture walks'. I asked him to elaborate and he said that he holds on to the wall and shuffles around the house. I asked if his left leg is able to touch the floor and he said his toes sometimes touch. He states that he has 4 adult children: Alice, Austin, Jaskaran, and Zay. All live within 30 minutes of him and provide him with his groceries, cleaning and transportation if necessary. He states that he bathes himself and does his own cleaning; however, I suspect this is a difficult and occasional task for him to complete independently. 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 Asked if I could call his children and he declined at this time. Patient to remain a full code per his wishes at this time. Throughout the conversation, his overall affect was flat and even had reminded me of an anhedonic state. I suspect he has some underlying depression, but with his non compliance would have hesitation on starting him on any mood stabilizing agents. He has been evaluated by Psychiatry and has been deemed to have decision making capacity. Last admission, he was reluctantly open to going to [facility], but he was discharged home just 'a few days ago'. I do have concerns of him returning to his home environment as it is clear he is unable to care for himself appropriately and his physical needs are relatively great. [facility] is now involved and he will be receiving Home Health services. Case discussed with Dr. Suazo. Please contact us should there be any other support we can provide. (2) Weakness: (3) COPD (chronic obstructive pulmonary disease): (4) Sacral decubitus ulcer, stage III: (5) Severe protein-calorie malnutrition: History of Present Illness Reason for Consultation: Goals of care Requesting Physician: Dr. Suazo Attending Physician: Abhijit Suazo MD History of Present Illness Mr. Jaskaran Hankins is a 66 year old male who presented to the [facility] ED with leg pain that he has been experiencing for a few months. Mr. Hankins has a PMH that includes a CVA and CABG in 2008. He had a recent hospitalization in January 2021. He is a current smoker and has a known 40 pack year history. Subsequently, he has pretty severe PAD/PVD and an EF of 20-25%, along with severe mitral regurgitation. He has been overall non compliant with medications and appointments and overall resistant to the medical arena. He has indicated numerous times to providers that he just wants to return home, this is consistent to previous interactions with him. Palliative care was consulted to discuss and outline goals for this individual. Please see A/P for further details. Thanks for involving Palliative Medicine with this individual. Allergies Allergy/AdvReac Type Severity Reaction Status Date / Time No Known Allergies Allergy Unverified 01/18/21 19:52 Home Medications Medication Instructions Recorded Confirmed Type aspirin 81 mg tablet,delayed 81 mg PO DAILY 01/18/21 01/18/21 History release carvedilol 3.125 mg tablet 3.125 mg PO BID #0 tab 02/04/21 Rx cephalexin 500 mg capsule 500 mg PO QID #0 cap 02/04/21 Rx diclofenac sodium 1 % topical gel 4 g EXT Q8H PRN #0 g 02/04/21 Rx (Voltaren) losartan 50 mg tablet 50 mg PO QAM #0 tab 02/04/21 Rx Patient History Medical History (Updated 07/11/21 @ 13:46 by BRII Burgess) Delirium Dyspnea Hx of myocardial infarction Hx of stroke without residual deficits No pertinent past medical history Palliative care encounter Palliative care encounter Peripheral arterial occlusive disease Sepsis Severe protein-calorie malnutrition Weakness Social History Smoking Status: Former smoker Hx Alcohol Use: No Hx Substance Use: No Preferred Language: Puerto [place]ican Communication Ability: Effective Beliefs That Will Affect Care: None marital status: Current Living Situation: Alone Current Living Situation Comment: unable to access How many Children do You have: 2 Feels Safe at Home: Yes Assistive Devices: None Review of Systems Review of Systems: [place] [facility] Assessment Scale: Pain: 1/3 SOB: 0/3 Anxiety: 0/3 Tiredness: 1/3 Lack of appetite: 2/3 Palliative Performance Scale: 30% Physical Exam Constitutional: + frail appearing and + disheveled ENMT: Mouth: + dry oral mucous membranes Respiratory: normal respiratory effort; does not use accessory muscles Auscultation: + diminished lung sounds and + rhonchi Cardiovascular: Rate/Rhythm: regular rate and regular rhythm Heart Sounds: normal S1 and normal S2 Gastrointestinal (Abdomen): Inspection/Auscultation: abdomen normal to inspection and normal bowel sounds Skin: + lesion, + induration, + skin tightening, + dry skin and + erythema Psychiatric: Orientation: alert and oriented x 3 Insight: + poor insight Judgement: + poor judgement Results & Data ([facility]) Vital Signs (Past 12 Hours) Vital Signs Temp Pulse Resp BP Pulse Ox 07/11/21 07:09 36.6 C 77 20 115/74 96 PG Care Time/CCT Total # of Minutes Spent Total Time Spent with Patient: Total time spent is greater than 50% in coordination of care (as documented) at patient's floor/unit and/or counseling patient: 30 minutes with >50% of that time spent assessing the patient, discussing goals of care, and collaborating with IDT Coding Level of Care Code 91424 Initial Inpt Care Lvl 1 Diagnoses Palliative care encounter Z51.5 Weakness R53.1 COPD (chronic obstructive pulmonary disease) J44.9 Sacral decubitus ulcer, stage III L89.153 Severe protein-calorie malnutrition E43 Time Spent (min) 30
[2021-07-11] MEDS: ENOXAPARIN INJ 40 MG/0.4 ML SYR SQ SCH (20:09)
[2021-07-12] MEDS: ASCORBIC ACID 500 MG TAB PO SCH (08:44)
[2021-07-12] MEDS: ASPIRIN 81 MG ECTAB PO SCH (08:44)
[2021-07-12] MEDS: MULTIVITAMIN CHEWABLE TAB PO SCH (08:44)
[2021-07-12] MEDS: THIAMINE HCL 100 MG TAB PO SCH (08:44)
[2021-07-12] MEDS: cefTRIAXone SODIUM 2,000 MG in DEXTROSE 5% 50 ML IV SCH (08:46)
[2021-07-12] MEDS: DAPTOmycin 275 MG in SYRINGE 0 ML IV SCH (08:47)
[2021-07-12] MEDS: ENOXAPARIN INJ 40 MG/0.4 ML SYR SQ SCH (20:34)
--- NOTE | 2021-07-12 23:38 | Hospitalist Progress Note ---
Date of Service July 12, 2021 Assessment & Plan (1) Sepsis: Plan: Technically met SIRS criteria for respiratory rate and heart rate. But not significant WBC or temperature making diagnosis questionable. Suspected source of infection urine (pansensitive proteus) +/- LLE cellulitis +/- pneumonia (on CT) Increased troponin suspected secondary to demand ischemia in setting of hypotension and infection Blood cultures negative to date - Continue Ceftriaxone + Daptomycin, switch to Keflex + doxycycline tomorrow. (2) Foot ulcer, left: Plan: Probably related to his PAD and sitting in wheel chair - Patient does have sensation to his foot and pain with palpation, tib fib x ray negative - nursing wound care evaluation (3) Peripheral arterial occlusive disease: Plan: history of bilateral SFA occlusions - continue his aspirin - not on statin (4) Cardiomyopathy: Plan: EF from ECHO in 21 25-30%, coreg low dose low bp prevents acei or arb, was on losartan - patient is wheel chair or bed bound majority of his time, consistently has low blood pressure, remains asymptomatic with this (5) Mitral regurgitation: Plan: moderate per ECHO as above (6) Increased ammonia level: Plan: Unsure of etiology here as his liver function is normal - 46- reassess in morning - liver ultrasound normal parenchyma (7) Elevated troponin: Plan: chronically elevated, likely demand ischemia from high heart rates, - continue asa (8) Leg wound, left: Plan: Appreciate wound care assessment (9) Sacral decubitus ulcer, stage III: Plan: Clean with soap and water- Mepilex or Optifoam for padding/protection - keep skin dry- condom cath placement - barrier cream - wound care consult - rotate every 2 hours - optimize nutrition/supplementation Plan: Disposition - difficult disposition. Now off antibiotics and cellulitis improving suspect we can switch him over to oral antibiotics. Previous providers felt he has capacity to make decisions for discharge although his insight is very limited as he only managed to spend two days at home prior to admission to hospital. Given clearly he is unsafe for discharge but has capacity to make this decision he would have to leave against medical advice in order to be discharged home not to a SNF at this stage. He declines this currently therefore will continue to work with him as inpatient. Admission and Anticipated Discharge Date Admission Date: July 08, 2021 Subjective Again has limited insight into his medical conditions. Tells me he just doesn't want to have an argument about his mobility and transfer ability again. Did not work with OT today. Still requiring 2 assist for transfer per RN. Significant leg and buttocks pain on any movement. We discussed need to work with occupational therapy otherwise he would be leaving against medical advice. Review of Systems Review of Systems: All systems reviewed & are unremarkable except as noted in HPI & below Physical Exam Constitutional: + frail appearing and + disheveled ENMT: Mouth: + dry oral mucous membranes Respiratory: normal respiratory effort and + prolonged expiratory phase; does not use accessory muscles Auscultation: + diminished lung sounds and + rhonchi Cardiovascular: Rate/Rhythm: regular rate and regular rhythm Heart Sounds: normal S1 and normal S2 Gastrointestinal (Abdomen): Inspection/Auscultation: abdomen normal to inspection and normal bowel sounds Skin: + ulcer (LLE heel without surrounding cellulitis, buttocks) and + erythema (LLE cellulitis present around lamb) Psychiatric: Orientation: alert and oriented x 3 Insight: + impaired insight Results & Data Results & Data ([facility]) Vital Signs (Past 12 Hours) Vital Signs Temp Pulse Resp BP BP Pulse Ox 07/12/21 23:03 96 07/12/21 23:02 36.5 C 82 20 118/66 85 L 07/12/21 15:17 36.6 C 77 16 101/58 L 98 PG Care Time/CCT Total # of Minutes Spent Total Time Spent with Patient: Total time spent is greater than 50% in coordination of care (as documented) at patient's floor/unit and/or counseling patient: Coding Level of Care Code 79366 Subseq Hosp Care Lvl 2 Diagnoses Sepsis A41.9 Sepsis acute organ dysfunction status: unspecified Sepsis type: sepsis due to unspecified organism Foot ulcer, left L97.529 Peripheral arterial occlusive disease I77.9 Cardiomyopathy I42.9 Mitral regurgitation I34.0 Increased ammonia level R79.89 Elevated troponin R77.8 Leg wound, left S81.802A Sacral decubitus ulcer, stage III L89.153 (1) Sepsis Sepsis acute organ dysfunction status: unspecified Sepsis type: sepsis due to unspecified organism Qualified Code(s): A41.9 - Sepsis, unspecified organism
[2021-07-13] MEDS: THIAMINE HCL 100 MG TAB PO SCH (09:17)
[2021-07-13] MEDS: ASPIRIN 81 MG ECTAB PO SCH (09:17)
[2021-07-13] MEDS: ASCORBIC ACID 500 MG TAB PO SCH (09:17)
[2021-07-13] MEDS: DOXYCYCLINE HYCLATE 100 MG CAP PO SCH ×2 (09:18→21:04)
[2021-07-13] MEDS: MULTIVITAMIN CHEWABLE TAB PO SCH (09:18)
[2021-07-13] MEDS: cephALEXin 500 MG CAP PO SCH ×4 (09:18→21:04)
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
[2021-07-13] MEDS: ENOXAPARIN INJ 40 MG/0.4 ML SYR SQ SCH (21:05)
[2021-07-14] MEDS: DOXYCYCLINE HYCLATE 100 MG CAP PO SCH (08:52)
[2021-07-14] MEDS: THIAMINE HCL 100 MG TAB PO SCH (08:52)
[2021-07-14] MEDS: cephALEXin 500 MG CAP PO SCH ×2 (08:52→14:11)
[2021-07-14] MEDS: ASPIRIN 81 MG ECTAB PO SCH (08:52)
[2021-07-14] MEDS: ASCORBIC ACID 500 MG TAB PO SCH (08:53)
[2021-07-14] MEDS: MULTIVITAMIN CHEWABLE TAB PO SCH (08:53)
--- NOTE | 2021-07-14 18:21 | Discharge Summary ---
Date of Service July 14, 2021 Admission HPI Per Admitting Provider 66 YOM with history of: delirium/encephalopathy, dyspnea, cardiomyopathy with HFrEF (Ef 25-30%), PAD, CVA, wheel chair bound, poor nutrition, and poor self care. Patient comes in today after he reports he was trying to crawl up over his wheel chair and fell. He reportedly lives at home by himself. In the EMD he is noted to have likely cellulitis of his left leg, left heel ulceration, right leg ulceration, and stage II ulcer to his buttocks. The patient has poor hygiene and disheveled appearance. He had multiple radiological films performed that are negative for acute fractures. His CK is not elevated. The patient has obvious cellulitis of his left lower leg as well as a UTI, he is moderately hypotensive with MAPS in 60. Patient will be admitted to the PCU for continual resuscitation and treatment of his sepsis. The patient is also noted to have a mildly elevated troponin I at 0.302 as well as mildly elevated ammonia 43.6. The patient says he still drinks alcohol but doesn't know how much or when. Toxicology screen is sent and his alcohol level is <3.0 on admission. He will be given IV bolus over a couple of hours for hemodynamic support. The patient is alert and oriented to person and place, but regarding his history he is not making much cognitive sense during the HPI. He does state he wants to be full code and I did speak with his daughter Vita and she is not sure what he would want done in the event of an emergency, and has not had any POA discussions or official documents. Adult protective services is now following this patient. Psych will be consulted to officially assess for competency. Principal Diagnosis 1. Respiratory distress 2. Sepsis Syndrome (tachypnea and tachycardia) 3. Left Foot Ulcer with presumed cellulitis 4. Known Peripheral Arterial Occlusion (B/L SFA Occlusions) 5 . Elevated ammonia level 6. Elevated troponin (chronic)likely supply demand ischemia from underlying COPD/respiratory issues and severe LV dysfunction 7. Medical noncompliance 8. Behavioral agitation and combativeness Discharge Exam Exam limited due to level of cooperation General: When I first walked into the room, patient was in moderate respiratory distress. His breathing was labored, he had audible rhonchi at bedside. I immediately called for the nurse who reports patient has been intermittently this way for the past 3 days. Pulse ox 93% on room air. Patient excessively somnolent but arousable. Coughed and cleared some of the audible rhonchi. Heart: Very distant Lungs: See above. Patient with conversational dyspnea gasping after every 2-3 words. Again, audible rhonchi at bedside that improves but does not clear with coughing. Significantly diminished breath sounds throughout with bibasilar rales and rhonchi that mobilizes with coughing As I continued my exam, patient became more irate and combative and would not limit complete knee exam. Did not get to assess his lower extremities When attempting to assess cognitive function, he seemed mentally clear. Again, cooperation is limited as he is extremely irate and combative. Swearing repeatedly. When asked about place, he reports that he is in the hospital. When asked his name, he reports "Ilia Hyman". When I asked him if he was being serious or facetious he said "I am being a bitch just like you". He does report that "Dr. Suazo has been seeing him every day and had things set up for him to go today and now you are coming in here and messing it up" (although he uses foul language throughout this interaction). I was in and out of his room multiple times throughout the course of the day and recalls that I have been "in his room 5 times and all I do it talk" (this is accurate that I was in his room 5x) Multiple times, he became combative and attempted to through his water pitcher and his phone at nc. Discharge Data Allergies Allergy/AdvReac Type Severity Reaction Status Date / Time No Known Allergies Allergy Unverified 01/18/21 19:52 Consultations 07/08/21 14:59 ED Decision to Admit Stat 07/11/21 09:18 Consult Palliative Care Routine (1) Palliative care encounter: Mr. Jaskaran Hankins is a 66 year old male who presented to the [facility] ED with leg pain that he has been experiencing for a few months. Mr. Hankins has a PMH that includes a CVA and CABG in 2008. He had a recent hospitalization in January 2021. He is a current smoker and has a known 40 pack year history. Subsequently, he has pretty severe PAD/PVD and an EF of 20-25%, along with severe mitral regurgitation. He has been overall non compliant with medications and appointments and overall resistant to the medical arena. He has indicated numerous times to providers that he just wants to return home, this is consistent to previous interactions with him. Palliative care was consulted to discuss and outline goals for this individual. I met with Jaskaran in room 379-2. He was lying in his bed in no apparent distress, although is ill-appearing, disheveled and showing signs of moderate cachexia. His left leg was contracted and he mentioned that it has been since his stroke, but does seem to be getting more 'stiff'. I asked him how he gets around his home, which he described was a 24 x 40 mobile home. He stated that he 'wall walks' and 'furniture walks'. I asked him to elaborate and he said that he holds on to the wall and shuffles around the house. I asked if his left leg is able to touch the floor and he said his toes sometimes touch. He states that he has 4 adult children: Alice, Austin, Jaskaran, and Zay. All live within 30 minutes of him and provide him with his groceries, cleaning and transportation if necessary. He states that he bathes himself and does his own cleaning; however, I suspect this is a difficult and occasional task for him to complete independently. 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 Asked if I could call his children and he declined at this time. Patient to remain a full code per his wishes at this time. Throughout the conversation, his overall affect was flat and even had reminded me of an anhedonic state. I suspect he has some underlying depression, but with his non compliance would have hesitation on starting him on any mood stabilizing agents. He has been evaluated by Psychiatry and has been deemed to have decision making capacity. Last admission, he was reluctantly open to going to [facility], but he was discharged home just 'a few days ago'. I do have concerns of him returning to his home environment as it is clear he is unable to care for himself appropriately and his physical needs are relatively great. [facility] is now involved and he will be receiving Home Health services. Case discussed with Dr. Suazo. Please contact us should there be any other support we can provide. (2) Weakness: (3) COPD (chronic obstructive pulmonary disease): (4) Sacral decubitus ulcer, stage III: (5) Severe protein-calorie malnutrition: Ordered Studies 07/08/21 13:06 CT abd pelvis IV con only Stat IMPRESSION: 1. Exam mildly compromised given difficulty positioning. No acute rheumatic findings identified. 2. No change in prominent retroperitoneal lymph nodes since CT of January 20, 2021. These are indeterminate but probably benign. 3. No bowel obstruction. 4. Bladder wall thickening which could be correlated with urinalysis. CT cervical spine wo con Stat IMPRESSION: 1. There is no evidence of fracture or subluxation involving the cervical spine. 2. Osteopenia and spondylotic change as above. 3. Emphysema. 4. A large right lateral laryngocele incidentally noted. CT chest diagnostic w con Stat IMPRESSION: 1. No acute traumatic process within the chest. 2. Peripheral groundglass airspace opacities within the right upper lobe and right lower lobe. This favors a pneumonia and could be due to a viral process. 3. Mild interlobular septal thickening, right greater than left. This could represent mild congestive change. 4. Mild mediastinal lymphadenopathy which has progressed. This may be reactive to the suspected pneumonia. Follow-up chest CT in 3 months can be performed to ensure resolution of these findings. 5. Emphysema. 6. Additional findings as described above. CT head/brain wo con Stat IMPRESSION: 1. No acute intracranial findings. 2. No calvarial fracture. 3. Old right MCA territory infarct. 07/08/21 18:19 US liver Routine IMPRESSION: No significant abnormality identified within the right upper quadrant. Xray of the tib/fib: IMPRESSION: Mild soft tissue swelling without acute fracture. Hospital Course (1) Respiratory distress: -significant time spent with patient today -upon initial presentation-- patient is notable respiratory distress (outlined above). -Patient is excessively somnolent but arousable. He seems to be cognitively marginal/adequate. Does not cooperate with mental capacity exam; however, is giving detailed and correct information regarding this hospital stay. Aware that he saw "Dr. Suazo yesterday". Aware that "I have been in the room 5 times". Prior clinician documents that patient is not cognitively impaired and able to make his own decisions. -Explained in great detail my concern for his respiratory distress and despite this, he is adamant that he wants out of the hospital. I explained that I would advise a chest x-ray, a BNP, a blood gas, at the very least a breathing treatment, possibly some IV Lasix, etc. He declines and adamantly refuses any further work-up and wants "to go to hell home". Multiple discussions had with patient throughout the course of the day to attempt to gauge if he was adequately understanding the seriousness of his respiratory distress. He reports "I always have mucus in my throat. I want to go home and smoke cigarettes and get the hell away from you". I explained that without treatment, his respiratory distress is likely to worsen which may ultimately lead to . I explained that he cannot be kept in the hospital against his will. Despite this, he was adamant that he wanted to be discharged. I explained that he is not medically stable for discharge to home and he will need to sign out AGAINST MEDICAL ADVICE. Patient refused. -Again, reevaluated this patient multiple times throughout the course the day to see if I could talk him into allowing some medical work-up/treatment regarding his respiratory distress but this only increase his agitation and combative behavior. Attempted to throw his water pitcher in his phone. -Received a message from the nurse that patient was stressed and sitting at the bedside ready to to home. I did reevaluate him and explained that he is not medically stable for discharge. Again, he is refusing to sign out AGAINST MEDICAL ADVICE. He is answering all questions appropriately. Despite multiple attempts at trying to treat his respiratory distress, patient is leaving the hospital AGAINST MEDICAL ADVICE. I did explain to him that if his symptoms worsen, he may come back to the emergency room and would not be turned away. -Lengthy discussion regarding this patient had with attending physician, case management, nursing staff, and ethics committee. Ultimately, patient is able to make his own decision as his cognitive status seems adequately intact. I did ask if I could speak with patient's daughter; however, he adamantly refuses for me to call any of his family members as they "bitch and negative just like you". (2) Combative behavior: See above (3) Sepsis: -Technically met SIRS criteria for respiratory rate and heart rate. But not significant WBC or temperature making diagnosis questionable. -Suspected source of infection urine (pansensitive proteus) +/- LLE cellulitis + /- pneumonia (on CT) -Patient signing out AGAINST MEDICAL ADVICE. Initial plan was for Keflex/doxycycline; however, will transition this to Cipro/doxycycline as patient was treated with Zosyn/daptomycin while in house. I do believe he may require some gram-negative/antipseudomonal coverage. Doxycycline should provide adequate community-acquired pneumonia coverage for the lung. In addition, I do not believe he would take Keflex which is 4 times daily due to known history of medical noncompliance. -Increased troponin suspected secondary to demand ischemia in setting of hypotension and infection -Blood cultures negative to date (4) Foot ulcer, left: Probably related to his PAD and sitting in wheel chair - Patient does have sensation to his foot and pain with palpation, tib fib x ray negative -No obvious indication of cellulitis at this time (5) Peripheral arterial occlusive disease: history of bilateral SFA occlusions - continue his aspirin - not on statin - patient has no wish to quit smoking (6) Cardiomyopathy: EF from ECHO in 21 25-30%, -On coreg and losartan -At the very least, he should have a beta-jayson and LifeVest and be referred to cardiology to discuss ICD placement. -Entresto would be ideal drug as well -His risk of sudden cardiac from fatal arrhythmia is higher given his low EF -Refusing any intervention -Again, with his respiratory distressmay have acute CHF (again refusing BNP/CXR) (7) Mitral regurgitation: moderate per ECHO as above (8) Increased ammonia level: Unsure of etiology here as his liver function is normal - 46 at one point during this hospitalization again, excessively somnolent. May have issue with elevated ammonia and need lactulose. Refusing labs at this time - liver ultrasound normal parenchyma (9) Elevated troponin: chronically elevated, likely demand ischemia - continue asa (10) Leg wound, left: Wound care on board during this hospitalization (11) Sacral decubitus ulcer, stage III: Wound care recommendations were: Clean with soap and water- Mepilex or Optifoam for padding/protection - keep skin dry- condom cath placement - barrier cream - wound care consult - rotate every 2 hours - optimize nutrition/supplementation Disposition -sign out AGAINST MEDICAL ADVICE Overall prognosis poor given acute/chronic respiratory distress Total Time Total Time Spent Total Time Spent (In Minutes): 90 min throughout the course of the day Discharge Plan Discharge Items Patient Disposition: Against Medical Advice Reason For Visit: SEPSIS Activity: Resume your previous activity Non-emergency contact: Primary Care Provider Follow-up/Referrals: PCP,NO [Primary Care Provider] - Pending Studies at Discharge: No Stand-Alone Forms: My [facility], Smoking Cessation Medications and DC Order Prescriptions: New doxycycline hyclate 100 mg Capsule 100 mg PO BID Qty: 14 RF: 0 ciprofloxacin HCl [Cipro] 500 mg tablet 500 mg PO Q12H Qty: 14 RF: 0 Continued aspirin 81 mg Tablet,Delayed Release (Dr/Ec) 81 mg PO DAILY RF: 0 losartan 50 mg Tablet 50 mg PO QAM Qty: 0 RF: 0 carvedilol 3.125 mg Tablet 3.125 mg PO BID Qty: 0 RF: 0 diclofenac sodium [Voltaren] 1 % Gel 4 g EXT Q8H PRNQty: 0 RF: 0 Discontinued cephalexin 500 mg Capsule 500 mg PO QID Qty: 0 RF: 0 Admission Data Admit Date/Time: 07/08/21 15:29 Attending Provider: Azam Mendosa Admit Provider: Archie Lopes Primary Care Provider: PCP,NO Other Providers: Valorie Paz ; Azam Mendosa Other Interventions: Discharge Summary Assessment (RN) Last Done: 07/14/21 17:28 Supervising Physician Co-Signing Physician Notes I supervised Priya Graf PA-C on the care of this patient. The plan is as written in her note except for any following changes/exceptions: None I did not see this patient as he left suddenly AMA. Per Priya Graf, he was able to make his own decisions (had capacity) and was allowed to leave per his wishes. Coding Level of Care Code Established Pt D/C DAY MANAGEMENT >30 MINS Patient Type Established Diagnoses Sepsis A41.9 Sepsis acute organ dysfunction status: unspecified Sepsis type: sepsis due to unspecified organism Foot ulcer, left L97.529 Peripheral arterial occlusive disease I77.9 Cardiomyopathy I42.9 Mitral regurgitation I34.0 Increased ammonia level R79.89 Elevated troponin R77.8 Leg wound, left S81.802A Sacral decubitus ulcer, stage III L89.153 Respiratory distress R06.03 Combative behavior R46.89 Time Spent (min) 90 Comment left AMA
== END 2021-07-14 18:13 | disposition left against medical advice (07) | DRG 871 ==
LOC: ED 12:19 → SUATTDRO 15:29 → 2S 15:29 → 3N 07-10 16:12
DX: I25.5 Ischemic cardiomyopathy; I70.245 Atherosclerosis of native arteries of left leg with ulceration of other part of foot; Z91.19 Patient's noncompliance with other medical treatment and regimen; L97.529 Non-pressure chronic ulcer of other part of left foot with unspecified severity; Z79.82 Long term (current) use of aspirin; I25.10 Atherosclerotic heart disease of native coronary artery without angina pectoris; I25.2 Old myocardial infarction; Z87.891 Personal history of nicotine dependence; N39.0 Urinary tract infection, site not specified; A41.59 Other Gram-negative sepsis; E43 Unspecified severe protein-calorie malnutrition; Z95.1 Presence of aortocoronary bypass graft; F91.8 Other conduct disorders; Z86.73 Personal history of transient ischemic attack (TIA), and cerebral infarction without residual deficits; Z99.3 Dependence on wheelchair; I50.22 Chronic systolic (congestive) heart failure; L03.116 Cellulitis of left lower limb; I34.0 Nonrheumatic mitral (valve) insufficiency; I24.8 Other forms of acute ischemic heart disease; R06.03 Acute respiratory distress; J43.9 Emphysema, unspecified; L89.153 Pressure ulcer of sacral region, stage 3

== ENCOUNTER 2021-07-19 16:26 | Inpatient (IN) ==
[2021-07-19] MEDS ORDERED: VANCOMYCIN CONSULT ACTIVE PRN ×3 (17:04→21:06)
[2021-07-19] MEDS ORDERED: SODIUM CHLORIDE 0.9% 1000ML 1,000 ML IV ONE (17:04)
[2021-07-19] MEDS ORDERED: CEFEPIME 2,000 MG/20 ML VIAL IV STA (17:04)
[2021-07-19] MEDS ORDERED: VANCOMYCIN HCL 1,500 MG in SODIUM CHLORIDE 0.9% 500 ML IV ONE (17:04)
[2021-07-19 17:32] LABS: Basophils # (auto) 0.05 K/uL (0-0.2); Basophils % (auto) 0.3 %; Eosinophils # (auto) 0.14 K/uL (0-0.5); Hematocrit (blood only) 43.4 % (42-52); Hemoglobin 14.3 g/dL (14.0-18.0); Immature Granulocytes # (auto) 0.03 K/uL (0.00-0.02); Immature Granulocytes % (auto) 0.2 %; Lymphocytes # (auto) 1.94 K/uL (1.2-3.4); Lymphocytes % (auto) 13.5 %; Mean Corpuscular Hemoglobin 27.5 pg (25-34); Mean Corpuscular Hgb Conc 32.9 g/dL (32-36); Mean Corpuscular Volume 83.5 fL (80-100); Mean Platelet Volume 10.1 fL (7.4-10.4); Neutrophils # (auto) 11.18 K/uL (1.4-6.5); Platelet Count 483 K/uL (130-400); RDW Coefficient of Variation 16.1 % (11.5-14.5); White Blood Count 14.34 K/uL (4.8-10.8)
--- NOTE | 2021-07-19 17:33 | XRay Report ---
XR chest 1V portable CLINICAL HISTORY: weakness COMPARISON STUDY: Chest radiograph and chest CT June 18, 2021. FINDINGS: Multiple disrupted median sternotomy wires are noted. Cardiomegaly is unchanged. There is n o pneumothorax or pleural effusion. There is no evidence for pulmonary edema. Interstitial thickening and right lung opacities have improved since exam of July 08, 2021. IMPRESSION: 1. Interval improvement in interstitial thickening and right lung airspace opacities since exam of 2020. 2. Cardiomegaly. ACT 112: Negative or not required by law. Electronically signed by: Reji Vallecillo M.D. 07/19/2021 5:31 PM
[2021-07-19 17:52] LABS: Alanine Aminotransferase 31 U/L (12-78); Albumin Level 3.6 gm/dl (3.4-5.0); Aspartate Aminotransferase 104 U/L (15-37); BUN Creatinine Ratio 28.6 (10-20); Blood Urea Nitrogen 23 mg/dl (7-18); Calcium 9.5 mg/dl (8.5-10.1); Carbon Dioxide 24 mmol/L (21-32); Chloride 108 mmol/L (98-107); Est GFR (African American) 107.3 ml/min; Est GFR (Non-African American) 92.6 ml/min; Glucose 56 mg/dl (70-99); Magnesium 2.2 mg/dl (1.8-2.4); Potassium 4.4 mmol/L (3.5-5.1); Sodium 136 mmol/L (136-145)
[2021-07-19 18:07] LABS: Albumin Globulin Ratio 0.7 (0.9-2); Alkaline Phosphatase 128 U/L (45-117); Bilirubin,Total 0.8 mg/dl (0.2-1); Creatine Kinase 1885 U/L (39-308); Total Protein 8.6 gm/dl (6.4-8.2); Troponin I 0.373 ng/ml (0-0.045)
--- NOTE | 2021-07-19 18:38 | CT Scan Report ---
CT OF THE HEAD WITHOUT CONTRAST CLINICAL HISTORY: fall COMPARISON STUDY: Head CT July 08, 2021. CT DOSE: 1647.89 mGycm TECHNIQUE: Helical axial images of the head were obtained without IV contrast. Automated exposure con trol was utilized for the study. A dose lowering technique was utilized adhering to the principles o f ALARA. FINDINGS: This study is mildly compromised by motion artifact. No acute intracranial hemorrhage, midl ine shift or mass effect is present. 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 This is unchange d. The ventricular system is stable. The basal cisterns are patent. No extra-axial collections are pr esent. There are no findings to suggest acute dural sinus thrombosis or acute territorial infarct. Th ere is mild scalp soft tissue swelling. There is no calvarial fracture.. Visualized portions of the s inuses and mastoid air cells are clear. IMPRESSION: 1. No acute intracranial findings. Exam mildly compromised by motion artifact. 2. Old right MCA territory infarct. 3. No calvarial fracture. Mild scalp/forehead soft tissue swelling. ACT 112: Negative or not required by law. Electronically signed by: Reji Vallecillo M.D. 07/19/2021 6:36 PM
[2021-07-19] MEDS ORDERED: SODIUM CHLORIDE 0.9% 1000ML 1,000 ML IV STA (18:40)
[2021-07-19] MEDS ORDERED: SODIUM CHLORIDE 0.9% 1000ML 500 ML IV ONE (18:40)
[2021-07-19] MEDS ORDERED: STAT IV Infusion **Titration per Protocol STA (19:07)
[2021-07-19] MEDS: NOREPINEPHRINE/D5W 8 MG/508 ML BAG IV SCH (19:17)
--- NOTE | 2021-07-19 20:14 | History & Physical Report ---
Date of Service July 19, 2021 Assessment & Plan (1) Hypotension: Plan: Multifactorial to include hypovolemia and septic shock - 2liters of crystalloid in EMD - Continue volume guided resuscitation to the ICU - Levophed added for hypotension- currently at 0.05mcg/kg/min- goal MAP >60 - Patient with normal low BP in the 90s- which has prevented further increasing of his Carvedilol in the past - Hold Carvedilol - Hold ARB (2) Sepsis: Plan: WBC 14 with NLR 6:1, PCT CRP ESR pending - Lactate 2.9- repeat pending - Likely secondary to leg wounds and not taking oral antibiotic therapy at home - Vancomycin and Cefepime while in house - As above (3) COPD (chronic obstructive pulmonary disease): Plan: Chronic smoker- diagnosed on CT scan - on no inhalers or therapy at home - patient continues to smoke (4) Leg wound, left: Plan: Clean and dry with soap and water. - Aquacel AG and Optifoam to left heel - Aquacel AG and Kerlix to left leg - Optifoam/pressure relieve to knees - waffle boots to bilateral feet (5) Foot ulcer, left: Plan: As above - follow new eschar pressure area to left foot (6) Elevated troponin: Plan: Likely type II elevation in the setting of demand from hypotension/sepsis (7) Cardiomyopathy: Plan: EF from ECHO in 21 25-30% - Patient was started on low dose carvedilol at that time - patient is wheel chair or bed bound majority of his time, consistently has low blood pressure - likely inhibiting ability to titrate up carvedilol for meaningful effect - He has not followed up with cardiology or heart failure clinic (8) Peripheral arterial occlusive disease: Plan: history of bilateral SFA occlusions - continue his aspirin - not on statin (9) Rhabdomyolysis: Plan: Mild with CPK at 1885 - volume resuscitate for adequate urine output - follow in morning - likely does not have body mass to elevate BUN but follow [employer] - Should resolve with adequate volume resuscitation- to ICU overnight History of Present Illness Primary Care Provider: NO PCP 66 YOM with history of: delirium/encephalopathy, dyspnea, cardiomyopathy with HFrEF (Ef 25-30%), PAD, CVA, wheel chair bound, poor nutrition, and poor self care. Patient was recenlty admitted on [id number] for similar presentation and was started on antibiotic therapy, while continuing wound care and tailoring of antibiotics he got up and left AMA via wheel chair van. He returned home and was again reportedly found down on the floor by his daughter. He was noted to be hypotensive in the EMD, more so than his baseline and was started on Levophed drip to maintain adequate MAPS. He was given 2L crystalloid and still is requiring Levophed. THe patient has a new eschar area on his left foot and continue cellulitis of his lower extremities and dressings adhered to his wounds. The patient has a pressure ulceration to his left temporal area and left shoulder as well. He is again noted to have elevated CPK and Lactate levels. He was given a court order for remaining in the hospital and inabiltiy to return to his home. This has been scanned into the EMR as well. As the patient is currently on Levophed will admit to the ICU for continued resuscitation as guided by urine output and organ perfusion/MAPS and weaning off vasoactive medications as above. Will place on Cefepime and Vancomycin for his wounds. The patient does not want to provide any further information as he states "doesn't want to talk about it anymore and is not telling this story again". He is cooperative, but remains flat affect with eyes closed and only answering yes or no. He was evaluated by psych on previous admission for capacity and was deemd to have decision making capacity, due to lack of self protection and self care providing, as above he was accompanied by a court order for hospitalization. He is wheel chair bound at home. Will likely need to optimize nutrition, rotate and offload pressure areas q2 hours, continue to try and maintain moisture and sheer control. Allergies Allergy/AdvReac Type Severity Reaction Status Date / Time No Known Allergies Allergy Unverified 07/19/21 17:39 Home Medications Medication Instructions Recorded Confirmed Type aspirin 81 mg tablet,delayed 81 mg PO DAILY 01/18/21 07/19/21 History release carvedilol 3.125 mg tablet 3.125 mg PO BID #0 tab 02/04/21 07/19/21 Rx losartan 50 mg tablet 50 mg PO QAM #0 tab 02/04/21 07/19/21 Rx ciprofloxacin HCl 500 mg tablet 500 mg PO Q12H #14 tab 07/14/21 07/19/21 Rx (Cipro) doxycycline hyclate 100 mg capsule 100 mg PO BID #14 cap 07/14/21 07/19/21 Rx collagenase clostridium histo. 250 1 applic TOPICAL UD 07/19/21 07/19/21 History unit/gram topical ointment (Santyl) Past Med/Surg History Medical History Delirium Dyspnea Hx of myocardial infarction Hx of stroke without residual deficits No pertinent past medical history Palliative care encounter Palliative care encounter Peripheral arterial occlusive disease Sepsis Severe protein-calorie malnutrition Weakness Social History Smoking Status: Current every day smoker Cigarettes Per Day: 30; Second Hand Exposure: No; Do You Dip or Chew Tobacco: No; Tobacco Cessation Education Requested by Patient: No Hx Alcohol Use: No Hx Substance Use: No Preferred Language: Jamaican Communication Ability: Unable Beliefs That Will Affect Care: None marital status: Current Living Situation: Alone Current Living Situation Comment: unable to access How many Children do You have: 2 Other Information That Helps Us Care for You: No Feels Safe at Home: Yes Safety Concerns: Feels Safe At This Time Assistive Devices: Wheelchair Review of Systems Review of Systems: REVIEW OF SYSTEMS: unable to complete secondary to patient not wanting to disclose any further information during interview process Physical Exam Physical Exam: PHYSICAL EXAM: General: eyes closed awakens to voice, disheveled and malnourished Head: Normocephalic, atraumatic ENT: PERRLA, mucous membranes moist Neuro: AAO x 3, speech clear and appropriate, sensation equal throughout, does have sensation to the left foot and ankle, contractures of the legs Chest: equal rise and fall of the chest, no accessory muscle use, no heaves or thrills, scattered crackles, on room air, Cardiac: Regular rate and rhythm, telemetry reviewed, skin warm dry, cap refill ~3 seconds, peripheral pulses +2 no JVD, S1S2 GI: NABS x 4 quadrants, soft, nontender to palpation, no rebound, guarding or tenderness : place gordon to gravity Extremities: erythema leg ulcerations to bilateral legs, left heel ulceration improved from last admission, new left eschar area to left lateral/top foot, brushburn/pressure wound to left yarsani, abrasion to left shoulder, decub stage II-III on buttocks and sacrum. Psych:flat affect, withdrawn Results & Data Results & Data ([facility]) Vital Signs (Past 12 Hours) Vital Signs Temp Pulse Resp BP Pulse Ox 07/19/21 19:15 92 H 26 H 93/62 L 95 07/19/21 19:00 92 H 21 90 07/19/21 18:54 91 H 25 H 74/59 L 93 07/19/21 18:45 93 H 24 63/45 L 07/19/21 18:30 89 27 H 93 07/19/21 18:20 90 27 H 93 07/19/21 18:18 90 21 07/19/21 18:01 93 H 33 H 61/37 L 91 07/19/21 17:46 94 H 30 H 105/71 07/19/21 17:31 88 28 H 102/68 07/19/21 17:16 90 23 95/68 L 07/19/21 17:01 88 26 H 96/55 L 07/19/21 16:57 92 H 22 51/44 L 95 07/19/21 16:30 36.1 C L 90 23 68/47 L 96 Laboratory Results Abnormal lab results 07/19/21 07/19/21 07/19/21 Range/Units 17:17 17:17 17:17 WBC 14.34 H (4.8-10.8) K/uL RDW Std Deviation 48.0 H (36.4-46.3) fL RDW Coeff of Aliyah 16.1 H (11.5-14.5) % Plt Count 483 H (130-400) K/uL Neut # (Auto) 11.18 H (1.4-6.5) K/uL Major # (Auto) 1.00 H (0.11-0.59) K/uL Immature Gran # (Auto) 0.03 H (0.00-0.02) K/uL Chloride 108 H (98-107) mmol/L BUN 23 H (7-18) mg/dl BUN/Creatinine Ratio 28.6 H (10-20) Glucose 56 L (70-99) mg/dl Lactate 2.9 H* (0.4-2.0) mmol/L AST 104 H (15-37) U/L Alkaline Phosphatase 128 H (45-117) U/L Ammonia (11-32) umol/L Total Creatine Kinase 1885 H (39-308) U/L Troponin I 0.373 H* (0-0.045) ng/ml Total Protein 8.6 H (6.4-8.2) gm/dl Globulin 5.0 H (2.5-4.0) gm/dl Albumin/Globulin Ratio 0.7 L (0.9-2) 07/19/21 Range/Units 17:17 WBC (4.8-10.8) K/uL RDW Std Deviation (36.4-46.3) fL RDW Coeff of Aliyah (11.5-14.5) % Plt Count (130-400) K/uL Neut # (Auto) (1.4-6.5) K/uL Major # (Auto) (0.11-0.59) K/uL Immature Gran # (Auto) (0.00-0.02) K/uL Chloride (98-107) mmol/L BUN (7-18) mg/dl BUN/Creatinine Ratio (10-20) Glucose (70-99) mg/dl Lactate (0.4-2.0) mmol/L AST (15-37) U/L Alkaline Phosphatase (45-117) U/L Ammonia 36.2 H (11-32) umol/L Total Creatine Kinase (39-308) U/L Troponin I (0-0.045) ng/ml Total Protein (6.4-8.2) gm/dl Globulin (2.5-4.0) gm/dl Albumin/Globulin Ratio (0.9-2) Diagnostic Findings Chest X-Ray 07/19/21 17:02 XR chest 1V portable CLINICAL HISTORY: weakness COMPARISON STUDY: Chest radiograph and chest CT June 18, 2021. FINDINGS: Multiple disrupted median sternotomy wires are noted. Cardiomegaly is unchanged. There is no pneumothorax or pleural effusion. There is no evidence for pulmonary edema. Interstitial thickening and right lung opacities have improved since exam of July 08, 2021. IMPRESSION: 1. Interval improvement in interstitial thickening and right lung airspace opacities since exam of July 08, 2021. 2. Cardiomegaly. ACT 112: Negative or not required by law. Electronically signed by: Reji Vallecillo M.D. 07/19/2021 5:[address] 07/19/21 17:02 CT OF THE HEAD WITHOUT CONTRAST CLINICAL HISTORY: fall COMPARISON STUDY: Head CT July 08, 2021. CT DOSE: 1647.89 mGycm TECHNIQUE: Helical axial images of the head were obtained without IV contrast. Automated exposure control was utilized for the study. A dose lowering technique was utilized adhering to the principles of ALARA. FINDINGS: This study is mildly compromised by motion artifact. No acute intracranial hemorrhage, midline shift or mass effect is present. 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 This is unchanged. The ventricular system is stable. The basal cisterns are patent. No extra-axial collections are present. There are no findings to suggest acute dural sinus thrombosis or acute territorial infarct. There is mild scalp soft tissue swelling. There is no calvarial fracture.. Visualized portions of the sinuses and mastoid air cells are clear. IMPRESSION: 1. No acute intracranial findings. Exam mildly compromised by motion artifact. 2. Old right MCA territory infarct. 3. No calvarial fracture. Mild scalp/forehead soft tissue swelling. ACT 112: Negative or not required by law. Electronically signed by: Reji Vallecillo M.D. 07/19/2021 6:36 PM Medications Administered Sodium Chloride (Nss 1000ml) 1,000 mls @ 125 mls/hr IV .Q8H STA Stop: 07/20/21 02:39 Last Admin: 07/19/21 18:57 Dose: 125 mls/hr Documented by: [id number] Norepinephrine Bitartrate (Levophed/D5w) 8 mg in 508 mls @ 16.193 mls/hr IV .Q24H [facility]; Protocol Stop: 08/18/21 19:14 Last Admin: 07/19/21 19:17 Dose: 0.05 mcg/kg/min, 16.2 mls/hr Documented by: [id number] Cosigned by: [id number] Miscellaneous Information (Vancomycin Consult Active) 1 ea N/A UD PRN PRN Reason: Consult Stop: 08/18/21 17:03 Last Admin: 07/19/21 18:29 Dose: 1 ea Documented by: [id number] Discontinued Medications Sodium Chloride (Nss 1000ml) 1,000 mls @ 999 mls/hr IV .Q1H1M ONE Stop: 07/19/21 18:04 Last Infusion: 07/19/21 18:57 Dose: 0 mls/hr Documented by: [id number] Admin: 07/19/21 17:15 Dose: 999 mls/hr Documented by: [id number] Vancomycin HCl 1,500 mg/ (Sodium Chloride) 530 mls @ 200 mls/hr IV NOW ONE Stop: 07/19/21 19:42 Last Admin: 07/19/21 18:04 Dose: 200 mls/hr Documented by: [id number] Cefepime HCl (Maxipime) 2,000 mg in 20 mls @ 5 mls/min IV NOW STA; Protocol Stop: 07/19/21 17:07 Last Admin: 07/19/21 17:44 Dose: 5 mls/min Documented by: [id number] Sodium Chloride (Nss 1000ml) 500 mls @ 999 mls/hr IV .Q31M ONE Stop: 07/19/21 19:10 Last Admin: 07/19/21 18:57 Dose: 999 mls/hr Documented by: [id number] Miscellaneous (Stat Iv Infusion Titration Per Protocol) 1 ea N/A NOW STA Stop: 07/19/21 19:08 Last Admin: 07/19/21 19:20 Dose: 1 ea Documented by: [id number] Home Medications aspirin 81 mg tablet,delayed release 81 mg PO DAILY 01/18/21 [History Confirmed 07/19/21] carvedilol 3.125 mg tablet 3.125 mg PO BID #0 tab 02/04/21 [Rx Confirmed 07/19/21] losartan 50 mg tablet 50 mg PO QAM #0 tab 02/04/21 [Rx Confirmed 07/19/21] ciprofloxacin HCl 500 mg tablet (Cipro) 500 mg PO Q12H #14 tab 07/14/21 [Rx Confirmed 07/19/21] doxycycline hyclate 100 mg capsule 100 mg PO BID #14 cap 07/14/21 [Rx Confirmed 07/19/21] collagenase clostridium histo. 250 unit/gram topical ointment (Santyl) 1 applic TOPICAL UD 07/19/21 [History Confirmed 07/19/21] Active Medications Sodium Chloride (Nss 1000ml) 1,000 mls @ 125 mls/hr IV .Q8H STA Stop: 07/20/21 02:39 Last Admin: 07/19/21 18:57 Dose: 125 mls/hr Documented by: Norepinephrine Bitartrate (Levophed/D5w) 8 mg in 508 mls @ 16.193 mls/hr IV .Q24H [facility]; Protocol Stop: 08/18/21 19:14 Last Admin: 07/19/21 19:17 Dose: 0.05 mcg/kg/min, 16.2 mls/hr Documented by: Miscellaneous Information (Vancomycin Consult Active) 1 ea N/A UD PRN PRN Reason: Consult Stop: 08/18/21 17:03 Last Admin: 07/19/21 18:29 Dose: 1 ea Documented by: ECG Additional Comments: Sinus rhythm with Fusion complexes Left atrial enlargement Possible Inferior infarct , age undetermined Anterior infarct (cited on or before 19-JUL-2021) ACUTE OH / STEMI Abnormal ECG When compared with ECG of 10-JUL-2021 05:39, Fusion complexes are now Present Premature atrial complexes are no longer Present Code Status & VTE Plan Code Status CODE: FULL VTE: Lovenox 40 sub q daily, no SCDs with wounds and PAD VTE Prophylaxis Plan VTE Prophylaxis will be ordered: Yes Supervising Physician Co-Signing Physician Notes Patient seen and examined, chart reviewed, case discussed with BRII Olson and I agree with his assessment and plan as above. Patient is a 66yo male with multiple medical problems presenting to [facility] after being found down, hypotensive requiring Levophed in the ER. Administered 2L crystalloid IVF in the ER On exam he is elderly, mildly disheveled and ill in appearance Skin - left heel ulceration, left eschar on dorsal surface of left foot, Stage II decub on buttock HEENT - NC/AT, PERRL, Neck supple, MMM Heart - +S1/S2, regular, no m/r/g Lungs - faint crackles in lung bases bilaterally Abd - +BS, soft, NT/ND Labs and images reviewed Assessment/Plan - concern for septic + hypovolemic shock. Source being skin/soft tissue infection. Patient given 2L crystalloid resuscitation then started on Levophed in ER -Admit to MICU -Continue Levophed - titrate for goal MAP > 60 -Empiric Vancomycin and Cefepime -Follow cultures -Wound care -Trend troponin -suspect secondary to underlying sepsis rather than ACS -Remainder of plan as above PG Care Time/CCT Total # of Minutes Spent Total Time Spent with Patient: Total time spent is greater than 50% in coordination of care (as documented) at patient's floor/unit and/or counseling patient: Coding Level of Care Code 14254 Initial Inpt Care Lvl 3 Diagnoses Hypotension I95.9 Sepsis A41.9 Sepsis acute organ dysfunction status: unspecified Sepsis type: sepsis due to unspecified organism COPD (chronic obstructive pulmonary disease) J44.9 Leg wound, left S81.802A Foot ulcer, left L97.529 Elevated troponin R77.8 Cardiomyopathy I42.9 Peripheral arterial occlusive disease I77.9 Rhabdomyolysis M62.82 (1) Sepsis Sepsis acute organ dysfunction status: unspecified Sepsis type: sepsis due to unspecified organism Qualified Code(s): A41.9 - Sepsis, unspecified organism
[2021-07-19] MEDS ORDERED: ICU PROTOCOL FOR HYPERGLYCEMIA PRN (21:06)
[2021-07-19 21:39] LABS: Appearance Urine Clear (Clear); Bacteria Urine Automated Negative (Negative); Blood Urine Negative (Negative); Color Urine Orange; Glucose Urine UA Negative (Negative); Ketones Urine Trace (Negative); Leukocyte Esterase Urine Trace (Negative); Nitrite Urine Negative (Negative); Protein Urine Negative (Negative); RBC Urine Automated 0-4 /hpf (0-4); Specific Gravity Urine 1.024 (1.000-1.030); Urobilinogen Urine Negative (Negative); pH Urine 5.5 (4.5-7.5)
[2021-07-19 21:43] LABS: Bilirubin Urine 1+ (Negative)
[2021-07-19 21:50] LABS: Calcium Oxalate Crystals Urine Present (None Prsent)
--- NOTE | 2021-07-19 22:00 | Critical Care Consultation ---
Date of Consultation July 19, 2021 Assessment & Plan (1) Admitted to intensive care unit: Reason Critically Ill: 66-year-old male presenting with severe sepsis with septic shock secondary to likely skin/soft tissue infections from arterial occlusive disease requiring close hemodynamic monitoring after the institution of vasopressors for hemodynamic support. NEURO - * CAM ICU: NEGATIVE * Altered mental state: * CT head unremarkable for intracranial abnormalities. * Likely secondary to metabolic encephalopathy in the setting of sepsis, hypotension, rhabdomyolysis, etc. CARDIAC/VASCULAR - * Hypotension: * Multifactorial in the setting of severe sepsis in a patient who is clinically dehydrated as well. * Received appropriate fluid resuscitation given the patient's known history of ischemic cardiomyopathy with poor EF. * Continue with gentle IV fluid resuscitation. * Aim to wean down vasopressors overnight as tolerated. * Ischemic cardiomyopathy: * EF on 01/20/2021 noted to be 25 to 30%. * Again, cautious fluid resuscitation in the hypotensive, septic, hypovolemic patient. * Peripheral arterial disease: * Previous CTA of the extremities demonstrated high-grade stenosis in the lower extremities bilaterally. * Agree with wound consultation for ongoing management of chronic wounds. * Uncertain as to prior assessment with vascular surgery, however this certainly may be necessary for the completion of evaluation of ongoing chronic wounds. * Question patient's agreeability to be evaluated by other subspecialties as he has previously been reluctant of care in the past (i.e. recent hospitalization with AMA despite ongoing medical needs necessitating hospitalization). * Monitor on telemetry. RESPIRATORY - * COPD with smoking history: * Saturating well on room air at this time. * Encourage smoking cessation. GI/NUTRITION - * Progress diet as tolerated. * Consider nutritional consult for patient's ongoing protein calorie malnutrition. * Prophylaxis: Famotidine RENAL/LYTES - * Rhabdomyolysis: * Likely secondary to ongoing episodes of extended time laying on the ground. * Thankfully, without any hyperkalemia or significant renal injury to this point. * Continue with gentle fluids. * Recheck CPK in a.m. * IVF: Normosol at 75 mL per hour. - * Chandler in place - Strict I&Os. ENDO - * No history of diabetes or thyroid disease. * BSGs per unit protocol. ISS --> gtt per unit policy. HEME - * Stable H&H. ID - * Severe sepsis with septic shock: * Likely secondary to skin/soft tissue sources. * Agree with continuing cefepime and vancomycin in the acutely ill patient. * Likely able to DC vancomycin pending MRSA swab. * Will add for wound cultures of the lower extremities if any discharge noted as I am unable to see where these have been obtained in the past. * Lactate trending down. * Procalcitonin within normal limits. LINES/IV ACCESS - * PIVs x2 * Chandler DVT PROPHYLAXIS - * Lovenox * SCDs I have personally spent 35 minutes of critical care time in the direct management of this patient. This is a life/limb threatening event. This includes time spent evaluating patient, direct bedside care, chart review, placing orders, interpretation of diagnostic studies, discussion with consultants, patient, and family members, as well as other required patient management a ctivities. This time is exclusive of all separately billable procedures, and teaching time and separate from and in addition to any other critical care service time. Thank you for allowing us to participate in the care of this patient. Please refer to my attending physician's documentation for any further recommendations. (2) Severe sepsis with septic shock: (3) Rhabdomyolysis: (4) Hypotension: (5) COPD (chronic obstructive pulmonary disease): (6) Sacral decubitus ulcer, stage III: (7) Leg wound, left: (8) Elevated troponin: (9) Foot ulcer, left: (10) Increased ammonia level: (11) Mitral regurgitation: (12) Cardiomyopathy: (13) Severe protein-calorie malnutrition: (14) Peripheral arterial occlusive disease: (15) Cardiomyopathy: (16) Smoking greater than 40 pack years: (17) CAD (coronary artery disease): History of Present Illness Attending Physician: Mercedes Marina DO History of Present Illness Patient is a 66-year-old male with a significant past medical history of coronary artery disease, ischemic cardiomyopathy, peripheral arterial disease, chronic wounds to the lower extremities, severe protein calorie malnutrition, mitral regurgitation, sacral decubitus ulcer, and COPD. Patient was recently admitted to this facility with sepsis from likely skin/soft tissue from wounds to the lower extremities as well as the buttocks. He had left this institution AGAINST MEDICAL ADVICE on one occasion. The patient was found on his kitchen floor today. The patient was felt to be altered. On evaluation in the emergency department, the patient was noted to have a leukocytosis. Patient was hypotensive and did require initiation of vasopressors in conjunction with fluid resuscitation. Patient received IV cefepime and vancomycin. Lactate was slightly elevated. CPK found to be elevated at 1885. Upon assessment in the ICU, the patient is awake and alert. He states that he "sleeps on the floor" despite the floor being a tiled kitchen floor. He states that he used to sleep on the couch, however they moved it for a hospital bed to be placed for his comfort. He states that his lower extremities and buttock are sore, but otherwise denies any complaints. Patient specifically denies any complaints of headaches, dizziness, lightheadedness, chest pain, palpitations, shortness of breath, nausea, vomiting, or abdominal discomfort. Allergies Allergy/AdvReac Type Severity Reaction Status Date / Time No Known Allergies Allergy Unverified 07/19/21 17:39 Home Medications Medication Instructions Recorded Confirmed Type aspirin 81 mg tablet,delayed 81 mg PO DAILY 01/18/21 07/19/21 History release carvedilol 3.125 mg tablet 3.125 mg PO BID #0 tab 02/04/21 07/19/21 Rx losartan 50 mg tablet 50 mg PO QAM #0 tab 02/04/21 07/19/21 Rx ciprofloxacin HCl 500 mg tablet 500 mg PO Q12H #14 tab 07/14/21 07/19/21 Rx (Cipro) doxycycline hyclate 100 mg capsule 100 mg PO BID #14 cap 07/14/21 07/19/21 Rx collagenase clostridium histo. 250 1 applic TOPICAL UD 07/19/21 07/19/21 History unit/gram topical ointment (Santyl) Patient History Medical History Delirium Dyspnea Hx of myocardial infarction Hx of stroke without residual deficits No pertinent past medical history Palliative care encounter Palliative care encounter Peripheral arterial occlusive disease Sepsis Severe protein-calorie malnutrition Weakness Social History Smoking Status: Current every day smoker Cigarettes Per Day: 30; Second Hand Exposure: No; Do You Dip or Chew Tobacco: No; Tobacco Cessation Education Requested by Patient: No Hx Alcohol Use: No Hx Substance Use: No Preferred Language: Kittitian Communication Ability: Effective Beliefs That Will Affect Care: None marital status: Current Living Situation: Alone Current Living Situation Comment: unable to access How many Children do You have: 2 Other Information That Helps Us Care for You: No Feels Safe at Home: Yes Safety Concerns: Feels Safe At This Time Assistive Devices: Wheelchair Review of Systems Review of Systems: A complete 10 point review of systems was reviewed with the patient with pertinent positives and negatives as per history of present illness. All else were negative. Physical Exam Physical Exam: VITAL SIGNS - Vital signs and nursing notes were reviewed. GENERAL - 66-year-old male appearing older than his stated age who is in no acute distress. SKIN - Cellulitic appearing lower extremities from the knees down with multiple open sores and eschar appearing areas. Decubitus ulcer appreciated. HEAD - NC/AT. EYES - PERRL with EOMI bilaterally. Sclera anicteric. EARS - No deformities of external structures noted on gross examination bilaterally. NOSE - Midline and without cyanosis. No epistaxis or purulent drainage noted. MOUTH/OROPHARYNX - Without perioral cyanosis. Buccal mucosa pink and dry. NECK - Neck with FROM. No nuchal rigidity. LUNGS - Chest wall symmetric without accessory muscle use, intercostals retractions, or central cyanosis. Normal vesicular breath sounds CTA B/L. No wheezes, rales, or rhonchi appreciated. CARDIAC - RRR with S1/S2. No murmur, rubs, or gallops appreciated. ABDOMEN - Abdominal contour scaphoid without pulsations or visible masses. BS normoactive all four quadrants. No tenderness, palpable masses, hepatosplenomegaly, or ascites noted. EXTREMITIES - Wounds as above. No clubbing or peripheral cyanosis. No pretibial edema present. +3/5 radial with weak DP pulses bilaterally. +5/5 strength noted in UE/LE bilaterally. NEUROLOGIC - Cranial nerves II through XII grossly intact. PSYCH - A&Ox3. Somnolent, but does provide some history. Results & Data Results & Data ([facility]) Vital Signs (Past 12 Hours) Vital Signs Temp Pulse Pulse Resp BP BP Pulse Ox 07/19/21 21:39 37.2 C 106 H 128/84 95 07/19/21 21:25 37.2 C 110 H 111/82 95 07/19/21 21:16 108 H 07/19/21 21:08 36.4 C L 109 H 20 114/94 94 07/19/21 21:00 37.1 C 96 07/19/21 20:46 113 H 07/19/21 20:30 108 H 24 131/87 95 07/19/21 20:20 107 H 109/92 96 07/19/21 20:15 108 H 27 H 109/92 95 07/19/21 19:45 106 H 25 H 117/71 95 07/19/21 19:30 103 H 22 117/74 96 07/19/21 19:15 92 H 26 H 93/62 L 95 07/19/21 19:00 92 H 21 90 07/19/21 18:54 91 H 25 H 74/59 L 93 07/19/21 18:45 93 H 24 63/45 L 07/19/21 18:30 89 27 H 93 07/19/21 18:20 90 27 H 93 07/19/21 18:18 90 21 07/19/21 18:01 93 H 33 H 61/37 L 91 07/19/21 17:46 94 H 30 H 105/71 07/19/21 17:31 88 28 H 102/68 07/19/21 17:16 90 23 95/68 L 07/19/21 17:01 88 26 H 96/55 L 07/19/21 16:57 92 H 22 51/44 L 95 07/19/21 16:30 36.1 C L 90 23 68/47 L 96 Coding Level of Care Code Critical Care 1st 30-74 mins Diagnoses Admitted to intensive care unit Z78.9 Severe sepsis with septic shock A41.9; R65.21 Rhabdomyolysis M62.82 Hypotension I95.9 COPD (chronic obstructive pulmonary disease) J44.9 Sacral decubitus ulcer, stage III L89.153 Leg wound, left S81.802A Elevated troponin R77.8 Foot ulcer, left L97.529 Increased ammonia level R79.89 Mitral regurgitation I34.0 Cardiomyopathy I42.9 Severe protein-calorie malnutrition E43 Peripheral arterial occlusive disease I77.9 Cardiomyopathy I42.9 Smoking greater than 40 pack years F17.210 CAD (coronary artery disease) I25.10 Coronary Disease-Associated Artery/Lesion type: chil[place]oot artery [place] vs. transplanted heart: chilkoot heart Associated angina: without angina Time Spent (min) 35 (1) CAD (coronary artery disease) Coronary Disease-Associated Artery/Lesion type: ch[place]koot artery [place] vs. transplanted heart: chilkoot heart Associated angina: without angina Qualified Code(s): I25.10 - Atherosclerotic heart disease of chilkoot coronary artery without angina pectoris
[2021-07-19] MEDS: FAMOTIDINE 20 MG in SYRINGE 3 ML IV SCH (23:23)
[2021-07-19] MEDS: DOCUSATE SODIUM 100 MG CAP PO SCH (23:23)
[2021-07-19] MEDS: ENOXAPARIN INJ 40 MG/0.4 ML SYR SQ SCH (23:24)
[2021-07-19] MEDS: NORMOSOL-R 1,000 ML IV SCH (23:24)
[2021-07-19] MEDS ORDERED: GLUCOSE 10 TABS/TUBE PO PRN (23:27)
[2021-07-19] MEDS ORDERED: GLUCAGON FOR INJ 1 MG VIAL SQ PRN (23:27)
[2021-07-19] MEDS ORDERED: DEXTROSE 50% 50 ML SYRINGE IV PRN (23:27)
[2021-07-19] MEDS ORDERED: CARBOHYDRATES FOR HYPOGLYCEMIA PO PRN (23:27)
[2021-07-19] MEDS ORDERED: GLUCOSE 40% GEL 15 GM TUBE PO PRN (23:27)
[2021-07-20] MEDS ORDERED: VANCOMYCIN HCL 1,000 MG in SODIUM CHLORIDE 0.9% 250 ML IV SCH
[2021-07-20 04:24] LABS: Basophils # (auto) 0.06 K/uL (0-0.2); Basophils % (auto) 0.7 %; Eosinophils # (auto) 0.24 K/uL (0-0.5); Eosinophils % (auto) 2.6 %; Hematocrit (blood only) 34.3 % (42-52); Immature Granulocytes # (auto) 0.02 K/uL (0.00-0.02); Immature Granulocytes % (auto) 0.2 %; Lymphocytes # (auto) 2.04 K/uL (1.2-3.4); Lymphocytes % (auto) 22.1 %; Mean Corpuscular Hemoglobin 27.1 pg (25-34); Mean Corpuscular Hgb Conc 32.1 g/dL (32-36); Mean Corpuscular Volume 84.5 fL (80-100); Mean Platelet Volume 10.1 fL (7.4-10.4); Monocytes # (auto) 0.93 K/uL (0.11-0.59); Monocytes % (auto) 10.1 %; Neutrophils # (auto) 5.93 K/uL (1.4-6.5); Neutrophils % (auto) 64.3 %; Platelet Count 399 K/uL (130-400); RDW Coefficient of Variation 15.9 % (11.5-14.5); RDW Standard Deviation 48.8 fL (36.4-46.3); Red Blood Count 4.06 M/uL (4.7-6.1); White Blood Count 9.22 K/uL (4.8-10.8)
[2021-07-20 04:41] LABS: Albumin Level 2.5 gm/dl (3.4-5.0); BUN Creatinine Ratio 33.8 (10-20); Bilirubin Direct 0.3 mg/dl (0-0.2); Bilirubin,Total 0.7 mg/dl (0.2-1); Calcium 7.9 mg/dl (8.5-10.1); Creatinine Clr Calc Pharmacy 151.9 ml/min; Est GFR (Non-African American) 113.9 ml/min; Magnesium 1.9 mg/dl (1.8-2.4); Phosphorus 2.7 mg/dl (2.5-4.9); Potassium 3.9 mmol/L (3.5-5.1); Total Protein 5.8 gm/dl (6.4-8.2)
[2021-07-20 05:01] LABS: Troponin I 0.508 ng/ml (0-0.045)
[2021-07-20] MEDS ORDERED: CEFEPIME 2,000 MG in SYRINGE 0 ML IV SCH (06:00)
--- NOTE | 2021-07-20 07:24 | Hospitalist Progress Note ---
Date of Service July 20, 2021 Assessment & Plan (1) Hypotension: Plan: Multifactorial to include hypovolemia and septic shock - volume resusitated with crystaloid - Levophed added for hypotension- outpt did have lower blood pressure in the past - Hold Carvedilol and ARB on cefepime and vancomycin (2) Sepsis: Plan: WBC 14 with NLR 6:1, PCT low, CRP 7.36, ESR 56 - Lactate 2.9-> 1.5 - Likely secondary to leg wounds and not taking oral antibiotic therapy at home - Vancomycin and Cefepime (3) COPD (chronic obstructive pulmonary disease): Plan: Chronic smoker- diagnosed on CT scan - on no inhalers or therapy at home - patient continues to smoke, tobacco cessation counselling met with apathy (4) Leg wound, left: Plan: Clean and dry with soap and water. - Aquacel AG and Optifoam to left heel - Aquacel AG and Kerlix to left leg - Optifoam/pressure relieve to knees - waffle boots to bilateral feet -wound care consult (5) Foot ulcer, left: Plan: - new eschar pressure area to left foot (6) Elevated troponin: Plan: Likely type II MA, troponin elevation in the setting of demand ischemia from hypotension/sepsis (7) Cardiomyopathy: Plan: EF from ECHO in 21 25-30% - Patient was started on low dose carvedilol at that time - patient is wheel chair or bed bound majority of his time, consistently has low blood pressure - likely inhibiting ability to titrate up carvedilol for meaningful effect - He has not followed up with cardiology or heart failure clinic, if bp improves to consider entresto (8) Peripheral arterial occlusive disease: Plan: history of bilateral SFA occlusions - continue his aspirin - not on statin (9) Rhabdomyolysis: Plan: Mild with CPK at 1885 - volume resuscitate for adequate urine output - follow in morning - likely does not have body mass to elevate BUN but follow [employer] - Should resolve with adequate volume resuscitation- to ICU overnight Plan: consistent questioning about the patients ability to make his decisions, I think he can make decisions but lacks capacity to take care of himself and does not seem to have outside support of friends or family. unclear if will have court on Sunday. 07/22/21 Admission and Anticipated Discharge Date Admission Date: July 19, 2021 Subjective This patient was admitted to our facility on 07/19. He was discharged on 07/14. Reportedly at the time of his discharge he was discharged by wheelchair van. At the time of his discharge she is evaluated with Dr. Azam Mendosa who felt he had capacity to make his own medical decisions. Discussed his options ways risk and benefits and problem solve his transportation situation. He remained adamant that he go home. Dr. Mendosa writes "while I agree there is substantial risk that he will decompensate or injure himself at home he did not feel that we have reason to hold him against his will. Furthermore given his significant anger and agitation today Dr. Mendosa believed to be quite likely he would need to be sedated to transport him back to the facility for further care. Sedation itself poses its own risks and would clearly be against the patient's wishes." There is been many phone calls today from the area association [place] regarding a court appearance regarding Mr. Hankins's competency. This court appearance was initiated when Mr. Hankins was once again found down in a di sheveled situation and reportedly was remanded by the area association of aging. I personally spoke to to representatives of the area association of aging, Chey Pike and Alee Gallagher. I have not heard back if I will be required to be present for the hearing. Reportedly the hearing will revolve around the pt ability to be home. I concur with Dr Argueta documented notation in the fact that the pt does have awarenss of his poor situation and can voice his options and risks, although he is not realistic about his ability to care for himself that is obvious in his physical appearance with multiple pressure wounds and general unkept appearance. When I spoke to him he states he just wants to be left alone to be by himself and smoke and do what he wants. I spoke to him about Hospice but he is not agreeable to this nor does he have 24 hour care givers. Overall this is a difficult situation, it is difficult to take away someones personal freedom and he is not making "smart" decisions regarding his ability to care for himself, yet he does have insight to what is wants and that he has not been able to care for himself appropriately. I do not think he lack competency to make decision, just he does not have the physical ability to care for himself and refuses care. Is this any different that other patients that do not care for their chronic medical conditions ? Review of Systems Review of Systems: Mild distress and moderate fatigue no headache, no visual changes no speech or swallowing issues no chest pain, pressure or palpitations baseline shortness of breath, cough or wheezes no abdominal pain, nausea or vomiting, diarrhea or constipation no dysuria, hematuria or frequency no focal joint pain or swelling no back pain, CVA tenderness or radicular pain multiple areas of pressure ulcers including his left hinduism area and legs pt is contracted and cannot walk no complaints of anxiety or depression.. Physical Exam Physical Exam: The patient appeared poorly kept and thin, open areas are seen Vital signs as documented. was with need for pressors Head exam is normocephalic atraumatic Neck is without JVD, thyromegaly, or carotid bruits. Lungs are clear to auscultation, no focal loss of breath sounds Cardiac exam, Rhythm is regular.. No murmurs, rubs or gallops. Abdominal exam reveals normal bowel sounds, soft non tender, no masses Extremities are mildly edematous, has multiple open areas of various stages of healing Neurologic exam is alert and oriented, LE contractures Skin is with multiple bruises or rashes Psychologically is with concerns for his ability to make resonable decisions Results & Data Results & Data ([facility]) Vital Signs (Past 12 Hours) Vital Signs Temp Pulse Pulse Resp BP BP Pulse Ox 07/20/21 04:39 98.6 F 97 H 120/75 92 07/20/21 04:09 98.6 F 91 H 112/69 86 L 07/20/21 03:39 98.6 F 93 H 119/77 89 L 07/20/21 03:24 98.6 F 93 H 114/74 86 L 07/20/21 03:08 98.6 F 87 103/67 87 L 07/20/21 02:54 98.8 F 86 80/53 L 92 07/20/21 02:39 98.8 F 83 84/57 L 92 07/20/21 02:24 98.8 F 87 84/54 L 92 07/20/21 02:09 98.8 F 93 H 101/63 89 L 07/20/21 01:53 98.8 F 101 H 140/84 93 07/20/21 01:38 98.8 F 100 H 117/79 83 L 07/20/21 01:24 98.8 F 96 H 100/71 88 L 07/20/21 01:08 99.0 F 100 H 108/87 90 07/20/21 00:54 99.0 F 103 H 105/77 88 L 07/20/21 00:38 98.8 F 100 H 107/75 89 L 07/20/21 00:24 99.0 F 98 H 104/70 91 07/20/21 00:07 99.0 F 94 H 86/61 L 93 07/19/21 23:54 99.0 F 96 H 89/58 L 91 07/19/21 23:38 99.0 F 93 H 95/66 L 89 L 07/19/21 23:24 98.8 F 116 H 82/61 L 92 07/19/21 23:09 99.0 F 100 H 114/67 92 07/19/21 22:54 99.0 F 100 H 96/69 L 90 07/19/21 22:39 99.0 F 100 H 110/67 92 07/19/21 22:24 99.0 F 105 H 105/78 91 07/19/21 22:09 99.0 F 106 H 110/77 92 07/19/21 21:54 99.0 F 110 H 114/77 93 07/19/21 21:39 99.0 F 106 H 128/84 95 07/19/21 21:25 99.0 F 110 H 111/82 95 07/19/21 21:16 108 H 07/19/21 21:08 97.5 F L 109 H 20 114/94 94 07/19/21 21:00 98.8 F 96 07/19/21 20:46 113 H 07/19/21 20:30 108 H 24 131/87 95 07/19/21 20:20 107 H 109/92 96 07/19/21 20:15 108 H 27 H 109/92 95 07/19/21 19:45 106 H 25 H 117/71 95 07/19/21 19:30 103 H 22 117/74 96 PG Care Time/CCT Total # of Minutes Spent Total Time Spent with Patient: Total time spent is greater than 50% in coordination of care (as documented) at patient's floor/unit and/or counseling patient: Coding Level of Care Code 97781 Subseq Hosp Care Lvl 3 Diagnoses Hypotension I95.9 Sepsis A41.9 Sepsis acute organ dysfunction status: unspecified Sepsis type: sepsis due to unspecified organism COPD (chronic obstructive pulmonary disease) J44.9 Leg wound, left S81.802A Foot ulcer, left L97.529 Elevated troponin R77.8 Cardiomyopathy I42.9 Peripheral arterial occlusive disease I77.9 Rhabdomyolysis M62.82 (1) Sepsis Sepsis acute organ dysfunction status: unspecified Sepsis type: sepsis due to unspecified organism Qualified Code(s): A41.9 - Sepsis, unspecified organism
--- NOTE | 2021-07-20 07:28 | Critical Care Progress Note ---
Date of Service July 20, 2021 Assessment & Plan (1) Rhabdomyolysis: Plan: Reason Critically Ill: 66-year-old male presenting with severe sepsis with septic shock secondary to likely skin/soft tissue infections from arterial occlusive disease requiring close hemodynamic monitoring after the institution of vasopressors for hemodynamic support. NEURO - CAM ICU: NEGATIVE Altered mental state, improved: CT head unremarkable for intracranial abnormalities. Likely secondary to metabolic encephalopathy in the setting of sepsis, hypotension, rhabdomyolysis, etc. CARDIAC/VASCULAR - Hypotension: - Multifactorial in the setting of severe sepsis in a patient who is clinically dehydrated as well. - Received appropriate fluid resuscitation given the patient's known history of ischemic cardiomyopathy with poor EF. - Aim to wean down vasopressors; currently with levophed at 0.01. - Will provide 1 L Normosol bolus Ischemic cardiomyopathy: - EF on 01/20/2021 noted to be 25 to 30%. - Monitor closely during fluid resuscitation Peripheral arterial disease: - Previous CTA of the extremities demonstrated high-grade stenosis in the lower extremities bilaterally. - Agree with wound consultation for ongoing management of chronic wounds. - Uncertain as to prior assessment with vascular surgery, however this certainly may be necessary for the completion of evaluation of ongoing chronic wounds. - Question patient's agreeability to be evaluated by other subspecialties as he has previously been reluctant of care in the past (i.e. recent hospitalization with AMA despite ongoing medical needs necessitating hospitalization). - Monitor on telemetry. RESPIRATORY - COPD with smoking history: - Saturating well on room air at this time; when sleeping, sats into high 80s - Encourage smoking cessation. GI/NUTRITION - Progress diet as tolerated. Nutritional consult for patient's ongoing protein calorie malnutrition. Prophylaxis: Famotidine RENAL/LYTES - Rhabdomyolysis: - Likely secondary to ongoing episodes of extended time laying on the ground. - No hyperkalemia or significant renal injury to this point. - CPK improved, down to 848 - Will continue fluid resuscitation with Normosol - Chandler in place - Strict I&Os. ENDO - No history of diabetes or thyroid disease. BSGs per unit protocol. ISS --> gtt per unit policy. HEME - Stable H&H. ID - Severe sepsis with septic shock: - Currently with 1/2 gram negative bacteremia. Will increase cefepime coverage. - Lactate trending down. - Procalcitonin within normal limits. LINES/IV ACCESS - PIVs x2, Chandler DVT PROPHYLAXIS - Lovenox, SCDs (2) Elevated CK: (3) Hypotension: (4) Severe sepsis with septic shock: (5) COPD (chronic obstructive pulmonary disease): (6) Sacral decubitus ulcer, stage III: (7) Leg wound, left: (8) Foot ulcer, left: (9) Increased ammonia level: (10) Mitral regurgitation: (11) Cardiomyopathy: (12) Severe protein-calorie malnutrition: (13) Smoking greater than 40 pack years: (14) CAD (coronary artery disease): Admission and Anticipated Discharge Date Admission Date: July 19, 2021 Supervising Physician Co-Signing Physician Notes Dr. Freeman was resident physician during care of patient. I separately evaluated patient for curry portions of the history and the exam. I was present during the critical portion of medical decision making, and I discussed the case with the resident. I generally agree with the findings and plan. Sepsis secondary to presumptive skin and soft tissue infection, requiring vasoactive medications. Increase cefazolin dosage frequency secondary to gram- negative bacteremia Patient was discussed in multidisciplinary rounds I have personally spent 45 minutes of critical care time in the direct management of this patient. This is a life/limb threatening event. This includes time spent evaluating patient, direct bedside care, chart review, placing orders, interpretation of diagnostic studies, discussion with consultants, patient, and/or family members regarding treatment decisions, as well as other required patient management activities. This time is exclusive of all separately billable procedures, and teaching time and separate from and in addition to any other critical care service time. Subjective Patient seen and evaluated at bedside this morning. No specific complaints. Uncooperative and refuses to appropriately answer orientation questions. When asked "are you being funny?" he says "yeah, I'm trying." Patient denies fever, chills, CP, cough, SOB, abdominal pain, nausea, vomiting. States back pain is much improved now that he is laying in a bed and not on the floor. When discussing plan and reason for being in ICU including needing pressors for BP management he responded with "ugh, we are doing that shit with medication again?" Review of Systems Constitutional: no fever and no chills Ear, Nose, Mouth, Throat: no problem reported Respiratory: no cough and no dyspnea Cardiovascular: no chest pain Gastrointestinal: no abdominal pain, no nausea and no vomiting Genitourinary: no problem reported Musculoskeletal: no back pain Neurologic: no dizziness and no headache(s) Physical Exam Physical Exam: GENERAL: Laying in right lateral recumbent position. No acute distress. Vital signs reviewed as above. EYES: EOMI. Anicteric sclerae. HENT: Moist mucous membranes. RESPIRATORY: Coarse breath sounds bilaterally with inspiratory and expiratory wheezing. CARDIOVASCULAR: Regular rate and rhythm. No murmurs. ABDOMEN: Soft, non-tender and non-distended. Normal bowel sounds. EXTREMITIES: 1-2+ BLE edema. SKIN: Warm. Multiple skin wounds and ulcerations. NEUROLOGIC: Alert. Unable to obtain orientation due to uncooperative patient. States that name is "Ray Jupiter" and we are "on the muñoz." PSYCHIATRIC: Uncooperative patient. Results & Data Results & Data ([facility]) Vital Signs (Past 12 Hours) Vital Signs Temp Pulse Pulse Resp BP BP Pulse Ox 07/20/21 04:39 37.0 C 97 H 120/75 92 07/20/21 04:09 37.0 C 91 H 112/69 86 L 07/20/21 03:39 37.0 C 93 H 119/77 89 L 07/20/21 03:24 37.0 C 93 H 114/74 86 L 07/20/21 03:08 37.0 C 87 103/67 87 L 07/20/21 02:54 37.1 C 86 80/53 L 92 07/20/21 02:39 37.1 C 83 84/57 L 92 07/20/21 02:24 37.1 C 87 84/54 L 92 07/20/21 02:09 37.1 C 93 H 101/63 89 L 07/20/21 01:53 37.1 C 101 H 140/84 93 07/20/21 01:38 37.1 C 100 H 117/79 83 L 07/20/21 01:24 37.1 C 96 H 100/71 88 L 07/20/21 01:08 37.2 C 100 H 108/87 90 07/20/21 00:54 37.2 C 103 H 105/77 88 L 07/20/21 00:38 37.1 C 100 H 107/75 89 L 07/20/21 00:24 37.2 C 98 H 104/70 91 07/20/21 00:07 37.2 C 94 H 86/61 L 93 07/19/21 23:54 37.2 C 96 H 89/58 L 91 07/19/21 23:38 37.2 C 93 H 95/66 L 89 L 07/19/21 23:24 37.1 C 116 H 82/61 L 92 07/19/21 23:09 37.2 C 100 H 114/67 07/19/21 22:54 37.2 C 100 H 96/69 L 90 07/19/21 22:39 37.2 C 100 H 110/67 07/19/21 22:24 37.2 C 105 H 105/78 07/19/21 22:09 37.2 C 106 H 110/77 07/19/21 21:54 37.2 C 110 H 114/77 07/19/21 21:39 37.2 C 106 H 128/84 07/19/21 21:25 37.2 C 110 H 111/82 07/19/21 21:16 108 H 07/19/21 21:08 36.4 C L 109 H 20 114/94 94 07/19/21 21:00 37.1 C 96 07/19/21 20:46 113 H 07/19/21 20:30 108 H 24 131/87 07/19/21 20:20 107 H 109/92 96 07/19/21 20:15 108 H 27 H 109/92 07/19/21 19:45 106 H 25 H 117/71 95 07/19/21 19:30 103 H 22 117/74 96 Laboratory Results 07/20/21 07/20/21 07/20/21 Range/Units 04:11 04:11 04:11 WBC (4.8-10.8) K/uL RBC (4.7-6.1) M/uL Hgb (14.0-18.0) g/dL Hct (42-52) % MCV (80-100) fL MCH (25-34) pg MCHC (32-36) g/dL RDW Std Deviation (36.4-46.3) fL RDW Coeff of Aliyah (11.5-14.5) % Plt Count (130-400) K/uL MPV (7.4-10.4) fL Immature Gran % (Auto) % Neut % (Auto) % Lymph % (Auto) % Perry % (Auto) % Eos % (Auto) % Baso % (Auto) % Neut # (Auto) (1.4-6.5) K/uL Lymph # (Auto) (1.2-3.4) K/uL [place] # (Auto) (0.11-0.59) K/uL Eos # (Auto) (0-0.5) K/uL Baso # (Auto) (0-0.2) K/uL Immature Gran # (Auto) (0.00-0.02) K/uL ESR (0-20) mm/hr Sodium 139 (136-145) mmol/L Potassium 3.9 (3.5-5.1) mmol/L Chloride 113 H (98-107) mmol/L Carbon Dioxide 23 (21-32) mmol/L Anion Gap 3.0 (3-11) BUN 16 (7-18) mg/dl Creatinine 0.49 L D (0.6-1.4) mg/dl Est Cr Clr Drug Dosing 151.9 Est GFR ( Amer) 132.0 ml/min Est GFR (Non-Af Amer) 113.9 ml/min BUN/Creatinine Ratio 33.8 H (10-20) Glucose 91 (70-99) mg/dl Lactate (0.4-2.0) mmol/L Calcium 7.9 L D (8.5-10.1) mg/dl Phosphorus 2.7 (2.5-4.9) mg/dl Magnesium 1.9 (1.8-2.4) mg/dl Total Bilirubin 0.7 (0.2-1) mg/dl Direct Bilirubin 0.3 H (0-0.2) mg/dl AST 64 H (15-37) U/L ALT 20 (12-78) U/L Alkaline Phosphatase 86 (45-117) U/L Ammonia 38.0 H (11-32) umol/L Total Creatine Kinase 848 H (39-308) U/L Troponin I 0.508 H* (0-0.045) ng/ml C-Reactive Protein (0-0.29) mg/dl Total Protein 5.8 L D (6.4-8.2) gm/dl Albumin 2.5 L (3.4-5.0) gm/dl Globulin (2.5-4.0) gm/dl Albumin/Globulin Ratio (0.9-2) Procalcitonin (0-0.5) ng/ml TSH (0.300-4.500) uIu/ml Random Cortisol 7.40 mcg/dl Specimen Hemolysis Urine Color Urine Appearance (Clear) Urine pH (4.5-7.5) Ur Specific [place] (1.000-1.030) Urine Protein (Negative) Urine Glucose (UA) (Negative) Urine Ketones (Negative) Urine Blood (Negative) Urine Nitrite (Negative) Urine Bilirubin (Negative) Urine Urobilinogen (Negative) Ur Leukocyte Esterase (Negative) Urine WBC (Auto) (0-5) /hpf Urine RBC (Auto) (0-4) /hpf U Hyaline Cast (Auto) (0-5) /lpf U Epithel Cells (Auto) (0-5) /lpf Urine Bacteria (Auto) (Negative) Calcium Oxalate Crystal (None Prsent) Urine Yeast Nasal Screen MRSA (PCR) (Negative) COVID-19 Eval Order SARS-CoV-2 (PCR) (Negative) Blood Type Antibody Screen 07/20/21 07/19/21 07/19/21 Range/Units 04:11 23:25 21:20 WBC 9.22 (4.8-10.8) K/uL RBC 4.06 L (4.7-6.1) M/uL Hgb 11.0 L D (14.0-18.0) g/dL Hct 34.3 L (42-52) % MCV 84.5 (80-100) fL MCH 27.1 (25-34) pg MCHC 32.1 (32-36) g/dL RDW Std Deviation 48.8 H (36.4-46.3) fL RDW Coeff of Aliyah 15.9 H (11.5-14.5) % Plt Count 399 (130-400) K/uL MPV 10.1 (7.4-10.4) fL Immature Gran % (Auto) 0.2 % Neut % (Auto) 64.3 % Lymph % (Auto) 22.1 % Perry % (Auto) 10.1 % Eos % (Auto) 2.6 % Baso % (Auto) 0.7 % Neut # (Auto) 5.93 (1.4-6.5) K/uL Lymph # (Auto) 2.04 (1.2-3.4) K/uL [place] # (Auto) 0.93 H (0.11-0.59) K/uL Eos # (Auto) 0.24 (0-0.5) K/uL Baso # (Auto) 0.06 (0-0.2) K/uL Immature Gran # (Auto) 0.02 (0.00-0.02) K/uL ESR (0-20) mm/hr Sodium (136-145) mmol/L Potassium (3.5-5.1) mmol/L Chloride (98-107) mmol/L Carbon Dioxide (21-32) mmol/L Anion Gap (3-11) BUN (7-18) mg/dl Creatinine (0.6-1.4) mg/dl Est Cr Clr Drug Dosing Est GFR ( Amer) ml/min Est GFR (Non-Af Amer) ml/min BUN/Creatinine Ratio (10-20) Glucose (70-99) mg/dl Lactate (0.4-2.0) mmol/L Calcium (8.5-10.1) mg/dl Phosphorus (2.5-4.9) mg/dl Magnesium (1.8-2.4) mg/dl Total Bilirubin (0.2-1) mg/dl Direct Bilirubin (0-0.2) mg/dl AST (15-37) U/L ALT (12-78) U/L Alkaline Phosphatase (45-117) U/L Ammonia (11-32) umol/L Total Creatine Kinase (39-308) U/L Troponin I 0.374 H* (0-0.045) ng/ml C-Reactive Protein (0-0.29) mg/dl Total Protein (6.4-8.2) gm/dl Albumin (3.4-5.0) gm/dl Globulin (2.5-4.0) gm/dl Albumin/Globulin Ratio (0.9-2) Procalcitonin (0-0.5) ng/ml TSH (0.300-4.500) uIu/ml Random Cortisol mcg/dl Specimen Hemolysis Urine Color [place] Urine Appearance Clear (Clear) Urine pH 5.5 (4.5-7.5) Ur Specific [place] 1.024 (1.000-1.030) Urine Protein Negative (Negative) Urine Glucose (UA) Negative (Negative) Urine Ketones Trace H (Negative) Urine Blood Negative (Negative) Urine Nitrite Negative (Negative) Urine Bilirubin 1+ H (Negative) Urine Urobilinogen Negative (Negative) Ur Leukocyte Esterase Trace H (Negative) Urine WBC (Auto) 1-5 (0-5) /hpf Urine RBC (Auto) 0-4 (0-4) /hpf U Hyaline Cast (Auto) 5-10 H (0-5) /lpf U Epithel Cells (Auto) 10-20 H (0-5) /lpf Urine Bacteria (Auto) Negative (Negative) Calcium Oxalate Crystal Present A (None Prsent) Urine Yeast Not Reportable Nasal Screen MRSA (PCR) (Negative) COVID-19 Eval Order SARS-CoV-2 (PCR) (Negative) Blood Type Antibody Screen 07/19/21 07/19/21 07/19/21 Range/Units 21:00 19:45 18:33 WBC (4.8-10.8) K/uL RBC (4.7-6.1) M/uL Hgb (14.0-18.0) g/dL Hct (42-52) % MCV (80-100) fL MCH (25-34) pg MCHC (32-36) g/dL RDW Std Deviation (36.4-46.3) fL RDW Coeff of Aliyah (11.5-14.5) % Plt Count (130-400) K/uL MPV (7.4-10.4) fL Immature Gran % (Auto) % Neut % (Auto) % Lymph % (Auto) % [place] % (Auto) % Eos % (Auto) % Baso % (Auto) % Neut # (Auto) (1.4-6.5) K/uL Lymph # (Auto) (1.2-3.4) K/uL [place] # (Auto) (0.11-0.59) K/uL Eos # (Auto) (0-0.5) K/uL Baso # (Auto) (0-0.2) K/uL Immature Gran # (Auto) (0.00-0.02) K/uL ESR (0-20) mm/hr Sodium (136-145) mmol/L Potassium (3.5-5.1) mmol/L Chloride (98-107) mmol/L Carbon Dioxide (21-32) mmol/L Anion Gap (3-11) BUN (7-18) mg/dl Creatinine (0.6-1.4) mg/dl Est Cr Clr Drug Dosing Est GFR ( Amer) ml/min Est GFR (Non-Af Amer) ml/min BUN/Creatinine Ratio (10-20) Glucose (70-99) mg/dl Lactate 1.5 (0.4-2.0) mmol/L Calcium (8.5-10.1) mg/dl Phosphorus (2.5-4.9) mg/dl Magnesium (1.8-2.4) mg/dl Total Bilirubin (0.2-1) mg/dl Direct Bilirubin (0-0.2) mg/dl AST (15-37) U/L ALT (12-78) U/L Alkaline Phosphatase (45-117) U/L Ammonia (11-32) umol/L Total Creatine Kinase (39-308) U/L Troponin I (0-0.045) ng/ml C-Reactive Protein (0-0.29) mg/dl Total Protein (6.4-8.2) gm/dl Albumin (3.4-5.0) gm/dl Globulin (2.5-4.0) gm/dl Albumin/Globulin Ratio (0.9-2) Procalcitonin (0-0.5) ng/ml TSH (0.300-4.500) uIu/ml Random Cortisol mcg/dl Specimen Hemolysis Urine Color Urine Appearance (Clear) Urine pH (4.5-7.5) Ur Specific [place] (1.000-1.030) Urine Protein (Negative) Urine Glucose (UA) (Negative) Urine Ketones (Negative) Urine Blood (Negative) Urine Nitrite (Negative) Urine Bilirubin (Negative) Urine Urobilinogen (Negative) Ur Leukocyte Esterase (Negative) Urine WBC (Auto) (0-5) /hpf Urine RBC (Auto) (0-4) /hpf U Hyaline Cast (Auto) (0-5) /lpf U Epithel Cells (Auto) (0-5) /lpf Urine Bacteria (Auto) (Negative) Calcium Oxalate Crystal (None Prsent) Urine Yeast Nasal Screen MRSA (PCR) Negative (Negative) COVID-19 Eval Order SARS-CoV-2 (PCR) NEGATIVE (Negative) Blood Type Antibody Screen 07/19/21 07/19/21 07/19/21 Range/Units 18:33 17:17 17:17 WBC (4.8-10.8) K/uL RBC (4.7-6.1) M/uL Hgb (14.0-18.0) g/dL Hct (42-52) % MCV (80-100) fL MCH (25-34) pg MCHC (32-36) g/dL RDW Std Deviation (36.4-46.3) fL RDW Coeff of Aliyah (11.5-14.5) % Plt Count (130-400) K/uL MPV (7.4-10.4) fL Immature Gran % (Auto) % Neut % (Auto) % Lymph % (Auto) % [place] % (Auto) % Eos % (Auto) % Baso % (Auto) % Neut # (Auto) (1.4-6.5) K/uL Lymph # (Auto) (1.2-3.4) K/uL [place] # (Auto) (0.11-0.59) K/uL Eos # (Auto) (0-0.5) K/uL Baso # (Auto) (0-0.2) K/uL Immature Gran # (Auto) (0.00-0.02) K/uL ESR (0-20) mm/hr Sodium (136-145) mmol/L Potassium (3.5-5.1) mmol/L Chloride (98-107) mmol/L Carbon Dioxide (21-32) mmol/L Anion Gap (3-11) BUN (7-18) mg/dl Creatinine (0.6-1.4) mg/dl Est Cr Clr Drug Dosing Est GFR ( Amer) ml/min Est GFR (Non-Af Amer) ml/min BUN/Creatinine Ratio (10-20) Glucose (70-99) mg/dl Lactate (0.4-2.0) mmol/L Calcium (8.5-10.1) mg/dl Phosphorus (2.5-4.9) mg/dl Magnesium (1.8-2.4) mg/dl Total Bilirubin (0.2-1) mg/dl Direct Bilirubin (0-0.2) mg/dl AST (15-37) U/L ALT (12-78) U/L Alkaline Phosphatase (45-117) U/L Ammonia (11-32) umol/L Total Creatine Kinase (39-308) U/L Troponin I (0-0.045) ng/ml C-Reactive Protein 7.36 H (0-0.29) mg/dl Total Protein (6.4-8.2) gm/dl Albumin (3.4-5.0) gm/dl Globulin (2.5-4.0) gm/dl Albumin/Globulin Ratio (0.9-2) Procalcitonin < 0.05 (0-0.5) ng/ml TSH (0.300-4.500) uIu/ml Random Cortisol mcg/dl Specimen Hemolysis Urine Color Urine Appearance (Clear) Urine pH (4.5-7.5) Ur Specific [place] (1.000-1.030) Urine Protein (Negative) Urine Glucose (UA) (Negative) Urine Ketones (Negative) Urine Blood (Negative) Urine Nitrite (Negative) Urine Bilirubin (Negative) Urine Urobilinogen (Negative) Ur Leukocyte Esterase (Negative) Urine WBC (Auto) (0-5) /hpf Urine RBC (Auto) (0-4) /hpf U Hyaline Cast (Auto) (0-5) /lpf U Epithel Cells (Auto) (0-5) /lpf Urine Bacteria (Auto) (Negative) Calcium Oxalate Crystal (None Prsent) Urine Yeast Nasal Screen MRSA (PCR) (Negative) COVID-19 Eval Order Covid19 at [facility] SARS-CoV-2 (PCR) (Negative) Blood Type Antibody Screen 07/19/21 07/19/21 07/19/21 Range/Units 17:17 17:17 17:17 WBC (4.8-10.8) K/uL RBC (4.7-6.1) M/uL Hgb (14.0-18.0) g/dL Hct (42-52) % MCV (80-100) fL MCH (25-34) pg MCHC (32-36) g/dL RDW Std Deviation (36.4-46.3) fL RDW Coeff of Aliyah (11.5-14.5) % Plt Count (130-400) K/uL MPV (7.4-10.4) fL Immature Gran % (Auto) % Neut % (Auto) % Lymph % (Auto) % Perry % (Auto) % Eos % (Auto) % Baso % (Auto) % Neut # (Auto) (1.4-6.5) K/uL Lymph # (Auto) (1.2-3.4) K/uL [place] # (Auto) (0.11-0.59) K/uL Eos # (Auto) (0-0.5) K/uL Baso # (Auto) (0-0.2) K/uL Immature Gran # (Auto) (0.00-0.02) K/uL ESR 56 H (0-20) mm/hr Sodium (136-145) mmol/L Potassium (3.5-5.1) mmol/L Chloride (98-107) mmol/L Carbon Dioxide (21-32) mmol/L Anion Gap (3-11) BUN (7-18) mg/dl Creatinine (0.6-1.4) mg/dl Est Cr Clr Drug Dosing Est GFR ( Amer) ml/min Est GFR (Non-Af Amer) ml/min BUN/Creatinine Ratio (10-20) Glucose (70-99) mg/dl Lactate (0.4-2.0) mmol/L Calcium (8.5-10.1) mg/dl Phosphorus (2.5-4.9) mg/dl Magnesium (1.8-2.4) mg/dl Total Bilirubin (0.2-1) mg/dl Direct Bilirubin (0-0.2) mg/dl AST (15-37) U/L ALT (12-78) U/L Alkaline Phosphatase (45-117) U/L Ammonia 36.2 H (11-32) umol/L Total Creatine Kinase (39-308) U/L Troponin I (0-0.045) ng/ml C-Reactive Protein (0-0.29) mg/dl Total Protein (6.4-8.2) gm/dl Albumin (3.4-5.0) gm/dl Globulin (2.5-4.0) gm/dl Albumin/Globulin Ratio (0.9-2) Procalcitonin (0-0.5) ng/ml TSH (0.300-4.500) uIu/ml Random Cortisol mcg/dl Specimen Hemolysis Urine Color Urine Appearance (Clear) Urine pH (4.5-7.5) Ur Specific [place] (1.000-1.030) Urine Protein (Negative) Urine Glucose (UA) (Negative) Urine Ketones (Negative) Urine Blood (Negative) Urine Nitrite (Negative) Urine Bilirubin (Negative) Urine Urobilinogen (Negative) Ur Leukocyte Esterase (Negative) Urine WBC (Auto) (0-5) /hpf Urine RBC (Auto) (0-4) /hpf U Hyaline Cast (Auto) (0-5) /lpf U Epithel Cells (Auto) (0-5) /lpf Urine Bacteria (Auto) (Negative) Calcium Oxalate Crystal (None Prsent) Urine Yeast Nasal Screen MRSA (PCR) (Negative) COVID-19 Eval Order SARS-CoV-2 (PCR) (Negative) Blood Type A Positive Antibody Screen NEGATIVE 07/19/21 07/19/21 07/19/21 Range/Units 17:17 17:17 17:17 WBC 14.34 H (4.8-10.8) K/uL RBC 5.20 (4.7-6.1) M/uL Hgb 14.3 (14.0-18.0) g/dL Hct 43.4 (42-52) % MCV 83.5 (80-100) fL MCH 27.5 (25-34) pg MCHC 32.9 (32-36) g/dL RDW Std Deviation 48.0 H (36.4-46.3) fL RDW Coeff of Aliyah 16.1 H (11.5-14.5) % Plt Count 483 H (130-400) K/uL MPV 10.1 (7.4-10.4) fL Immature Gran % (Auto) 0.2 % Neut % (Auto) 78.0 % Lymph % (Auto) 13.5 % Perry % (Auto) 7.0 % Eos % (Auto) 1.0 % Baso % (Auto) 0.3 % Neut # (Auto) 11.18 H (1.4-6.5) K/uL Lymph # (Auto) 1.94 (1.2-3.4) K/uL [place] # (Auto) 1.00 H (0.11-0.59) K/uL Eos # (Auto) 0.14 (0-0.5) K/uL Baso # (Auto) 0.05 (0-0.2) K/uL Immature Gran # (Auto) 0.03 H (0.00-0.02) K/uL ESR (0-20) mm/hr Sodium 136 (136-145) mmol/L Potassium 4.4 (3.5-5.1) mmol/L Chloride 108 H (98-107) mmol/L Carbon Dioxide 24 (21-32) mmol/L Anion Gap 4.0 (3-11) BUN 23 H (7-18) mg/dl Creatinine 0.81 (0.6-1.4) mg/dl Est Cr Clr Drug Dosing Not Reportable Est GFR ( Amer) 107.3 ml/min Est GFR (Non-Af Amer) 92.6 ml/min BUN/Creatinine Ratio 28.6 H (10-20) Glucose 56 L (70-99) mg/dl Lactate 2.9 H* (0.4-2.0) mmol/L Calcium 9.5 (8.5-10.1) mg/dl Phosphorus (2.5-4.9) mg/dl Magnesium 2.2 (1.8-2.4) mg/dl Total Bilirubin 0.8 (0.2-1) mg/dl Direct Bilirubin (0-0.2) mg/dl AST 104 H (15-37) U/L ALT 31 (12-78) U/L Alkaline Phosphatase 128 H (45-117) U/L Ammonia (11-32) umol/L Total Creatine Kinase 1885 H (39-308) U/L Troponin I 0.373 H* (0-0.045) ng/ml C-Reactive Protein (0-0.29) mg/dl Total Protein 8.6 H (6.4-8.2) gm/dl Albumin 3.6 (3.4-5.0) gm/dl Globulin 5.0 H (2.5-4.0) gm/dl Albumin/Globulin Ratio 0.7 L (0.9-2) Procalcitonin (0-0.5) ng/ml TSH 4.390 (0.300-4.500) uIu/ml Random Cortisol mcg/dl Specimen Hemolysis Urine Color Urine Appearance (Clear) Urine pH (4.5-7.5) Ur Specific [place] (1.000-1.030) Urine Protein (Negative) Urine Glucose (UA) (Negative) Urine Ketones (Negative) Urine Blood (Negative) Urine Nitrite (Negative) Urine Bilirubin (Negative) Urine Urobilinogen (Negative) Ur Leukocyte Esterase (Negative) Urine WBC (Auto) (0-5) /hpf Urine RBC (Auto) (0-4) /hpf U Hyaline Cast (Auto) (0-5) /lpf U Epithel Cells (Auto) (0-5) /lpf Urine Bacteria (Auto) (Negative) Calcium Oxalate Crystal (None Prsent) Urine Yeast Nasal Screen MRSA (PCR) (Negative) COVID-19 Eval Order SARS-CoV-2 (PCR) (Negative) Blood Type Antibody Screen Resident Activity Tracking Resident Involvement: Resident Care Provided Care Provided: Adult Hospital Medicine (1) CAD (coronary artery disease) Associated angina: without angina Coronary Disease-Associated Artery/Lesion type: [place] artery [place] vs. transplanted heart: [place] heart Qualified Code(s): I25.10 - Atherosclerotic heart disease of [place] coronary artery without angina pectoris
[2021-07-20] MEDS: VANCOMYCIN HCL 1,250 MG in SODIUM CHLORIDE 0.9% 250 ML IV SCH ×2 (08:54→17:11)
[2021-07-20] MEDS: FAMOTIDINE 20 MG in SYRINGE 3 ML IV SCH ×2 (08:59→21:56)
[2021-07-20] MEDS: ASPIRIN 81 MG ECTAB PO SCH (09:00)
[2021-07-20] MEDS: DOCUSATE SODIUM 100 MG CAP PO SCH ×2 (09:00→21:56)
--- NOTE | 2021-07-20 09:49 | Billing Data ---
Date of Service July 20, 2021 Coding Level of Care Code Critical Care 12 11- mins
[2021-07-20] MEDS ORDERED: NORMOSOL-R 1,000 ML IV ONE (09:51)
[2021-07-20] MEDS: COLLAGENASE OINT 30 GM TUBE TOP SCH (10:02)
[2021-07-20] MEDS: NORMOSOL-R 1,000 ML IV SCH (13:56)
[2021-07-20] MEDS: CEFEPIME 2,000 MG in SYRINGE 0 ML IV SCH ×2 (13:57→21:57)
--- NOTE | 2021-07-20 17:45 | Emergency Department Note ---
History of Present Illness General Chief complaint: Illness Stated complaint: court order/office of aging Time Seen by Provider: 07/19/21 16:45 Source: patient, EMS, RN notes reviewed and other (Office of aging) Mode of arrival: EMS Limitations: patient cooperation History of Present Illness Provider complaint: Unable to care for self, fall This patient is a 66-year-old male who presents emergency department after being found on the ground by his daughter. The patient apparently lives in unsafe conditions according to EMS. The patient's daughter was unable to get a hold of him and called the ambulance. The office of aging was contacted and was able to obtain a court order to mandate the patient get medical care. The patient was evaluated and hospitalized last week but signed out AGAINST MEDICAL ADVICE. The patient has wounds on his legs and buttock. He is unable to ambulate and states he uses a wheelchair. He has pressure wounds/abrasion on his forehead, lower extremities and sacrum. Patient states he does not know why he is here and does not want treatment. He does have a bandage to the right lower extremity and states he changed it himself yesterday however this is not consistent with the condition of the dressing. The patient currently states that he is "fine" and also denies any pain. Home Medications Medication Instructions Recorded Confirmed Type aspirin 81 mg tablet,delayed 81 mg PO DAILY 01/18/21 07/19/21 History release carvedilol 3.125 mg tablet 3.125 mg PO BID #0 tab 02/04/21 07/19/21 Rx losartan 50 mg tablet 50 mg PO QAM #0 tab 02/04/21 07/19/21 Rx ciprofloxacin HCl 500 mg tablet 500 mg PO Q12H #14 tab 07/14/21 07/19/21 Rx (Cipro) doxycycline hyclate 100 mg capsule 100 mg PO BID #14 cap 07/14/21 07/19/21 Rx collagenase clostridium histo. 250 1 applic TOPICAL UD 07/19/21 07/19/21 History unit/gram topical ointment (Santyl) Allergies Allergy/AdvReac Type Severity Reaction Status Date / Time No Known Allergies Allergy Unverified 07/19/21 17:39 Past Med/Surg History Medical History Delirium Dyspnea Hx of myocardial infarction Hx of stroke without residual deficits No pertinent past medical history Palliative care encounter Palliative care encounter Peripheral arterial occlusive disease Sepsis Severe protein-calorie malnutrition Weakness Social History Smoking Status: Current every day smoker Cigarettes Per Day: 30; Second Hand Exposure: No; Do You Dip or Chew Tobacco: No; Tobacco Cessation Education Requested by Patient: No Hx Alcohol Use: No Hx Substance Use: No Preferred Language: Kiswahili Communication Ability: Unable Beliefs That Will Affect Care: None marital status: Current Living Situation: Alone Current Living Situation Comment: unable to access How many Children do You have: 2 Other Information That Helps Us Care for You: No Feels Safe at Home: Yes Safety Concerns: Feels Safe At This Time Assistive Devices: Oxygen - Continuous Review of Systems See HPI for pertinent positives & negatives. Other (Unable to obtain secondary to patient cooperation/reliability/cognitive status) Physical Exam Vital Signs Vital Signs - 24 hr 07/19/21 17:46 07/19/21 18:01 07/19/21 18:18 Pulse Rate 94 H 93 H 90 Pulse Rate from SpO2 Sensor 92 H Respiratory Rate 30 H 33 H 21 Blood Pressure 105/71 61/37 L Blood Pressure Mean 82 45 Pulse Oximetry 91 Oxygen Delivery Method Room Air Room Air Room Air 07/19/21 18:20 07/19/21 18:30 07/19/21 18:45 Pulse Rate 90 89 93 H Pulse Rate from SpO2 Sensor 89 89 Respiratory Rate 27 H 27 H 24 Blood Pressure 63/45 L Blood Pressure Mean 51 Pulse Oximetry 93 93 Oxygen Delivery Method Room Air Room Air 07/19/21 18:54 07/19/21 19:00 07/19/21 19:15 Pulse Rate 91 H 92 H 92 H Pulse Rate from SpO2 Sensor 92 H 91 H 91 H Respiratory Rate 25 H 21 26 H Blood Pressure 74/59 L 93/62 L Blood Pressure Mean 64 51 72 Pulse Oximetry 93 90 95 Oxygen Delivery Method 07/19/21 19:30 07/19/21 19:45 Pulse Rate 103 H 106 H Pulse Rate from SpO2 Sensor 104 H 106 H Respiratory Rate 22 25 H Blood Pressure 117/74 117/71 Blood Pressure Mean 88 86 Pulse Oximetry 96 95 Oxygen Delivery Method Vital signs reviewed. General: Chronically ill-appearing 66-year-old male, unkempt with overall poor hygiene. Resistant to care initially. HEENT: No scleral icterus, PERRLA, neck supple. Dry mucous membranes, abrasion with hematoma to the left forehead. Cardiovascular: Regular rate and rhythm, no extra sounds. Pulmonary: Coarse breath sounds to auscultation bilaterally, normal work of breathing. Abdomen: Soft, nontender, nondistended, positive bowel sounds. Musculoskeletal: no peripheral edema. Generalized atrophy. Nontender to palpation over the cervical, thoracic and lumbar spine. Neurologic: Patient awake alert and oriented x 3, full strength in all 4 extremities. Cranial nerves 2 through 12 grossly intact. Skin: Warm, dry, sacral decubitus stage I/II, right lower extremity with venous stasis/pressure wounds noted. Course Administered Medications Acetaminophen (Acetaminophen 325 Mg Tab) 650 mg PO Q6H PRN PRN Reason: Pain Stop: 08/24/21 22:21 Last Admin: 07/25/21 22:37 Dose: 650 mg Documented by: [id number] Albuterol (Albuterol Hfa 8 Gm Inhaler) 1 puffs INH Q4H PRN PRN Reason: shortness of breath, wheezing Stop: 08/25/21 10:34 Last Admin: 07/27/21 23:55 Dose: 1 puffs Documented by: [id number] Ascorbic Acid (Ascorbic Acid 500 Mg Tab) 500 mg PO BID [facility] Stop: 08/22/21 20:59 Last Admin: 07/27/21 22:09 Dose: 500 mg Documented by: [id number] Admin: 07/27/21 08:27 Dose: 500 mg Documented by: [id number] Admin: 07/26/21 21:41 Dose: Not Given Documented by: [id number] Admin: 07/26/21 08:23 Dose: 500 mg Documented by: [id number] Admin: 07/25/21 20:32 Dose: 500 mg Documented by: [id number] Admin: 07/25/21 07:50 Dose: 500 mg Documented by: [id number] Admin: 07/24/21 20:38 Dose: 500 mg Documented by: [id number] Admin: 07/24/21 09:32 Dose: 500 mg Documented by: [id number] Admin: 07/23/21 19:59 Dose: 500 mg Documented by: [id number] Aspirin (Aspirin 81 Mg Ectab) 81 mg PO DAILY [facility] Stop: 08/19/21 08:59 Last Admin: 07/27/21 08:27 Dose: 81 mg Documented by: [id number] Admin: 07/26/21 08:23 Dose: 81 mg Documented by: [id number] Admin: 07/25/21 07:50 Dose: 81 mg Documented by: [id number] Admin: 07/24/21 09:32 Dose: 81 mg Documented by: [id number] Admin: 07/23/21 08:58 Dose: 81 mg Documented by: [id number] Admin: 07/22/21 09:28 Dose: 81 mg Documented by: [id number] Admin: 07/21/21 10:44 Dose: 81 mg Documented by: [id number] Admin: 07/20/21 09:00 Dose: 81 mg Documented by: [id number] Docusate Sodium (Docusate Sodium 100 Mg Cap) 100 mg PO BID [facility] Stop: 08/18/21 21:05 Last Admin: 07/27/21 22:05 Dose: Not Given Documented by: [id number] Admin: 07/27/21 08:28 Dose: 100 mg Documented by: [id number] Admin: 07/26/21 21:41 Dose: Not Given Documented by: [id number] Admin: 07/26/21 08:23 Dose: Not Given Documented by: [id number] Admin: 07/25/21 20:29 Dose: Not Given Documented by: [id number] Admin: 07/25/21 07:51 Dose: Not Given Documented by: [id number] Admin: 07/24/21 20:42 Dose: Not Given Documented by: [id number] Admin: 07/24/21 09:32 Dose: Not Given Documented by: [id number] Admin: 07/23/21 19:59 Dose: 100 mg Documented by: [id number] Admin: 07/23/21 08:58 Dose: 100 mg Documented by: [id number] Admin: 07/22/21 20:24 Dose: 100 mg Documented by: [id number] Admin: 07/22/21 09:27 Dose: 100 mg Documented by: [id number] Admin: 07/21/21 20:35 Dose: Not Given Documented by: [id number] Admin: 07/21/21 10:44 Dose: 100 mg Documented by: [id number] Admin: 07/20/21 21:56 Dose: 100 mg Documented by: [id number] Admin: 07/20/21 09:00 Dose: 100 mg Documented by: [id number] Admin: 07/19/21 23:23 Dose: 100 mg Documented by: [id number] Enoxaparin Sodium (Enoxaparin Inj 40 Mg/0.4 Ml Syr) 40 mg SQ Q24H [facility] Stop: 08/18/21 22:59 Last Admin: 07/27/21 22:09 Dose: 40 mg Documented by: [id number] Admin: 07/26/21 22:48 Dose: 40 mg Documented by: [id number] Admin: 07/25/21 22:36 Dose: 40 mg Documented by: [id number] Admin: 07/24/21 22:02 Dose: 40 mg Documented by: [id number] Admin: 07/23/21 22:47 Dose: 40 mg Documented by: [id number] Admin: 07/22/21 22:19 Dose: 40 mg Documented by: [id number] Admin: 07/21/21 21:44 Dose: 40 mg Documented by: [id number] Admin: 07/20/21 22:01 Dose: 40 mg Documented by: [id number] Admin: 07/19/21 23:24 Dose: 40 mg Documented by: [id number] Famotidine (Famotidine 20 Mg Tab) 20 mg PO QAM [facility] Stop: 08/26/21 08:59 Last Admin: 07/27/21 08:27 Dose: 20 mg Documented by: [id number] Fluticasone/Vilanterol (Fluticasone/Vilanterol 200/25mcg 14 Puffs/Inhaler) 1 puffs INH DAILY@HS [facility] Stop: 08/22/21 20:59 Last Admin: 07/27/21 22:09 Dose: 1 puffs Documented by: [id number] Admin: 07/26/21 21:42 Dose: 1 puffs Documented by: [id number] Admin: 07/25/21 20:30 Dose: 1 puffs Documented by: [id number] Admin: 07/24/21 20:39 Dose: 1 puffs Documented by: [id number] Admin: 07/23/21 23:26 Dose: 1 puffs Documented by: [id number] Meropenem 500 mg/ Syringe 10 mls @ 2 mls/min IV Q6H [facility]; Protocol Stop: 08/06/21 08:59 Last Admin: 07/27/21 22:08 Dose: 2 mls/min Documented by: [id number] Admin: 07/27/21 15:02 Dose: 2 mls/min Documented by: [id number] Admin: 07/27/21 08:31 Dose: 2 mls/min Documented by: [id number] Admin: 07/27/21 03:41 Dose: 2 mls/min Documented by: [id number] Admin: 07/26/21 21:43 Dose: 2 mls/min Documented by: [id number] Admin: 07/26/21 15:40 Dose: 2 mls/min Documented by: [id number] Admin: 07/26/21 08:22 Dose: 2 mls/min Documented by: [id number] Admin: 07/26/21 02:31 Dose: 2 mls/min Documented by: [id number] Admin: 07/25/21 20:39 Dose: 2 mls/min Documented by: [id number] Admin: 07/25/21 16:04 Dose: 2 mls/min Documented by: [id number] Admin: 07/25/21 07:56 Dose: 2 mls/min Documented by: [id number] Admin: 07/25/21 03:28 Dose: 2 mls/min Documented by: [id number] Admin: 07/24/21 20:36 Dose: 2 mls/min Documented by: [id number] Admin: 07/24/21 15:14 Dose: 2 mls/min Documented by: [id number] Admin: 07/24/21 09:33 Dose: 2 mls/min Documented by: [id number] Admin: 07/24/21 03:10 Dose: 2 mls/min Documented by: [id number] Admin: 07/23/21 19:59 Dose: 2 mls/min Documented by: [id number] Admin: 07/23/21 15:27 Dose: 2 mls/min Documented by: [id number] Admin: 07/23/21 10:41 Dose: 2 mls/min Documented by: [id number] Ipratropium Pecos (Ipratropium Pecos Hfa Inhaler) 1 puffs INH Q6H PRN PRN Reason: shortness of breath, wheezing Stop: 08/25/21 10:44 Last Admin: 07/27/21 23:55 Dose: 1 puffs Documented by: [id number] Metoprolol Succinate (Metoprolol Succ 25mg Ext Rel Tab) 12.5 mg PO QAM [facility] Stop: 08/25/21 08:59 Last Admin: 07/27/21 08:27 Dose: 12.5 mg Documented by: [id number] Admin: 07/26/21 08:42 Dose: 12.5 mg Documented by: [id number] Miscellaneous (Remove Nicoderm Patch) 1 ea N/A DAILY@[id number] [facility] Stop: 08/22/21 08:58 Last Admin: 07/27/21 08:28 Dose: 1 ea Documented by: [id number] Admin: 07/26/21 08:24 Dose: 1 ea Documented by: [id number] Admin: 07/25/21 07:50 Dose: 1 ea Documented by: [id number] Admin: 07/24/21 09:31 Dose: 1 ea Documented by: [id number] Admin: 07/23/21 08:57 Dose: 1 ea Documented by: [id number] Multivitamins/Minerals (Cerovite Adv Formula Tab) 1 tab PO QAM [facility] Stop: 08/23/21 08:59 Last Admin: 07/27/21 08:27 Dose: 1 tab Documented by: [id number] Admin: 07/26/21 08:23 Dose: 1 tab Documented by: [id number] Admin: 07/25/21 07:54 Dose: 1 tab Documented by: [id number] Admin: 07/24/21 09:33 Dose: 1 tab Documented by: [id number] Nicotine (Nicotine 14 Mg/24 Hr Patch) 14 mg TD QAM [facility] Stop: 08/21/21 18:29 Last Admin: 07/27/21 08:26 Dose: 14 mg Documented by: [id number] Admin: 07/26/21 08:42 Dose: 14 mg Documented by: [id number] Admin: 07/25/21 07:49 Dose: 14 mg Documented by: [id number] Admin: 07/24/21 09:34 Dose: 14 mg Documented by: [id number] Admin: 07/23/21 09:00 Dose: 14 mg Documented by: [id number] Admin: 07/22/21 20:19 Dose: 14 mg Documented by: [id number] Nystatin (Nystatin Susp 500,000 U/5 Ml Udc) 5 ml PO QID [facility] Stop: 08/03/21 08:59 Last Admin: 07/27/21 22:09 Dose: 5 ml Documented by: [id number] Admin: 07/27/21 18:25 Dose: 5 ml Documented by: [id number] Admin: 07/27/21 12:57 Dose: 5 ml Documented by: [id number] Admin: 07/27/21 08:26 Dose: 5 ml Documented by: [id number] Admin: 07/26/21 21:41 Dose: Not Given Documented by: [id number] Admin: 07/26/21 16:41 Dose: 5 ml Documented by: [id number] Admin: 07/26/21 13:40 Dose: 5 ml Documented by: [id number] Admin: 07/26/21 08:23 Dose: 5 ml Documented by: [id number] Admin: 07/25/21 20:33 Dose: 5 ml Documented by: [id number] Admin: 07/25/21 16:04 Dose: 5 ml Documented by: [id number] Admin: 07/25/21 12:13 Dose: 5 ml Documented by: [id number] Admin: 07/25/21 07:53 Dose: 5 ml Documented by: [id number] Admin: 07/24/21 20:36 Dose: 5 ml Documented by: [id number] Admin: 07/24/21 17:10 Dose: 5 ml Documented by: [id number] Admin: 07/24/21 12:22 Dose: 5 ml Documented by: [id number] Admin: 07/24/21 09:00 Dose: 5 ml Documented by: [id number] Potassium Chloride (Potassium Chloride 10 Meq Tabcr) 10 meq PO BID [facility] Stop: 08/22/21 13:29 Last Admin: 07/27/21 22:08 Dose: 10 meq Documented by: [id number] Admin: 07/27/21 08:31 Dose: 10 meq Documented by: [id number] Admin: 07/26/21 21:42 Dose: Not Given Documented by: [id number] Admin: 07/26/21 08:23 Dose: 10 meq Documented by: [id number] Admin: 07/25/21 20:31 Dose: 10 meq Documented by: [id number] Admin: 07/25/21 07:53 Dose: 10 meq Documented by: [id number] Admin: 07/24/21 20:37 Dose: 10 meq Documented by: [id number] Admin: 07/24/21 09:35 Dose: 10 meq Documented by: [id number] Admin: 07/23/21 19:59 Dose: 10 meq Documented by: [id number] Admin: 07/23/21 15:27 Dose: 10 meq Documented by: [id number] Umeclidinium Pecos (Umeclidinium Pecos 62.5mcg/Blister 7 Puffs/Inhaler) 1 puffs INH QAM [facility] Stop: 08/23/21 08:59 Last Admin: 07/27/21 08:28 Dose: 1 puffs Documented by: [id number] Admin: 07/26/21 08:24 Dose: 1 puffs Documented by: [id number] Admin: 07/25/21 07:52 Dose: 1 puffs Documented by: [id number] Admin: 07/24/21 09:35 Dose: 1 puffs Documented by: [id number] Zinc Sulfate (Zinc Sulfate 220 Mg Capsule) 220 mg PO QAM [facility] Stop: 08/23/21 08:59 Last Admin: 07/27/21 08:27 Dose: 220 mg Documented by: [id number] Admin: 07/26/21 08:24 Dose: 220 mg Documented by: [id number] Admin: 07/25/21 07:52 Dose: 220 mg Documented by: [id number] Admin: 07/24/21 09:36 Dose: 220 mg Documented by: [id number] Discontinued Medications Albuterol (Albuterol Hfa 8 Gm Inhaler) 1 puffs INH QIDR [facility] Stop: 08/22/21 14:59 Last Admin: 07/26/21 07:32 Dose: 1 puffs Documented by: [id number] Admin: 07/25/21 20:44 Dose: Not Given Documented by: [id number] Admin: 07/25/21 17:31 Dose: Not Given Documented by: [id number] Admin: 07/25/21 10:51 Dose: 1 puffs Documented by: [id number] Admin: 07/25/21 08:20 Dose: 1 puffs Documented by: [id number] Admin: 07/24/21 20:50 Dose: 1 puffs Documented by: [id number] Admin: 07/24/21 15:07 Dose: Not Given Documented by: [id number] Admin: 07/24/21 10:54 Dose: 1 puffs Documented by: [id number] Admin: 07/24/21 07:48 Dose: 1 puffs Documented by: [id number] Admin: 07/23/21 19:32 Dose: 1 puffs Documented by: [id number] Admin: 07/23/21 15:19 Dose: 1 puffs Documented by: [id number] Collagenase (Collagenase Oint 30 Gm Tube) 1 appln TOP DAILY [facility] Stop: 08/19/21 08:59 Last Admin: 07/22/21 09:28 Dose: Not Given Documented by: [id number] Admin: 07/21/21 10:44 Dose: 1 appln Documented by: [id number] Admin: 07/20/21 10:02 Dose: 1 appln Documented by: [id number] Furosemide (Furosemide 40 Mg/4 Ml Vial) Confirm Administered Dose 40 mg IV .STK- MED ONE Stop: 07/23/21 15:26 Last Admin: 07/23/21 15:29 Dose: Not Given Documented by: [id number] Sodium Chloride (Nss 1000ml) 1,000 mls @ 999 mls/hr IV .Q1H1M ONE Stop: 07/19/21 18:04 Last Infusion: 07/19/21 18:57 Dose: 0 mls/hr Documented by: [id number] Admin: 07/19/21 17:15 Dose: 999 mls/hr Documented by: [id number] Vancomycin HCl 1,500 mg/ (Sodium Chloride) 530 mls @ 200 mls/hr IV NOW ONE Stop: 07/19/21 19:42 Last Infusion: 07/19/21 20:43 Dose: 0 mls/hr Documented by: [id number] Admin: 07/19/21 18:04 Dose: 200 mls/hr Documented by: [id number] Cefepime HCl (Maxipime) 2,000 mg in 20 mls @ 5 mls/min IV NOW STA; Protocol Stop: 07/19/21 17:07 Last Admin: 07/19/21 17:44 Dose: 5 mls/min Documented by: [id number] Sodium Chloride (Nss 1000ml) 500 mls @ 999 mls/hr IV .Q31M ONE Stop: 07/19/21 19:10 Last Infusion: 07/19/21 19:28 Dose: 0 mls/hr Documented by: [id number] Admin: 07/19/21 18:57 Dose: 999 mls/hr Documented by: [id number] Sodium Chloride (Nss 1000ml) 1,000 mls @ 125 mls/hr IV .Q8H STA Stop: 07/20/21 02:39 Last Infusion: 07/20/21 06:59 Dose: 0 mls/hr Documented by: [id number] Admin: 07/19/21 18:57 Dose: 125 mls/hr Documented by: [id number] Norepinephrine Bitartrate (Levophed/D5w) 8 mg in 508 mls @ 0 mls/hr IV .Q0M [facility]; Protocol Stop: 08/18/21 19:14 Last Titration: 07/21/21 11:04 Dose: 0 mcg/kg/min, 0 mls/hr Documented by: [id number] Titration: 07/21/21 07:45 Dose: 0 mcg/kg/min, 0 mls/hr Documented by: [id number] Titration: 07/21/21 07:05 Dose: 0.01 mcg/kg/min, 3.2 mls/hr Documented by: [id number] Cosigned by: [id number] Admin: 07/20/21 21:52 Dose: Not Given Documented by: [id number] Titration: 07/20/21 18:58 Dose: 0.01 mcg/kg/min, 3.2 mls/hr Documented by: [id number] Cosigned by: [id number] Titration: 07/20/21 08:45 Dose: 0.01 mcg/kg/min, 3.2 mls/hr Documented by: [id number] Titration: 07/20/21 07:09 Dose: 0.02 mcg/kg/min, 6.5 mls/hr Documented by: [id number] Cosigned by: [id number] Titration: 07/19/21 21:58 Dose: 0.02 mcg/kg/min, 6.5 mls/hr Documented by: [id number] Titration: 07/19/21 21:41 Dose: 0.03 mcg/kg/min, 9.7 mls/hr Documented by: [id number] Admin: 07/19/21 19:17 Dose: 0.05 mcg/kg/min, 16.2 mls/hr Documented by: [id number] Cosigned by: [id number] Cefepime HCl 2,000 mg/ Syringe 20 mls @ 5.5 mls/min IV Q12H [facility]; Protocol Stop: 07/27/21 05:59 Last Admin: 07/20/21 06:09 Dose: 5.5 mls/min Documented by: [id number] Vancomycin HCl 1,000 mg/ (Sodium Chloride) 270 mls @ 200 mls/hr IV Q8H [facility]; Protocol Stop: 07/27/21 00:00 Last Infusion: 07/20/21 00:45 Dose: 0 mls/hr Documented by: [id number] Admin: 07/19/21 23:24 Dose: 200 mls/hr Documented by: [id number] Famotidine 20 mg/ Syringe 5 mls @ 2.5 mls/min IV Q12 [facility] Stop: 08/18/21 21:59 Last Admin: 07/26/21 08:22 Dose: 2.5 mls/min Documented by: [id number] Admin: 07/25/21 20:40 Dose: 2.5 mls/min Documented by: [id number] Admin: 07/25/21 07:57 Dose: 2.5 mls/min Documented by: [id number] Admin: 07/24/21 20:36 Dose: 2.5 mls/min Documented by: [id number] Admin: 07/24/21 09:32 Dose: 2.5 mls/min Documented by: [id number] Admin: 07/23/21 19:59 Dose: 2.5 mls/min Documented by: [id number] Admin: 07/23/21 09:02 Dose: 2.5 mls/min Documented by: [id number] Admin: 07/22/21 20:49 Dose: 2.5 mls/min Documented by: [id number] Admin: 07/22/21 09:27 Dose: 2.5 mls/min Documented by: [id number] Admin: 07/21/21 20:34 Dose: 2.5 mls/min Documented by: [id number] Admin: 07/21/21 10:43 Dose: 2.5 mls/min Documented by: [id number] Admin: 07/20/21 21:56 Dose: 2.5 mls/min Documented by: [id number] Admin: 07/20/21 08:59 Dose: 2.5 mls/min Documented by: [id number] Admin: 07/19/21 23:23 Dose: 2.5 mls/min Documented by: [id number] Parenteral Electrolytes (Normosol-R) 1,000 mls @ 75 mls/hr IV .[id number] [facility] Stop: 08/18/21 22:14 Last Admin: 07/22/21 18:43 Dose: Not Given Documented by: [id number] Infusion: 07/22/21 18:42 Dose: 0 mls/hr Documented by: [id number] Infusion: 07/22/21 17:30 Dose: 0 mls/hr Documented by: [id number] Admin: 07/22/21 05:46 Dose: 75 mls/hr Documented by: [id number] Infusion: 07/22/21 02:49 Dose: 75 mls/hr Documented by: [id number] Admin: 07/21/21 13:29 Dose: 75 mls/hr Documented by: [id number] Infusion: 07/21/21 13:27 Dose: 75 mls/hr Documented by: [id number] Admin: 07/21/21 00:07 Dose: 75 mls/hr Documented by: [id number] Infusion: 07/21/21 00:07 Dose: 75 mls/hr Documented by: [id number] Admin: 07/20/21 13:56 Dose: 75 mls/hr Documented by: [id number] Infusion: 07/20/21 12:44 Dose: 75 mls/hr Documented by: [id number] Admin: 07/19/21 23:24 Dose: 75 mls/hr Documented by: [id number] Vancomycin HCl 1,250 mg/ (Sodium Chloride) 275 mls @ 200 mls/hr IV Q8H [facility] Stop: 07/26/21 07:59 Last Infusion: 07/23/21 03:00 Dose: 0 mls/hr Documented by: [id number] Admin: 07/23/21 01:15 Dose: 200 mls/hr Documented by: [id number] Infusion: 07/22/21 19:30 Dose: 0 mls/hr Documented by: [id number] Admin: 07/22/21 17:45 Dose: 200 mls/hr Documented by: [id number] Infusion: 07/22/21 10:54 Dose: 0 mls/hr Documented by: [id number] Admin: 07/22/21 09:27 Dose: 200 mls/hr Documented by: [id number] Infusion: 07/22/21 01:53 Dose: 0 mls/hr Documented by: [id number] Admin: 07/22/21 00:30 Dose: 200 mls/hr Documented by: [id number] Infusion: 07/21/21 17:04 Dose: 0 mls/hr Documented by: [id number] Admin: 07/21/21 15:41 Dose: 200 mls/hr Documented by: [id number] Infusion: 07/21/21 09:08 Dose: 0 mls/hr Documented by: [id number] Admin: 07/21/21 07:45 Dose: 200 mls/hr Documented by: [id number] Infusion: 07/21/21 03:40 Dose: 0 mls/hr Documented by: [id number] Admin: 07/21/21 00:07 Dose: 200 mls/hr Documented by: [id number] Infusion: 07/20/21 18:57 Dose: 0 mls/hr Documented by: [id number] Admin: 07/20/21 17:11 Dose: 200 mls/hr Documented by: [id number] Infusion: 07/20/21 10:47 Dose: 0 mls/hr Documented by: [id number] Admin: 07/20/21 08:54 Dose: 200 mls/hr Documented by: [id number] Parenteral Electrolytes (Normosol-R) 1,000 mls @ 999 mls/hr IV .Q1H1M ONE Stop: 07/20/21 10:51 Last Infusion: 07/20/21 12:19 Dose: 0 mls/hr Documented by: [id number] Admin: 07/20/21 10:46 Dose: 999 mls/hr Documented by: [id number] Cefepime HCl 2,000 mg/ Syringe 20 mls @ 5.5 mls/min IV Q8H [facility]; Protocol Stop: 08/03/21 13:59 Last Admin: 07/23/21 05:37 Dose: 5.5 mls/min Documented by: [id number] Admin: 07/22/21 22:19 Dose: 5.5 mls/min Documented by: [id number] Admin: 07/22/21 13:54 Dose: 5.5 mls/min Documented by: [id number] Admin: 07/22/21 05:55 Dose: 5.5 mls/min Documented by: [id number] Admin: 07/21/21 21:43 Dose: 5.5 mls/min Documented by: [id number] Admin: 07/21/21 13:25 Dose: 5.5 mls/min Documented by: [id number] Admin: 07/21/21 06:10 Dose: 5.5 mls/min Documented by: [id number] Admin: 07/20/21 21:57 Dose: 5.5 mls/min Documented by: [id number] Admin: 07/20/21 13:57 Dose: 5.5 mls/min Documented by: [id number] Hydrocortisone Sodium (Succinate 100 mg/ Syringe) 2 mls @ 4 mls/min IV NOW ONE Stop: 07/20/21 19:31 Last Admin: 07/20/21 19:48 Dose: 4 mls/min Documented by: [id number] Hydrocortisone Sodium (Succinate 50 mg/ Syringe) 1 mls @ 4 mls/min IV Q6H [facility] Stop: 07/24/21 00:59 Last Admin: 07/22/21 20:20 Dose: 4 mls/min Documented by: [id number] Admin: 07/22/21 13:54 Dose: 4 mls/min Documented by: [id number] Admin: 07/22/21 05:55 Dose: 4 mls/min Documented by: [id number] Admin: 07/22/21 00:31 Dose: 4 mls/min Documented by: [id number] Admin: 07/21/21 19:45 Dose: 4 mls/min Documented by: [id number] Admin: 07/21/21 13:25 Dose: 4 mls/min Documented by: [id number] Admin: 07/21/21 07:44 Dose: 4 mls/min Documented by: [id number] Admin: 07/21/21 00:08 Dose: 4 mls/min Documented by: [id number] Albumin Human (Albumin 25%) 12.5 gm in 50 mls @ 50 mls/hr IV Q1H JADE Stop: 07/20/21 21:29 Last Infusion: 07/20/21 23:12 Dose: 0 mls/hr Documented by: [id number] Admin: 07/20/21 21:19 Dose: 50 mls/hr Documented by: [id number] Infusion: 07/20/21 21:19 Dose: 0 mls/hr Documented by: [id number] Admin: 07/20/21 19:48 Dose: 50 mls/hr Documented by: [id number] Metronidazole (Flagyl) 500 mg in 100 mls @ 100 mls/hr IV Q8@0200,1000,1800 [facility] Stop: 07/28/21 10:14 Last Infusion: 07/23/21 02:20 Dose: 0 mls/hr Documented by: [id number] Admin: 07/23/21 01:15 Dose: 100 mls/hr Documented by: [id number] Infusion: 07/22/21 19:52 Dose: 0 mls/hr Documented by: [id number] Admin: 07/22/21 17:45 Dose: 100 mls/hr Documented by: [id number] Infusion: 07/22/21 10:27 Dose: 0 mls/hr Documented by: [id number] Admin: 07/22/21 09:27 Dose: 100 mls/hr Documented by: [id number] Infusion: 07/22/21 02:51 Dose: 0 mls/hr Documented by: [id number] Admin: 07/22/21 01:51 Dose: 100 mls/hr Documented by: [id number] Infusion: 07/21/21 19:03 Dose: 0 mls/hr Documented by: [id number] Admin: 07/21/21 18:03 Dose: 100 mls/hr Documented by: [id number] Infusion: 07/21/21 11:45 Dose: 0 mls/hr Documented by: [id number] Admin: 07/21/21 10:43 Dose: 100 mls/hr Documented by: [id number] Hydrocortisone Sodium (Succinate 50 mg/ Syringe) 1 mls @ 4 mls/min IV BID JADE Stop: 07/26/21 08:59 Last Admin: 07/24/21 20:38 Dose: 4 mls/min Documented by: [id number] Admin: 07/24/21 09:33 Dose: 4 mls/min Documented by: [id number] Admin: 07/23/21 20:00 Dose: 4 mls/min Documented by: [id number] Admin: 07/23/21 08:59 Dose: 4 mls/min Documented by: [id number] Furosemide 20 mg/ Syringe 2 mls @ 4 mls/min IV 2200 ONE Stop: 07/22/21 22:01 Last Admin: 07/22/21 22:33 Dose: 4 mls/min Documented by: [id number] Furosemide 20 mg/ Syringe 2 mls @ 4 mls/min IV ONE ONE Stop: 07/23/21 13:31 Last Admin: 07/23/21 15:26 Dose: 4 mls/min Documented by: [id number] Furosemide 20 mg/ Syringe 2 mls @ 4 mls/min IV 1630 ONE Stop: 07/24/21 16:31 Last Admin: 07/24/21 17:09 Dose: 4 mls/min Documented by: [id number] Hydrocortisone Sodium (Succinate 25 mg/ Syringe) 0.5 mls @ 4 mls/min IV BID JADE Stop: 07/28/21 08:59 Last Admin: 07/26/21 08:22 Dose: 4 mls/min Documented by: [id number] Admin: 07/25/21 20:32 Dose: 4 mls/min Documented by: [id number] Admin: 07/25/21 09:00 Dose: 4 mls/min Documented by: [id number] Hydrocortisone Sodium (Succinate 10 mg/ Syringe) 0.5 mls @ 4 mls/min IV BID JADE Stop: 07/29/21 20:59 Last Admin: 07/27/21 08:26 Dose: 4 mls/min Documented by: [id number] Admin: 07/26/21 21:44 Dose: 4 mls/min Documented by: [id number] Ipratropium Pecos (Ipratropium Pecos Hfa Inhaler) 1 puffs INH QIDR JADE Stop: 08/22/21 14:59 Last Admin: 07/26/21 07:32 Dose: 1 puffs Documented by: [id number] Admin: 07/25/21 20:45 Dose: Not Given Documented by: [id number] Admin: 07/25/21 17:31 Dose: Not Given Documented by: [id number] Admin: 07/25/21 10:51 Dose: 1 puffs Documented by: [id number] Admin: 07/25/21 08:20 Dose: 1 puffs Documented by: [id number] Admin: 07/24/21 20:50 Dose: 1 puffs Documented by: [id number] Admin: 07/24/21 15:07 Dose: Not Given Documented by: [id number] Admin: 07/24/21 10:53 Dose: 1 puffs Documented by: [id number] Admin: 07/24/21 07:49 Dose: 1 puffs Documented by: [id number] Admin: 07/23/21 19:33 Dose: 1 puffs Documented by: [id number] Admin: 07/23/21 15:19 Dose: 1 puffs Documented by: [id number] Miscellaneous (Stat Iv Infusion Titration Per Protocol) 1 ea N/A NOW STA Stop: 07/19/21 19:08 Last Admin: 07/19/21 19:20 Dose: 1 ea Documented by: [id number] Miscellaneous Information (Vancomycin Consult Active) 1 ea N/A UD PRN PRN Reason: Consult Stop: 08/18/21 17:03 Last Admin: 07/19/21 18:29 Dose: 1 ea Documented by: [id number] Medical Decision Making Differential Diagnosis Infection, dehydration, metabolic abnormality, hypo/hyperglycemia, electrolyte disturbance, anemia, hypoxia, cardiac sources, intracerebral event, toxicologic, neurologic, as well as other pathologies. Medical Records Attestation: I reviewed the patient's medical records. Home Medications Current Medication List: was personally reviewed by me Laboratory Data Attestation: I reviewed the patient's lab results. Result diagrams: 07/26/21 05:36 07/26/21 05:36 Lab Results 07/19/21 07/19/21 07/19/21 Range/Units 17:17 17:17 17:17 WBC 14.34 H (4.8-10.8) K/uL RBC 5.20 (4.7-6.1) M/uL Hgb 14.3 (14.0-18.0) g/dL Hct 43.4 (42-52) % MCV 83.5 (80-100) fL MCH 27.5 (25-34) pg MCHC 32.9 (32-36) g/dL RDW Std Deviation 48.0 H (36.4-46.3) fL RDW Coeff of Aliyah 16.1 H (11.5-14.5) % Plt Count 483 H (130-400) K/uL MPV 10.1 (7.4-10.4) fL Immature Gran % (Auto) 0.2 % Neut % (Auto) 78.0 % Lymph % (Auto) 13.5 % Webster % (Auto) 7.0 % Eos % (Auto) 1.0 % Baso % (Auto) 0.3 % Neut # (Auto) 11.18 H (1.4-6.5) K/uL Lymph # (Auto) 1.94 (1.2-3.4) K/uL Webster # (Auto) 1.00 H (0.11-0.59) K/uL Eos # (Auto) 0.14 (0-0.5) K/uL Baso # (Auto) 0.05 (0-0.2) K/uL Immature Gran # (Auto) 0.03 H (0.00-0.02) K/uL ESR (0-20) mm/hr Sodium 136 (136-145) mmol/L Potassium 4.4 (3.5-5.1) mmol/L Chloride 108 H (98-107) mmol/L Carbon Dioxide 24 (21-32) mmol/L Anion Gap 4.0 (3-11) BUN 23 H (7-18) mg/dl Creatinine 0.81 (0.6-1.4) mg/dl Est Cr Clr Drug Dosing Not Reportable Est GFR ( Amer) 107.3 ml/min Est GFR (Non-Af Amer) 92.6 ml/min BUN/Creatinine Ratio 28.6 H (10-20) Glucose 56 L (70-99) mg/dl Lactate 2.9 H* (0.4-2.0) mmol/L Calcium 9.5 (8.5-10.1) mg/dl Magnesium 2.2 (1.8-2.4) mg/dl Total Bilirubin 0.8 (0.2-1) mg/dl AST 104 H (15-37) U/L ALT 31 (12-78) U/L Alkaline Phosphatase 128 H (45-117) U/L Ammonia (11-32) umol/L Total Creatine Kinase 1885 H (39-308) U/L Troponin I 0.373 H* (0-0.045) ng/ml C-Reactive Protein (0-0.29) mg/dl Total Protein 8.6 H (6.4-8.2) gm/dl Albumin 3.6 (3.4-5.0) gm/dl Globulin 5.0 H (2.5-4.0) gm/dl Albumin/Globulin Ratio 0.7 L (0.9-2) Procalcitonin (0-0.5) ng/ml TSH 4.390 (0.300-4.500) uIu/ml Specimen Hemolysis COVID-19 Eval Order SARS-CoV-2 (PCR) (Negative) Blood Type Antibody Screen 07/19/21 07/19/21 07/19/21 Range/Units 17:17 17:17 17:17 WBC (4.8-10.8) K/uL RBC (4.7-6.1) M/uL Hgb (14.0-18.0) g/dL Hct (42-52) % MCV (80-100) fL MCH (25-34) pg MCHC (32-36) g/dL RDW Std Deviation (36.4-46.3) fL RDW Coeff of Aliyah (11.5-14.5) % Plt Count (130-400) K/uL MPV (7.4-10.4) fL Immature Gran % (Auto) % Neut % (Auto) % Lymph % (Auto) % Webster % (Auto) % Eos % (Auto) % Baso % (Auto) % Neut # (Auto) (1.4-6.5) K/uL Lymph # (Auto) (1.2-3.4) K/uL Webster # (Auto) (0.11-0.59) K/uL Eos # (Auto) (0-0.5) K/uL Baso # (Auto) (0-0.2) K/uL Immature Gran # (Auto) (0.00-0.02) K/uL ESR 56 H (0-20) mm/hr Sodium (136-145) mmol/L Potassium (3.5-5.1) mmol/L Chloride (98-107) mmol/L Carbon Dioxide (21-32) mmol/L Anion Gap (3-11) BUN (7-18) mg/dl Creatinine (0.6-1.4) mg/dl Est Cr Clr Drug Dosing Est GFR ( Amer) ml/min Est GFR (Non-Af Amer) ml/min BUN/Creatinine Ratio (10-20) Glucose (70-99) mg/dl Lactate (0.4-2.0) mmol/L Calcium (8.5-10.1) mg/dl Magnesium (1.8-2.4) mg/dl Total Bilirubin (0.2-1) mg/dl AST (15-37) U/L ALT (12-78) U/L Alkaline Phosphatase (45-117) U/L Ammonia 36.2 H (11-32) umol/L Total Creatine Kinase (39-308) U/L Troponin I (0-0.045) ng/ml C-Reactive Protein (0-0.29) mg/dl Total Protein (6.4-8.2) gm/dl Albumin (3.4-5.0) gm/dl Globulin (2.5-4.0) gm/dl Albumin/Globulin Ratio (0.9-2) Procalcitonin (0-0.5) ng/ml TSH (0.300-4.500) uIu/ml Specimen Hemolysis COVID-19 Eval Order SARS-CoV-2 (PCR) (Negative) Blood Type A Positive Antibody Screen NEGATIVE 07/19/21 07/19/21 07/19/21 Range/Units 17:17 17:17 18:33 WBC (4.8-10.8) K/uL RBC (4.7-6.1) M/uL Hgb (14.0-18.0) g/dL Hct (42-52) % MCV (80-100) fL MCH (25-34) pg MCHC (32-36) g/dL RDW Std Deviation (36.4-46.3) fL RDW Coeff of Aliyah (11.5-14.5) % Plt Count (130-400) K/uL MPV (7.4-10.4) fL Immature Gran % (Auto) % Neut % (Auto) % Lymph % (Auto) % Webster % (Auto) % Eos % (Auto) % Baso % (Auto) % Neut # (Auto) (1.4-6.5) K/uL Lymph # (Auto) (1.2-3.4) K/uL Webster # (Auto) (0.11-0.59) K/uL Eos # (Auto) (0-0.5) K/uL Baso # (Auto) (0-0.2) K/uL Immature Gran # (Auto) (0.00-0.02) K/uL ESR (0-20) mm/hr Sodium (136-145) mmol/L Potassium (3.5-5.1) mmol/L Chloride (98-107) mmol/L Carbon Dioxide (21-32) mmol/L Anion Gap (3-11) BUN (7-18) mg/dl Creatinine (0.6-1.4) mg/dl Est Cr Clr Drug Dosing Est GFR ( Amer) ml/min Est GFR (Non-Af Amer) ml/min BUN/Creatinine Ratio (10-20) Glucose (70-99) mg/dl Lactate (0.4-2.0) mmol/L Calcium (8.5-10.1) mg/dl Magnesium (1.8-2.4) mg/dl Total Bilirubin (0.2-1) mg/dl AST (15-37) U/L ALT (12-78) U/L Alkaline Phosphatase (45-117) U/L Ammonia (11-32) umol/L Total Creatine Kinase (39-308) U/L Troponin I (0-0.045) ng/ml C-Reactive Protein 7.36 H (0-0.29) mg/dl Total Protein (6.4-8.2) gm/dl Albumin (3.4-5.0) gm/dl Globulin (2.5-4.0) gm/dl Albumin/Globulin Ratio (0.9-2) Procalcitonin < 0.05 (0-0.5) ng/ml TSH (0.300-4.500) uIu/ml Specimen Hemolysis COVID-19 Eval Order Covid19 at [facility] SARS-CoV-2 (PCR) (Negative) Blood Type Antibody Screen 07/19/21 07/19/21 Range/Units 18:33 19:45 WBC (4.8-10.8) K/uL RBC (4.7-6.1) M/uL Hgb (14.0-18.0) g/dL Hct (42-52) % MCV (80-100) fL MCH (25-34) pg MCHC (32-36) g/dL RDW Std Deviation (36.4-46.3) fL RDW Coeff of Aliyah (11.5-14.5) % Plt Count (130-400) K/uL MPV (7.4-10.4) fL Immature Gran % (Auto) % Neut % (Auto) % Lymph % (Auto) % Webster % (Auto) % Eos % (Auto) % Baso % (Auto) % Neut # (Auto) (1.4-6.5) K/uL Lymph # (Auto) (1.2-3.4) K/uL Webster # (Auto) (0.11-0.59) K/uL Eos # (Auto) (0-0.5) K/uL Baso # (Auto) (0-0.2) K/uL Immature Gran # (Auto) (0.00-0.02) K/uL ESR (0-20) mm/hr Sodium (136-145) mmol/L Potassium (3.5-5.1) mmol/L Chloride (98-107) mmol/L Carbon Dioxide (21-32) mmol/L Anion Gap (3-11) BUN (7-18) mg/dl Creatinine (0.6-1.4) mg/dl Est Cr Clr Drug Dosing Est GFR ( Amer) ml/min Est GFR (Non-Af Amer) ml/min BUN/Creatinine Ratio (10-20) Glucose (70-99) mg/dl Lactate 1.5 (0.4-2.0) mmol/L Calcium (8.5-10.1) mg/dl Magnesium (1.8-2.4) mg/dl Total Bilirubin (0.2-1) mg/dl AST (15-37) U/L ALT (12-78) U/L Alkaline Phosphatase (45-117) U/L Ammonia (11-32) umol/L Total Creatine Kinase (39-308) U/L Troponin I (0-0.045) ng/ml C-Reactive Protein (0-0.29) mg/dl Total Protein (6.4-8.2) gm/dl Albumin (3.4-5.0) gm/dl Globulin (2.5-4.0) gm/dl Albumin/Globulin Ratio (0.9-2) Procalcitonin (0-0.5) ng/ml TSH (0.300-4.500) uIu/ml Specimen Hemolysis COVID-19 Eval Order SARS-CoV-2 (PCR) NEGATIVE (Negative) Blood Type Antibody Screen Imaging Data Radiologist's Impression: Chest X-Ray 07/19/21 17:02 XR chest 1V portable CLINICAL HISTORY: weakness COMPARISON STUDY: Chest radiograph and chest CT June 18, 2021. FINDINGS: Multiple disrupted median sternotomy wires are noted. Cardiomegaly is unchanged. There is no pneumothorax or pleural effusion. There is no evidence for pulmonary edema. Interstitial thickening and right lung opacities have improved since exam of July 08, 2021. IMPRESSION: 1. Interval improvement in interstitial thickening and right lung airspace opacities since exam of July 08, 2021. 2. Cardiomegaly. ACT 112: Negative or not required by law. Electronically signed by: Reji Vallecillo M.D. 07/19/2021 5:[address] 07/19/21 17:02 CT OF THE HEAD WITHOUT CONTRAST CLINICAL HISTORY: fall COMPARISON STUDY: Head CT July 08, 2021. CT DOSE: 1647.89 mGycm TECHNIQUE: Helical axial images of the head were obtained without IV contrast. Automated exposure control was utilized for the study. A dose lowering technique was utilized adhering to the principles of ALARA. FINDINGS: This study is mildly compromised by motion artifact. No acute intracranial hemorrhage, midline shift or mass effect is present. 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 This is unchanged. The ventricular system is stable. The basal cisterns are patent. No extra-axial collections are present. There are no findings to suggest acute dural sinus thrombosis or acute territorial infarct. There is mild scalp soft tissue swelling. There is no calvarial fracture.. Visualized portions of the sinuses and mastoid air cells are clear. IMPRESSION: 1. No acute intracranial findings. Exam mildly compromised by motion artifact. 2. Old right MCA territory infarct. 3. No calvarial fracture. Mild scalp/forehead soft tissue swelling. ACT 112: Negative or not required by law. Electronically signed by: Reji Vallecillo M.D. 07/19/2021 6:36 PM ECG Data Attestation: I personally reviewed and interpreted this ECG as follows: Indication: + weakness Rate (beats per minute): 89 Rhythm: + normal sinus ECG Intervals/blocks: + Normal QT-c ECG Hammond: + Normal ECG ST segments: + Normal ST segments and + repolarization abnormalities (Lateral) ECG Findings: + Q waves (Inferior) and + Other (Left atrial enlargement poor quality baseline) Blood Pressure Blood Pressure Disposition: further management by hospitalist SHAWN Esquivel This patient was evaluated and appeared to be in no significant distress. Patient was initially resistant to medical care however the office of aging had obtained a court order for patient to be evaluated in the emergency department hospitalization as the patient does not capable of caring for himself in the current living environment. An order for cardiac monitoring was placed and the patient is noted to be in a normal sinus rhythm at 80 bpm. The patient is noted to be hypotensive and was hydrated with normal saline solution. CT of the head was performed and is negative for acute intracranial abnormality. Patient is laboratory work reveals a troponin of 0.373, total CK of 1885 and a lactate of 2.9. Patient's creatinine is normal at 0.8. Patient's blood pressure did improve with IV hydration. Case was discussed with the hospitalist service who will evaluate the patient for admission and further management. Patient was aware of the plan and in light of the court order, agreed. Impression & Plan Sacral decubitus ulcer, stage III, Weakness, Open leg wound Discharge Plan Visit Data Chief Complaint: Illness Stated Complaint: court order/office of aging ED Provider: Traci Zuñiga Discharge Problem: Sacral decubitus ulcer, stage III, Weakness, Open leg wound Patient Disposition: Admitted As Inpatient Discharge Instructions Interventions: ED Discharge Assessment Last Done: 07/19/21 20:20
--- NOTE | 2021-07-20 18:50 | Electrocardiogram Report ---
Test Reason : Blood Pressure : / mmHG Vent. Rate : 089 BPM Atrial Rate : 089 BPM P-R Int : 194 ms QRS Dur : 106 ms QT Int : 390 ms P-R-T Axes : 069 010 097 degrees QTc Int : 474 ms Poor data quality, interpretation may be adversely affected Normal sinus rhythm Possible Left atrial enlargement Cannot rule out Inferior infarct (cited on or before 19-JUL-2021) Abnormal ECG When compared with ECG of 19-JUL-2021 17:28, (unconfirmed) Fusion complexes are no longer Present Confirmed by Seun Pickering ([id number]) on 07/20/2021 6:49:58 PM Referred By: REFERRED SELF Confirmed By:Jalen Pickering
--- NOTE | 2021-07-20 18:57 | Electrocardiogram Report ---
Test Reason : Blood Pressure : / mmHG Vent. Rate : 087 BPM Atrial Rate : 087 BPM P-R Int : 198 ms QRS Dur : 110 ms QT Int : 376 ms P-R-T Axes : 066 007 103 degrees QTc Int : 452 ms Poor data quality, interpretation may be adversely affected sinus rhythm Left atrial enlargement Possible Inferior infarct , age undetermined Abnormal ECG When compared with ECG of 10-JUL-2021 05:39, Premature atrial complexes are no longer Present Confirmed by Seun Pickering ([id number]) on 07/20/2021 6:57:35 PM Referred By: REFERRED SELF Confirmed By:Jalen Pickering
[2021-07-20] MEDS ORDERED: HYDROCORTISONE SOD 100 MG in SYRINGE 0 ML IV ONE (19:30)
[2021-07-20] MEDS: ALBUMIN 25% 12.5 GM/50 ML VIAL IV SCH ×2 (19:48→21:19)
[2021-07-20] MEDS: NOREPINEPHRINE/D5W 8 MG/508 ML BAG IV SCH (21:52)
[2021-07-20] MEDS: ENOXAPARIN INJ 40 MG/0.4 ML SYR SQ SCH (22:01)
[2021-07-21] MEDS: VANCOMYCIN HCL 1,250 MG in SODIUM CHLORIDE 0.9% 250 ML IV SCH ×3 (00:07→15:41)
[2021-07-21] MEDS: NORMOSOL-R 1,000 ML IV SCH ×2 (00:07→13:29)
[2021-07-21] MEDS: HYDROCORTISONE SOD 50 MG in SYRINGE 0 ML IV SCH ×4 (00:08→19:45)
[2021-07-21 05:37] LABS: Basophils # (auto) 0.02 K/uL (0-0.2); Basophils % (auto) 0.2 %; Hematocrit (blood only) 35.3 % (42-52); Hemoglobin 11.3 g/dL (14.0-18.0); Immature Granulocytes # (auto) 0.03 K/uL (0.00-0.02); Immature Granulocytes % (auto) 0.3 %; Lymphocytes # (auto) 0.93 K/uL (1.2-3.4); Lymphocytes % (auto) 8.3 %; Mean Corpuscular Hemoglobin 26.8 pg (25-34); Mean Corpuscular Volume 83.6 fL (80-100); Mean Platelet Volume 10.5 fL (7.4-10.4); Monocytes # (auto) 0.45 K/uL (0.11-0.59); Neutrophils # (auto) 9.81 K/uL (1.4-6.5); Neutrophils % (auto) 87.2 %; Platelet Count 361 K/uL (130-400); RDW Coefficient of Variation 15.9 % (11.5-14.5); RDW Standard Deviation 47.9 fL (36.4-46.3); Red Blood Count 4.22 M/uL (4.7-6.1); White Blood Count 11.24 K/uL (4.8-10.8)
[2021-07-21 06:04] LABS: BUN Creatinine Ratio 32.8 (10-20); Calcium 8.5 mg/dl (8.5-10.1); Est GFR (African American) 124.9 ml/min; Est GFR (Non-African American) 107.8 ml/min; Magnesium 2.2 mg/dl (1.8-2.4); Potassium 4.2 mmol/L (3.5-5.1)
[2021-07-21] MEDS: CEFEPIME 2,000 MG in SYRINGE 0 ML IV SCH ×3 (06:10→21:43)
[2021-07-21 06:29] LABS: Phosphorus 3.1 mg/dl (2.5-4.9); Troponin I 0.28 ng/ml (0-0.045)
--- NOTE | 2021-07-21 06:57 | Critical Care Progress Note ---
Date of Service July 21, 2021 Assessment & Plan (1) Rhabdomyolysis: Plan: Reason Critically Ill: 66-year-old male presenting with severe sepsis with septic shock secondary to likely skin/soft tissue infections from arterial occlusive disease requiring close hemodynamic monitoring after the institution of vasopressors for hemodynamic support. NEURO - CAM ICU: NEGATIVE Altered mental state, improved: CT head unremarkable for intracranial abnormalities. Likely secondary to metabolic encephalopathy in the setting of sepsis, hypotension, rhabdomyolysis, etc. CARDIAC/VASCULAR - Hypotension, improved - Multifactorial in the setting of severe sepsis in a patient who is clinically dehydrated as well. - Received appropriate fluid resuscitation given the patient's known history of ischemic cardiomyopathy with poor EF. - Now off vasopressors Ischemic cardiomyopathy: - EF on 01/20/2021 noted to be 25 to 30%. - Monitor closely during fluid resuscitation Peripheral arterial disease: - Previous CTA of the extremities demonstrated high-grade stenosis in the lower extremities bilaterally. - Agree with wound consultation for ongoing management of chronic wounds. - Uncertain as to prior assessment with vascular surgery, however this certainly may be necessary for the completion of evaluation of ongoing chronic wounds. - Question patient's agreeability to be evaluated by other subspecialties as he has previously been reluctant of care in the past (i.e. recent hospitalization with AMA despite ongoing medical needs necessitating hospitalization). - Monitor on telemetry. RESPIRATORY - COPD with smoking history: - Saturating well on room air at this time; when sleeping, sats into high 80s - Encourage smoking cessation. GI/NUTRITION - Progress diet as tolerated. Nutritional consult for patient's ongoing protein calorie malnutrition. Prophylaxis: Famotidine RENAL/LYTES - Rhabdomyolysis: - Likely secondary to ongoing episodes of extended time laying on the ground. - No hyperkalemia or significant renal injury to this point. - CPK improved, down to 848 - Continue fluid resuscitation with Normosol - Chandler in place - Strict I&Os. ENDO - No history of diabetes or thyroid disease. BSGs per unit protocol. ISS --> gtt per unit policy. HEME - Stable H&H. ID - Severe sepsis with septic shock: - Currently with 1/2 cultures growing gram negative bacilli bacteremia. Will increase cefepime coverage. - Adding anaerobic coverage with IV Flagyl due to malodorous tissue wounds - Lactate trending down. - Procalcitonin within normal limits. LINES/IV ACCESS - PIVs x2, Chandler DVT PROPHYLAXIS - Lovenox, SCDs Plan to downgrade out of ICU today (2) Elevated CK: (3) Hypotension: (4) Severe sepsis with septic shock: (5) COPD (chronic obstructive pulmonary disease): (6) Sacral decubitus ulcer, stage III: (7) Leg wound, left: (8) Foot ulcer, left: (9) Increased ammonia level: (10) Mitral regurgitation: (11) Cardiomyopathy: (12) Severe protein-calorie malnutrition: (13) Smoking greater than 40 pack years: (14) CAD (coronary artery disease): Admission and Anticipated Discharge Date Admission Date: July 19, 2021 Supervising Physician Co-Signing Physician Notes Dr. Freeman was resident physician during care of patient. I separately evaluated patient for curry portions of the history and the exam. I was present during the critical portion of medical decision making, and I discussed the case with the resident. I generally agree with the findings and plan. Off pressors, limited volume expansion with albumin, stable for downgrade out of ICU. Malodorous tissues will add anaerobic coverage with IV Flagyl. Subjective Patient seen and evaluated at bedside this morning. States that he slept well overnight. Is pleasant on conversation. States that he is hungry and complains of chronic left knee pain that is unchanged from baseline; otherwise has no other complaints. Denies chest pain, SOB, cough, abd pain, nausea, vomiting, h eadache, dizziness. Review of Systems Constitutional: no fever and no chills Ear, Nose, Mouth, Throat: no problem reported Respiratory: no cough and no dyspnea Cardiovascular: no chest pain Gastrointestinal: no abdominal pain, no nausea and no vomiting Genitourinary: no problem reported Musculoskeletal: no back pain + left knee pain Neurologic: no dizziness and no headache(s) Physical Exam Physical Exam: GENERAL: Awake and alert. Disheveled appearing. EYES: EOMI. Anicteric sclerae. HENT: Moist mucous membranes. RESPIRATORY: Diffuse inspiratory and expiratory wheezing. CARDIOVASCULAR: Regular rate and rhythm. No murmurs. ABDOMEN: Soft, non-tender and non-distended. Normal bowel sounds. EXTREMITIES: 1+ BLE edema. Multiple wounds and chronic skin chages on legs. SKIN: Warm, dry. Multiple ecchymosis and lesions on BLE; some tissue wounds malodorous; no active bleeding. NEUROLOGIC: Awake, alert, and oriented. PSYCHIATRIC: Cooperative. Results & Data Results & Data ([facility]) Vital Signs (Past 12 Hours) Vital Signs Temp Pulse BP Pulse Ox 07/21/21 06:24 37.1 C 84 100/66 94 07/21/21 05:55 37.2 C 84 87/54 L 94 07/21/21 05:24 37.2 C 82 115/67 93 07/21/21 05:16 37.2 C 79 109/66 94 07/21/21 04:50 37.2 C 81 93 07/21/21 04:40 37.2 C 82 92 07/21/21 04:30 37.2 C 82 94 07/21/21 04:20 37.3 C 81 94 07/21/21 04:10 37.2 C 83 94 07/21/21 04:00 37.3 C 82 93 07/21/21 03:56 37.3 C 82 94 07/21/21 03:24 37.3 C 83 96/70 L 92 07/21/21 02:54 37.3 C 84 98/62 L 92 07/21/21 02:25 37.4 C 82 101/73 97 07/21/21 01:54 37.4 C 83 92/65 L 93 07/21/21 01:24 37.4 C 81 93/71 L 90 07/21/21 00:54 37.5 C 81 100/64 90 07/21/21 00:24 37.5 C 82 104/66 93 07/21/21 00:00 85 07/20/21 23:54 37.5 C 83 99/63 L 93 07/20/21 23:24 37.5 C 86 112/74 90 07/20/21 22:54 37.3 C 87 118/76 92 07/20/21 22:24 37.2 C 87 105/73 92 07/20/21 21:54 37.4 C 86 104/75 93 07/20/21 21:24 37.5 C 86 102/69 94 07/20/21 20:25 37.8 C H 79 100/64 91 07/20/21 20:00 37.8 C H 83 101/71 93 07/20/21 19:56 37.8 C H 85 106/72 94 07/20/21 19:24 37.7 C H 83 118/71 89 L 07/20/21 19:10 37.7 C H 84 106/68 92 Laboratory Results 07/21/21 07/21/21 07/21/21 Range/Units 06:15 04:46 04:46 WBC (4.8-10.8) K/uL RBC (4.7-6.1) M/uL Hgb (14.0-18.0) g/dL Hct (42-52) % MCV (80-100) fL MCH (25-34) pg MCHC (32-36) g/dL RDW Std Deviation (36.4-46.3) fL RDW Coeff of Aliyah (11.5-14.5) % Plt Count (130-400) K/uL MPV (7.4-10.4) fL Immature Gran % (Auto) % Neut % (Auto) % Lymph % (Auto) % [place] % (Auto) % Eos % (Auto) % Baso % (Auto) % Neut # (Auto) (1.4-6.5) K/uL Lymph # (Auto) (1.2-3.4) K/uL [place] # (Auto) (0.11-0.59) K/uL Eos # (Auto) (0-0.5) K/uL Baso # (Auto) (0-0.2) K/uL Immature Gran # (Auto) (0.00-0.02) K/uL Sodium 137 (136-145) mmol/L Potassium 4.2 (3.5-5.1) mmol/L Chloride 110 H (98-107) mmol/L Carbon Dioxide 23 (21-32) mmol/L Anion Gap 4.0 (3-11) BUN 18 (7-18) mg/dl Creatinine 0.56 L (0.6-1.4) mg/dl Est Cr Clr Drug Dosing 134.0 ml/min Est GFR ( Amer) 124.9 ml/min Est GFR (Non-Af Amer) 107.8 ml/min BUN/Creatinine Ratio 32.8 H (10-20) Glucose 112 H (70-99) mg/dl POC Glucose 146 H (70-99) mg/dl Calcium 8.5 (8.5-10.1) mg/dl Phosphorus 3.1 (2.5-4.9) mg/dl Magnesium 2.2 (1.8-2.4) mg/dl Ammonia 38.0 H (11-32) umol/L Troponin I 0.280 H* (0-0.045) ng/ml Vancomycin Trough (See Comment) mcg/ml 07/21/21 07/21/21 07/21/21 Range/Units 04:46 00:12 00:10 WBC 11.24 H (4.8-10.8) K/uL RBC 4.22 L (4.7-6.1) M/uL Hgb 11.3 L (14.0-18.0) g/dL Hct 35.3 L (42-52) % MCV 83.6 (80-100) fL MCH 26.8 (25-34) pg MCHC 32.0 (32-36) g/dL RDW Std Deviation 47.9 H (36.4-46.3) fL RDW Coeff of Aliyah 15.9 H (11.5-14.5) % Plt Count 361 (130-400) K/uL MPV 10.5 H (7.4-10.4) fL Immature Gran % (Auto) 0.3 % Neut % (Auto) 87.2 % Lymph % (Auto) 8.3 % [place] % (Auto) 4.0 % Eos % (Auto) 0.0 % Baso % (Auto) 0.2 % Neut # (Auto) 9.81 H (1.4-6.5) K/uL Lymph # (Auto) 0.93 L (1.2-3.4) K/uL [place] # (Auto) 0.45 (0.11-0.59) K/uL Eos # (Auto) 0.00 (0-0.5) K/uL Baso # (Auto) 0.02 (0-0.2) K/uL Immature Gran # (Auto) 0.03 H (0.00-0.02) K/uL Sodium (136-145) mmol/L Potassium (3.5-5.1) mmol/L Chloride (98-107) mmol/L Carbon Dioxide (21-32) mmol/L Anion Gap (3-11) BUN (7-18) mg/dl Creatinine (0.6-1.4) mg/dl Est Cr Clr Drug Dosing ml/min Est GFR ( Amer) ml/min Est GFR (Non-Af Amer) ml/min BUN/Creatinine Ratio (10-20) Glucose (70-99) mg/dl POC Glucose 166 H 369 H* (70-99) mg/dl Calcium (8.5-10.1) mg/dl Phosphorus (2.5-4.9) mg/dl Magnesium (1.8-2.4) mg/dl Ammonia (11-32) umol/L Troponin I (0-0.045) ng/ml Vancomycin Trough (See Comment) mcg/ml 07/20/21 07/20/21 07/20/21 Range/Units 23:24 16:13 11:25 WBC (4.8-10.8) K/uL RBC (4.7-6.1) M/uL Hgb (14.0-18.0) g/dL Hct (42-52) % MCV (80-100) fL MCH (25-34) pg MCHC (32-36) g/dL RDW Std Deviation (36.4-46.3) fL RDW Coeff of Aliyah (11.5-14.5) % Plt Count (130-400) K/uL MPV (7.4-10.4) fL Immature Gran % (Auto) % Neut % (Auto) % Lymph % (Auto) % [place] % (Auto) % Eos % (Auto) % Baso % (Auto) % Neut # (Auto) (1.4-6.5) K/uL Lymph # (Auto) (1.2-3.4) K/uL [place] # (Auto) (0.11-0.59) K/uL Eos # (Auto) (0-0.5) K/uL Baso # (Auto) (0-0.2) K/uL Immature Gran # (Auto) (0.00-0.02) K/uL Sodium (136-145) mmol/L Potassium (3.5-5.1) mmol/L Chloride (98-107) mmol/L Carbon Dioxide (21-32) mmol/L Anion Gap (3-11) BUN (7-18) mg/dl Creatinine (0.6-1.4) mg/dl Est Cr Clr Drug Dosing ml/min Est GFR ( Amer) ml/min Est GFR (Non-Af Amer) ml/min BUN/Creatinine Ratio (10-20) Glucose (70-99) mg/dl POC Glucose 100 H 98 (70-99) mg/dl Calcium (8.5-10.1) mg/dl Phosphorus (2.5-4.9) mg/dl Magnesium (1.8-2.4) mg/dl Ammonia (11-32) umol/L Troponin I (0-0.045) ng/ml Vancomycin Trough 14.9 (See Comment) mcg/ml 07/20/21 Range/Units 10:56 WBC (4.8-10.8) K/uL RBC (4.7-6.1) M/uL Hgb (14.0-18.0) g/dL Hct (42-52) % MCV (80-100) fL MCH (25-34) pg MCHC (32-36) g/dL RDW Std Deviation (36.4-46.3) fL RDW Coeff of Aliyah (11.5-14.5) % Plt Count (130-400) K/uL MPV (7.4-10.4) fL Immature Gran % (Auto) % Neut % (Auto) % Lymph % (Auto) % [place] % (Auto) % Eos % (Auto) % Baso % (Auto) % Neut # (Auto) (1.4-6.5) K/uL Lymph # (Auto) (1.2-3.4) K/uL [place] # (Auto) (0.11-0.59) K/uL Eos # (Auto) (0-0.5) K/uL Baso # (Auto) (0-0.2) K/uL Immature Gran # (Auto) (0.00-0.02) K/uL Sodium (136-145) mmol/L Potassium (3.5-5.1) mmol/L Chloride (98-107) mmol/L Carbon Dioxide (21-32) mmol/L Anion Gap (3-11) BUN (7-18) mg/dl Creatinine (0.6-1.4) mg/dl Est Cr Clr Drug Dosing ml/min Est GFR ( Amer) ml/min Est GFR (Non-Af Amer) ml/min BUN/Creatinine Ratio (10-20) Glucose (70-99) mg/dl POC Glucose (70-99) mg/dl Calcium (8.5-10.1) mg/dl Phosphorus (2.5-4.9) mg/dl Magnesium (1.8-2.4) mg/dl Ammonia (11-32) umol/L Troponin I 0.534 H* (0-0.045) ng/ml Vancomycin Trough (See Comment) mcg/ml Resident Activity Tracking Resident Involvement: Resident Care Provided Care Provided: Adult [facility] (1) CAD (coronary artery disease) Associated angina: without angina Coronary Disease-Associated Artery/Lesion type: [place] artery [place] vs. transplanted heart: [place] heart Qualified Code(s): I25.10 - Atherosclerotic heart disease of [place] coronary artery without angina pectoris
--- NOTE | 2021-07-21 08:15 | Pharmacy Report ---
Pharmacy Vanc AUC Short Note - Date of Service July 21, 2021 - Assessment & Plan Assessment * 66 year old M receiving Vancomycin for treatment of sepsis secondary to skin infection. * Pertinent microbiologic data includes: Negative MRSA Nasal Swab. 1/2 blood culture growing gram negative bacilli. * Day # 3 of antimicrobial therapy. Plan Vancomycin * AUC/NELLA is the preferred PK/PD target for vancomycin * AUC guided dosing is effective and associated with decreased risk of nephrotoxicity compared to traditional trough targets * Trough level of 14.9 mcg/mL is predicted to achieve target AUC/NELLA of 400-600 mg/L.hr * Continue dose of 1250 mg IV every 8 hours * Repeat level will be obtained within 48 hours if Vancomycin is continued Cefepime 2g IV q8h- not consulted Pharmacy will continue to follow and will adjust dose/frequency as necessary. Thank you.
[2021-07-21] MEDS: FAMOTIDINE 20 MG in SYRINGE 3 ML IV SCH ×2 (10:43→20:34)
[2021-07-21] MEDS: metroNIDAZOLE 500 MG/100 ML BAG IV SCH ×2 (10:43→18:03)
[2021-07-21] MEDS: COLLAGENASE OINT 30 GM TUBE TOP SCH (10:44)
[2021-07-21] MEDS: DOCUSATE SODIUM 100 MG CAP PO SCH ×2 (10:44→20:35)
[2021-07-21] MEDS: ASPIRIN 81 MG ECTAB PO SCH (10:44)
--- NOTE | 2021-07-21 17:50 | Communication Note ---
Date of Service: July 21, 2021 Patient is a 66-year-old male with significant medical issues who left AMA during his last hospitalization. He has since been found down in the home and was brought to the hospital again this time with a court order to ensure that patient will not leave the hospital. Upon evaluation, patient is very difficult to engage. He is unaware why he is in the hospital and only offers the following answer "because my family is a pain in the ass". He offers no other information as to the severity of his illness or the required necessary treatment order for him to become better. Upon identifying myself as a psychiatrist, patient began to scream "I am not nuts." I began to describe my overall there as to evaluate his ability to make medical decisions for himself at which point patient said "good night" and refused to participate any further interview. Given this interaction, as well as the numerous other interactions he has had of a similar quality with psychiatric liaison staff, it is apparent that patient does not understand the severity of his illness nor is he willing to undergo the necessary and life-saving treatments despite his ability to do so. At this time, the patient does not have capacity to make medical decisions, and chief underwriter agrees with the court order to hold patient here against his will to und ergo the necessary medical treatments.
--- NOTE | 2021-07-21 20:04 | Hospitalist Progress Note ---
Date of Service July 21, 2021 Assessment & Plan (1) Hypotension: Plan: septic shock with concern for gram negative sepsis from urinary or skin source in decubitus - 2liters of crystalloid in EMD - Levophed now taken off - Patient with normal low BP in the 90s- which has prevented further increasing of his Carvedilol in the past - Hold Carvedilol and ARB (2) Sepsis: Plan: WBC 14 with NLR 6:1, PCT CRP ESR pending - Lactate 2.9- repeat pending - Likely secondary skin source or previous proteus uti - Vancomycin Flagyl and Cefepime while in house (3) COPD (chronic obstructive pulmonary disease): Plan: Chronic smoker- diagnosed on CT scan - on no inhalers or therapy at home - patient continues to smoke (4) Leg wound, left: Plan: Clean and dry with soap and water. - Aquacel AG and Optifoam to left heel - Aquacel AG and Kerlix to left leg - Optifoam/pressure relieve to knees - waffle boots to bilateral feet (5) Foot ulcer, left: Plan: As above - follow new eschar pressure area to left foot (6) Elevated troponin: Plan: Likely type II elevation in the setting of demand from hypotension/sepsis (7) Cardiomyopathy: Plan: EF from ECHO in 21 25-30% - Patient was started on low dose carvedilol at that time - patient is wheel chair or bed bound majority of his time, consistently has low blood pressure - likely inhibiting ability to titrate up carvedilol for meaningful effect - He has not followed up with cardiology or heart failure clinic (8) Peripheral arterial occlusive disease: Plan: history of bilateral SFA occlusions - continue his aspirin - not on statin (9) Rhabdomyolysis: Plan: Mild with CPK at 1885 - volume resuscitate for adequate urine output - follow in morning - likely does not have body mass to elevate BUN but follow PROCESS ENGINEERING TECHNICIAN - Should resolve with adequate volume resuscitation- to ICU overnight Plan: This patient was admitted to our facility on 07/19. He was discharged on 07/14. Reportedly at the time of his discharge he was discharged by wheelchair van. At the time of his discharge she is evaluated with Dr. Azam Mendosa who felt he had capacity to make his own medical decisions. Discussed his options ways risk and benefits and problem solve his transportation situation. He remained adamant that he go home. Dr. Mendosa writes "while I agree there is substantial risk that he will decompensate or injure himself at home he did not feel that we have reason to hold him against his will. Furthermore given his significant anger and agitation today Dr. Mendosa believed to be quite likely he would need to be sedated to transport him back to the facility for further care. Sedation itself poses its own risks and would clearly be against the patient's wishes." There is been many phone calls today from the area [employer] [place] regarding a court appearance regarding Mr. Hankins's competency. This court appearance was initiated when Mr. Hankins was once again found down in a disheveled situation and reportedly was remanded by the area association of aging. I personally spoke to to representatives of the area association of aging, Chey Pike and Alee Gallagher. I have not heard back if I will be required to be present for the hearing. Reportedly the hearing will revolve around the pt ability to be home. I concur with Dr Argueta documented notation in the fact that the pt does have awarenss of his poor situation and can voice his options and risks, although he is not realistic about his ability to care for himself that is obvious in his physical appearance with multiple pressure wounds and general unkept appearance. When I spoke to him he states he just wants to be left alone to be by himself and smoke and do what he wants. I spoke to him about Hospice but he is not agreeable to this nor does he have 24 hour care givers. Overall this is a difficult situation, it is difficult to take away someones personal freedom and he is not making "smart" decisions regarding his ability to care for himself, yet he does have insight to what is wants and that he has not been able to care for himself appropriately. I do not think he lack competency to make decision, just he does not have the physical ability to care for himself and refuses care. Is this any different that other patients that do not care for their chronic medical conditions ? Admission and Anticipated Discharge Date Admission Date: July 19, 2021 Subjective pt is more alert and is off pressors, he is a functional paraplegic and because of this has issues taking care of himself at home refusing help from agencies, he has bacteremia and sepsis , and did have a proteus uti 08/27 there is also a foul smelling decubitus ulcer on buttocks Review of Systems Review of Systems: Mild distress and moderate fatigue no headache, no visual changes does have wound on left worship no speech or swallowing issues no chest pain, pressure or palpitations baseline shortness of breath, cough or wheezes no abdominal pain, nausea or vomiting, diarrhea or constipation no dysuria, hematuria or frequency no focal joint pain or swelling no back pain, CVA tenderness or radicular pain multiple areas of pressure ulcers including his left worship area and legs pt is contracted and cannot walk no complaints of anxiety or depression.. Physical Exam Physical Exam: The patient appeared poorly kept and thin, open areas are seen Vital signs as documented. was with need for pressors Head exam is normocephalic atraumatic Neck is without JVD, thyromegaly, or carotid bruits. Lungs are clear to auscultation, no focal loss of breath sounds Cardiac exam, Rhythm is regular.. No murmurs, rubs or gallops. Abdominal exam reveals normal bowel sounds, soft non tender, no masses Extremities are mildly edematous, has multiple open areas of various stages of healing Neurologic exam is alert and oriented, LE contractures Skin is with multiple bruises or rashes Psychologically is with concerns for his ability to make resonable decisions Results & Data Results & Data ([facility]) Vital Signs (Past 12 Hours) Vital Signs Temp Pulse Resp BP Pulse Ox 07/21/21 13:24 98.8 F 75 24 103/60 94 07/21/21 12:25 99.0 F 77 18 86/60 L 93 07/21/21 08:00 83 PG Care Time/CCT Total # of Minutes Spent Total Time Spent with Patient: Total time spent is greater than 50% in coordination of care (as documented) at patient's floor/unit and/or counseling patient: Coding Level of Care Code 84440 Subseq Hosp Care Lvl 3 Diagnoses Hypotension I95.9 Sepsis A41.9 Sepsis acute organ dysfunction status: unspecified Sepsis type: sepsis due to unspecified organism COPD (chronic obstructive pulmonary disease) J44.9 Leg wound, left S81.802A Foot ulcer, left L97.529 Elevated troponin R77.8 Cardiomyopathy I42.9 Peripheral arterial occlusive disease I77.9 Rhabdomyolysis M62.82 (1) Sepsis Sepsis acute organ dysfunction status: unspecified Sepsis type: sepsis due to unspecified organism Qualified Code(s): A41.9 - Sepsis, unspecified organism
[2021-07-21] MEDS: ENOXAPARIN INJ 40 MG/0.4 ML SYR SQ SCH (21:44)
[2021-07-22] MEDS: VANCOMYCIN HCL 1,250 MG in SODIUM CHLORIDE 0.9% 250 ML IV SCH ×3 (00:30→17:45)
[2021-07-22] MEDS: HYDROCORTISONE SOD 50 MG in SYRINGE 0 ML IV SCH ×4 (00:31→20:20)
[2021-07-22] MEDS: metroNIDAZOLE 500 MG/100 ML BAG IV SCH ×3 (01:51→17:45)
[2021-07-22 05:07] LABS: Basophils # (auto) 0.01 K/uL (0-0.2); Basophils % (auto) 0.1 %; Hematocrit (blood only) 35.5 % (42-52); Hemoglobin 11.3 g/dL (14.0-18.0); Immature Granulocytes # (auto) 0.03 K/uL (0.00-0.02); Immature Granulocytes % (auto) 0.2 %; Lymphocytes # (auto) 1.09 K/uL (1.2-3.4); Lymphocytes % (auto) 7.6 %; Mean Corpuscular Hgb Conc 31.8 g/dL (32-36); Mean Corpuscular Volume 84.9 fL (80-100); Monocytes # (auto) 0.96 K/uL (0.11-0.59); Monocytes % (auto) 6.7 %; Neutrophils # (auto) 12.27 K/uL (1.4-6.5); Neutrophils % (auto) 85.4 %; Platelet Count 376 K/uL (130-400); RDW Coefficient of Variation 15.6 % (11.5-14.5); RDW Standard Deviation 47.8 fL (36.4-46.3); Red Blood Count 4.18 M/uL (4.7-6.1); White Blood Count 14.36 K/uL (4.8-10.8)
[2021-07-22 05:25] LABS: BUN Creatinine Ratio 35.8 (10-20); Calcium 8.5 mg/dl (8.5-10.1); Creatinine Clr Calc Pharmacy 107.2 ml/min; Est GFR (African American) 113.3 ml/min; Est GFR (Non-African American) 97.8 ml/min; Magnesium 2.2 mg/dl (1.8-2.4); Potassium 4.2 mmol/L (3.5-5.1)
[2021-07-22] MEDS: NORMOSOL-R 1,000 ML IV SCH ×2 (05:46→18:43)
[2021-07-22] MEDS: CEFEPIME 2,000 MG in SYRINGE 0 ML IV SCH ×3 (05:55→22:19)
[2021-07-22] MEDS: DOCUSATE SODIUM 100 MG CAP PO SCH ×2 (09:27→20:24)
[2021-07-22] MEDS: FAMOTIDINE 20 MG in SYRINGE 3 ML IV SCH ×2 (09:27→20:49)
[2021-07-22] MEDS: ASPIRIN 81 MG ECTAB PO SCH (09:28)
[2021-07-22] MEDS: COLLAGENASE OINT 30 GM TUBE TOP SCH (09:28)
--- NOTE | 2021-07-22 18:27 | Hospitalist Progress Note ---
Date of Service July 22, 2021 Assessment & Plan (1) Severe sepsis with septic shock: Plan: shock resolved. off pressors. septic shock 2nd to #1. source? likely the left foot wounds. on stress dose hydrocortisone 50mg q6h. lower dosing to 50mg BID. remains on cefepime, flagyl and vancomycin to cover the left foot wound. follow cultures. (2) Gram-negative bacteremia: Plan: awaiting ID of GNR. source - likely the left foot. had MSSA bacteremia in 01/2021 2nd to LE wounds evaluated by vascular surgery at that time and felt to be poor candidate for endovascular intervention (CTA of abd/pelvis w/ run-off with SEVERE PAD OF BOTH LEGS) continue current IV antibiotics - can likely d/c flagyl, vanco tomorrow (3) Acute on chronic systolic heart failure: Plan: EF 25-30% on prior echo. ischemic. severe wheezing today - some of this could be due to pulmonary edema check cxr, and plan to give lasix 20mg IV x 1 stop IV fluids when BPs allow should resume low dose ARB (or ISADORA) (4) Rhabdomyolysis: Plan: mild last CPK showed improvement in level repeat in am 2nd to fall at home?? (5) COPD (chronic obstructive pulmonary disease): Plan: severe ongoing tobacco use cont inhalers, etc see #3 above (6) Sacral decubitus ulcer, stage III: Plan: continue local wound care recommendations as advised by Jerica Luis (7) Foot ulcer, left: Plan: see local wound care recs by Jerica Luis from Wound care team suspect this is the source for #1, #2 add MVI, vit C, zinc in am (8) Elevated troponin: Plan: likely 2nd to myocardial demand ischemia in setting of #1 no symptoms of ischemia/ACS (9) Increased ammonia level: Plan: suspect 2nd to passive hepatic congestion recent u/s of liver showed normal echotexture/no cirrhotic features (10) Severe protein-calorie malnutrition: (11) Peripheral arterial occlusive disease: Plan: CTA a/p w/ run-off earlier this year with severe PAD of both legs seen by Dr Simmons - deemed poor candidate for surgical endovascular intervention he has ongoing wounds of left foot that are not healing - could consider c onsulting Dr Allen from cardiology for his opinion cont asa (12) Cardiomyopathy: Plan: EF 25-30% on basis of ischemia/CAD prior [place] at [facility] years ago (13) CAD (coronary artery disease): Plan: cont asa if BPs are stable tomorrow resume low-dose BB not on statin - uncertain reason; no allergy documented to statins (14) Cognitive impairment: Plan: patient with baseline cognitive impairment and probably element of acute metabolic encephalopathy seen by psych - documented to have NO CAPACITY at this time patient cannot check himself out of hospital as he did in June social work heavily involved in his care has seen palliative care in the past (15) Encephalopathy acute: (16) DVT prophylaxis: Plan: lovenox daily Admission and Anticipated Discharge Date Admission Date: July 19, 2021 Subjective patient lying in bed with audible wheezing when I entered his room he had a loud, harsh cough asked me for a cigarette I offered nicoderm and he said "not sure if that will work" despite the wheezing he denied dyspnea very, very poor appetite per nursing today a court order was signed by Dr Wagner stating that patient cannot leave the hospital given concerns for safety and lack of capacity psych saw patient - stated he does NOT have capacity when I asked the patient where he was and why he was here he said "I don't know" Review of Systems Review of Systems: ROS limited by his mental status -denied chest pain -denied dyspnea -denied abd pain -did c/o left foot pain staff report multiple stools today Physical Exam Physical Exam: gen - chronically unwell and ill appearing, audible wheezing from across the room with increased wob/retractions; confused neck - JVD nearly to the jaw mouth - ?thrush on tongue heart - difficult to hear his heart tones; RRR, s1 s2 lungs - diffuse, severe wheezing b/l; rales bases; tachypnea, retractions, accessory muscle use (mild) abd - with percussion his abd is tympanic, mildly distended, BS+ ext - <1+ edema b/l, pulses 1+ b/l feet at best skin - 2 ulcerations on lateral side of LEFT foot; ulceration near the heel is somewhat deep, at least 2-3mm, and has purulence psych - a/o x person only Results & Data Results [facility] Vital Signs (Past 12 Hours) Vital Signs Vital Signs Temp Pulse Pulse Resp BP BP Pulse Ox 07/23/21 03:19 36.4 C L 73 20 110/71 96 07/22/21 22:35 36.4 C L 79 24 134/89 97 07/22/21 22:20 77 07/22/21 20:29 36.4 C L 76 17 138/86 99 07/22/21 19:00 78 07/22/21 17:54 36.7 C 85 24 127/90 95 07/22/21 13:55 36.9 C 79 23 103/62 92 07/22/21 09:54 37.0 C 79 20 124/82 93 07/22/21 07:00 74 Intake and Output 07/22/21 07/22/21 07/23/21 14:59 22:59 06:59 Intake Total 1375 / 3855 1505 / 3855 975 / 3855 Output Total 825 / 2425 450 / 2425 1150 / 2425 Balance 550 / 1430 1055 / 1430 -175 / 1430 Intake: IV 375 / 2005 1255 / 2005 375 / 2005 Normosol-R 1,000 ml @ 75 mls/hr 880 / 880 IV .[id number] [facility] Rx#:[id number] Vancomycin HCl 1,250 mg In 275 / 825 275 / 825 275 / 825 Sodium Chloride 0.9% 250 ml @ 200 mls/hr IV Q8H [facility] Rx#: [id number] metroNIDAZOLE 500 mg In 100 ml 100 / 300 100 / 300 100 / 300 @ 100 mls/hr IV Q8@0200,1000, 1800 [facility] Rx#:[id number] Oral 1000 / 1850 250 / 1850 600 / 1850 Output: Urine Amount (Catheter) 825 / 2425 450 / 2425 1150 / 2425 Temp Sensing [place] 825 / 2425 450 / 2425 1150 / 2425 Other: Weight 92.669 kg Weight Measurement Method Built in [facility] Patient Weight 07/23/21 06:59 Weight 92.669 kg Laboratory Results Cr 0.7 WBC 14,000 blood cx's from admission - 11/15 bottles positive with gram negative livier PG Care Time/CCT Total # of Minutes Spent Total Time Spent with Patient: Total time spent is greater than 50% in coordination of care (as documented) at patient's floor/unit and/or counseling patient: Coding Level of Care Code 16083 Subseq Hosp Care Lvl 3 Diagnoses Severe sepsis with septic shock A41.9; R65.21 Gram-negative bacteremia R78.81 Acute on chronic systolic heart failure I50.23 Rhabdomyolysis M62.82 COPD (chronic obstructive pulmonary disease) J44.9 Sacral decubitus ulcer, stage III L89.153 Foot ulcer, left L97.529 Elevated troponin R77.8 Increased ammonia level R79.89 Severe protein-calorie malnutrition E43 Peripheral arterial occlusive disease I77.9 Cardiomyopathy I42.9 CAD (coronary artery disease) I25.10 Coronary Disease-Associated Artery/Lesion type: [place] artery [place] vs. transplanted heart: [place] heart Associated angina: without angina Cognitive impairment R41.89 Encephalopathy acute G93.40 DVT prophylaxis Z29.9 (1) CAD (coronary artery disease) Coronary Disease-Associated Artery/Lesion type: [place] artery [place] vs. transplanted heart: [place] heart Associated angina: without angina Qualified Code(s): I25.10 - Atherosclerotic heart disease of [place] coronary artery without angina pectoris
[2021-07-22] MEDS: NICOTINE 14 MG/24 HR PATCH TD SCH (20:19)
--- NOTE | 2021-07-22 21:11 | XRay Report ---
XR chest 1V portable HISTORY: Shortness of breath. ?worsening pulmonary edema? COMPARISON: Chest 07/19/2021. FINDINGS: No pneumothorax. The heart remains enlarged. There are poststernotomy changes. There is pro gressive interstitial/vascular thickening and hazy airspace opacities consistent with pulmonary edema . Trace bilateral pleural effusions have also increased. IMPRESSION: Interval progression of the mild interstitial pulmonary edema and trace bilateral pleural effusions. ACT 112: Negative or not required by law. Electronically signed by: Angel Healy M.D. 07/22/2021 9:10 PM
[2021-07-22] MEDS ORDERED: FUROSEMIDE 20 MG in SYRINGE 0 ML IV ONE (22:00)
[2021-07-22] MEDS: ENOXAPARIN INJ 40 MG/0.4 ML SYR SQ SCH (22:19)
[2021-07-23] MEDS: metroNIDAZOLE 500 MG/100 ML BAG IV SCH (01:15)
[2021-07-23] MEDS: VANCOMYCIN HCL 1,250 MG in SODIUM CHLORIDE 0.9% 250 ML IV SCH (01:15)
[2021-07-23] MEDS: CEFEPIME 2,000 MG in SYRINGE 0 ML IV SCH (05:37)
[2021-07-23] MEDS ORDERED: VANCOMYCIN TROUGH ONE (08:30)
[2021-07-23] MEDS ORDERED: MEROPENEM CONSULT ACITVE PRN (08:36)
[2021-07-23] MEDS: ASPIRIN 81 MG ECTAB PO SCH (08:58)
[2021-07-23] MEDS: DOCUSATE SODIUM 100 MG CAP PO SCH ×2 (08:58→19:59)
[2021-07-23] MEDS: HYDROCORTISONE SOD 50 MG in SYRINGE 0 ML IV SCH ×2 (08:59→20:00)
[2021-07-23] MEDS: NICOTINE 14 MG/24 HR PATCH TD SCH (09:00)
[2021-07-23] MEDS: FAMOTIDINE 20 MG in SYRINGE 3 ML IV SCH ×2 (09:02→19:59)
[2021-07-23 09:15] LABS: BUN Creatinine Ratio 41.7 (10-20); Calcium 8.8 mg/dl (8.5-10.1); Creatinine Clr Calc Pharmacy 117.7 ml/min; Est GFR (Non-African American) 100.1 ml/min; Potassium 3.5 mmol/L (3.5-5.1)
[2021-07-23] MEDS: MEROPENEM 500 MG in SYRINGE 0 ML IV SCH ×3 (10:41→19:59)
--- NOTE | 2021-07-23 12:43 | Hospitalist Progress Note ---
Date of Service July 23, 2021 Assessment & Plan (1) Severe sepsis with septic shock: Plan: 2nd to enterobacter. source - left foot ulcerations (suspected). shock resolved. Did need ICU status early in course along w/ pressors & stress dose steroids. on stress dose hydrocortisone 50mg q6h. lower dosing to 50mg BID. this can also serve as steroids for his COPD. remains on cefepime, flagyl and vancomycin to cover the left foot wound. d/c above 3 abx; change to meropenem to cover the bloodstream infection as enterobacter is cefepime Resistant. (2) Gram-negative bacteremia: Plan: 2nd to enterobacter - see above. source - likely the left foot. had MSSA bacteremia in 01/2021 2nd to LE wounds evaluated by vascular surgery at that time and felt to be poor candidate for endovascular intervention (CTA of abd/pelvis w/ run-off with SEVERE PAD OF BOTH LEGS) (3) Acute on chronic systolic heart failure: Plan: EF 25-30% on prior echo. ischemic. repeat dose of IV lasix today 20mg x 1 when BPs allow should resume low dose ARB (or ISADORA) and BB (4) Rhabdomyolysis: Plan: mild resolved CPK now normal 2nd to falls at home (5) COPD (chronic obstructive pulmonary disease): Plan: severe with exacerbation cont IV hydrocortisone add symbicort add spiriva add combivent nicoderm patch NC O2 (6) Sacral decubitus ulcer, stage III: Plan: continue local wound care recommendations as advised by Jerica Luis (7) Foot ulcer, left: Plan: see local wound care recs by Jerica Luis from Wound care team suspect this is the source for #1, #2 added MVI, vit C, zinc (8) Elevated troponin: Plan: likely 2nd to myocardial demand ischemia in setting of #1 no symptoms of ischemia/ACS (9) Increased ammonia level: Plan: suspect 2nd to passive hepatic congestion recent u/s of liver showed normal echotexture/no cirrhotic features minimal elevation (38) (10) Severe protein-calorie malnutrition: Plan: nutrition consult supplements, MVI, etc (11) Peripheral arterial occlusive disease: Plan: CTA a/p w/ run-off earlier this year with severe PAD of both legs seen by Dr Simmons - deemed poor candidate for surgical endovascular intervention he has ongoing wounds of left foot that are not healing - could consider consulting Dr Allen from cardiology for his opinion cont asa (12) Cardiomyopathy: Plan: EF 25-30% on basis of ischemia/CAD prior [place] at [facility] years ago (13) CAD (coronary artery disease): Plan: cont asa not on statin - uncertain reason; no allergy documented to statins resume BB when able (14) Cognitive impairment: Plan: patient with baseline cognitive impairment and probably element of acute metabolic encephalopathy seen by psych - documented to have NO CAPACITY at this time patient cannot check himself out of hospital as he did in June social work heavily involved in his care has seen palliative care in the past (15) Encephalopathy acute: Plan: 2nd to #1, #2 ongoing can't exclude underlying cognitive impairment (16) DVT prophylaxis: Plan: lovenox daily Plan: PT, OT when able Admission and Anticipated Discharge Date Admission Date: July 19, 2021 Subjective patient asked for beer during my bedside rounds he also asked to sit up in bed to eat his lunch he was coughing during the visit he denied feeling dyspneic nursing report no issues overnight tele stable overnight as well Review of Systems Review of Systems: limited ROS but patient denied chest pain, dyspnea, or leg pain Physical Exam Physical Exam: gen - chronically unwell and ill appearing, audible wheezing from across the room with increased wob/retractions - maybe slightly better than yesterday; confused neck - JVD still present mouth - thrush on tongue heart - difficult to hear his heart tones as wheezing is very loud/severe; regular rhythm, s1 s2 lungs - diffuse, severe wheezing b/l; rales bases; tachypnea, retractions, accessory muscle use (mild) - increased WOB maybe slightly better abd - still mildly distended but nontender, BS+ ext - <1+ edema b/l, pulses 1+ b/l feet at best skin - I did not remove the dressings from L foot ulcers; large left lateral thigh ulceration with thin layer of green purulence psych - a/o x person only Results & Data Results & Data ([place]) Vital Signs (Past 12 Hours) Vital Signs Temp Pulse Resp BP Pulse Ox 07/23/21 11:30 36.6 C 74 17 100/68 99 07/23/21 07:02 36.6 C 76 20 119/80 97 07/23/21 03:19 36.4 C L 73 20 110/71 96 Laboratory Results BMP wnl PG Care Time/CCT Total # of Minutes Spent Total Time Spent with Patient: Total time spent is greater than 50% in coordination of care (as documented) at patient's floor/unit and/or counseling patient: Coding Level of Care Code 75983 Subseq Hosp Care Lvl 3 Diagnoses Severe sepsis with septic shock A41.9; R65.21 Gram-negative bacteremia R78.81 Acute on chronic systolic heart failure I50.23 Rhabdomyolysis M62.82 COPD (chronic obstructive pulmonary disease) J44.9 Sacral decubitus ulcer, stage III L89.153 Foot ulcer, left L97.529 Elevated troponin R77.8 Increased ammonia level R79.89 Severe protein-calorie malnutrition E43 Peripheral arterial occlusive disease I77.9 Cardiomyopathy I42.9 CAD (coronary artery disease) I25.10 Associated angina: without angina Coronary Disease-Associated Artery/Lesion type: [place] artery [place] vs. transplanted heart: [place] heart Cognitive impairment R41.89 Encephalopathy acute G93.40 DVT prophylaxis Z29.9 (1) CAD (coronary artery disease) Associated angina: without angina Coronary Disease-Associated Artery/Lesion type: [place] artery [place] vs. transplanted heart: [place] heart Qualified Code(s): I25.10 - Atherosclerotic heart disease of [place] coronary artery without angina pectoris
[2021-07-23] MEDS ORDERED: IPRATROPIUM BROMIDE/ALBUTEROL respimat INH INH SCH (13:00)
[2021-07-23] MEDS ORDERED: FUROSEMIDE 20 MG in SYRINGE 0 ML IV ONE (13:30)
--- NOTE | 2021-07-23 14:52 | Communication Note ---
Date of Service: July 23, 2021 transfer of clinical responsibility for consult service from Dr. Taylor to [place]. Chart reviewed. Patient was not cooperative with full consult. Is c ooperating with court ordered treatment. Patient is currently calm and eating when I spoke with him at bedside. He had no additional questions or concerns. Case discussed with Dr. Mahmood who agrees no additional questions at this time and consult order will be discontinued. Please re-consult if additional psychiatric quesitons/concerns. Liaison remains available for support.
[2021-07-23] MEDS: ALBUTEROL HFA 8 GM INHALER INH SCH ×2 (15:19→19:32)
[2021-07-23] MEDS: IPRATROPIUM BROMIDE HFA INHALER INH SCH ×2 (15:19→19:33)
[2021-07-23] MEDS ORDERED: FUROSEMIDE 40 MG/4 ML VIAL IV ONE (15:25)
[2021-07-23] MEDS: POTASSIUM CHLORIDE 10 MEQ TABCR PO SCH ×2 (15:27→19:59)
[2021-07-23] MEDS: ASCORBIC ACID 500 MG TAB PO SCH (19:59)
[2021-07-23] MEDS: ENOXAPARIN INJ 40 MG/0.4 ML SYR SQ SCH (22:47)
[2021-07-23] MEDS: FLUTICASONE/VILANTEROL 200/25MCG 14 PUFFS/INHALER INH SCH (23:26)
[2021-07-24] MEDS: MEROPENEM 500 MG in SYRINGE 0 ML IV SCH ×4 (03:10→20:36)
[2021-07-24 06:51] LABS: BUN Creatinine Ratio 47.2 (10-20); Calcium 8.4 mg/dl (8.5-10.1); Creatinine Clr Calc Pharmacy 121.6 ml/min; Est GFR (African American) 118.3 ml/min
[2021-07-24] MEDS: ALBUTEROL HFA 8 GM INHALER INH SCH ×4 (07:48→20:50)
[2021-07-24] MEDS: IPRATROPIUM BROMIDE HFA INHALER INH SCH ×4 (07:49→20:50)
[2021-07-24] MEDS: NYSTATIN SUSP 500,000 U/5 ML UDC PO SCH ×4 (09:00→20:36)
[2021-07-24] MEDS: DOCUSATE SODIUM 100 MG CAP PO SCH ×2 (09:32→20:42)
[2021-07-24] MEDS: ASPIRIN 81 MG ECTAB PO SCH (09:32)
[2021-07-24] MEDS: ASCORBIC ACID 500 MG TAB PO SCH ×2 (09:32→20:38)
[2021-07-24] MEDS: FAMOTIDINE 20 MG in SYRINGE 3 ML IV SCH ×2 (09:32→20:36)
[2021-07-24] MEDS: HYDROCORTISONE SOD 50 MG in SYRINGE 0 ML IV SCH ×2 (09:33→20:38)
[2021-07-24] MEDS: CEROVITE ADV FORMULA TAB PO SCH (09:33)
[2021-07-24] MEDS: NICOTINE 14 MG/24 HR PATCH TD SCH (09:34)
[2021-07-24] MEDS: POTASSIUM CHLORIDE 10 MEQ TABCR PO SCH ×2 (09:35→20:37)
[2021-07-24] MEDS: UMECLIDINIUM BROMIDE 62.5MCG/BLISTER 7 PUFFS/INHALER INH SCH (09:35)
[2021-07-24] MEDS: ZINC SULFATE 220 MG CAPSULE PO SCH (09:36)
[2021-07-24] MEDS ORDERED: FUROSEMIDE 20 MG in SYRINGE 0 ML IV ONE (16:30)
[2021-07-24] MEDS: FLUTICASONE/VILANTEROL 200/25MCG 14 PUFFS/INHALER INH SCH (20:39)
[2021-07-24] MEDS: ENOXAPARIN INJ 40 MG/0.4 ML SYR SQ SCH (22:02)
--- NOTE | 2021-07-24 22:04 | Hospitalist Progress Note ---
Date of Service July 24, 2021 Assessment & Plan (1) Severe sepsis with septic shock: Plan: resolved. 2nd to enterobacter. source - left foot ulcerations (suspected). shock resolved. Did need ICU status early in course along w/ pressors & stress dose steroids. Enterobacter is intermediate resistant to cefepime. Changed to meropenem on 07/23/21. Will need 14 days of Rx starting from 07/23/21. Could transition to po levaquin or cipro at some point as enterobacter is sensitive to such. (2) Gram-negative bacteremia: Plan: 2nd to enterobacter - see above. source - likely the left foot. had MSSA bacteremia in 01/2021 2nd to LE wounds evaluated by vascular surgery at that time and felt to be poor candidate for endovascular intervention (CTA of abd/pelvis w/ run-off with SEVERE PAD OF BOTH LEGS) (3) Acute on chronic systolic heart failure: Plan: EF 25-30% on prior echo. ischemic. continue diuresis with IV lasix 20mg x 1 today when BPs allow should resume low dose ARB (or ISADORA) and BB (4) Rhabdomyolysis: Plan: resolved CPK now normal 2nd to falls at home (5) COPD (chronic obstructive pulmonary disease): Plan: severe with exacerbation cont IV hydrocortisone (this had been used for stress dose purposes in the ICU while in shock) -- would not wean hydrocortisone today added the following yesterday for his severe COPD -- symbicort, spiriva, combivent cont nicoderm patch (6) Sacral decubitus ulcer, stage III: Plan: continue local wound care recommendations as advised by Jerica Luis (7) Foot ulcer, left: Plan: see local wound care recs by Jerica Luis from Wound care team suspect this is the source for #1, #2 cont MVI, vit C, zinc (8) Elevated troponin: Plan: likely 2nd to myocardial demand ischemia in setting of #1 no symptoms of ischemia/ACS (9) Increased ammonia level: Plan: suspect 2nd to passive hepatic congestion recent u/s of liver showed normal echotexture/no cirrhotic features minimal elevation (38) (10) Severe protein-calorie malnutrition: Plan: nutrition consult supplements, MVI, etc (11) Peripheral arterial occlusive disease: Plan: CTA a/p w/ run-off earlier this year with severe PAD of both legs seen by Dr Simmons - deemed poor candidate for surgical endovascular intervention he has ongoing wounds of left foot that are not healing - could consider consulting Dr Allen from cardiology for his opinion cont asa (12) Cardiomyopathy: Plan: EF 25-30% on basis of ischemia/CAD prior [place] [facility] years ago (13) CAD (coronary artery disease): Plan: cont asa not on statin - uncertain reason; no allergy documented to statins resume BB when able (14) Cognitive impairment: Plan: patient with baseline cognitive impairment and probably element of acute metabolic encephalopathy seen by psych - documented to have NO CAPACITY at this time patient cannot check himself out of hospital as he did in June social work heavily involved in his care has seen palliative care in the past (15) Encephalopathy acute: Plan: 2nd to #1, #2 seems improved somewhat, but still quite confused can't exclude underlying baseline cognitive impairment (16) Candidiasis of mouth and esophagus: Plan: nystatin 5cc qid (17) Dysphagia: Plan: had alexandra aspiration of water during the visit speech consult (18) DVT prophylaxis: Plan: lovenox daily Plan: PT, OT when able prognosis is very poor given his numerous medical problems Admission and Anticipated Discharge Date Admission Date: July 19, 2021 Subjective tele stable overnight patient unable to provide much in the way of meaningful history he knows he is in the hospital but can't tell me why denies any pain in any location patient picked up his water thermos that was on the bedside tray, took 2 sips of water via straw, and immediately coughed and had alexandra aspiration he proceeded to cough for at least 30-40 seconds staff also concerned he may be aspirating Review of Systems Review of Systems: gen - c/o fatigue CV - denies chest pain pulm - coughing, wheezing - but denies dyspnea GI - denies abd pain; staff report he is moving bowels Physical Exam Physical Exam: gen - chronically unwell and ill appearing; audible wheezing better today, although he became tachypneic after he aspirated water neck - JVD improved mouth - thrush on tongue improved/resolved heart - distant heart tones; s1 s2, RRR lungs - diffuse wheezing b/l but modestly improved from prior exams; minimal rales bases; tachypnea noted after he aspirated water abd - mild distension but nontender, BS+ ext - <1+ edema b/l, pulses 1+ b/l feet at best skin - unchanged appearance of left foot ulcers today vs previous exams; unchanged appearance of left lateral thigh ulceration; erythematous, irritated skin on left lamb psych - a/o x person and place only Results & Data Results & Data ([facility]) Vital Signs (Past 12 Hours) Vital Signs Temp Pulse Resp BP Pulse Ox 07/24/21 20:49 74 18 95 07/24/21 19:07 36.4 C L 76 19 110/69 94 07/24/21 15:39 36.8 C 88 18 130/73 96 07/24/21 11:49 37.0 C 88 16 124/62 96 07/24/21 10:54 72 16 92 Laboratory Results Laboratory Results - last 24 hr 07/24/21 05:42 Sodium 140 Potassium 4.0 Chloride 110 H Carbon Dioxide 23 Anion Gap 7.0 BUN 30 H Creatinine 0.64 Est Cr Clr Drug Dosing 121.6 Est GFR ( Amer) 118.3 Est GFR (Non-Af Amer) 102.0 BUN/Creatinine Ratio 47.2 H Glucose 104 H Calcium 8.4 L PG Care Time/CCT Total # of Minutes Spent Total Time Spent with Patient: Total time spent is greater than 50% in coordination of care (as documented) at patient's floor/unit and/or counseling patient: Coding Level of Care Code 84547 Subseq Hosp Care Lvl 3 Diagnoses Severe sepsis with septic shock A41.9; R65.21 Gram-negative bacteremia R78.81 Acute on chronic systolic heart failure I50.23 Rhabdomyolysis M62.82 COPD (chronic obstructive pulmonary disease) J44.9 Sacral decubitus ulcer, stage III L89.153 Foot ulcer, left L97.529 Elevated troponin R77.8 Increased ammonia level R79.89 Severe protein-calorie malnutrition E43 Peripheral arterial occlusive disease I77.9 Cardiomyopathy I42.9 CAD (coronary artery disease) I25.10 Associated angina: without angina Coronary Disease-Associated Artery/Lesion type: [place] artery [place] vs. transplanted heart: [place] heart Cognitive impairment R41.89 Encephalopathy acute G93.40 DVT prophylaxis Z29.9 Candidiasis of mouth and esophagus B37.81; B37.0 Dysphagia R13.10 (1) CAD (coronary artery disease) Associated angina: without angina Coronary Disease-Associated Artery/Lesion type: [place] artery [place] vs. transplanted heart: [place] heart Qualified Code(s): I25.10 - Atherosclerotic heart disease of [place] coronary artery without angina pectoris
[2021-07-25] MEDS: MEROPENEM 500 MG in SYRINGE 0 ML IV SCH ×4 (03:28→20:39)
[2021-07-25 06:30] LABS: BUN Creatinine Ratio 42.4 (10-20); Calcium 8.4 mg/dl (8.5-10.1); Creatinine Clr Calc Pharmacy 110.8 ml/min; Est GFR (Non-African American) 98.3 ml/min; Potassium 4.1 mmol/L (3.5-5.1)
--- NOTE | 2021-07-25 07:44 | Hospitalist Progress Note ---
Date of Service July 25, 2021 Assessment & Plan (1) Severe sepsis with septic shock: Plan: 2nd to enterobacter. Possibly exacerbated by being on both carvedilol and losartan (losartan was discontinued during last admission but continued on discharge although unclear if he takes any of his medications). source - left foot ulcerations/cellulitis shock resolved. Did need ICU status early in course along w/ pressors & stress dose steroids. on stress dose hydrocortisone 50mg q6h. lower dosing to 25mg BID -> will continue to wean daily. Continue meropenem and will consult ID for recommendations regarding antibiotic selection. (2) Gram-negative bacteremia: Plan: 2nd to enterobacter - see above. source - likely the left foot. had MSSA bacteremia in 01/2021 2nd to LE wounds evaluated by vascular surgery at that time and felt to be poor candidate for endovascular intervention (CTA of abd/pelvis w/ run-off with SEVERE PAD OF BOTH LEGS) (3) Acute on chronic systolic heart failure: Plan: EF 25-30% on prior echo. ischemic. Euvolemic on exam today Switch carvedilol for metoprolol succinate tomorrow. (4) Rhabdomyolysis: Plan: mild resolved CPK now normal 2nd to falls at home (5) COPD (chronic obstructive pulmonary disease): Plan: severe with exacerbation cont IV hydrocortisone add Symbicort add Spiriva add Combivent nicoderm patch Currently on room air Wheezing on exam however this is the patient's longstanding baseline and given no increased sputum or shortness of breath will start to de-escalate steroid dosing as above. (6) Sacral decubitus ulcer, stage III: Plan: continue local wound care recommendations as advised by Jerica Luis (7) Foot ulcer, left: Plan: see local wound care recs by Jerica Luis from Wound care team suspect this is the source for #1, #2 added MVI, vit C, zinc (8) Elevated troponin: Plan: likely 2nd to myocardial demand ischemia in setting of #1 no symptoms of ischemia/ACS (9) Increased ammonia level: Plan: suspect 2nd to passive hepatic congestion recent u/s of liver showed normal echotexture/no cirrhotic features minimal elevation (38) (10) Severe protein-calorie malnutrition: Plan: nutrition consult supplements, MVI, etc (11) Peripheral arterial occlusive disease: Plan: CTA a/p w/ run-off earlier this year with severe PAD of both legs seen by Dr Simmons - deemed poor candidate for surgical endovascular intervention he has ongoing wounds of left foot that are not healing - could consider consulting Dr Allen from cardiology for his opinion cont asa (12) Cardiomyopathy: Plan: EF 25-30% on basis of ischemia/CAD prior [place] at [facility] years ago (13) CAD (coronary artery disease): Plan: cont asa not on statin - uncertain reason; no allergy documented to statins resume BB when able (14) Cognitive impairment: Plan: patient with baseline cognitive impairment and probably element of acute metabolic encephalopathy seen by psych - documented to have NO CAPACITY at this time patient cannot check himself out of hospital as he did in June social work heavily involved in his care has seen palliative care in the past (15) Encephalopathy acute: Plan: Resolved. Patient is back to his baseline from last admission. However continues to lack insight limiting his ability to make medical decisions. can't exclude underlying cognitive impairment (16) DVT prophylaxis: Plan: lovenox daily (17) Candidiasis of mouth and esophagus: Plan: nystatin 5cc qid (18) Dysphagia: Plan: had alexandra aspiration of water during the visit speech consult Plan: PT, OT Patient adamantly refusing rehabilitation but clearly cannot take care of himself at home. He continues however to lack capacity in his medical need to make his medical decisions. This is more evident on this admission since he was unable to manage at home but is clearly confabulating a story that fits the narrative that he was coping. This doesn't however fit he fact he is bacteremic and was in septic shock on admission. Admission and Anticipated Discharge Date Admission Date: July 19, 2021 Subjective When asked how he is doing he just tells me to just get on with it. Tells me he was doing ok at home until they started lying (which I think he is referring to office of aging) about him falling. He got rid of his couch to make way for a hospital bed. However he reports this had not yet arrived so he has been sleeping on the floor. Because he was found on the floor he feels people are lying and saying he fell down. We discussed that he was hypotensive and had bacteria in his blood. He feels this will not be a problem if he can take oral antibiotics this time on discharge although these were prescribed for him before on discharge. Despite his generally good cognition he has poor insight into his medical conditions and a court order has been placed that he cannot leave the hospital. There is also a clear diparity that he generally doesn't want medical care but also wants to be resuscitated in the setting of a cardiac arrest. He was discharged on both carvedilol and losartan therefore possibly his blood pressure was low from these medications on admission. He is wheezing but denies any shortness of breath, chest pain, fever, chills. Telemetry: SR, PACs, 70-80s Review of Systems Review of Systems: All systems reviewed & are unremarkable except as noted in HPI & below Physical Exam Constitutional: + disheveled; + not well nourished and no acute distress Respiratory: normal respiratory effort and + prolonged expiratory phase Auscultation: + wheezes (diffuse) Cardiovascular: RRR, no murmur, no edema Gastrointestinal (Abdomen): Percussion/Palpation: abdomen soft; abdomen nontender Skin: Improved cellulitis from when I last saw the patient on 07/12 Multiple ulceration at various stages of heeling most notably on buttocks and left heel Psychiatric: Orientation: alert, oriented to person, oriented to place and oriented to time Affect: + irritable affect Results & Data Results & Data ([facility]) Vital Signs (Past 12 Hours) Vital Signs Temp Pulse Pulse Pulse Resp BP Pulse Ox 07/25/21 07:29 36.5 C 67 20 139/91 94 07/25/21 03:33 36.7 C 75 26 H 132/84 93 07/24/21 23:10 36.7 C 80 19 123/81 92 07/24/21 23:00 80 07/24/21 20:49 74 18 95 PG Care Time/CCT Total # of Minutes Spent Total Time Spent with Patient: Total time spent is greater than 50% in coordination of care (as documented) at patient's floor/unit and/or counseling patient: Coding Level of Care Code 20531 Subseq Hosp Care Lvl 3 Diagnoses Severe sepsis with septic shock A41.9; R65.21 Gram-negative bacteremia R78.81 Acute on chronic systolic heart failure I50.23 Rhabdomyolysis M62.82 COPD (chronic obstructive pulmonary disease) J44.9 Sacral decubitus ulcer, stage III L89.153 Foot ulcer, left L97.529 Elevated troponin R77.8 Increased ammonia level R79.89 Severe protein-calorie malnutrition E43 Peripheral arterial occlusive disease I77.9 Cardiomyopathy I42.9 CAD (coronary artery disease) I25.10 Associated angina: without angina Coronary Disease-Associated Artery/Lesion type: [place] artery [place] vs. transplanted heart: [place] heart Cognitive impairment R41.89 Encephalopathy acute G93.40 DVT prophylaxis Z29.9 Candidiasis of mouth and esophagus B37.81; B37.0 Dysphagia R13.10 (1) CAD (coronary artery disease) Associated angina: without angina Coronary Disease-Associated Artery/Lesion type: [place] artery [place] vs. transplanted heart: [place] heart Qualified Code(s): I25.10 - Atherosclerotic heart disease of [place] coronary artery without angina pectoris
[2021-07-25] MEDS: NICOTINE 14 MG/24 HR PATCH TD SCH (07:49)
[2021-07-25] MEDS: ASPIRIN 81 MG ECTAB PO SCH (07:50)
[2021-07-25] MEDS: ASCORBIC ACID 500 MG TAB PO SCH ×2 (07:50→20:32)
[2021-07-25] MEDS: DOCUSATE SODIUM 100 MG CAP PO SCH ×2 (07:51→20:29)
[2021-07-25] MEDS: UMECLIDINIUM BROMIDE 62.5MCG/BLISTER 7 PUFFS/INHALER INH SCH (07:52)
[2021-07-25] MEDS: ZINC SULFATE 220 MG CAPSULE PO SCH (07:52)
[2021-07-25] MEDS: NYSTATIN SUSP 500,000 U/5 ML UDC PO SCH ×4 (07:53→20:33)
[2021-07-25] MEDS: POTASSIUM CHLORIDE 10 MEQ TABCR PO SCH ×2 (07:53→20:31)
[2021-07-25] MEDS: CEROVITE ADV FORMULA TAB PO SCH (07:54)
[2021-07-25] MEDS: FAMOTIDINE 20 MG in SYRINGE 3 ML IV SCH ×2 (07:57→20:40)
[2021-07-25] MEDS: ALBUTEROL HFA 8 GM INHALER INH SCH ×4 (08:20→20:44)
[2021-07-25] MEDS: IPRATROPIUM BROMIDE HFA INHALER INH SCH ×4 (08:20→20:45)
[2021-07-25] MEDS: HYDROCORTISONE SOD 25 MG in SYRINGE 0 ML IV SCH ×2 (09:00→20:32)
[2021-07-25] MEDS: FLUTICASONE/VILANTEROL 200/25MCG 14 PUFFS/INHALER INH SCH (20:30)
[2021-07-25] MEDS ORDERED: ACETAMINOPHEN 325 MG TAB PO PRN (22:22)
[2021-07-25] MEDS: ENOXAPARIN INJ 40 MG/0.4 ML SYR SQ SCH (22:36)
[2021-07-26] MEDS: MEROPENEM 500 MG in SYRINGE 0 ML IV SCH ×4 (02:31→21:43)
[2021-07-26 06:16] LABS: Basophils # (auto) 0.03 K/uL (0-0.2); Basophils % (auto) 0.3 %; Eosinophils # (auto) 0.06 K/uL (0-0.5); Eosinophils % (auto) 0.6 %; Hematocrit (blood only) 37.9 % (42-52); Hemoglobin 11.9 g/dL (14.0-18.0); Immature Granulocytes # (auto) 0.05 K/uL (0.00-0.02); Immature Granulocytes % (auto) 0.5 %; Lymphocytes # (auto) 2.69 K/uL (1.2-3.4); Lymphocytes % (auto) 25.8 %; Mean Corpuscular Hemoglobin 26.5 pg (25-34); Mean Corpuscular Hgb Conc 31.4 g/dL (32-36); Mean Corpuscular Volume 84.4 fL (80-100); Monocytes # (auto) 0.82 K/uL (0.11-0.59); Monocytes % (auto) 7.9 %; Neutrophils # (auto) 6.79 K/uL (1.4-6.5); Neutrophils % (auto) 64.9 %; Platelet Count 356 K/uL (130-400); RDW Coefficient of Variation 16.1 % (11.5-14.5); RDW Standard Deviation 48.6 fL (36.4-46.3); Red Blood Count 4.49 M/uL (4.7-6.1); White Blood Count 10.44 K/uL (4.8-10.8)
[2021-07-26 06:47] LABS: Calcium 8.5 mg/dl (8.5-10.1); Creatinine Clr Calc Pharmacy 121.2 ml/min; Est GFR (African American) 118.3 ml/min; Potassium 4.3 mmol/L (3.5-5.1)
[2021-07-26] MEDS: ALBUTEROL HFA 8 GM INHALER INH SCH (07:32)
[2021-07-26] MEDS: IPRATROPIUM BROMIDE HFA INHALER INH SCH (07:32)
[2021-07-26] MEDS: HYDROCORTISONE SOD 25 MG in SYRINGE 0 ML IV SCH (08:22)
[2021-07-26] MEDS: FAMOTIDINE 20 MG in SYRINGE 3 ML IV SCH (08:22)
[2021-07-26] MEDS: POTASSIUM CHLORIDE 10 MEQ TABCR PO SCH ×2 (08:23→21:42)
[2021-07-26] MEDS: CEROVITE ADV FORMULA TAB PO SCH (08:23)
[2021-07-26] MEDS: NYSTATIN SUSP 500,000 U/5 ML UDC PO SCH ×4 (08:23→21:41)
[2021-07-26] MEDS: DOCUSATE SODIUM 100 MG CAP PO SCH ×2 (08:23→21:41)
[2021-07-26] MEDS: ASPIRIN 81 MG ECTAB PO SCH (08:23)
[2021-07-26] MEDS: ASCORBIC ACID 500 MG TAB PO SCH ×2 (08:23→21:41)
[2021-07-26] MEDS: ZINC SULFATE 220 MG CAPSULE PO SCH (08:24)
[2021-07-26] MEDS: UMECLIDINIUM BROMIDE 62.5MCG/BLISTER 7 PUFFS/INHALER INH SCH (08:24)
[2021-07-26] MEDS: NICOTINE 14 MG/24 HR PATCH TD SCH (08:42)
[2021-07-26] MEDS: METOPROLOL SUCC 25MG EXT REL TAB PO SCH (08:42)
[2021-07-26] MEDS ORDERED: IPRATROPIUM BROMIDE HFA INHALER INH PRN (10:37)
--- NOTE | 2021-07-26 11:53 | Hospitalist Progress Note ---
Date of Service July 26, 2021 Assessment & Plan (1) Severe sepsis with septic shock: Plan: 2nd to enterobacter. Possibly exacerbated by being on both carvedilol and losartan (losartan was discontinued during last admission but continued on discharge although unclear if he takes any of his medications). source - left foot unstageable ulcer/cellulitis shock resolved. Did need ICU status early in course along w/ pressors & stress dose steroids. Wean hydrocortisone to 10mg IV BID today, stop tomorrow Appreciate ID consult. Antibiotics unlikely to be curative but will continue on meropenem during inpatient stay. Consult Dr Allen to re-evaluate for peripheral artery disease (previously seen by vascular with no intervention recommended) and consult orthopedics as likely only curative option of amputation. (2) Gram-negative bacteremia: Plan: 2nd to enterobacter - see above. source - likely the left foot unstageable ulcer Notable also had MSSA bacteremia in 01/2021 2nd to LE wounds (3) Acute on chronic systolic heart failure: Plan: EF 25-30% on prior echo. ischemic. Euvolemic on exam today Switched carvedilol for metoprolol succinate. (4) Rhabdomyolysis: Plan: mild resolved CPK now normal 2nd to falls at home (5) COPD (chronic obstructive pulmonary disease): Plan: severe with exacerbation cont IV hydrocortisone add Symbicort add Spiriva PRN Combivent nicoderm patch Currently on room air Wheezing resolved today on exam but gets worse whenever he gets agitated (6) Sacral decubitus ulcer, stage III: Plan: continue local wound care recommendations as advised by Jerica Luis (7) Foot ulcer, left: Plan: see local wound care recs by Jerica Luis from Wound care team suspect this is the source for #1, #2 added MVI, vit C, zinc (8) Elevated troponin: Plan: likely 2nd to myocardial demand ischemia in setting of #1 no symptoms of ischemia/ACS (9) Increased ammonia level: Plan: suspect 2nd to passive hepatic congestion recent u/s of liver showed normal echotexture/no cirrhotic features minimal elevation (38) (10) Severe protein-calorie malnutrition: Plan: nutrition consult supplements, MVI, etc (11) Peripheral arterial occlusive disease: Plan: CTA a/p w/ run-off earlier this year with severe PAD of both legs seen by Dr Simmons - deemed poor candidate for surgical endovascular intervention he has ongoing wounds of left foot that are not healing cont asa Consult interventional cardiology for 2nd opinion on PAD management (12) Cardiomyopathy: Plan: EF 25-30% on basis of ischemia/CAD prior [place] at [facility] years ago (13) CAD (coronary artery disease): Plan: cont asa not on statin - uncertain reason; no allergy documented to statins Tolerating resumption of low dose BB (14) Cognitive impairment: Plan: patient with baseline cognitive impairment and probably element of acute metabolic encephalopathy seen by psych - documented to have NO CAPACITY at this time patient cannot check himself out of hospital as he did in June social work heavily involved in his care has seen palliative care in the past (15) Encephalopathy acute: Plan: Resolved to baseline from last admission. However continues to lack insight limiting his ability to make medical decisions. can't exclude underlying cognitive impairment (16) Candidiasis of mouth and esophagus: Plan: appears resolved on exam continue nystatin 5cc qid for 7 days (17) Dysphagia: Plan: had alexandra aspiration of water during the visit speech consult - easy to chew, aspiration precautions, no straws Plan: VTE Prophylaxis - Lovenox 40mg SQ daily PT, OT Continues to endorse he would be able to care for himself at home despite evidence to contrary. He was discharged home with antibiotics on last admission and returned in septic shock just 5 days later. Found sleeping on floor. Already has court order for office of ageing to make discharge decision therefore cannot leave against medical advice on this occasion. Admission and Anticipated Discharge Date Admission Date: July 19, 2021 Subjective Patient just tells me not to talk about rehabilitation. When discussing ened for orthopedics and peripheral artery disease evaluation he does not answer me. Just tells me to get him home as soon as a possible. Review of Systems Review of Systems: All systems reviewed & are unremarkable except as noted in HPI & below Physical Exam Constitutional: + disheveled; + not well nourished and no acute distress Respiratory: normal respiratory effort and + prolonged expiratory phase Auscultation: + diminished lung sounds; no wheezes Cardiovascular: RRR, no murmur, no edema Gastrointestinal (Abdomen): Percussion/Palpation: abdomen soft; abdomen nontender Skin: Multiple ulceration at various stages of heeling most notably on buttocks and left foot (unstageable ulcer). Left lower extremity cellulitis improved. Psychiatric: Orientation: alert, oriented to person, oriented to place and oriented to time Affect: euthymic affect Insight: + impaired insight Results & Data Results & Data ([facility]) Vital Signs (Past 12 Hours) Vital Signs Temp Pulse Pulse Resp BP Pulse Ox 07/26/21 07:33 79 18 94 07/26/21 07:15 36.3 C L 74 16 108/65 90 PG Care Time/CCT Total # of Minutes Spent Total Time Spent with Patient: Total time spent is greater than 50% in coordination of care (as documented) at patient's floor/unit and/or counseling patient: Coding Level of Care Code 54797 Subseq Hosp Care Lvl 3 Diagnoses Severe sepsis with septic shock A41.9; R65.21 Gram-negative bacteremia R78.81 Acute on chronic systolic heart failure I50.23 Rhabdomyolysis M62.82 COPD (chronic obstructive pulmonary disease) J44.9 Sacral decubitus ulcer, stage III L89.153 Foot ulcer, left L97.529 Elevated troponin R77.8 Increased ammonia level R79.89 Severe protein-calorie malnutrition E43 Peripheral arterial occlusive disease I77.9 Cardiomyopathy I42.9 CAD (coronary artery disease) I25.10 Coronary Disease-Associated Artery/Lesion type: [place] artery [place] vs. transplanted heart: [place] heart Associated angina: without angina Cognitive impairment R41.89 Encephalopathy acute G93.40 Candidiasis of mouth and esophagus B37.81; B37.0 Dysphagia R13.10 (1) CAD (coronary artery disease) Coronary Disease-Associated Artery/Lesion type: [place] artery [place] vs. transplanted heart: [place] heart Associated angina: without angina Qualified Code(s): I25.10 - Atherosclerotic heart disease of [place] coronary artery without angina pectoris
--- NOTE | 2021-07-26 13:22 | Orthopedic Consultation ---
Date of Service July 26, 2021 Assessment & Plan (1) Foot ulcer, left: He was seen and examined by Dr. Marina today. His foot xrays were reviewed and show some osteopenia but no signs of osteomyelitis/bone involvement. At this point he did not recommend any orthopedic surgery including amputation. We would recommend continued wound care. In addition, the patient is not interested in any other intervention regarding his foot at this time. History of Present Illness Reason for Consultation: . left foot ulcer Requesting Physician: . Attending Physician: Abhijit Suazo MD .Jaskaran is a 66 year old patient that orthopedics was consulted for regarding a left foot ulcer. He apparently is mostly wheel chair bound. He had a recent hospitalization in June and left AMA, was found at home on his floor and brought back to the hospital. He was found to have wounds on the left foot. He was in the ICU and has been receiving IV antibiotics. Vascular service has been consulted as well. He has been receiving wound care. Allergies Allergy/AdvReac Type Severity Reaction Status Date / Time No Known Allergies Allergy Unverified 07/19/21 17:39 Home Medications Medication Instructions Recorded Confirmed Type aspirin 81 mg tablet,delayed 81 mg PO DAILY 01/18/21 07/19/21 History release carvedilol 3.125 mg tablet 3.125 mg PO BID #0 tab 02/04/21 07/19/21 Rx losartan 50 mg tablet 50 mg PO QAM #0 tab 02/04/21 07/19/21 Rx ciprofloxacin HCl 500 mg tablet 500 mg PO Q12H #14 tab 07/14/21 07/19/21 Rx (Cipro) doxycycline hyclate 100 mg capsule 100 mg PO BID #14 cap 07/14/21 07/19/21 Rx collagenase clostridium histo. 250 1 applic TOPICAL UD 07/19/21 07/19/21 History unit/gram topical ointment (Santyl) Past Med/Surg History Medical History Delirium Dyspnea Hx of myocardial infarction Hx of stroke without residual deficits No pertinent past medical history Palliative care encounter Palliative care encounter Peripheral arterial occlusive disease Sepsis Severe protein-calorie malnutrition Weakness Social History Smoking Status: Current every day smoker Cigarettes Per Day: 30; Second Hand Exposure: No; Do You Dip or Chew Tobacco: No; Tobacco Cessation Education Requested by Patient: No Hx Alcohol Use: No Hx Substance Use: No Preferred Language: Sinhala Communication Ability: Unable Beliefs That Will Affect Care: None marital status: Current Living Situation: Alone Current Living Situation Comment: unable to access How many Children do You have: 2 Other Information That Helps Us Care for You: No Feels Safe at Home: Yes Safety Concerns: Feels Safe At This Time Assistive Devices: Oxygen - Continuous Review of Systems All systems reviewed & are unremarkable except as noted in HPI & below. Physical Exam .He is alert, NAD. Left leg: he has a superficial wound on the posterior lateral aspect of his hindfoot. There is no active drainage/purulence at this time. Some of the callus around it was removed. This was painful for him. His sensation is intact. There is a blistered area more distally on the lateral foot. This area was not debrided. Some erythema of his lower leg but not really around his lateral foot. Results & Data Results & Data Laboratory Results . Diagnostic Findings . PG Care Time/CCT Total # of Minutes Spent Total Time Spent with Patient: Total time spent is greater than 50% in coordination of care (as documented) at patient's floor/unit and/or counseling patient: Coding Level of Care Code 96068 Inpt Consult Level 3 Diagnoses Foot ulcer, left L97.529
--- NOTE | 2021-07-26 14:41 | Vascular Medicine Consultation ---
Date of Consultation July 26, 2021 Assessment & Plan (1) Foot ulcer, left: 2. Sepsis 3. Peripheral arterial disease 4. CAD 5. Ischemic cardiomyopathy 6. Tobacco use, COPD 7. Malnutrition Patient being seen for evaluation of peripheral arterial disease in the setting of left lower extremity ulcers. He has chronic/recurrent left lower extremity ulcers since at least January 2021 complicated by infection and now septic shock. Situation is complicated by his poor compliance and difficulty caring for himself. Prior noninvasive vascular imaging reviewed. He does have evidence of significant, multilevel PAD. Plan to obtain toe pressures but agree he would be a poor candidate for endovascular intervention. Additionally, patient does not wish to undergo any invasive procedures. There is no evidence of bone involvement and ortho does not plan on any surgical intervention at this time. Recommend continued wound care. Thank you for allowing us to participate in the care of this patient. Supervising Physician Co-Signing Physician Notes Patient seen and examined. Agree with assessment and plan as outlined by JUDY Alston. Limited potential benefit from revascularization. Patient clear that he would not want additional procedures. Would only consider endovascular intervention in the setting of severely threatened limb. History of Present Illness Attending Physician: Abhijit Suazo MD History of Present Illness Mr. Hankins is a pleasant 66 year old man being seen for evaluation of PAD in the setting of a right foot ulcer. Medical history significant for coronary artery disease status post CABG, ischemic cardiomyopathy, COPD, mitral regurgitation, malnutrition. Patient was admitted to [facility] on 07/19/21 with sepsis, initially in the ICU requiring vasopressors, now on the floor. Sepsis felt to be secondary to left lower extremity ulcers, decubitus ulcer. On day of recent admission he was found at home with altered mental status. Blood cultures positive for Enterobacter, he is currently on IV meropenem per infectious disease. Xrays without osteomyelitis Of note he had been admitted in June with sepsis and signed out AMA, also question of compliance with home medications. Patient states his wounds have been present for months. He was admitted in January 2021 with left foot wounds. States that after discharge was caring for wounds on his own. He was evaluated by vascular surgery during that hospitalization and it was felt he was not a candidate for open surgery and a poor candidate for endovascular intervention. CTA of abdomen/pelvis with runoff at that time noted mild to moderate stenosis of the left ANIRUDH, occlusion of the mid to distal left SFA and tibial disease. Patient reports since the beginning of the pandemic has been mostly confined to his home. H lives alone with help from his daughter. He is largely nonambulatory and uses a wheelchair. He has lower extremity contractors and chronic knee pain making if difficult/painful for him to extend his knee. He has some pain associated with his multiple ulcers. He is very adamant that he does not wish to undergo any invasive procedures at this time. Social history: Lives alone, there has been question of his ability to care for himself and competency to make decisions. Heavy smoker. Allergies Allergy/AdvReac Type Severity Reaction Status Date / Time No Known Allergies Allergy Unverified 07/19/21 17:39 Home Medications Medication Instructions Recorded Confirmed Type aspirin 81 mg tablet,delayed 81 mg PO DAILY 01/18/21 07/19/21 History release carvedilol 3.125 mg tablet 3.125 mg PO BID #0 tab 02/04/21 07/19/21 Rx losartan 50 mg tablet 50 mg PO QAM #0 tab 02/04/21 07/19/21 Rx ciprofloxacin HCl 500 mg tablet 500 mg PO Q12H #14 tab 07/14/21 07/19/21 Rx (Cipro) doxycycline hyclate 100 mg capsule 100 mg PO BID #14 cap 07/14/21 07/19/21 Rx collagenase clostridium histo. 250 1 applic TOPICAL UD 07/19/21 07/19/21 History unit/gram topical ointment (Santyl) Patient History Medical History Delirium Dyspnea Hx of myocardial infarction Hx of stroke without residual deficits No pertinent past medical history Palliative care encounter Palliative care encounter Peripheral arterial occlusive disease Sepsis Severe protein-calorie malnutrition Weakness Social History Smoking Status: Current every day smoker Cigarettes Per Day: 30; Second Hand Exposure: No; Do You Dip or Chew Tobacco: No; Tobacco Cessation Education Requested by Patient: No Hx Alcohol Use: No Hx Substance Use: No Preferred Language: [place] Communication Ability: Unable Beliefs That Will Affect Care: None marital status: Current Living Situation: Alone Current Living Situation Comment: unable to access How many Children do You have: 2 Other Information That Helps Us Care for You: No Feels Safe at Home: Yes Safety Concerns: Feels Safe At This Time Assistive Devices: Oxygen - Continuous Physical Exam Physical Exam: General: No acute distress. Thin, appears poorly kept HEENT: Head is normal. Sclerae anicteric. Lungs: Clear to auscultation . Cardiac: Regular rate and rhythm. S1-S2 normal. No appreciable murmur, gallop or rub. Extremities/vascular: --Trace lower extremity edema bilaterally --Radial 2+ bilaterally --Right femoral 1+, left femoral diminished --Popliteal pulses nonpalpable --Dp/PT pulses diminished bilaterally --Multiple shallow ulcers, left lateral foot/heel with deeper wound with some callous removed by ortho at the time of my exam -no drainage and minimal surrounding erythema --Left lamb with mild generalized erythema --Left decubitus ulcer Neurologic: Nonfocal Psychiatric: Affect appropriate. Alert and oriented. Results & Data ([facility]) Vital Signs (Past 12 Hours) Vital Signs Temp Pulse Pulse Resp BP Pulse Ox 07/26/21 07:33 79 18 94 07/26/21 07:15 36.3 C L 74 16 108/65 90 PG Care Time/CCT Total # of Minutes Spent Total Time Spent with Patient: Total time spent is greater than 50% in coordination of care (as documented) at patient's floor/unit and/or counseling patient: Coding Level of Care Code 01186 Initial Inpt Care Lvl 3 Diagnoses Foot ulcer, left L97.529
--- NOTE | 2021-07-26 16:44 | Ultrasound Report ---
US ankle/brachial index comp CLINICAL HISTORY: PAD, please obtain toe pressures COMPARISON STUDY: None FINDINGS: Real-time as well as Doppler evaluation of the arterial structures of the lower legs was p erformed. Waveforms are triphasic throughout. Velocity characteristics are unremarkable. The following blood pressure indices were obtained. On the right, posterior tibial is 87 mmHg and do rsalis pedis is 59 mmHg. On the left, posterior tibial is 74mmHg and dorsalis pedis is 51 mmHg. Blood pressure within right big toe is measuring 42 mmHg. Blood pressure within left big toe is measuring 28 mmHg IMPRESSION: As above. ACT 112: Negative or not required by law. Electronically signed by: Cecilia Bejarano DO 07/26/2021 4:43 PM
[2021-07-26] MEDS: FLUTICASONE/VILANTEROL 200/25MCG 14 PUFFS/INHALER INH SCH (21:42)
[2021-07-26] MEDS: HYDROCORTISONE SOD IV SCH (21:44)
[2021-07-26] MEDS: ENOXAPARIN INJ 40 MG/0.4 ML SYR SQ SCH (22:48)
[2021-07-27] MEDS: MEROPENEM 500 MG in SYRINGE 0 ML IV SCH ×4 (03:41→22:08)
[2021-07-27] MEDS: NICOTINE 14 MG/24 HR PATCH TD SCH (08:26)
[2021-07-27] MEDS: HYDROCORTISONE SOD IV SCH (08:26)
[2021-07-27] MEDS: NYSTATIN SUSP 500,000 U/5 ML UDC PO SCH ×4 (08:26→22:09)
[2021-07-27] MEDS: CEROVITE ADV FORMULA TAB PO SCH (08:27)
[2021-07-27] MEDS: ZINC SULFATE 220 MG CAPSULE PO SCH (08:27)
[2021-07-27] MEDS: ASCORBIC ACID 500 MG TAB PO SCH ×2 (08:27→22:09)
[2021-07-27] MEDS: METOPROLOL SUCC 25MG EXT REL TAB PO SCH (08:27)
[2021-07-27] MEDS: FAMOTIDINE 20 MG TAB PO SCH (08:27)
[2021-07-27] MEDS: ASPIRIN 81 MG ECTAB PO SCH (08:27)
[2021-07-27] MEDS: UMECLIDINIUM BROMIDE 62.5MCG/BLISTER 7 PUFFS/INHALER INH SCH (08:28)
[2021-07-27] MEDS: DOCUSATE SODIUM 100 MG CAP PO SCH ×2 (08:28→22:05)
[2021-07-27] MEDS: POTASSIUM CHLORIDE 10 MEQ TABCR PO SCH ×2 (08:31→22:08)
--- NOTE | 2021-07-27 11:56 | Vascular Medicine ProgressNote ---
Date of Service July 27, 2021 Assessment & Plan (1) Foot ulcer, left: Plan: 2. Sepsis 3. Peripheral arterial disease 4. CAD 5. Ischemic cardiomyopathy 6. Tobacco use, COPD 7. Malnutrition TAMARA/TBI yesterdayright TAMARA 0.63/TBI 0.3 (42 mmHg), left TAMARA 0.54/TBI 0.2 (28 mmHg). Does have significant arterial insufficiency but he remains a poor candidate for endovascular invention and feel there is limited benefit from revascularization. Agree with continued wound care. Admission and Anticipated Discharge Date Admission Date: July 19, 2021 Subjective States did not sleep very well overnight. Reports breathing slightly more difficult today. No other new concerns. Physical Exam Physical Exam: General: No acute distress. Thin, sweaty, to switch appears poorly kept Extremities/vascular: Skin contact switch colonoscopy with [employer] some school --Trace lower extremity edema bilaterally --Dp/PT pulses diminished bilaterally Ulcers on left lateral foot dressed --Left lamb with mild generalized erythema Neurologic: Nonfocal Psychiatric: Affect appropriate. Alert and oriented. Results & Data ([facility]) Vital Signs (Past 12 Hours) Vital Signs Temp Pulse Resp BP Pulse Ox 07/27/21 07:06 97.3 F L 68 16 138/88 90 PG Care Time/CCT Total # of Minutes Spent Total Time Spent with Patient: Total time spent is greater than 50% in coordination of care (as documented) at patient's floor/unit and/or counseling patient: Coding Level of Care Code 40740 Subseq Hosp Care Lvl 3 Diagnoses Foot ulcer, left L97.529
--- NOTE | 2021-07-27 14:32 | Hospitalist Progress Note ---
Date of Service July 27, 2021 Assessment & Plan (1) Severe sepsis with septic shock: Plan: 2nd to enterobacter. Possibly exacerbated by being on both carvedilol and losartan (losartan was discontinued during last admission but continued on discharge although unclear if he takes any of his medications). source - left foot unstageable ulcer/cellulitis shock resolved. Did need ICU status early in course along w/ pressors & stress dose steroids. Stop hydrocortisone Appreciate ID consult. Antibiotics unlikely to be curative but will continue on meropenem during inpatient stay, switch to Levaquin and metronidazole on discharge for total 14 day course Appreciate invasive cardiology assessment of peripheral artery disease. No further studies planned. Appreciate orthopedic review - amputation not recommended (2) Gram-negative bacteremia: Plan: 2nd to enterobacter - see above. source - likely the left foot unstageable ulcer Notable also had MSSA bacteremia in 01/2021 2nd to LE wounds (3) Acute on chronic systolic heart failure: Plan: EF 25-30% on prior echo. ischemic. Euvolemic on exam today Switched carvedilol for metoprolol succinate. (4) Rhabdomyolysis: Plan: mild resolved CPK now normal 2nd to falls at home (5) COPD (chronic obstructive pulmonary disease): Plan: severe with exacerbation add Symbicort add Spiriva PRN Combivent nicoderm patch Currently on room air Wheezing resolved today on exam but gets worse whenever he gets agitated (6) Sacral decubitus ulcer, stage III: Plan: continue local wound care recommendations as advised by Jerica Luis (7) Foot ulcer, left: Plan: see local wound care recs by Jerica Luis from Wound care team suspect this is the source for #1, #2 added MVI, vit C, zinc (8) Elevated troponin: Plan: likely 2nd to myocardial demand ischemia in setting of #1 no symptoms of ischemia/ACS (9) Increased ammonia level: Plan: suspect 2nd to passive hepatic congestion recent u/s of liver showed normal echotexture/no cirrhotic features minimal elevation (38) (10) Severe protein-calorie malnutrition: Plan: nutrition consult supplements, MVI, etc (11) Peripheral arterial occlusive disease: Plan: CTA a/p w/ run-off earlier this year with severe PAD of both legs seen by Dr Simmons - deemed poor candidate for surgical endovascular intervention he has ongoing wounds of left foot that are not healing cont asa Consult interventional cardiology for 2nd opinion on PAD management (12) Cardiomyopathy: Plan: EF 25-30% on basis of ischemia/CAD prior NV at [facility] years ago (13) CAD (coronary artery disease): Plan: cont asa not on statin - uncertain reason; no allergy documented to statins Tolerating resumption of low dose BB (14) Cognitive impairment: Plan: patient with baseline cognitive impairment and probably element of acute metabolic encephalopathy seen by psych - documented to have NO CAPACITY at this time patient cannot check himself out of hospital as he did in June social work heavily involved in his care has seen palliative care in the past (15) Encephalopathy acute: Plan: Resolved to baseline from last admission. However continues to lack insight limiting his ability to make medical decisions. can't exclude underlying cognitive impairment (16) Candidiasis of mouth and esophagus: Plan: appears resolved on exam continue nystatin 5cc qid for 7 days (17) Dysphagia: Plan: had alexandra aspiration of water during the visit speech consult - easy to chew, aspiration precautions, no straws Plan: VTE Prophylaxis - Lovenox 40mg SQ daily PT, OT Mediclly stable for discharge but has court order in place that office of aging to make discharge plans for patient. Case management informed. Admission and Anticipated Discharge Date Admission Date: July 19, 2021 Subjective Worse sleep overnight but generally at baseline today. Eating and drinking well. Does not wish to talk about rehabilitation and gets frustrated if I bring this up. Review of Systems Review of Systems: All systems reviewed & are unremarkable except as noted in HPI & below Physical Exam Constitutional: + disheveled; + not well nourished and no acute distress Respiratory: normal respiratory effort and + prolonged expiratory phase Auscultation: + diminished lung sounds; no wheezes Cardiovascular: RRR, no murmur, no edema Gastrointestinal (Abdomen): Percussion/Palpation: abdomen soft; abdomen nontender Psychiatric: Orientation: alert, oriented to person, oriented to place and o riented to time Affect: euthymic affect Insight: + impaired insight Results & Data Results & Data ([facility]) Vital Signs (Past 12 Hours) Vital Signs Temp Pulse Resp BP Pulse Ox 07/27/21 07:06 36.3 C L 68 16 138/88 90 PG Care Time/CCT Total # of Minutes Spent Total Time Spent with Patient: Total time spent is greater than 50% in c oordination of care (as documented) at patient's floor/unit and/or counseling patient: Coding Level of Care Code 32901 Subseq Hosp Care Lvl 2 Diagnoses Severe sepsis with septic shock A41.9; R65.21 Gram-negative bacteremia R78.81 Acute on chronic systolic heart failure I50.23 Rhabdomyolysis M62.82 COPD (chronic obstructive pulmonary disease) J44.9 Sacral decubitus ulcer, stage III L89.153 Foot ulcer, left L97.529 Elevated troponin R77.8 Increased ammonia level R79.89 Severe protein-calorie malnutrition E43 Peripheral arterial occlusive disease I77.9 Cardiomyopathy I42.9 CAD (coronary artery disease) I25.10 Associated angina: without angina Coronary Disease-Associated Artery/Lesion type: ute artery [place] vs. transplanted heart: ute heart Cognitive impairment R41.89 Encephalopathy acute G93.40 Candidiasis of mouth and esophagus B37.81; B37.0 Dysphagia R13.10 (1) CAD (coronary artery disease) Associated angina: without angina Coronary Disease-Associated Artery/Lesion type: ute artery [place] vs. transplanted heart: ute heart Qualified Code(s): I25.10 - Atherosclerotic heart disease of ute coronary artery without angina pectoris
[2021-07-27] MEDS: ENOXAPARIN INJ 40 MG/0.4 ML SYR SQ SCH (22:09)
[2021-07-27] MEDS: FLUTICASONE/VILANTEROL 200/25MCG 14 PUFFS/INHALER INH SCH (22:09)
[2021-07-27] MEDS: ALBUTEROL HFA 8 GM INHALER INH PRN (23:55)
[2021-07-28] MEDS: MEROPENEM 500 MG in SYRINGE 0 ML IV SCH ×4 (02:59→20:12)
[2021-07-28] MEDS: NICOTINE 14 MG/24 HR PATCH TD SCH (07:24)
[2021-07-28] MEDS: ZINC SULFATE 220 MG CAPSULE PO SCH (07:25)
[2021-07-28] MEDS: ASPIRIN 81 MG ECTAB PO SCH (07:25)
[2021-07-28] MEDS: FAMOTIDINE 20 MG TAB PO SCH (07:25)
[2021-07-28] MEDS: METOPROLOL SUCC 25MG EXT REL TAB PO SCH (07:25)
[2021-07-28] MEDS: NYSTATIN SUSP 500,000 U/5 ML UDC PO SCH ×4 (07:25→20:12)
[2021-07-28] MEDS: ASCORBIC ACID 500 MG TAB PO SCH ×2 (07:25→20:11)
[2021-07-28] MEDS: CEROVITE ADV FORMULA TAB PO SCH (07:25)
[2021-07-28] MEDS: DOCUSATE SODIUM 100 MG CAP PO SCH ×2 (07:26→20:11)
[2021-07-28] MEDS: UMECLIDINIUM BROMIDE 62.5MCG/BLISTER 7 PUFFS/INHALER INH SCH (07:26)
[2021-07-28] MEDS: POTASSIUM CHLORIDE 10 MEQ TABCR PO SCH ×2 (07:27→20:12)
[2021-07-28] MEDS: ALBUTEROL HFA 8 GM INHALER INH PRN ×2 (08:02→13:23)
[2021-07-28] MEDS: FLUTICASONE/VILANTEROL 200/25MCG 14 PUFFS/INHALER INH SCH (20:13)
[2021-07-28] MEDS: ENOXAPARIN INJ 40 MG/0.4 ML SYR SQ SCH (22:23)
--- NOTE | 2021-07-28 23:52 | Hospitalist Progress Note ---
Date of Service July 28, 2021 Assessment & Plan (1) Severe sepsis with septic shock: Plan: 2nd to enterobacter. Possibly exacerbated by being on both carvedilol and losartan (losartan was discontinued during last admission but continued on discharge although unclear if he takes any of his medications). source - left foot unstageable ulcer/cellulitis shock resolved. Did need ICU status early in course along w/ pressors & stress dose steroids. Hydrocortisone stopped Appreciate ID consult. Antibiotics unlikely to be curative but will continue on meropenem during inpatient stay, switch to Levaquin and metronidazole on discharge for total 14 day course Appreciate invasive cardiology assessment of peripheral artery disease. No further studies planned. Appreciate orthopedic review - amputation not recommended (2) Gram-negative bacteremia: Plan: 2nd to enterobacter - see above. source - likely the left foot unstageable ulcer Notable also had MSSA bacteremia in 01/2021 2nd to LE wounds (3) Acute on chronic systolic heart failure: Plan: EF 25-30% on prior echo. ischemic. Euvolemic on exam today Switched carvedilol for metoprolol succinate. (4) Rhabdomyolysis: Plan: mild resolved CPK now normal 2nd to falls at home (5) COPD (chronic obstructive pulmonary disease): Plan: severe with exacerbation add Symbicort add Spiriva PRN Combivent nicoderm patch Currently on room air Wheezing resolved but gets worse whenever he gets agitated (6) Sacral decubitus ulcer, stage III: Plan: continue local wound care recommendations as advised by Jerica Luis (7) Foot ulcer, left: Plan: see local wound care recs by Jerica Luis from Wound care team suspect this is the source for #1, #2 added MVI, vit C, zinc (8) Elevated troponin: Plan: likely 2nd to myocardial demand ischemia in setting of #1 no symptoms of ischemia/ACS (9) Increased ammonia level: Plan: suspect 2nd to passive hepatic congestion recent u/s of liver showed normal echotexture/no cirrhotic features minimal elevation (38) (10) Severe protein-calorie malnutrition: Plan: nutrition consult supplements, MVI, etc (11) Peripheral arterial occlusive disease: Plan: CTA a/p w/ run-off earlier this year with severe PAD of both legs seen by Dr Simmons - deemed poor candidate for surgical endovascular intervention he has ongoing wounds of left foot that are not healing cont asa Consult interventional cardiology for 2nd opinion on PAD management (12) Cardiomyopathy: Plan: EF 25-30% on basis of ischemia/CAD prior [facility] at [facility] years ago (13) CAD (coronary artery disease): Plan: cont asa not on statin - uncertain reason; no allergy documented to statins Tolerating resumption of low dose BB (14) Cognitive impairment: Plan: patient with baseline cognitive impairment and probably element of acute metabolic encephalopathy seen by psych - documented to have NO CAPACITY at this time patient cannot check himself out of hospital as he did in June social work heavily involved in his care has seen palliative care in the past (15) Encephalopathy acute: Plan: Resolved to baseline from last admission. However continues to lack insight limiting his ability to make medical decisions. can't exclude underlying cognitive impairment (16) Candidiasis of mouth and esophagus: Plan: appears resolved on exam continue nystatin 5cc qid for 7 days (17) Dysphagia: Plan: had alexandra aspiration of water during the visit speech consult - easy to chew, aspiration precautions, no straws Plan: VTE Prophylaxis - Lovenox 40mg SQ daily PT, OT Medically stable for discharge but has court order in place that office of aging to make discharge plans for patient. Case management informed. Admission and Anticipated Discharge Date Admission Date: July 19, 2021 Subjective No acute events overnight. Breathing at baseline. Continues to decline rehab but discussed court order from office of aging means I cannot discharge him unsafely back home therefore he will have to get there back through [place]. He reports all equipment has now been delivered to his house. Review of Systems Review of Systems: All systems reviewed & are unremarkable except as noted in HPI & below Physical Exam Constitutional: + disheveled; + not well nourished and no acute distress Respiratory: normal respiratory effort (distressed when he gets himself worked up), + prolonged expiratory phase and + pursed lip breathing Auscultation: + diminished lung sounds; no wheezes Cardiovascular: RRR, no murmur, no edema Gastrointestinal (Abdomen): Percussion/Palpation: abdomen soft; abdomen nontender Skin: Improved erythema of LLE Psychiatric: Orientation: alert, oriented to person, oriented to place and oriented to time Affect: euthymic affect Insight: + impaired insight Results & Data Results & Data ([facility]) Vital Signs (Past 12 Hours) Vital Signs Temp Pulse Resp BP BP Pulse Ox 07/28/21 22:55 36.5 C 74 20 138/85 95 07/28/21 15:34 36.3 C L 77 20 114/75 92 07/28/21 13:24 83 20 97 PG Care Time/CCT Total # of Minutes Spent Total Time Spent with Patient: Total time spent is greater than 50% in coordination of care (as documented) at patient's floor/unit and/or counseling patient: Coding Level of Care Code 97961 Subseq Hosp Care Lvl 1 Diagnoses Severe sepsis with septic shock A41.9; R65.21 Gram-negative bacteremia R78.81 Acute on chronic systolic heart failure I50.23 Rhabdomyolysis M62.82 COPD (chronic obstructive pulmonary disease) J44.9 Sacral decubitus ulcer, stage III L89.153 Foot ulcer, left L97.529 Elevated troponin R77.8 Increased ammonia level R79.89 Severe protein-calorie malnutrition E43 Peripheral arterial occlusive disease I77.9 Cardiomyopathy I42.9 CAD (coronary artery disease) I25.10 Associated angina: without angina Coronary Disease-Associated Artery/Lesion type: platinum artery [place] vs. transplanted heart: platinum heart Cognitive impairment R41.89 Encephalopathy acute G93.40 Candidiasis of mouth and esophagus B37.81; B37.0 Dysphagia R13.10 (1) CAD (coronary artery disease) Associated angina: without angina Coronary Disease-Associated Artery/Lesion type: platinum artery [place] vs. transplanted heart: platinum heart Qualified Code(s): I25.10 - Atherosclerotic heart disease of platinum coronary artery without angina pectoris
[2021-07-29] MEDS: MEROPENEM 500 MG in SYRINGE 0 ML IV SCH ×3 (02:39→15:54)
[2021-07-29 07:04] LABS: Creatinine Clr Calc Pharmacy 118.8 ml/min; Est GFR (African American) 117.5 ml/min; Est GFR (Non-African American) 101.4 ml/min
[2021-07-29] MEDS ORDERED: METOPROLOL SUCC 25MG EXT REL TAB PO SCH (09:00)
[2021-07-29] MEDS: ALBUTEROL HFA 8 GM INHALER INH PRN (09:03)
[2021-07-29] MEDS: DOCUSATE SODIUM 100 MG CAP PO SCH (11:01)
[2021-07-29] MEDS: ASCORBIC ACID 500 MG TAB PO SCH (11:01)
[2021-07-29] MEDS: ASPIRIN 81 MG ECTAB PO SCH (11:01)
[2021-07-29] MEDS: FAMOTIDINE 20 MG TAB PO SCH (11:01)
[2021-07-29] MEDS: ZINC SULFATE 220 MG CAPSULE PO SCH (11:02)
[2021-07-29] MEDS: CEROVITE ADV FORMULA TAB PO SCH (11:02)
[2021-07-29] MEDS: UMECLIDINIUM BROMIDE 62.5MCG/BLISTER 7 PUFFS/INHALER INH SCH (11:02)
[2021-07-29] MEDS: POTASSIUM CHLORIDE 10 MEQ TABCR PO SCH (11:02)
[2021-07-29] MEDS: NYSTATIN SUSP 500,000 U/5 ML UDC PO SCH ×2 (11:02→13:42)
[2021-07-29] MEDS: NICOTINE 14 MG/24 HR PATCH TD SCH ×2 (11:02→13:46)
--- NOTE | 2021-07-29 13:47 | Discharge Summary ---
Date of Service July 29, 2021 Admission HPI Per Admitting Provider 66 YOM with history of: delirium/encephalopathy, dyspnea, cardiomyopathy with HFrEF (Ef 25-30%), PAD, CVA, wheel chair bound, poor nutrition, and poor self care. Patient was recenlty admitted on for similar presentation and was started on antibiotic therapy, while continuing wound care and tailoring of antibiotics he got up and left AMA via wheel chair van. He returned home and was again reportedly found down on the floor by his daughter. He was noted to be hypotensive in the EMD, more so than his baseline and was started on Levophed drip to maintain adequate MAPS. He was given 2L crystalloid and still is requiring Levophed. THe patient has a new eschar area on his left foot and continue cellulitis of his lower extremities and dressings adhered to his wounds. The patient has a pressure ulceration to his left temporal area and left shoulder as well. He is again noted to have elevated CPK and Lactate levels. He was given a court order for remaining in the hospital and inabiltiy to return to his home. This has been scanned into the EMR as well. As the patient is currently on Levophed will admit to the ICU for continued resuscitation as guided by urine output and organ perfusion/MAPS and weaning off vasoactive medications as above. Will place on Cefepime and Vancomycin for his wounds. The patient does not want to provide any further information as he states "doesn't want to talk about it anymore and is not telling this story again". He is cooperative, but remains flat affect with eyes closed and only answering yes or no. He was evaluated by psych on previous admission for capacity and was deemd to have decision making capacity, due to lack of self protection and self care providing, as above he was accompanied by a court order for hospitalization. He is wheel chair bound at home. Will likely need to optimize nutrition, rotate and offload pressure areas q2 hours, continue to try and maintain moisture and sheer control. Discharge Data Allergies Allergy/AdvReac Type Severity Reaction Status Date / Time No Known Allergies Allergy Unverified 07/19/21 17:39 Consultations 07/19/21 19:08 ED Decision to Admit Stat 07/19/21 21:06 Consult Excavator Operator Routine 07/25/21 07:31 Consult Infectious Diseases Routine 07/26/21 11:49 Consult Cardiology Routine 07/26/21 11:50 Consult Orthopedic Surgery Routine Ordered Studies 07/19/21 17:02 CT head/brain wo con Stat 07/26/21 14:41 US ankle/brachial index comp Routine Hospital Course (1) Severe sepsis with septic shock: 2nd to enterobacter. Possibly exacerbated by being on both carvedilol and losartan (losartan was discontinued during last admission but continued on discharge although unclear if he takes any of his medications). source - left foot unstageable ulcer/cellulitis shock resolved. Did need ICU status early in course along w/ pressors & stress dose steroids. Hydrocortisone stopped Appreciate ID consult. Antibiotics unlikely to be curative but will continue on meropenem during inpatient stay, switch to Levaquin and metronidazole on discharge for total 14 day course Appreciate invasive cardiology assessment of peripheral artery disease. No further studies planned. Appreciate orthopedic review - amputation not recommended (2) Gram-negative bacteremia: 2nd to enterobacter - see above. source - likely the left foot unstageable ulcer Notable also had MSSA bacteremia in 01/2021 2nd to LE wounds (3) Acute on chronic systolic heart failure: EF 25-30% on prior echo. ischemic. Euvolemic on exam today Switched carvedilol for metoprolol succinate. (4) Rhabdomyolysis: mild resolved CPK now normal 2nd to falls at home (5) COPD (chronic obstructive pulmonary disease): severe with exacerbation add Symbicort add Spiriva PRN Combivent nicoderm patch Currently on room air Wheezing resolved but gets worse whenever he gets agitated (6) Sacral decubitus ulcer, stage III: continue local wound care recommendations as advised by Jerica Luis (7) Foot ulcer, left: see local wound care recs by Jerica Luis from Wound care team suspect this is the source for #1, #2 added MVI, vit C, zinc (8) Elevated troponin: likely 2nd to myocardial demand ischemia in setting of #1 no symptoms of ischemia/ACS (9) Increased ammonia level: suspect 2nd to passive hepatic congestion recent u/s of liver showed normal echotexture/no cirrhotic features minimal elevation (38) (10) Severe protein-calorie malnutrition: nutrition consult supplements, MVI, etc (11) Peripheral arterial occlusive disease: CTA a/p w/ run-off earlier this year with severe PAD of both legs seen by Dr Simmons - deemed poor candidate for surgical endovascular intervention he has ongoing wounds of left foot that are not healing cont asa Consult interventional cardiology for 2nd opinion on PAD management (12) Cardiomyopathy: EF 25-30% on basis of ischemia/CAD [facility] (13) CAD (coronary artery disease): cont asa not on statin - uncertain reason; no allergy documented to statins Tolerating resumption of low dose BB (14) Cognitive impairment: patient with baseline cognitive impairment and probably element of acute metabolic encephalopathy seen by psych - documented to have NO CAPACITY at this time patient cannot check himself out of hospital as he did in June social work heavily involved in his care has seen palliative care in the past (15) Encephalopathy acute: Resolved to baseline from last admission. However continues to lack insight limiting his ability to make medical decisions. can't exclude underlying cognitive impairment (16) Candidiasis of mouth and esophagus: appears resolved on exam continue nystatin 5cc qid for 7 days (17) Dysphagia: had alexandra aspiration of water during the visit speech consult - easy to chew, aspiration precautions, no straws VTE Prophylaxis - Lovenox 40mg SQ daily PT, OT Medically stable for discharge but has court order in place that office of aging to make discharge plans for patient. Case management informed. Discharge Plan Discharge Items Patient Disposition: Transfer Longterm Fac Reason For Visit: SEPSIS, HYPOVOLEMIA, CHF Discharge Diagnosis: Septic shock Sacral ulcer Left lower extremity cellulitis and ulcers Goals: Increased rehabilitation enough to return home Activity: Resume your previous activity Non-emergency contact: Primary Care Provider Call non-emergency contact if: you have any medication questions and your symptoms worsen Follow-up/Referrals: PCP,NO [Primary Care Provider] - Diet: Low Sodium (2gm) Diet Texture: Easy to Chew Addtl Attending Provider Instructions: You were admitted to [facility] from July 19-2020 after being found on the ground by your daughter. You had a low blood pressure in the emergency room and you were diagnosed with septic shock requiring the intensive care unit. You were treated with broad spectrum antibiotics and switched to meropenem on advice of infectious disease. You will be switched to Levaquin and metronidazole on discharge for total 14 day course. Blood cultures grew Enterobacter cloacae. Suspect this originated either from left lower ext remity cellulitis or foot ulcer. You were reviewed by vascular medicine and although you have significant arterial insufficiency, you remain a poor candidate for endovascular invention and feel there is limited benefit from revascularization at this time. Recommend starting on dual antiplatelet therapy for this though with aspirin and clopidogrel. You were also reviewed by orthopedics who did not recommend surgical intervention regarding your ulcer at this time. Please follow wound care dressing as under wound care discharge instructions. Recommend continuing gordon catheter until sacral ulcers are mostly healed (this was placed on admission). You have been started on medication for your chronic conditions of congestive heart failure with metoprolol and COPD with Breo and Incruse Ellipta inhalers. Use Combivent as needed for additional shortness of breath. There is a court order in place with office of aging preventing unsafe discharge home at this time and you will be transported to [place] for ongoing rehabilitation. Pending Studies at Discharge: No Stand-Alone Forms: My [facility] Skilled Items Patient informed of condition?: Yes DNR: No Discharge Level of Care: Skilled Communicable Disease: No Discharge Prognosis: Stable Lines: None Urinary Catheter: Yes (placed this admission to enable sacral ulcer healing) Medications and DC Order Prescriptions: New metoprolol succinate 25 mg Tablet Extended Release 24 Hr 25 mg PO QAM Qty: 30 RF: 0 potassium chloride [Klor-Con M10] 10 mEq Tablet,Er Particles/Crystals 10 meq PO BID Qty: 60 RF: 0 zinc sulfate [Orazinc] 50 mg zinc (220 mg) Capsule 220 mg PO QAM Qty: 30 RF: 0 Incruse Ellipta 62.5 mcg/actuation Blister With Device 1 inh inhalation QAM Qty: 30 RF: 0 nystatin 100,000 unit/mL Suspension 5 ml PO QID 2 Days Qty: 40 RF: 0 nicotine 7 mg/24 hr Patch 24 Hour 14 mg transdermal QAM Qty: 14 RF: 0 docusate sodium 100 mg Capsule 100 mg PO BID PRN (Reason: Constipation) Qty: 60 RF: 0 Breo Ellipta 200-25 mcg/dose Blister With Device 1 ea inhalation DAILY@HS Qty: 60 RF: 0 ascorbic acid (vitamin C) [Vitamin C] 500 mg Tablet 500 mg PO BID Qty: 60 RF: 0 Certavite-Antioxidant 18-400 mg-mcg Tablet 1 tab PO QAM Qty: 30 RF: 0 levofloxacin 500 mg tablet 500 mg PO DAILY 5 Days Qty: 5 RF: 0 metronidazole 500 mg tablet 500 mg PO TID 5 Days Qty: 15 RF: 0 clopidogrel 75 mg tablet 75 mg PO DAILY Qty: 30 RF: 0 Combivent Respimat 20-100 mcg/actuation mist 1 puff inhalation Q4H PRN (Reason: shortness of breath or wheezing) Qty: 4 RF: 0 Continued aspirin 81 mg Tablet,Delayed Release (Dr/Ec) 81 mg PO DAILY RF: 0 Santyl 250 unit/gram ointment 1 applic TOPICAL UD RF: 0 Discontinued losartan 50 mg Tablet 50 mg PO QAM Qty: 0 RF: 0 carvedilol 3.125 mg Tablet 3.125 mg PO BID Qty: 0 RF: 0 doxycycline hyclate 100 mg Capsule 100 mg PO BID Qty: 14 RF: 0 ciprofloxacin HCl [Cipro] 500 mg tablet 500 mg PO Q12H Qty: 14 RF: 0 Discharge Orders: Discharge Order (Routine); Ordered 07/29/21 Ordered By: Abhijit Suazo Admission Data Admit Date/Time: 07/19/21 19:49 Attending Provider: Abhijit Suazo Admit Provider: Mercedes Marina Primary Care Provider: PCP,NO Other Providers: Mercedes Marina ; Jeff Wagner ; Pravin Berger ; Jr Ricketts ; Roshan Marina I. ; Dario Escobar II ; Charisse Fox ; David Castellano ; Crow Allen ; Jeff Hernandez ; [facility] ; [facility], ; [facility] Coding Diagnoses Severe sepsis with septic shock A41.9; R65.21 Gram-negative bacteremia R78.81 Acute on chronic systolic heart failure I50.23 Rhabdomyolysis M62.82 COPD (chronic obstructive pulmonary disease) J44.9 Sacral decubitus ulcer, stage III L89.153 Foot ulcer, left L97.529 Elevated troponin R77.8 Increased ammonia level R79.89 Severe protein-calorie malnutrition E43 Peripheral arterial occlusive disease I77.9 Cardiomyopathy I42.9 CAD (coronary artery disease) I25.10 Coronary Disease-Associated Artery/Lesion type: [place] artery [place] vs. transplanted heart: [place] heart Associated angina: without angina Cognitive impairment R41.89 Encephalopathy acute G93.40 Candidiasis of mouth and esophagus B37.81; B37.0 Dysphagia R13.10
[2021-07-29 15:41] VITALS: TEMP 97.7; O2SAT 91
[2021-07-29 15:45] VITALS: BP 127/82; PULSE 79
== END 2021-07-29 17:20 | DRG 871 ==
LOC: ED 16:26 → 1E 19:49 → SUATTDRO 19:49 → 1E 20:20 → 2S 07-22 18:34 → 3N 07-25 11:03
DX: Z74.01 Bed confinement status; S81.802A Unspecified open wound, left lower leg, initial encounter; M62.82 Rhabdomyolysis; Z20.822 Contact with and (suspected) exposure to COVID-19; G93.41 Metabolic encephalopathy; E86.0 Dehydration; W19.XXXA Unspecified fall, initial encounter; B37.81 Candidal esophagitis; E43 Unspecified severe protein-calorie malnutrition; T44.7X5A Adverse effect of beta-adrenoreceptor antagonists, initial encounter; R13.10 Dysphagia, unspecified; L97.529 Non-pressure chronic ulcer of other part of left foot with unspecified severity; X58.XXXA Exposure to other specified factors, initial encounter; Z95.1 Presence of aortocoronary bypass graft; I50.23 Acute on chronic systolic (congestive) heart failure; Z99.3 Dependence on wheelchair; L89.819 Pressure ulcer of head, unspecified stage; I34.0 Nonrheumatic mitral (valve) insufficiency; Z91.14 Patient's other noncompliance with medication regimen; Z79.899 Other long term (current) drug therapy; Z91.89 Other specified personal risk factors, not elsewhere classified; Z68.30 Body mass index [BMI] 30.0-30.9, adult; T46.5X5A Adverse effect of other antihypertensive drugs, initial encounter; M25.562 Pain in left knee; F44.4 Conversion disorder with motor symptom or deficit; M85.872 Other specified disorders of bone density and structure, left ankle and foot; L89.120 Pressure ulcer of left upper back, unstageable; I95.2 Hypotension due to drugs; K76.1 Chronic passive congestion of liver; L89.153 Pressure ulcer of sacral region, stage 3; L89.322 Pressure ulcer of left buttock, stage 2; L89.620 Pressure ulcer of left heel, unstageable; I25.5 Ischemic cardiomyopathy; R41.89 Other symptoms and signs involving cognitive functions and awareness; Z79.82 Long term (current) use of aspirin; L03.116 Cellulitis of left lower limb; E72.20 Disorder of urea cycle metabolism, unspecified; R53.1 Weakness; I73.9 Peripheral vascular disease, unspecified; I25.2 Old myocardial infarction; F17.210 Nicotine dependence, cigarettes, uncomplicated; E86.1 Hypovolemia; I25.10 Atherosclerotic heart disease of native coronary artery without angina pectoris; B37.0 Candidal stomatitis; R65.21 Severe sepsis with septic shock; A41.89 Other specified sepsis; Z86.73 Personal history of transient ischemic attack (TIA), and cerebral infarction without residual deficits; G89.29 Other chronic pain; Z91.19 Patient's noncompliance with other medical treatment and regimen; I21.A1 Myocardial infarction type 2; J44.1 Chronic obstructive pulmonary disease with (acute) exacerbation